=== PATIENT | male | born 1950 | race Caucasian/White ===

== ENCOUNTER → 2016-06-17 | Outpatient (REF) | payer OTHER ==
[~2016-06-17] MED LIST: /OMEP10CA; ACET-654 PO; ACET50TAOT PO; ALBU17IN INH; ALEV220T26 PO; AMLO10TA2 PO; ASPI1TAB PO; ASPI325T PO; ASPI81TA90 PO; ASPI81TAEC PO; AUGM875T27 PO; BABY81CH; BAYE325T12 PO; BUSP15TA; BUSP15TA47 PO; BYDU1INJ SC; CELE100C; COLA100C PO; DOCU100C PO; EUCECRE3 TOP; FAMO1TAB25 PO; FENO160T10 PO; FERR325T PO; FISH1000 PO; FISH100049 PO; FISHCAP; FLEXERIL; FLOM5CAP PO; FOSI20TA2 PO; FOSI40TA PO; FURO20TA2 PO; GABA300T; GLIM2TA PO; GLIM4TAB PO; GLUC4CHW PO; GLYB2.5T PO; GLYBURIDE/METFORMIN; HEPA100PFS INJ; IMOD2TAB14 PO; INSUH10VL SC; INSULANT; INSULANT SC; IRON65TA PO; ISOS30TA4 PO; LIPI20TA; LOVA40TA; LOVA40TA PO; LYRI75CA PO; MAG400TA PO; MAGN400T5 PO; METF-414 PO; METF1000 PO; METO25TA2; METO25TA2 PO; MICR10CA PO; MULTTAB4 PO; NAFC2VLAD IM; NAFC2VLAD IV; NITR4TASL SL; NORV5TAB PO; NOVOLOG100 MG/ML; OMEP20CA3 PO; OXYC1TAB23 PO; PARO20TA2 PO; PAXI20TA; PAXI20TA3 PO; PEG1POW PO; PERC5TAB6 PO; PERCOCET PO; PLAV75TA PO; POTA10CA PO; POTA20TA PO; RIFA150C PO; RIFA30CA PO; ROCE1INJ4 IV; ROSI4TA; SALI0.9I2 IV; SODI1TA PO; THERGRAN; TOPR25TA PO; TYLE325T5 PO; VITA100L PO; VITMTA PO; XARE10TA PO; [UNRECOGNIZED DRUG - CODE]; [UNRECOGNIZED DRUG - OTHER]; flomax OR; lantus insulin SC; novolog insulin SC; tylenol arthritis OR
== END ==
LOC: EEVIPCON 09:09 → M LAB REF 09:09
PROVIDERS: ATTEND Physician Assistant
DX: L03.114 Cellulitis of left upper limb (principal)

== ENCOUNTER → 2016-07-04 | Outpatient (REF) | payer OTHER ==
[~2016-07-04] MED LIST changes: -IMOD2TAB14 PO; +IMOD2TAB16 PO; -PLAV75TA PO; +PLAV75TA38 PO
[2016-07-04 19:03] LABS: PERCENT SATURATION 12.7 % (19.7-37.4)
== END ==
LOC: M LAB REF 16:50
PROVIDERS: ATTEND Internal Medicine Nephrology
DX: D50.9 Iron deficiency anemia, unspecified (principal); D63.1 Anemia in chronic kidney disease

== ENCOUNTER 2016-07-16 08:16 | Outpatient (CLI) | payer OTHER ==
[~2016-07-16] VITALS: Ht 162.6 cm; Wt 84.5 kg
[2016-07-16] MEDS ORDERED: IRON SUCROSE 25 MG in NS 50 ML IV ONE (09:00)
[2016-07-16] MEDS ORDERED: IRON SUCROSE 475 MG in NS 250 ML IV ONE (10:00)
== END 2016-07-16 13:10 | disposition home or self-care (01) ==
LOC: M INFU 08:16
PROVIDERS: ATTEND Internal Medicine Nephrology
DX: D50.9 Iron deficiency anemia, unspecified (principal); Z79.899 Other long term (current) drug therapy; Z79.4 Long term (current) use of insulin; Z79.84 Long term (current) use of oral hypoglycemic drugs; Z79.891 Long term (current) use of opiate analgesic
CPT/HCPCS: 96365; 96366; J1756

== ENCOUNTER → 2017-01-31 | Outpatient (CLI) | payer OTHER ==
[~2017-01-31] MED LIST changes: -ACET-654 PO; +ACET1TAB17 PO; +ACET50TA PO; +ASPI81TA85 PO; -AUGM875T27 PO; +AUGM875T28 PO; +CLOP75TA2 PO; -COLA100C PO; +COLA100C5 PO; +CORE3.12 PO; -DOCU100C PO; +DOCU100C16 PO; +FERR1TAB8 PO; -FERR325T PO; +LOSA25TA8 PO; -METF1000 PO; +METF10004 PO; +ONDA4VLL IV; +PAXI20TA29 PO; -PAXI20TA3 PO; +PERC5TAB12 PO; -PERC5TAB6 PO; +PLAV1TAB2 PO; -PLAV75TA38 PO; +RANI15TA PO; +ZYRT10CA PO
[2017-01-31 17:51] LABS: ANION GAP 7 MEQ/L (8-16); BLOOD UREA NITROGEN 13 MG/DL (7-18); CALCIUM LEVEL 8.9 MG/DL (8.8-10.2); CARBON DIOXIDE LEVEL 28 MEQ/L (21-32); CHLORIDE LEVEL 107 MEQ/L (98-107); CREATININE FOR GFR 0.89 MG/DL (0.70-1.30); GLOMERULAR FILTRATION RATE > 60.0 (>49); GLUCOSE, FASTING 151 MG/DL (80-110); POTASSIUM SERUM 4.7 MEQ/L (3.5-5.1); SODIUM LEVEL 142 MEQ/L (136-145)
== END ==
LOC: M WUC 16:12
PROVIDERS: ATTEND Ophthalmology
DX: H02.132 Senile ectropion of right lower eyelid (principal)

== ENCOUNTER → 2017-03-13 | Outpatient (REF) | payer OTHER ==
[2017-03-13 13:20] LABS: ANION GAP 9 MEQ/L (8-16); BLOOD UREA NITROGEN 17 MG/DL (7-18); CALCIUM LEVEL 8.5 MG/DL (8.8-10.2); CARBON DIOXIDE LEVEL 26 MEQ/L (21-32); CHLORIDE LEVEL 101 MEQ/L (98-107); CREATININE FOR GFR 0.91 MG/DL (0.70-1.30); GLOMERULAR FILTRATION RATE > 60.0 (>49); GLUCOSE, FASTING 262 MG/DL (80-110); POTASSIUM SERUM 4.3 MEQ/L (3.5-5.1); SODIUM LEVEL 136 MEQ/L (136-145)
== END ==
LOC: M LABDRAW1 11:38
PROVIDERS: ATTEND Ophthalmology
DX: H02.13 Senile ectropion of eyelid (principal)

== ENCOUNTER → 2017-03-20 | Outpatient (REF) | payer OTHER ==
[2017-03-20 16:48] LABS: FREE T4 1.11 NG/DL (0.76-1.46)
[2017-03-20 18:27] LABS: BASO # 0.1 10^3/uL (0.0-0.2); BASO % 0.7 % (0.0-1.0); EOS # 0.3 10^3/uL (0.0-0.50); IMMATURE GRANULOCYTE % 0.4 % (0-0); LYMPH # 2.1 10^3/uL (1.5-4.5); LYMPH % 25.9 % (24.0-44.0); MEAN CORPUSCULAR HEMOGLOBIN 29.5 pg (27.0-33.0); MEAN CORPUSCULAR HGB CONC 33.3 g/dl (32.0-36.5); MEAN CORPUSCULAR VOLUME 88.6 fl (80.0-96.0); MONO # 0.7 10^3/uL (0.0-0.8); PLATELET COUNT, AUTOMATED 219 10^3/uL (150-450); RED CELL DISTRIBUTION WIDTH 14.1 % (11.5-14.5); WHITE BLOOD COUNT 8.3 10^3/uL (4.0-10.0)
== END ==
LOC: M LABDRAW1 13:03
PROVIDERS: ATTEND Physician Assistant Medical
DX: R19.7 Diarrhea, unspecified (principal)

== ENCOUNTER → 2017-03-20 | Outpatient (REF) | payer OTHER | LOC: M LABDRAW1 14:29 | PROVIDERS: ATTEND Physician Assistant Medical | DX: R19.7 Diarrhea, unspecified (principal) ==

== ENCOUNTER → 2017-03-21 | Outpatient (CLI) | payer OTHER ==
[~2017-03-21] MED LIST changes: +E-Z-PAQUE 96% w/w SUSP 176GM BTL As Ordered ONE
--- NOTE | 2017-03-21 17:16 | REP ---
Small bowel follow-through The procedure was performed under the direct supervision of Dr. Chavira. The images were reviewed with Dr. Chavira. The cashier receptionist film shows no organomegaly or pathological masses. The intestinal gas pattern is nonspecific. Liquid barium was administered and the barium column was followed through the small bowel to the level of the terminal ileum. Small bowel transit time is approximately 4 hours and 25 minutes. During fluoroscopy gentle palpation shows all loops are freely movable and pliable. There are no fixed or angulated loops. The small bowel mucosal pattern is normal in course and caliber. There is no transition to suggest a partial small bowel obstruction. Spot filming of the terminal ileum shows it to be unremarkable. Impression: Small bowel follow-through examination within normal limits. 1 minute and 22 seconds of fluoro time was utilized for this procedure. Reviewed by GINI Galvez 03/21/2017 04:41 PSigned by Jd Chavira MD 03/21/2017 05:07 P
== END ==
LOC: M RAD 08:17
PROVIDERS: ATTEND Physician Assistant Medical
DX: R19.7 Diarrhea, unspecified (principal)

== ENCOUNTER → 2017-03-27 | Outpatient (REF) | payer OTHER ==
[~2017-03-27] MED LIST changes: -E-Z-PAQUE 96% w/w SUSP 176GM BTL As Ordered ONE
== END ==
LOC: M LABDRAW1 09:15
PROVIDERS: ATTEND Physician Assistant Medical
DX: E83.42 Hypomagnesemia (principal); R19.7 Diarrhea, unspecified

== ENCOUNTER 2017-03-29 09:23 | Day surgery (SDC) | payer OTHER ==
[~2017-03-29] VITALS: Ht 162.6 cm; Wt 87.0 kg
[~2017-03-29 09:23] MED LIST changes: -ACET50TA PO; -CLOP75TA2 PO; -ONDA4VLL IV
[2017-03-29] MEDS ORDERED: NS 1,000 ML IV SCH (10:00)
[2017-03-29] MEDS ORDERED: PROPOFOL 200 MG/20 ML VIAL As Ordered ONE (10:43)
[2017-03-29] MEDS ORDERED: LIDOCAINE 2% INJ 100 MG/5 ML SDV (FOR ANES.) As Ordered ONE (10:43)
--- NOTE | 2017-03-29 10:51 | ROOR ---
Patient Name: Aneesh Wiggins Procedure Date: 03/29/2017 10:36 AM Date of : 1950 Age: 66 Room: [facility] Gender: Male Note Status: Finalized Procedure: Upper GI endoscopy Indications: Heartburn Providers: Stan MCARTHUR MD Referring MD: MARLENE WILCOX MD Requesting Provider: Medicines: Monitored Anesthesia Care Complications: No immediate complications. Procedure: Pre-Anesthesia Assessment: - The heart rate, respiratory rate, oxygen saturations, blood pressure, adequacy of pulmonary ventilation, and response to care were monitored throughout the procedure. The Endoscope was introduced through the mouth, and advanced to the second part of duodenum. The upper GI endoscopy was accomplished without difficulty. The patient tolerated the procedure well. Findings: Very small (insignificant) Hiatal Hernia. The esophagus was normal. The stomach was normal. The examined duodenum was normal. Impression: - Normal esophagus. - Normal stomach. Very small (insignificant) Hiatal Hernia. - Normal examined duodenum. - No specimens collected. Recommendation: - Follow an antireflux regimen indefinitely. Stan Mcarthur MD Stan MCARTHUR MD 03/29/2017 10:51:09 AM This report has been signed electronically. Number of Addenda: 0 Note Initiated On: 03/29/2017 10:36 AM Estimated Blood Loss: Estimated blood loss: none.
--- NOTE | 2017-03-29 11:11 | ROOR ---
Patient Name: Aneesh Wiggins Procedure Date: 03/29/2017 10:36 AM Date of : 1950 Age: 66 Room: [facility] Gender: Male Note Status: Finalized Procedure: Colonoscopy Indications: Chronic diarrhea Providers: Stan MCARTHUR MD Referring MD: MARLENE WILCOX MD Requesting Provider: Medicines: Monitored Anesthesia Care Complications: No immediate complications. Procedure: Pre-Anesthesia Assessment: - The heart rate, respiratory rate, oxygen saturations, blood pressure, adequacy of pulmonary ventilation, and response to care were monitored throughout the procedure. The Colonoscope was introduced through the anus and advanced to 10 cm into the ileum. The colonoscopy was performed without difficulty. The patient tolerated the procedure well. The quality of the bowel preparation was good. Findings: The perianal and digital rectal examinations were normal. Two sessile polyps were found in the cecum and ileocecal valve. The polyps were 3 to 5 mm in size. These polyps were removed with a cold snare. Resection and retrieval were complete. The exam was otherwise normal throughout the examined colon. Biopsies for histology were taken with a cold forceps from the entire colon for evaluation of microscopic colitis. Internal hemorrhoids were found during retroflexion. The hemorrhoids were medium-sized. Anal papilla(e) were hypertrophied. The terminal ileum appeared normal. Impression: - Two 3 to 5 mm polyps in the cecum and at the ileocecal valve, removed with a cold snare. Resected and retrieved. - Internal hemorrhoids. Anal papilla(e) were hypertrophied. - The colon is otherwise normal. -The examined portion of the ileum was normal. - Biopsies were taken with a cold forceps from the entire colon for evaluation of microscopic colitis. Recommendation: - Telephone endoscopist for pathology results in 2 weeks. - If the pathology report reveals adenomatous tissue, then repeat the colonoscopy for surveillance in 3 years. Stan Mcarthur MD Stan MCARTHUR MD 03/29/2017 11:10:31 AM This report has been signed electronically. Number of Addenda: 0 Note Initiated On: 03/29/2017 10:36 AM Estimated Blood Loss: Estimated blood loss: none.
[2017-03-29 11:30] VITALS: BP 156/80
== END 2017-03-29 11:39 ==
LOC: M OPP 09:23
PROVIDERS: ATTEND Internal Medicine Gastroenterology
DX: D12.0 Benign neoplasm of cecum (principal); K64.8 Other hemorrhoids; K62.89 Other specified diseases of anus and rectum; R12 Heartburn; K44.9 Diaphragmatic hernia without obstruction or gangrene; I12.9 Hypertensive chronic kidney disease with stage 1 through stage 4 chronic kidney disease, or unspecified chronic kidney disease; J44.9 Chronic obstructive pulmonary disease, unspecified; E10.9 Type 1 diabetes mellitus without complications; N18.2 Chronic kidney disease, stage 2 (mild); G47.30 Sleep apnea, unspecified; E78.00 Pure hypercholesterolemia, unspecified; M19.90 Unspecified osteoarthritis, unspecified site; N40.0 Benign prostatic hyperplasia without lower urinary tract symptoms; F41.9 Anxiety disorder, unspecified; Z79.4 Long term (current) use of insulin; Z79.82 Long term (current) use of aspirin; Z79.899 Other long term (current) drug therapy; Z79.84 Long term (current) use of oral hypoglycemic drugs; Z95.5 Presence of coronary angioplasty implant and graft

== ENCOUNTER 2017-04-03 13:18 | Observation (INO) | payer OTHER ==
[~2017-04-03] VITALS: Ht 162.6 cm; Wt 89.4 kg
--- NOTE | 2017-04-03 14:31 | REP ---
CT of the brain without IV contrast: There is no hemorrhage. There is no edema, mass effect or midline shift. The cortical stripe is unremarkable. The ventricles and sulci are mildly dilated, unchanged, compatible with diffuse volume loss. Impression: There is no hemorrhage, acute infarct or mass. There is diffuse volume loss, unchanged. Signed by Mukesh Crabtree MD 04/03/2017 02:23 P
[2017-04-03 14:32] LABS: ANION GAP 6 MEQ/L (8-16); BLOOD UREA NITROGEN 15 MG/DL (7-18); CALCIUM LEVEL 9.1 MG/DL (8.8-10.2); CARBON DIOXIDE LEVEL 26 MEQ/L (21-32); CHLORIDE LEVEL 105 MEQ/L (98-107); CREATININE FOR GFR 0.96 MG/DL (0.70-1.30); GLOMERULAR FILTRATION RATE > 60.0 (>49); GLUCOSE, FASTING 171 MG/DL (80-110); POTASSIUM SERUM 4.6 MEQ/L (3.5-5.1); SODIUM LEVEL 137 MEQ/L (136-145)
--- NOTE | 2017-04-03 14:34 | REP ---
Portable chest, 02:04 p.m., comparison is 10/10/2015. The lung glass are clear. The cardiac size is normal. The erik, mediastinum, and bony thorax are unremarkable. Impression: Negative portable chest. Signed by Mukesh Crabtree MD 04/03/2017 02:26 P
[2017-04-03 14:52] LABS: INR 0.99
[2017-04-03 15:15] LABS: BASO # 0.1 10^3/uL (0.0-0.2); BASO % 0.5 % (0.0-1.0); EOS # 0.2 10^3/uL (0.0-0.50); EOS % 2.1 % (0.0-3.0); IMMATURE GRANULOCYTE % 0.4 % (0-0); LYMPH # 2.5 10^3/uL (1.5-4.5); LYMPH % 24.9 % (24.0-44.0); MEAN CORPUSCULAR HEMOGLOBIN 29.2 pg (27.0-33.0); MEAN CORPUSCULAR HGB CONC 33.5 g/dl (32.0-36.5); MEAN CORPUSCULAR VOLUME 87.1 fl (80.0-96.0); MONO % 10.5 % (0.0-5.0); NEUTROPHILS # 6.1 10^3/uL (1.8-7.7); NEUTROPHILS % 61.6 % (36.0-66.0); PLATELET COUNT, AUTOMATED 297 10^3/uL (150-450); RED CELL DISTRIBUTION WIDTH 13.3 % (11.5-14.5); WHITE BLOOD COUNT 9.9 10^3/uL (4.0-10.0)
[2017-04-03 15:44] LABS: ALBUMIN 3.2 GM/DL (3.2-5.2); ALBUMIN/GLOBULIN RATIO 1.07 (1.00-1.93); ALKALINE PHOSPHATASE 52 U/L (45-117); ALT/SGPT 24 U/L (12-78); AST/SGOT 16 U/L (15-37); BILIRUBIN,DIRECT < 0.1 MG/DL (0.0-0.2); BILIRUBIN,TOTAL 0.3 MG/DL (0.2-1.0); TOTAL PROTEIN 6.2 GM/DL (6.4-8.2)
[2017-04-03] MEDS ORDERED: GLUCOSE 4 GM CHEW TABLET PO PRN (16:00)
[2017-04-03] MEDS: MAGNESIUM OXIDE 400 MG TAB (MAG-OX) PO SCH (16:00)
[2017-04-03] MEDS ORDERED: DEXTROSE 50% 50 ML SYRINGE IV PRN (16:00)
[2017-04-03] MEDS ORDERED: GLUCAGON FOR INJ 1 MG VIAL (J1610) SC PRN (16:00)
--- NOTE | 2017-04-03 16:02 | HPEPDOC ---
[facility] Medical History & Physical Date of Admission Apr 03, 2017 History and Physical ATTENDING: Dr. Lau PCP: Dr Vu CC: garbled speech and B/L UE weakness/paresthesia HPI: 66yoM who states he was eating at a restaurant in [place] with his . According to the patient and his when the food came he was having difficulty grasping silverware and noticed bilateral hand weakness. He also notes mild upper extremity numbness and tingling. Apparently symptoms began at approximately 12:40 AM. The cigarette making machine hopper feeder offered to summon EMS however patient and his declined and the began to drive him to the ED. At that time she also noted slurred speech. The patient was somewhat unsteady on his feet and generally reported not feeling well. He denies any headaches, blurred vision, diplopia, vertigo, or dysphagia. Symptoms lasted approximately 1 hour and then resolved. Patient feels as though he is back to his baseline. He denies any weakness, numbness, or tingling in lower extremities. He denies neck pain. He does not complain of low back pain. Denies any fevers, chills, weakness, fatigue, BORJA, CP, SOB, cough, palpitations, abdominal pain, N/V/D or changes in bowel or bladder habits. Upon presentation to the hospital the patient was found to have upper extremity weakness and paresthesia, thus the hospitalist team was consulted. PMHx: CAD/cardiac stent 4 Dr Escobedo. IDDM Hypertension Dyslipidemia COPD CONNOR/CPAP Chronic kidney disease stage III. Dr Pa. Anxiety Depression Allergic rhinitis BPH GERD Hypomagnesemia PSHX: Hernia repair Right total knee replacement and revision Right eyelid surgery 02/05/17, right eyelid biopsy/tear duct biopsy 03/26/17 EGD/Taylor 03/29/17 Reindl. SOCHX: Resides in: [facility] Marital Status: Kids: 3, 2 . Employment: Retired Tobacco use: Quit 30 years ago ETOH: Denies Illicit Drugs: Denies Recent travel: Denies Advanced directives: None FAMHX: Mother: , unknown Father: , unknown Siblings: 2 brothers, one sister Alive, diabetes, hypertension Children: One Alive, well. One son homicide, one daughter pancreatitis/ ROS: As noted in HPI, otherwise 11pt ROS of systems reviewed and remarkable only for urinary hesitancy, h/o BPH. PE: GEN: 66yoM, appears stated age. Well-nourished, well developed. No acute distress. Alert and oriented x 3. Pleasant, interactive. HEENT: Normocephalic, atraumatic. Pupils are equal, round, and reactive to light. Extraocular movements are intact. No nystagmus appreciated. Mild erythema is noted of the right eyelid, healing surgical scar is noted. Sclera are nonicteric. Conjunctiva without injection. Nose midline. Nasal turbinates without bogginess. EACs both patent BL. No facial asymmetry. Moist mucous membranes. Dentition fair. Pharynx pink and moist, no cobblestoning. Neck supple , trachea midline. No lymphadenopathy or thyromegaly appreciated. CHEST: Regular rate and rhythm, +S1, +S2 LUNGS: Clear to auscultation bilaterally. No wheezes, rales, or rhonchi. Breathing appears symmetric and easy. Patient is speaking in full sentences. No accessory muscle use. ABD: Round, soft, non-tender, non-distended. +Bowel sounds throughout. No rebound or guarding. No costovertebral angle tenderness. EXT: Pulses 2+ bilaterally dorsalis pedis and radial. No lower extremity edema appreciated. SKIN: [place], dry, warm. Capillary refill <2sec. No rashes. Healed surgical scar right knee. NEURO: Alert and oriented x 3. Cranial nerves III-XII are intact. No focal deficits appreciated. PCXR: Negative portable chest CT: Head There is no hemorrhage, acute infarct or mass. There is diffuse volume loss, unchanged. EKG: Sinus rhythm, possible lateral NC, IWMI, probable old, 65 bpm BLOOD CULTURES: pending UDS pending. Paxil level pending. CBC/CMP pending. A&P: 66yoM who states he was eating at a restaurant in [place] with his . According to the patient and his when the food came he was having difficulty grasping silverware and noticed bilateral hand weakness. He also notes mild upper extremity numbness and tingling. Apparently symptoms began at approximately 12:40 AM. The cigarette making machine hopper feeder offered to [facility] EMS however patient and his declined and the began to drive him to the ED. At that time she also noted slurred speech. The patient was somewhat unsteady on his feet and generally reported not feeling well. He denies any headaches, blurred vision, diplopia, vertigo, or dysphagia. Symptoms lasted approximately 1 hour and then resolved. Patient feels as though he is back to his baseline. 1. The patient will be admitted to PCU for at least [address] Lau's service. Pt is discussed with Dr Cope. 2. Generalized weakness/bilateral upper extremity paresthesia. MRI/MRA brain pending. MRI C spine. Carotid ultrasound pending. Request copy of TTE from cardiology. Request opinion from neurology, Dr Hawkins aware. . Blood cultures pending. 3. CAD/cardiac stent 4. Request serial CIP/troponin. 4. History of urinary hesitancy/BPH. Request UA/urine culture. 5. IDDM. CC diet, SSI, Lantus. Hold metformin. 6. Hypertension. BP 175-190 in ED. Med Rec pending at this time. 7. Dyslipidemia. Cont statin. 8. GERD. Cont H2 russ. 9. CONNOR. Continue CPAP. 10. Anxiety/depression. Paxil level pending. 11. BPH. Flomax. Bladder scans. UA/UC pending. DVT prophylaxis. MED REC PENDING AT THIS TIME The patient is a full code. Vital Signs Vital Signs Date Time Temp Pulse Resp B/P (MAP) Pulse Ox O2 Delivery O2 Flow Rate FiO2 04/03/17 14:37 04/03/17 13:19 98.7 70 16 97 Room Air Laboratory Data Labs 24H Laboratory Tests 2 04/03/17 13:46: Bedside Glucose (Misc Panel) 143H 04/03/17 13:48: Prothrombin Time 13.2, Prothromb Time International Ratio 0.99, Activated Partial Thromboplast Time 25.1L, Anion Gap 6L, Glomerular Filtration Rate > 60.0 , Blood Urea Nitrogen 15, Creatinine 0.96, Sodium Level 137, Potassium Level 4.6 , Chloride Level 105, Carbon Dioxide Level 26, Calcium Level 9.1, Total Creatine Kinase 86, Creatine Kinase MB 2.9, Creatine Kinase MB Relative Index 3.37, Troponin I 0.03 04/03/17 15:02: Immature Granulocyte % (Auto) 0.4H, White Blood Count 9.9, Red Blood Count 4.59 , Hemoglobin 13.4L, Hematocrit 40.0L, Mean Corpuscular Volume 87.1, Mean Corpuscular Hemoglobin 29.2, Mean Corpuscular Hemoglobin Concent 33.5, Red Cell Distribution Width 13.3, Platelet Count 297, Neutrophils (%) (Auto) 61.6, Lymphocytes (%) (Auto) 24.9, Monocytes (%) (Auto) 10.5H, Eosinophils (%) (Auto) 2.1, Basophils (%) (Auto) 0.5, Neutrophils # (Auto) 6.1, Lymphocytes # (Auto) 2.5, Monocytes # (Auto) 1.0H, Eosinophils # (Auto) 0.2, Basophils # (Auto) 0.1, Immature Granulocyte # (Auto) 0.0, Nucleated Red Blood Cells % (auto) 0.0 CBC/BMP Laboratory Tests 04/03/17 13:48 Calcium Level 9.1, Total Creatine Kinase 86 04/03/17 15:02 Red Blood Count 4.59, Mean Corpuscular Volume 87.1, Mean Corpuscular Hemoglobin 29.2, Mean Corpuscular Hemoglobin Concent 33.5, Red Cell Distribution Width 13.3 , Neutrophils (%) (Auto) 61.6, Lymphocytes (%) (Auto) 24.9, Monocytes (%) (Auto ) 10.5 H, Eosinophils (%) (Auto) 2.1, Basophils (%) (Auto) 0.5, Neutrophils # ( Auto) 6.1, Lymphocytes # (Auto) 2.5, Monocytes # (Auto) 1.0 H, Eosinophils # ( Auto) 0.2, Basophils # (Auto) 0.1 Home Medications Scheduled Aspirin (Aspir-81) 81 Mg Tab, 81 MG PO DAILY Carvedilol (Coreg) 3.125 Mg Tab, 3.125 MG PO DAILY Cetirizine HCl (Zyrtec Allergy) 10 Mg Cap, 10 MG PO DAILY Clopidogrel Bisulfate (Clopidogrel) 75 Mg Tab, 75 MG PO DAILY Exenatide (Bydureon) 2 Mg Inj, 2 MG SC 1XWK SATURDAY EVENINGS Ferrous Sulfate (Ferrous Sulfate) 325 Mg Tab, 325 MG PO BID Fish Oil (Fish Oil 1000 mg) 1 Cap Cap, 2 CAP PO DAILY Insulin Aspart (Novolog) 100 U/Ml Inj, 1 DOSE SC ACHS PER SLIDING SCALE Insulin Glargine (Lantus) 1 Units/0.01 Ml Susp, 40 UNITS SC BID Isosorbide Mononitrate (Isosorbide Mononitrate ER) 30 Mg Tab, 30 MG PO DAILY Losartan Potassium (Losartan Potassium) 25 Mg Tab, 25 MG PO DAILY Lovastatin (Lovastatin) 40 Mg Tab, 40 MG PO DAILY Magnesium Oxide (Magnesium Oxide 400) 400 Mg Tab, 1,200 MG PO TID Paroxetine Hydrochloride (Paxil) 20 Mg Tab, 20 MG PO DAILY Ranitidine Hcl (Zantac) 150 Mg Tab, 1 TAB PO BID Tamsulosin Hydrochloride (Flomax) 0.4 Mg Cap, 0.4 MG PO QHS Scheduled PRN Acetaminophen (Mapap) 500 Mg Tab, 1,000 MG PO Q6HP PRN for PAIN / FEVER Albuterol Sulfate (Ventolin Hfa) 200 Puff/8 Gm Aers, 2 PUFF INH QID PRN for SOB/ WHEEZING Ondansetron (Ondansetron HCl) 4 Mg/2 Ml Inj, 4 MG IV Q6HP PRN for NAUSEA OR VOMITING Allergies Coded Allergies: No Known Drug Allergy (Verified Allergy, Unknown, 03/27/17) Unclassified Drugs (Verified Adverse Reaction, Unknown, PPIs cause hypomagnesemia, 04/04/17) GME ATTESTATION My faculty preceptor for this patient encounter was physically present during the encounter and was fully available. All aspects of the patient interview, examination, medical decision making process, and medical care plan development were reviewed and approved by the faculty preceptor. The faculty preceptor is aware and concurs with the plan as stated in the body of this note and will attest to such by his/her cosignature. Allison Arreola Apr 03, 2017 16:02 PAT COPE DO Apr 23, 2017 18:45
[2017-04-03] MEDS ORDERED: ALBUTEROL 90 MCG/ACT 8GM HFA INHALER INH PRN (17:00)
[2017-04-03] MEDS: HumaLOG INSULIN (NovoLOG) PER UNIT SC SCH (17:30)
--- NOTE | 2017-04-03 17:41 | REP ---
MR angiography the brain without contrast: History: TIA evaluation. Bilateral weakness, confusion, bilateral upper extremity numbness. Technique: 3-D [id number] MR angiography of the brain is acquired in the usual fashion and maximal intensity projection images were generated in rotational format about the vertical and horizontal axes. In addition, source axial T1-weighted images are viewed in cine mode. MR angiographic findings: There is absence of flow in the right distal vertebral artery. The left distal vertebral artery appears patent. Basilar artery is unremarkable. The posterior cerebral and superior cerebellar vessels are normal and symmetric. The distal internal carotid arteries are unremarkable. Anterior and middle cerebral arteries appear intact. There is no visible daily aneurysm or arteriovenous malformation. Impression: Absence of flow signal in the distal vertebral artery on the right. Otherwise negative MR angiography of the brain. Signed by Jd Chavira MD 04/04/2017 01:16 P
--- NOTE | 2017-04-03 18:01 | REP ---
MRI BRAIN WITHOUT CONTRAST: TECHNIQUE: Sagittal and axial sequences were obtained. There is moderate atrophy with no midline shift. There are chronic periventricular small vessel ischemic changes of a mild degree. There is no evidence of acute infarct on diffusion weighted images. Brain stem and cerebellum are essentially unremarkable with old small vessel ischemic changes on the left. Brainstem is unremarkable. VII and VIII cranial nerve complexes are unremarkable. No abnormal signal is seen in the paranasal sinuses. IMPRESSION: Chronic atrophy and periventricular small vessel ischemic changes. No evidence of acute infarct. Signed by Mukesh Chao MD 04/03/2017 07:51 P
[2017-04-03] MEDS ORDERED: ASPIRIN 325 MG TAB As Ordered ONE (18:22)
[2017-04-03] MEDS ORDERED: ASPIRIN 325 MG TAB PO ONE (18:30)
--- NOTE | 2017-04-03 18:55 | REP ---
CAROTID ULTRASOUND: Real-time ultrasound evaluation and duplex Doppler interrogation of the extracranial carotid vasculature is performed. There is mild to moderate plaquing and narrowing in both carotid bulbs extending into the internal and external carotid arteries. Luminal narrowing is less than 50%. There is no evidence of hemodynamically significant stenosis of either internal carotid artery. Normal flow velocities are seen. The left vertebral artery demonstrates normal direction of flow. The right vertebral artery is not visualized. RIGHT LEFT Peak systolic velocity ICA 38.8 cm/s 88.4 cm/s End diastolic velocity ICA 9.1 cm/s 12.7 cm/s Peak systolic velocity CCA 76.9 cm/s 69.6 cm/s Peak systolic velocity ECA 215.8 cm/s 127.4 cm/s ICA/CCA ratio 0.68 1.22 IMPRESSION: Bilateral luminal narrowing of the internal carotid arteries less than 50%. No evidence of hemodynamically significant stenosis. Signed by Mukesh Chao MD 04/03/2017 06:46 P
--- NOTE | 2017-04-03 19:08 | REP ---
MRI CERVICAL SPINE: TECHNIQUE: Multiple sequences obtained in the axial and sagittal planes. Correlation made with prior plane films 10/03/2002. There is no compression fracture. There is mild retrolisthesis of C5 on C6 similar to the prior plane films. There is no bone marrow edema. There is diffuse loss of water signal and disc degeneration with mild disc space narrowing at C3-4, C4-5 and moderate narrowing at C5-6. The study is limited due to patient motion. No definite abnormal cord signal is seen. At C2-3, I do not see significant disc bulging or herniation. There is no spinal stenosis or neural foraminal narrowing. At the C3-4, there is severe right paracentral diffuse disc bulging and uncovertebral spurring. This severely encroaches upon the spinal canal and compresses the cord predominantly on the right side with severe spinal stenosis. There is also severe right-sided foraminal narrowing. Similarly at C4-5, there is severe right-sided diffuse disc bulging and uncovertebral spurring which severely compresses the right side of the cord and causes severe spinal stenosis predominantly on the right side. There is also severe right-sided foraminal narrowing. At C5-6, there is moderate diffuse disc bulging with a central disc protrusion. There is also uncovertebral spurring. There is moderate spinal stenosis and anterior cord compression. There is moderate bilateral foraminal narrowing. At C6-7, there is relatively mild diffuse disc bulging and uncovertebral spurring. There is no significant spinal stenosis. There is no significant foraminal narrowing. IMPRESSION: At C3-4 and C4-5, there is severe right paracentral disc bulging and uncovertebral spurring causing severe spinal stenosis and compression of the cord on the right, displacing the cord to the left. There is also severe right sided foraminal narrowing at these levels. At C5-6, there is moderate diffuse disc bulging and uncovertebral spurring with superimposed central disc protrusion. There is moderate spinal stenosis and anterior cord compression. There is moderate bilateral foraminal narrowing as well. Signed by Mukesh Chao MD 04/03/2017 07:52 P
[2017-04-03] MEDS ORDERED: HumaLOG INSULIN (NovoLOG) PER UNIT SC SCH (21:00)
[2017-04-03] MEDS ORDERED: TAMSULOSIN 0.4 MG CAP PO SCH (21:00)
[2017-04-03 22:50] VITALS: BP 193/89
[2017-04-04] MEDS ORDERED: SLF 3 ML SYR IV PRN (00:30)
[2017-04-04] MEDS: MAGNESIUM OXIDE 400 MG TAB (MAG-OX) PO SCH ×4 (00:41→16:32)
[2017-04-04] MEDS: PANTOPRAZOLE 40MG TAB (PROTONIX) PO SCH ×2 (00:41→08:49)
[2017-04-04] MEDS: FERROUS SULFATE 325MG TAB PO SCH ×2 (00:41→08:50)
[2017-04-04] MEDS: LEVEMIR (INSULIN DETEMIR) 1 UNITS/0.01ML SC SCH ×2 (00:42→08:49)
[2017-04-04 04:00] VITALS: BP 135/62
[2017-04-04] MEDS: SLF 3 ML SYR IV SCH ×2 (05:06→12:29)
[2017-04-04 05:31] LABS: BASO % 0.5 % (0.0-1.0); EOS # 0.2 10^3/uL (0.0-0.50); EOS % 2.6 % (0.0-3.0); IMMATURE GRANULOCYTE % 0.1 % (0-0); LYMPH # 2.3 10^3/uL (1.5-4.5); LYMPH % 29.8 % (24.0-44.0); MEAN CORPUSCULAR HEMOGLOBIN 29.4 pg (27.0-33.0); MEAN CORPUSCULAR HGB CONC 33.2 g/dl (32.0-36.5); MEAN CORPUSCULAR VOLUME 88.7 fl (80.0-96.0); MONO # 0.8 10^3/uL (0.0-0.8); MONO % 10.8 % (0.0-5.0); NEUTROPHILS # 4.4 10^3/uL (1.8-7.7); NEUTROPHILS % 56.2 % (36.0-66.0); PLATELET COUNT, AUTOMATED 274 10^3/uL (150-450); RED CELL DISTRIBUTION WIDTH 13.2 % (11.5-14.5); WHITE BLOOD COUNT 7.8 10^3/uL (4.0-10.0)
[2017-04-04 05:50] LABS: ALBUMIN/GLOBULIN RATIO 0.91 (1.00-1.93); ALKALINE PHOSPHATASE 47 U/L (45-117); ALT/SGPT 22 U/L (12-78); ANION GAP 7 MEQ/L (8-16); AST/SGOT 10 U/L (15-37); BILIRUBIN,TOTAL 0.3 MG/DL (0.2-1.0); BLOOD UREA NITROGEN 17 MG/DL (7-18); CALCIUM LEVEL 9.1 MG/DL (8.8-10.2); CARBON DIOXIDE LEVEL 29 MEQ/L (21-32); CHLORIDE LEVEL 104 MEQ/L (98-107); CHOLESTEROL LEVEL 156 MG/DL (<200); CREATININE FOR GFR 0.91 MG/DL (0.70-1.30); GLOMERULAR FILTRATION RATE > 60.0 (>49); GLUCOSE, FASTING 285 MG/DL (80-110); POTASSIUM SERUM 4.2 MEQ/L (3.5-5.1); SODIUM LEVEL 140 MEQ/L (136-145); TOTAL PROTEIN 6.3 GM/DL (6.4-8.2); TRIGLYCERIDES LEVEL 340 MG/DL (<150)
[2017-04-04 08:00] VITALS: BP 160/80
[2017-04-04] MEDS: HumaLOG INSULIN (NovoLOG) PER UNIT SC SCH ×3 (08:49→16:33)
[2017-04-04] MEDS ORDERED: LOSARTAN 25 MG TAB PO SCH (09:00)
[2017-04-04] MEDS ORDERED: ISOSORBIDE MON. (IMDUR) 30 MG XR TAB PO SCH (09:00)
[2017-04-04] MEDS ORDERED: SIMVASTATIN 40 MG TAB PO SCH (09:00)
[2017-04-04] MEDS ORDERED: CARVedilol 3.125 MG TAB PO SCH (09:00)
[2017-04-04] MEDS ORDERED: ASPIRIN 81 MG ENTERIC TAB PO SCH (09:00)
[2017-04-04] MEDS ORDERED: raNITIdine SYRUP 150 MG/10 ML UDC PO SCH (09:00)
[2017-04-04] MEDS ORDERED: CETIRIZINE (ZyrTEC) 10 MG TAB PO SCH (09:00)
[2017-04-04] MEDS ORDERED: PARoxetine 20 MG TAB PO SCH (09:00)
--- NOTE | 2017-04-04 09:05 | CR ---
DATE OF CONSULTATION: 04/04/2017 REASON FOR CONSULTATION: Suspected transient ischemic attack (TIA). The patient is a 66-year-old right-handed male with a past medical history significant for coronary artery disease status post four cardiac stents, insulin-dependent diabetes, hypertension, dyslipidemia, chronic obstructive pulmonary disease (COPD), obstructive sleep apnea, chronic kidney disease, currently on 81 mg aspirin therapy, presented to [facility] with sudden onset of right hand clumsiness, numbness and weakness. The patient states this occurred in the early afternoon. When the patient arrived to the [facility] emergency department he was experiencing significant Broca's aphasia. This aphasia then lead into a receptive aphasia. The patient became acutely confused, could not follow commands. He went for a head CT, which was ruled out negative for any intracranial bleed. The patient then returned back with resolution of symptoms. He states that at baseline he has left-sided numbness of his hand. He does have baseline weakness in his legs as well. He was noted to have significant difficulty ambulating, requiring two people to assist. Based on the above findings, the patient was recommended to have an MRI of the brain, MR angiogram of the head. MR angiogram of the brain revealed right vertebral artery occlusion without any acute finding of stroke. MRI of the cervical spine was recommended. It was found that the patient had significant spinal stenosis with cord compression at multiple sites without cord signal changes. It was recommended that Dr. Miguel Soto be involved from orthopedics. The patient was given an elevated dose of aspirin 325 mg every day starting in the emergency department. PAST MEDICAL HISTORY 1. Coronary artery disease status post four stents. 2. Insulin-dependent diabetes mellitus. 3. Hypertension. 4. Dyslipidemia. 5. COPD. 6. Obstructive sleep apnea (CONNOR), CPAP. 7. Chronic kidney disease stage III. 8. Anxiety, depression. 9. Allergic rhinitis. 10. Benign prostatic hypertrophy (BPH). 11. Gastroesophageal reflux disease (GERD). 12. Hypomagnesemia. PAST SURGICAL HISTORY: 1. Hernia repair. 2. Right total knee replacement and revision. 3. Right eyelid surgery 02/05/2017. 4. Right eyelid biopsy 03/26/2017. SOCIAL HISTORY: The patient quit tobacco 30 years ago. Denies use of any alcohol or illicit drugs. FAMILY HISTORY: Noncontributory. REVIEW OF SYSTEMS: 14-point review of systems negative except as per history of present illness. PHYSICAL EXAMINATION Blood pressure is 168/82, pulse rate 70, respiratory rate is 16, oxygenation 97% on room air. The patient is awake, alert, oriented to person, place and time. Speech, language, comprehension are intact. The patient does not demonstrate any signs of the aphasia or dysarthria at the present moment. Sensation V1, V2-V3 of the face is intact to light touch. No facial asymmetry to activation. Palate elevates symmetrically. Tongue is midline. No weakness of sternocleidomastoids bilaterally. There is presence of pronator drift of the right upper extremity with cold shoulder injury and discomfort when holding his arm up. NIH stroke scale is 0 presently. Coordination: Normal [id number] without any signs of ataxia. Normal [id number] without any signs of ataxia. Sensory is intact to light touch and temperature. Strength is 5/5 in bilateral upper and lower extremities with the patient having pain when testing the right deltoid. Romberg testing deferred. Gait deferred. ASSESSMENT: Suspect transient ischemic attack (TIA) in the right MCA territory with right upper extremity weakness, numbness, along with aphasia with episode of confusion, possibly worsening aphasia versus complex partial seizure. PLAN: Recommend stroke workup including MRI brain, MR angiogram head, MR angiogram carotids, echocardiogram, MRI cervical spine without contrast. Rule out cervical myelopathy. Continuation of elevated dose of aspirin 325 mg by mouth daily, statin by mouth daily. Check TSH, hemoglobin A1c, fasting lipid panel. Due to MRI findings of cervical cord compression, recommend involving Dr. Miguel Soto from orthopedic spine surgery for evaluation and management. Followup CT. Physical therapy (PT) and occupational therapy (OT). History obtained from the patient and the patient's .
--- NOTE | 2017-04-04 10:29 | ECGEPIP ---
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
[2017-04-04 12:00] VITALS: BP 194/86
[2017-04-04] MEDS ORDERED: ONDANSETRON 4MG/2ML VIAL (J2405) IV PRN (12:30)
[2017-04-04] MEDS ORDERED: ACETAMINOPHEN 500 MG TAB PO PRN (12:45)
[2017-04-04] MEDS ORDERED: CLOPIDOGREL 75 MG TAB PO ONE (13:00)
[2017-04-04] MEDS ORDERED: KETOROLAC 30 MG/ML VIAL (J1885) IV ONE (15:00)
[2017-04-04] MEDS ORDERED: METOCLOPRAMIDE INJ 10MG/2ML VIAL (J2765) IV ONE (15:00)
[2017-04-04 16:00] VITALS: BP 188/90
[2017-04-04] MEDS ORDERED: ACET50TA PO (16:50)
[2017-04-04] MEDS ORDERED: CLOP75TA2 PO (16:50)
[2017-04-04] MEDS ORDERED: ONDA4VLL IV (16:50)
[2017-04-04] MEDS ORDERED: cloNIDine 0.1 MG TAB PO ONE (17:00)
[2017-04-04 17:40] VITALS: BP 188/90
--- NOTE | 2017-04-04 18:06 | DSES ---
DATE OF ADMISSION: 04/03/2017 DATE OF DISCHARGE: 04/04/2017 DISCHARGE DIAGNOSES: 1. Severe cervical canal stenosis with cervical cord compression at the level of C2-C3, C3-C4 and C4-C5 levels. 2. Intermittent slurring of speech, questionable transient ischemic attack (TIA) , being worked up. Patient had a brain MRI and an MRA, which are negative. 3. 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 Needs to be further investigated. 4. Diabetes. 5. Hypertension. 6. Coronary artery disease with history of stents in the past. 7. Hyperlipidemia. 8. Chronic obstructive pulmonary disease (COPD), not on any oxygen. 9. Obstructive sleep apnea (CONNOR), used continuous positive airway pressure (CPAP). 10. Anxiety and depression. 11. BPH. 12. Gastroesophageal reflux disease (GERD). 13. Hypomagnesemia. Thought to be related to proton pump inhibitor (PPI). Patient should not be on any PPIs. 14. Allergic rhinitis. 15. History of infection of right total knee arthroplasty with methicillin-sensitive Staphylococcus aureus (MSSA) bacteremia. 16. History of Methicillin-resistant Staphylococcus aureus (MRSA) infection of the hand in June 2016. DISCHARGE MEDICATIONS: - Tylenol 1000 mg by mouth every 6 hours as needed for pain or fever - albuterol two puff inhalation four times a day as needed for shortness of breath - aspirin 81 mg daily - Plavix 75 mg daily - Coreg 3.125 mg daily - cetirizine 10 mg daily - ferrous sulfate 325 mg twice a day - insulin Levemir 40 units twice a day - Lispro insulin as per sliding scale - isosorbide mononitrate 30 mg by mouth daily - Losartan 25 mg by mouth daily - magnesium oxide 1200 mg by mouth three times a day - Zofran 4 mg IV every 6 hours as needed for nausea - ranitidine 150 mg by mouth twice a day - paroxetine 20 mg by mouth daily - simvastatin 40 mg by mouth daily - Flomax 0.4 mg by mouth at bedtime HISTORY OF THE PRESENT ILLNESS: This is a 66-year-old male with multiple medical comorbidities who presented yesterday to our emergency room with acute onset weakness and numbness of both the upper extremities, as well as weakness of both the lower extremities. 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 When he stood up to walk out of the restaurant, he felt his legs were very weak, and he was wobbling all over the place, so he was brought to the emergency room by his . His , at that episode, also noticed some slurring of speech and possible confusion. He was initially being worked up as a TIA. His symptoms lasted about an hour and after that resolved. The patient had a brain MRI and an MRA done. MRI did not show any acute stroke. MRA did not show any vascular abnormalities in the brain except it did show absence of flow signal in the distal part of the right vertebral artery. The patient also had a cervical spine MRI done, which showed severe spinal canal stenosis of the C3-C4 level with cervical spinal cord compression from the right displacing the cord to the left. There was also severe right-sided foraminal narrowing. There was also severe cervical canal stenosis and cervical spinal cord compression at C4-C5 level. There was moderate disc bulging, uncovertebral spurring with superimposed central disc protrusion and moderate spinal stenosis, and anterior cord compression at C5-C6 level. There was also moderate bilateral foraminal narrowing. The patient also had another episode of slurring of speech and confusion this morning, which also lasted about 45 minutes to 1 hour. Unfortunately, the patient's orthopedic spine surgeon is not going to be available for the next few days, so the patient was placed for transfer to a higher level of care. The patient was accepted by [facility] and is going to be transferred there for management of advanced cervical spinal stenosis as well as cervical spinal cord compression. PHYSICAL EXAMINATION: VITAL SIGNS: Temperature 97.8, pulse 65, respiratory rate 20, blood pressure 146/56, pulse oximetry 92% in room air. GENERAL: Patient is awake, alert, oriented times three, lying down in bed in no acute distress. HEENT: Normocephalic, atraumatic. Moist mucous membranes. Anicteric eyes. CHEST: Clear to auscultation. CARDIOVASCULAR: S1, S2, regular. No rub, murmur or gallop. ABDOMEN: Obese, soft, nontender. Bowel sounds present. EXTREMITIES: No edema. LABORATORY DATA: WBC 7.8, hemoglobin 13.3, platelets 274. Sodium 137, potassium 4.6, chloride 105, bicarbonate 26, BUN 15, creatinine 0.9, A1c 8.5, calcium 9.1. Liver function tests are normal. Coagulation studies are normal. Hepatitis B, C, and IgM A are negative. Past investigations showed that the patient had a transesophageal echocardiogram (JOHN) done in 2014 for MSSA bacteremia, which showed no vegetations on the cardiac valves. There was mitral valve prolapse with a loose chordae but no flail segments. Moderate mitral regurgitation. No broken chordae. Mild aortic valve sclerosis with mild aortic valve regurgitation. Normal tricuspid leaflets. Moderate tricuspid regurgitation. Normal left ventricular and right ventricular systolic function. Ejection fraction was 65%. DISPOSITION: Patient is transferred to [facility] for further investigation and management. [facility]
--- NOTE | 2017-04-04 18:11 | EEG ---
DATE OF PROCEDURE: 04/04/2017 REFERRING PHYSICIAN: Dr. Cyndy Lau DIAGNOSIS: Confusion. EEG NUMBER: [id number] HISTORY: Patient is a 66-year-old man who was admitted at due to episode of bilateral weakness and numbness of upper extremities with slurred speech. He also had unsteady gait. This EEG was done to rule out epileptic potential. He is currently taking aspirin, carvedilol, cetirizine, ferrous sulfate, losartan, Paxil, Protonix, simvastatin, Flomax, etc. TECHNICAL DESCRIPTION: This digital EEG was recorded by 21 scalp, ear and two EKG electrodes and was reviewed in bipolar and referential montages following reformatting in 10-20 international electrode placement system. INTERPRETATION: The patient was noted to be in awake and drowsy states during this EEG. Resting awake background rhythm consisted of well-formed posterior dominant rhythm with anterior/posterior gradient comprising of 10 Hz alpha activity measuring 15-40 microvolts in amplitude, which was symmetric and reactive to eye opening. Attenuation of posterior dominant rhythm was seen during transition into drowsiness. Stage I and II sleep were reviewed and were symmetric bilaterally. Hyperventilation and photic stimulation remained unremarkable. EKG revealed normal sinus rhythm. No focal, lateralizing or epileptiform abnormalities were seen. No clinical or electrographic seizures were recorded. CONCLUSION: This EEG in awake, drowsy states, stage I and II sleep is within normal limits.
[2017-04-05] MEDS ORDERED: INFLUENZA QUADRIVALENT PF VACCINE 0.5ML SYRINGE (90686) IM ONE (09:00)
[2017-04-05] MEDS ORDERED: CLOPIDOGREL 75 MG TAB PO SCH (09:00)
== END 2017-04-04 17:50 | disposition short-term general hospital (02) ==
LOC: M ED 13:18 → M ED INP 15:56 → M PCU 22:45
PROVIDERS: ADMIT Internal Medicine; ATTEND Internal Medicine Nephrology
DX: M48.02 Spinal stenosis, cervical region (principal); R47.81 Slurred speech; I25.10 Atherosclerotic heart disease of native coronary artery without angina pectoris; E11.22 Type 2 diabetes mellitus with diabetic chronic kidney disease; I12.9 Hypertensive chronic kidney disease with stage 1 through stage 4 chronic kidney disease, or unspecified chronic kidney disease; E78.5 Hyperlipidemia, unspecified; J44.9 Chronic obstructive pulmonary disease, unspecified; G47.33 Obstructive sleep apnea (adult) (pediatric); N18.3 Chronic kidney disease, stage 3 (moderate); K21.9 Gastro-esophageal reflux disease without esophagitis; N40.0 Benign prostatic hyperplasia without lower urinary tract symptoms; E83.42 Hypomagnesemia; F41.9 Anxiety disorder, unspecified; F32.9 Major depressive disorder, single episode, unspecified; Z87.891 Personal history of nicotine dependence; Z98.61 Coronary angioplasty status; Z79.82 Long term (current) use of aspirin; Z79.4 Long term (current) use of insulin; Z79.899 Other long term (current) drug therapy; Z86.14 Personal history of Methicillin resistant Staphylococcus aureus infection
CPT/HCPCS: 36415; 70450; 70544; 70551; 71010; 72141; 80048; 80053; 80061; 80076; 82550; 82553; 83036; 83735; 85025; 85610; 85730; 87040; 87081; 93005; 93041; 93880; 94760; 96374; 96375; 99285; G0480; J1885; J2405; J2765

== ENCOUNTER → 2017-10-28 | Outpatient (REF) | payer OTHER ==
[2017-10-28 19:14] LABS: MAGNESIUM URINE RANDOM 14.9 MG/DL
== END ==
LOC: M LAB REF 17:07
DX: E83.42 Hypomagnesemia (principal)

== ENCOUNTER 2018-02-04 17:52 | Emergency (ER) | payer MEDICARE, OTHER ==
[2018-02-04] MEDS: NS 500 ML IV ×2 (19:00→19:57)
[2018-02-04] MEDS: ONDANSETRON 4MG/2ML VIAL (J2405) IV (19:26)
[2018-02-04] MEDS: MORPHINE 4 MG/ML 1ML VIAL/SYRINGE (J2270) IV (19:27)
[2018-02-04 19:32] LABS: BASO % 0.2 % (0.0-1.0); HEMATOCRIT 36.3 % (42.0-52.0); HEMOGLOBIN 12.8 g/dl (13.5-17.5); IMMATURE GRANULOCYTE % 0.6 % (0-3.0); LYMPH % 1.9 % (24.0-44.0); MEAN CORPUSCULAR HGB CONC 35.3 g/dl (32.0-36.5); MEAN CORPUSCULAR VOLUME 85.2 fl (80.0-96.0); MONO # 1.2 10^3/uL (0.0-0.8); MONO % 10.5 % (0.0-5.0); NEUTROPHILS # 9.9 10^3/uL (1.8-7.7); NEUTROPHILS % 86.8 % (36.0-66.0); PLATELET COUNT, AUTOMATED 183 10^3/uL (150-450); RED BLOOD COUNT 4.26 10^6/uL (4.30-6.10); RED CELL DISTRIBUTION WIDTH 12.3 % (11.5-14.5); WHITE BLOOD COUNT 11.4 10^3/uL (4.0-10.0)
[2018-02-04 19:51] LABS: ALBUMIN/GLOBULIN RATIO 0.79 (1.00-1.93); ALKALINE PHOSPHATASE 262 U/L (45-117); ALT/SGPT 205 U/L (12-78); AMYLASE 46 U/L (25-115); ANION GAP 13 MEQ/L (8-16); AST/SGOT 242 U/L (7-37); BILIRUBIN,DIRECT 3.8 MG/DL (0.0-0.2); BILIRUBIN,TOTAL 4.4 MG/DL (0.2-1.0); BLOOD UREA NITROGEN 59 MG/DL (7-18); CALCIUM LEVEL 8.8 MG/DL (8.8-10.2); CARBON DIOXIDE LEVEL 25 MEQ/L (21-32); CHLORIDE LEVEL 84 MEQ/L (98-107); CREATININE FOR GFR 1.86 MG/DL (0.70-1.30); LIPASE 395 U/L (73-393); POTASSIUM SERUM 4.8 MEQ/L (3.5-5.1); SODIUM LEVEL 122 MEQ/L (136-145); TOTAL PROTEIN 6.8 GM/DL (6.4-8.2)
[2018-02-04 19:52] LABS: LACTIC ACID SEPSIS PROTOCOL 1.4 MMOL/L (0.4-2.0)
[2018-02-04 19:54] LABS: GLUCOSE, FASTING 599 MG/DL (70-100)
[2018-02-04 20:07] LABS: KETONE, URINE AUTO RFX TRACE mg/dL (NEGATIVE); NITRITE, URINE AUTO RFX NEGATIVE (NEGATIVE); RBC, URINE AUTO RFX 3 /HPF (0-3); SPECIFIC GRAVITY UR AUTO RFX 1.017 (1.002-1.035); SQUAM EPITHELIAL CELL UR AURFX 0 /HPF (0-6); YEAST LIKE CELL URINE AUTO RFX MODERATE
[2018-02-04 20:08] LABS: LEUKOCYTE ESTERASE UR AUTO RFX TRACE (NEGATIVE); WBC, URINE AUTO RFX 14 /HPF (0-3)
[2018-02-04 20:31] LABS: LYMPH # 0.2 10^3/uL (1.5-4.5); POSITIVE DIFF POS FLAG
[2018-02-04 20:36] LABS: OSMOLALITY SERUM 303 MOSM/KG (280-301)
[2018-02-04] MEDS: HumuLIN R (REGULAR) INSULIN (NovoLIN R) **100U/ML** PER UNIT IV (20:40)
[2018-02-04] MEDS: NS 1,000 ML IV ×2 (21:18→22:36)
[2018-02-04 21:46] LABS: BEDSIDE GLUCOSE 544 MG/DL (80-115)
[2018-02-04 21:58] LABS: ABG BASE EXCESS -0.3 (-2.0-2.0); ABG HCO3 24.2 MEQ/L (22.0-26.0); ABG O2 SATURATION 93.9 % (95.0-99.0); ABG PARTIAL PRESSURE CO2 39.3 mmHg (35.0-45.0); ABG PARTIAL PRESSURE O2 70.4 mmHg (75.0-100.0); ABG STANDARD HCO3 24.2 MEQ/L (22.0-26.0); ABG TOTAL CO2 25.4 MEQ/L (23.0-31.0); ABG pH (ARTERIAL) 7.408 UNITS (7.350-7.450)
[2018-02-08 11:39] LABS: BEDSIDE GLUCOSE > 600 MG/DL (80-115)
== END 2018-02-05 01:02 | disposition short-term general hospital (02) ==
LOC: M ED 02-05 01:02
DX: K80.70 Calculus of gallbladder and bile duct without cholecystitis without obstruction (principal); E87.1 Hypo-osmolality and hyponatremia; E11.65 Type 2 diabetes mellitus with hyperglycemia; J96.00 Acute respiratory failure, unspecified whether with hypoxia or hypercapnia; E86.0 Dehydration; I12.9 Hypertensive chronic kidney disease with stage 1 through stage 4 chronic kidney disease, or unspecified chronic kidney disease; J44.9 Chronic obstructive pulmonary disease, unspecified; N18.3 Chronic kidney disease, stage 3 (moderate); E78.5 Hyperlipidemia, unspecified; M54.5 Low back pain; Z95.5 Presence of coronary angioplasty implant and graft; Z79.899 Other long term (current) drug therapy; Z79.82 Long term (current) use of aspirin; Z79.4 Long term (current) use of insulin; Z87.891 Personal history of nicotine dependence
CPT/HCPCS: J2270

== ENCOUNTER → 2018-04-24 | Outpatient (CLI) | payer MEDICARE, OTHER ==
[2018-04-24 16:41] LABS: HEMATOCRIT 40.5 % (42.0-52.0); HEMOGLOBIN 13.8 g/dl (13.5-17.5); MEAN CORPUSCULAR HEMOGLOBIN 30.3 pg (27.0-33.0); MEAN CORPUSCULAR HGB CONC 34.1 g/dl (32.0-36.5); MEAN CORPUSCULAR VOLUME 88.8 fl (80.0-96.0); PLATELET COUNT, AUTOMATED 242 10^3/uL (150-450); RED BLOOD COUNT 4.56 10^6/uL (4.30-6.10); RED CELL DISTRIBUTION WIDTH 13.1 % (11.5-14.5); WHITE BLOOD COUNT 7.9 10^3/uL (4.0-10.0)
[2018-04-24 16:59] LABS: INR 1.02; PROTHROMBIN TIME 13.5 SECONDS (12.1-14.4)
[2018-04-24 17:00] LABS: PARTIAL THROMBOPLASTIN TIME 28.2 SECONDS (25.4-37.6)
[2018-04-24 17:09] LABS: APPEARANCE, URINE CLEAR (CLEAR); BACTERIA, URINE AUTO NEGATIVE (NEGATIVE); BILIRUBIN, URINE AUTO NEGATIVE (NEGATIVE); BLOOD, URINE BLOOD NEGATIVE (NEGATIVE); COLOR, URINE YELLOW (YELLOW); GLUCOSE, URINE (UA) AUTO NEGATIVE (NEGATIVE); KETONE, URINE AUTO NEGATIVE (NEGATIVE); LEUKOCYTE ESTERASE, URINE AUTO TRACE (NEGATIVE); NITRITE, URINE AUTO NEGATIVE (NEGATIVE); PROTEIN, URINE AUTO 2+ mg/dL (NEGATIVE); RBC, URINE AUTO 3 /HPF (0-3); SQUAMOUS EPITHELIAL CELL UR AU 0 /HPF (0-6); UROBILINOGEN, URINE AUTO 0.2 mg/dL (0.0-2.0); WBC, URINE AUTO 5 /HPF (0-3)
[2018-04-24 17:12] LABS: ALBUMIN 3.3 GM/DL (3.2-5.2); ALBUMIN/GLOBULIN RATIO 1.03 (1.00-1.93); ALKALINE PHOSPHATASE 81 U/L (45-117); ALT/SGPT 100 U/L (12-78); ANION GAP 7 MEQ/L (8-16); AST/SGOT 144 U/L (7-37); BILIRUBIN,TOTAL 0.4 MG/DL (0.2-1.0); BLOOD UREA NITROGEN 27 MG/DL (7-18); C REACTIVE PROTEIN QUANTITATIV < 0.30 MG/DL (0.00-0.30); CARBON DIOXIDE LEVEL 26 MEQ/L (21-32); CHLORIDE LEVEL 104 MEQ/L (98-107); CREATININE FOR GFR 1.12 MG/DL (0.70-1.30); GLOMERULAR FILTRATION RATE > 60.0 (>49); GLUCOSE, FASTING 226 MG/DL (70-100); SODIUM LEVEL 137 MEQ/L (136-145); TOTAL PROTEIN 6.5 GM/DL (6.4-8.2)
[2018-04-24 17:20] LABS: TOTAL 25(OH) VITAMIN D 28.2 NG/ML (30.0-100.0)
[2018-04-24 17:42] LABS: ERYTHROCYTE SEDIMENTATION RATE 22 mm/hr (0-20)
[2018-04-24 18:43] LABS: ESTIMATED AVERAGE GLUCOSE 177 MG/DL (60-110); HEMOGLOBIN A1c 7.8 %
== END ==
LOC: M LAB 15:59
DX: Z01.818 Encounter for other preprocedural examination (principal); M25.50 Pain in unspecified joint; R91.8 Other nonspecific abnormal finding of lung field; R94.31 Abnormal electrocardiogram [ECG] [EKG]; R79.82 Elevated C-reactive protein (CRP); M02.39 Reiter's disease, multiple sites; R73.09 Other abnormal glucose; E55.9 Vitamin D deficiency, unspecified; Z79.899 Other long term (current) drug therapy; Z79.01 Long term (current) use of anticoagulants
CPT/HCPCS: 71046

== ENCOUNTER → 2018-07-03 | Outpatient (CLI) | payer MEDICARE, OTHER ==
[~2018-07-03] MED LIST changes: -ACET1TAB17 PO; +ACET1TAB55 PO; +ACET500T15 PO; -ACET50TAOT PO; -AMLO10TA2 PO; +AMLO10TA5 PO; +CLOP75TA2 PO; +FLOM0.4C39 PO; -FLOM5CAP PO; -FOSI40TA PO; +FOSI40TA2 PO; -GLUC4CHW PO; +GLUC4CHW19 PO; +KLOR10TA76 PO; +KLOR20TA42 PO; +LOSA25TA14 PO; -LOSA25TA8 PO; +MAPA500T2 PO; +METF500T4 PO; +ONDA4VLL IV; -POTA10CA PO; -POTA20TA PO; -ROCE1INJ4 IV; +ROCE1INJ6 IV; -TOPR25TA PO; +TOPR25TA13 PO
[2018-07-03 15:04] LABS: BLOOD UREA NITROGEN 14 MG/DL (7-18); CALCIUM LEVEL 8.6 MG/DL (8.8-10.2); CARBON DIOXIDE LEVEL 22 MEQ/L (21-32); CHLORIDE LEVEL 103 MEQ/L (98-107); CREATININE FOR GFR 0.91 MG/DL (0.70-1.30); GLOMERULAR FILTRATION RATE > 60.0 (>49); GLUCOSE, FASTING 224 MG/DL (70-100); POTASSIUM SERUM 4.6 MEQ/L (3.5-5.1); SODIUM LEVEL 136 MEQ/L (136-145)
== END ==
LOC: M LAB 13:17
PROVIDERS: ATTEND Ophthalmology
DX: H02.132 Senile ectropion of right lower eyelid (principal)

== ENCOUNTER → 2018-10-10 | Outpatient (REF) | payer MEDICARE, OTHER ==
[~2018-10-10] MED LIST changes: +ASPI-1 PO; -ASPI1TAB PO; -ASPI325T PO; +ASPI81TA26 PO; -FOSI40TA2 PO; +FOSI40TA3 PO; -GLIM2TA PO; +GLIM2TAB29 PO; -SODI1TA PO; +SODI1TAB12 PO; +TOPR25TA PO; -TOPR25TA13 PO
[2018-10-10 18:36] LABS: APPEARANCE, URINE CLOUDY (CLEAR); BACTERIA, URINE AUTO NEGATIVE (NEGATIVE); BILIRUBIN, URINE AUTO NEGATIVE (NEGATIVE); BLOOD, URINE BLOOD 1+ (NEGATIVE); COLOR, URINE YELLOW (YELLOW); GLUCOSE, URINE (UA) AUTO NEGATIVE (NEGATIVE); KETONE, URINE AUTO NEGATIVE (NEGATIVE); LEUKOCYTE ESTERASE, URINE AUTO 3+ (NEGATIVE); MUCUS, URINE SMALL (NEGATIVE); NITRITE, URINE AUTO NEGATIVE (NEGATIVE); PROTEIN, URINE AUTO 2+ mg/dL (NEGATIVE); RBC, URINE AUTO 10 /HPF (0-3); SPECIFIC GRAVITY URINE AUTO 1.011 (1.002-1.035); SQUAMOUS EPITHELIAL CELL UR AU 0 /HPF (0-6); TRANSITIONAL EPITHELIAL AUTO 1 /HPF; UROBILINOGEN, URINE AUTO 0.2 mg/dL (0.0-2.0); WBC, URINE AUTO TNTC /HPF (0-3)
== END ==
LOC: M SMT 16:53
PROVIDERS: ATTEND Nurse Practitioner Women's Health
DX: R35.0 Frequency of micturition (principal)

== ENCOUNTER → 2018-11-12 | Outpatient (REF) | payer MEDICARE, OTHER ==
[2018-11-12 14:03] LABS: APPEARANCE, URINE CLEAR (CLEAR); BACTERIA, URINE AUTO NEGATIVE (NEGATIVE); BILIRUBIN, URINE AUTO NEGATIVE (NEGATIVE); BLOOD, URINE BLOOD 1+ (NEGATIVE); COLOR, URINE YELLOW (YELLOW); GLUCOSE, URINE (UA) AUTO NEGATIVE (NEGATIVE); KETONE, URINE AUTO NEGATIVE (NEGATIVE); LEUKOCYTE ESTERASE, URINE AUTO 1+ (NEGATIVE); NITRITE, URINE AUTO NEGATIVE (NEGATIVE); PROTEIN, URINE AUTO 3+ mg/dL (NEGATIVE); RBC, URINE AUTO 3 /HPF (0-3); SPECIFIC GRAVITY URINE AUTO 1.012 (1.002-1.035); SQUAMOUS EPITHELIAL CELL UR AU 0 /HPF (0-6); UROBILINOGEN, URINE AUTO 0.2 mg/dL (0.0-2.0); WBC, URINE AUTO 45 /HPF (0-3)
== END ==
LOC: M SMT 13:12
PROVIDERS: ATTEND Nurse Practitioner Women's Health
DX: R39.15 Urgency of urination (principal)
CPT/HCPCS: 81001; 87086; 88108; G0463

== ENCOUNTER → 2018-11-20 | Outpatient (CLI) | payer MEDICARE, OTHER | LOC: M SMT 13:47 | PROVIDERS: ATTEND Urology | DX: R39.9 Unspecified symptoms and signs involving the genitourinary system (principal) | CPT/HCPCS: 36415; G0103 ==

== ENCOUNTER → 2019-03-05 | Outpatient (REF) | payer MEDICARE, OTHER ==
[~2019-03-05] MED LIST changes: +METF-791 PO; -METF500T4 PO; +OMEP20CA4 PO
[2019-03-06 11:07] LABS: APPEARANCE, URINE HAZY (CLEAR); BACTERIA, URINE AUTO NEGATIVE (NEGATIVE); BILIRUBIN, URINE AUTO NEGATIVE (NEGATIVE); BLOOD, URINE BLOOD NEGATIVE (NEGATIVE); COLOR, URINE YELLOW (YELLOW); GLUCOSE, URINE (UA) AUTO NEGATIVE (NEGATIVE); KETONE, URINE AUTO NEGATIVE (NEGATIVE); LEUKOCYTE ESTERASE, URINE AUTO 2+ (NEGATIVE); NITRITE, URINE AUTO NEGATIVE (NEGATIVE); PROTEIN, URINE AUTO 3+ mg/dL (NEGATIVE); RBC, URINE AUTO 6 /HPF (0-3); SPECIFIC GRAVITY URINE AUTO 1.028 (1.002-1.035); SQUAMOUS EPITHELIAL CELL UR AU 0 /HPF (0-6); TRANSITIONAL EPITHELIAL AUTO 1 /HPF; UROBILINOGEN, URINE AUTO 0.2 mg/dL (0.0-2.0); WBC, URINE AUTO 157 /HPF (0-3)
== END ==
LOC: M SMT 10:04
PROVIDERS: ATTEND Nurse Practitioner Women's Health
DX: R35.0 Frequency of micturition (principal)

== ENCOUNTER → 2019-03-18 | Outpatient (CLI) | payer MEDICARE, OTHER ==
[~2019-03-18] MED LIST changes: -GLIM4TAB PO; +GLIM4TAB3 PO
--- NOTE | 2019-03-18 10:25 | REP ---
MRI PELVIS WITHOUT CONTRAST: Multiple sequences obtained in the axial, coronal, and sagittal planes. Metallic fixation is seen in the lower lumbar spine. Osseous structures of the pelvis demonstrate normal marrow signal. There is no bone marrow edema or occult fracture. There is no evidence of avascular necrosis. There are moderate degenerative changes at the hip joints with chondromalacia, spurring, and small joint effusions. No adenopathy is seen in the pelvis. There are diverticula of the sigmoid colon. There is a small right inguinal hernia containing fat. IMPRESSION: No pelvic fracture is seen. Moderate arthritic changes are seen at the hip joints bilaterally. Small right inguinal hernia. Sigmoid diverticulosis. Electronically Signed by Mukesh Chao MD 03/18/2019 06:21 P
--- NOTE | 2019-03-18 10:59 | REP ---
MRI LUMBAR SPINE WITHOUT CONTRAST: HISTORY: Pain after fall. Status post lumbar fusion. Recurrent radiating leg pain. Difficulty walking. Spinal stenosis in the lumbar region with neurogenic claudication. Comparison is made with prior MRI study March 24, 2015. TECHNIQUE: Sagittal and axial T1- and T2-weighted scans are acquired in the usual fashion with and without fat saturation. Sequences include spin echo, turbo spin-echo, and STIR imaging sequences. FINDINGS: In the interval since the 2014 study, the patient has undergone transpedicle screw and interconnecting yasir fixation procedure with laminectomy across the L4-5 disc level. Magnetic field susceptibility artifact is seen associated with the metallic hardware. Axial and sagittal images at the L5-S1 demonstrate a grade 1 mild degenerative spondylolisthesis which measures 5 mm. There is diffuse disc bulging. Metallic artifact partially obscures the neural foramina bilaterally at L5-S1. At L4-5, there is evidence of diffuse disc bulging. At the level of the disc, the previously noted central canal stenosis is improved post laminectomy. Just above this, at the level of the L4 lamina, there is central canal stenosis which appears moderate. The mid line AP dimension of the thecal sac at this level is 7 mm. This is somewhat more pronounced. There is evidence of a 3-4 mm L4-5 spondylolisthesis. Neural foramina are obscured by metallic artifact. At L3-4, there is mild facet hypertrophy bilaterally. Minimal diffuse disc bulging is seen. No foraminal narrowing or significant central canal stenosis is seen. The L2-3 and L1-2 disc levels are unremarkable. There is discogenic spurring anteriorly at T12-L1. IMPRESSION: Status post L5 laminectomy and L4-5 posterior element fusion. There are grade 1 spondylolisthesis at both L4-5 and L5-S1. There is central canal stenosis moderate in degree at L4. Electronically Signed by Jd Chavira MD 03/18/2019 12:58 P
== END ==
LOC: M RAD 07:54
DX: M48.062 Spinal stenosis, lumbar region with neurogenic claudication (principal)

== ENCOUNTER → 2019-04-06 | Outpatient (CLI) | payer MEDICARE, OTHER ==
[2019-04-06 11:28] LABS: APPEARANCE, URINE HAZY (CLEAR); BACTERIA, URINE AUTO 1+ (NEGATIVE); BILIRUBIN, URINE AUTO NEGATIVE (NEGATIVE); BLOOD, URINE BLOOD NEGATIVE (NEGATIVE); COLOR, URINE YELLOW (YELLOW); GLUCOSE, URINE (UA) AUTO NEGATIVE (NEGATIVE); KETONE, URINE AUTO NEGATIVE (NEGATIVE); LEUKOCYTE ESTERASE, URINE AUTO 2+ (NEGATIVE); NITRITE, URINE AUTO NEGATIVE (NEGATIVE); PROTEIN, URINE AUTO 3+ mg/dL (NEGATIVE); RBC, URINE AUTO 11 /HPF (0-3); SPECIFIC GRAVITY URINE AUTO 1.015 (1.002-1.035); SQUAMOUS EPITHELIAL CELL UR AU 0 /HPF (0-6); UROBILINOGEN, URINE AUTO 0.2 mg/dL (0.0-2.0); WBC, URINE AUTO 63 /HPF (0-3)
[2019-04-06 11:31] LABS: HEMATOCRIT 36.1 % (42.0-52.0); HEMOGLOBIN 12.3 g/dl (13.5-17.5); MEAN CORPUSCULAR HEMOGLOBIN 30.4 pg (27.0-33.0); MEAN CORPUSCULAR HGB CONC 34.1 g/dl (32.0-36.5); MEAN CORPUSCULAR VOLUME 89.1 fl (80.0-96.0); PLATELET COUNT, AUTOMATED 245 10^3/uL (150-450); RED BLOOD COUNT 4.05 10^6/uL (4.30-6.10); WHITE BLOOD COUNT 8.5 10^3/uL (4.0-10.0)
[2019-04-06 11:43] LABS: INR 1.04; PROTHROMBIN TIME 13.3 SECONDS (11.8-14.0)
[2019-04-06 11:44] LABS: PARTIAL THROMBOPLASTIN TIME 28.8 SECONDS (25.0-38.4)
[2019-04-06 11:54] LABS: BLOOD UREA NITROGEN 18 MG/DL (7-18); CREATININE FOR GFR 0.98 MG/DL (0.70-1.30); GLOMERULAR FILTRATION RATE > 60.0 (>49)
--- NOTE | 2019-04-06 12:02 | REP ---
clinical: Preoperative assessment . Comparison: 04/24/2018 . Technique: PA and lateral. Findings: The mediastinum and cardiac silhouette are normal. The lung glass demonstrate chronic changes at the right base without acute consolidation, effusion, or pneumothorax. The skeletal structures demonstrate degenerative changes to the thoracic spine including bridging osteophytes. Impression: 1. No acute cardiopulmonary process. Electronically Signed by Junior Bailon MD 04/06/2019 11:53 A
--- NOTE | 2019-04-06 15:03 | ECGEPIP ---
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 No significant change compared with 04/24/2018. Electronically Signed on 04-06-2019 15:03:14 EDT by Stan Gotti
== END ==
LOC: M LAB 10:23
PROVIDERS: ATTEND Orthopaedic Surgery Orthopaedic Surgery of the Spine
DX: Z01.818 Encounter for other preprocedural examination (principal); M25.50 Pain in unspecified joint; R94.31 Abnormal electrocardiogram [ECG] [EKG]; Z79.899 Other long term (current) drug therapy

== ENCOUNTER → 2019-08-04 | Outpatient (REF) | payer MEDICARE, OTHER ==
[~2019-08-04] MED LIST changes: -GLIM4TAB3 PO; +GLIM4TAB5 PO; +OMEP1CAP73 PO; -OMEP20CA4 PO
== END ==
LOC: M LAB REF 11:23
PROVIDERS: ATTEND Nurse Practitioner Family
DX: E11.21 Type 2 diabetes mellitus with diabetic nephropathy (principal)

== ENCOUNTER 2019-10-24 10:42 | Emergency (ER) | payer MEDICARE, OTHER ==
[~2019-10-24] VITALS: Ht 162.6 cm; Wt 92.5 kg
[~2019-10-24 10:42] MED LIST changes: -METF-791 PO; +METF-838 PO
[2019-10-24 10:43] VITALS: BP 149/99
[2019-10-24] MEDS ORDERED: DERMABOND TOPICAL SKIN ADHESIVE TOP ONE (11:30)
[2019-10-24] MEDS ORDERED: BOOSTRIX/ADACEL VACCINE (DIPHTH/PERTUSS/ACELL/TETANUS) 0.5ML SYR IM ONE (11:45)
--- NOTE | 2019-10-26 03:06 | REP ---
MEDICASE Clinical: Trauma. Technique: AP, lateral, bilateral oblique views left hand . Findings: Age related osteopenia and generalized degenerative changes are appreciated throughout the wrist and hand. Injury involving the the terminal tuft of the first digit cannot be excluded and should be correlated with mechanism of injury and point of tenderness. No other acute fracture or dislocation identified. No subcutaneous emphysema or radiodense foreign body. Impression: Possible acute injury involving the distal phalanx first digit requires correlation. Age-related osteopenia and generalized degenerative changes. Electronically Signed by Junior Bailon MD 10/26/2019 02:58 A
== END 2019-10-24 11:52 | disposition home or self-care (01) ==
LOC: M ED 10:42
DX: S61.412A Laceration without foreign body of left hand, initial encounter (principal); W22.8XXA Striking against or struck by other objects, initial encounter; Y92.410 Unspecified street and highway as the place of occurrence of the external cause; I10 Essential (primary) hypertension; N18.3 Chronic kidney disease, stage 3 (moderate); J45.909 Unspecified asthma, uncomplicated; E11.9 Type 2 diabetes mellitus without complications; E78.5 Hyperlipidemia, unspecified; G62.9 Polyneuropathy, unspecified; K21.9 Gastro-esophageal reflux disease without esophagitis; G47.33 Obstructive sleep apnea (adult) (pediatric); F33.9 Major depressive disorder, recurrent, unspecified; F41.9 Anxiety disorder, unspecified; Z79.899 Other long term (current) drug therapy; Z79.82 Long term (current) use of aspirin; Z79.4 Long term (current) use of insulin; Z87.891 Personal history of nicotine dependence

== ENCOUNTER → 2019-12-15 | Outpatient (CLI) | payer MEDICARE, OTHER ==
[~2019-12-15] MED LIST changes: -AMLO10TA5 PO; +AMLO1TAB25 PO; -ASPI81TA85 PO; +ASPI81TA86 PO
== END ==
LOC: M LAB 12:15
PROVIDERS: ATTEND Nurse Practitioner Women's Health
DX: Z12.5 Encounter for screening for malignant neoplasm of prostate (principal)
CPT/HCPCS: 36415; G0103; G0463

== ENCOUNTER → 2020-01-18 | Outpatient (REF) | payer MEDICARE, OTHER ==
[2020-03-02 14:59] LABS: PERCENT SATURATION 25.2 % (19.7-50.0)
== END ==
LOC: M LAB REF 10:54
PROVIDERS: ATTEND Nurse Practitioner Family
DX: D50.9 Iron deficiency anemia, unspecified (principal)

== ENCOUNTER → 2020-06-30 | Outpatient (CLI) | payer MEDICARE, OTHER ==
[~2020-06-30] MED LIST changes: +ALLE10TA62 PO; +ECOT81TA5 PO; +ISOS1TAB35 PO; -ISOS30TA4 PO; -MAG400TA PO; +MAGN400C PO; +MAGN400T35 PO; +PANT40TA29 PO; +TRAM50TA2 PO
== END ==
LOC: M LABSMTC 10:23
PROVIDERS: ATTEND Anesthesiology
DX: Z01.812 Encounter for preprocedural laboratory examination (principal); Z20.822 Contact with and (suspected) exposure to COVID-19

== ENCOUNTER 2020-07-05 06:51 | Day surgery (SDC) | payer MEDICARE, OTHER ==
[~2020-07-05] VITALS: Ht 162.6 cm; Wt 84.4 kg
[~2020-07-05 06:51] MED LIST changes: -ISOS1TAB35 PO; +ISOS30TA4 PO; +MAG400TA PO; -MAGN400T35 PO
[2020-07-05] MEDS ORDERED: NS 1,000 ML IV ONE (07:00)
[2020-07-05] MEDS ORDERED: propofoL 200 MG/20 ML VIAL As Ordered ONE (07:02)
[2020-07-05] MEDS ORDERED: LIDOCAINE 2% 100MG/5ML SDV (FOR ANES.) As Ordered ONE (07:02)
--- NOTE | 2020-07-05 07:56 | ROOR ---
Patient Name: Aneesh Wiggins Procedure Date: 07/05/2020 7:30 AM Date of : 1950 Age: 70 Room: [facility] Gender: Male Note Status: Finalized Procedure: Colonoscopy Indications: High risk colon cancer surveillance: Personal history of colonic polyps, Last colonoscopy: March 2017 Providers: Stan MCARTHUR MD Referring MD: MARLENE WILCOX MD Requesting Provider: Medicines: Monitored Anesthesia Care Complications: No immediate complications. Procedure: Pre-Anesthesia Assessment: - The heart rate, respiratory rate, oxygen saturations, blood pressure, adequacy of pulmonary ventilation, and response to care were monitored throughout the procedure. The Colonoscope was introduced through the anus and advanced to the terminal ileum, with identification of the appendiceal orifice and IC valve. The colonoscopy was performed without difficulty. The patient tolerated the procedure well. The quality of the bowel preparation was good. Findings: The perianal and digital rectal examinations were normal. Five sessile polyps were found in the splenic flexure, ascending colon and appendiceal orifice. The polyps were 4 to 6 mm in size. These polyps were removed with a cold snare. Resection and retrieval were complete. Multiple small-mouthed diverticula were found in the sigmoid colon. Internal hemorrhoids were found during retroflexion. The hemorrhoids were medium-sized. Retroflexion in the right colon was performed. The exam was otherwise without abnormality on direct and retroflexion views. Impression: - Five 4 to 6 mm polyps at the splenic flexure, in the ascending colon and at the appendiceal orifice, removed with a cold snare. Resected and retrieved. - Diverticulosis in the sigmoid colon. - Internal hemorrhoids. - The examination was otherwise normal on direct and retroflexion views. Recommendation: - Repeat colonoscopy in 3 years for surveillance. Procedure Code(s): --- Professional --- 86691, Colonoscopy, flexible; with removal of tumor(s), polyp(s), or other lesion(s) by snare technique Diagnosis Code(s): --- Professional --- Z86.010, Personal history of colonic polyps K63.5, Polyp of colon K64.8, Other hemorrhoids K57.30, Diverticulosis of large intestine without perforation or abscess without bleeding CPT copyright 2019 [employer]. All rights reserved. The codes documented in this report are preliminary and upon incubator machine operator review may be revised to meet current compliance requirements. Stan Mcarthur MD Stan MCARTHUR MD 07/05/2020 7:55:59 AM Electronically signed by Stan MCARTHUR MD Number of Addenda: 0 Note Initiated On: 07/05/2020 7:30 AM Estimated Blood Loss: Estimated blood loss: none.
[2020-07-05 08:15] VITALS: BP 114/62
== END 2020-07-05 08:26 | disposition home or self-care (01) ==
LOC: M OPP 06:51
PROVIDERS: ATTEND Internal Medicine Gastroenterology
DX: Z12.11 Encounter for screening for malignant neoplasm of colon (principal); Z86.010 Personal history of colon polyps; D12.0 Benign neoplasm of cecum; D12.2 Benign neoplasm of ascending colon; D12.3 Benign neoplasm of transverse colon; K57.30 Diverticulosis of large intestine without perforation or abscess without bleeding; K64.8 Other hemorrhoids; I25.10 Atherosclerotic heart disease of native coronary artery without angina pectoris; I10 Essential (primary) hypertension; E78.5 Hyperlipidemia, unspecified; E11.9 Type 2 diabetes mellitus without complications; R12 Heartburn; D50.9 Iron deficiency anemia, unspecified; M19.90 Unspecified osteoarthritis, unspecified site; F41.9 Anxiety disorder, unspecified; F32.9 Major depressive disorder, single episode, unspecified; J44.9 Chronic obstructive pulmonary disease, unspecified; G47.30 Sleep apnea, unspecified; Z95.5 Presence of coronary angioplasty implant and graft; Z87.891 Personal history of nicotine dependence; Z79.4 Long term (current) use of insulin; Z79.82 Long term (current) use of aspirin; Z79.899 Other long term (current) drug therapy; Z83.3 Family history of diabetes mellitus; Z82.49 Family history of ischemic heart disease and other diseases of the circulatory system

== ENCOUNTER → 2020-12-20 | Outpatient (CLI) | payer MEDICARE, OTHER ==
[~2020-12-20] MED LIST changes: +ASPI-551 PO; +ASPI-569 PO; -ASPI81TAEC PO; +ATOR80TA59 PO; +BYDU2INJ7 SC; +D-50CAP PO; +ERYT5OIN25 OD; +FAMO10TA50 PO; -FAMO1TAB25 PO; +FLUTISP; -FOSI40TA3 PO; +FOSI40TA59 PO; -GLUC4CHW19 PO; +ISOS1TAB35 PO; -ISOS30TA4 PO; -KLOR10TA76 PO; -KLOR20TA42 PO; +LANTINJ4 SC; +LOSA25TA13 PO; -LOSA25TA14 PO; -MAG400TA PO; +MAGN400T35 PO; +MELA10TA2 PO; -PEG1POW PO; +POLY17PO18 PO; +POTA-136 PO; +POTA-141 PO; +SFHGLU4TA PO; +VENTAER INH; +med rec comment
== END ==
LOC: M LAB 14:19
PROVIDERS: ATTEND Nurse Practitioner Women's Health
DX: Z12.5 Encounter for screening for malignant neoplasm of prostate (principal)
CPT/HCPCS: 36415; G0103

== ENCOUNTER 2021-01-07 17:07 | Inpatient (IN) | payer MEDICARE, OTHER ==
[~2021-01-07] VITALS: Ht 165.1 cm; Wt 85.2 kg
[~2021-01-07 17:07] MED LIST changes: -ASPI-551 PO; -ATOR80TA59 PO; -BYDU2INJ7 SC; -D-50CAP PO; -ERYT5OIN25 OD; -FLUTISP; -LANTINJ4 SC; -MELA10TA2 PO; -VENTAER INH; -med rec comment
[2021-01-07 17:39] LABS: BASO % 0.4 % (0.0-1.0); EOS # 0.4 10^3/uL (0.0-0.5); EOS % 4.2 % (0.0-3.0); HEMATOCRIT 39.8 % (42.0-52.0); HEMOGLOBIN 13.5 g/dl (13.5-17.5); LYMPH % 23.6 % (24.0-44.0); MEAN CORPUSCULAR HEMOGLOBIN 29.9 pg (27.0-33.0); MEAN CORPUSCULAR HGB CONC 33.9 g/dl (32.0-36.5); MEAN CORPUSCULAR VOLUME 88.2 fl (80.0-96.0); MONO % 11.4 % (2.0-8.0); NEUTROPHILS % 59.9 % (36.0-66.0); PLATELET COUNT, AUTOMATED 232 10^3/uL (150-450); RED BLOOD COUNT 4.51 10^6/uL (4.30-6.10); WHITE BLOOD COUNT 8.3 10^3/uL (4.0-10.0)
[2021-01-07 18:10] LABS: ALBUMIN 2.9 GM/DL (3.2-5.2); BILIRUBIN,DIRECT 0.1 MG/DL (0.0-0.2); BILIRUBIN,TOTAL 0.4 MG/DL (0.2-1.0); CK-MB VALUE MASS 4.2 NG/ML (<3.6); MB/CK RELATIVE INDEX 4.52 (< OR =4); TOTAL PROTEIN 6.2 GM/DL (6.4-8.2); TROPONIN I 0.07 NG/ML (< 0.10)
[2021-01-07 18:24] LABS: INR 0.93; PROTHROMBIN TIME 12.9 SECONDS (12.7-14.5)
[2021-01-07 18:25] LABS: PARTIAL THROMBOPLASTIN TIME 28.5 SECONDS (25.9-37.0)
[2021-01-07] MEDS ORDERED: ASPIRIN 81 MG CHEW TABLET PO ONE ×2 (18:25)
[2021-01-07] MEDS ORDERED: VENTAER INH (18:59)
[2021-01-07] MEDS ORDERED: BYDU2INJ7 SC (18:59)
[2021-01-07] MEDS ORDERED: HOME MED LIST COMPLETE! XX SCH (19:00)
[2021-01-07 19:22] LABS: RSV AMPLIFICATION NEGATIVE (NEGATIVE)
[2021-01-07] MEDS ORDERED: CARVedilol 3.125 MG TAB PO SCH (21:00)
[2021-01-07] MEDS ORDERED: ALBUTEROL 90 MCG/ACT 8GM HFA INHALER INH PRN (21:15)
[2021-01-07] MEDS ORDERED: DEXTROSE 50% 50 ML SYRINGE IV PRN (21:15)
[2021-01-07] MEDS ORDERED: GLUCAGON INJ 1MG VIAL SC PRN (21:15)
[2021-01-07] MEDS ORDERED: MOM 30ML SUSPENSION UDC PO PRN (21:15)
[2021-01-07] MEDS ORDERED: ACETAMINOPHEN TAB 650MG DOSE (2X325MG) PO PRN (21:15)
[2021-01-07] MEDS ORDERED: GLUCOSE 4GM CHEW TABLET PO PRN (21:15)
[2021-01-07 22:32] LABS: CHOLESTEROL RISK RATIO 4.145 (<5)
[2021-01-07] MEDS: HumaLOG INSULIN (NovoLOG) PER UNIT SC SCH (23:01)
[2021-01-07] MEDS: DOCUSATE SODIUM 100MG CAPSULE PO SCH (23:01)
[2021-01-07] MEDS: LEVEMIR (INSULIN DETEMIR) 1 UNITS/0.01ML SC SCH (23:13)
[2021-01-07] MEDS: MAGNESIUM OXIDE 400MG TAB (MAG-OX) PO SCH (23:13)
[2021-01-08 00:40] VITALS: BP 127/57
[2021-01-08 04:00] VITALS: BP 146/65
[2021-01-08 05:38] LABS: HEMATOCRIT 36.6 % (42.0-52.0); HEMOGLOBIN 12.5 g/dl (13.5-17.5); MEAN CORPUSCULAR HEMOGLOBIN 29.9 pg (27.0-33.0); MEAN CORPUSCULAR HGB CONC 34.2 g/dl (32.0-36.5); MEAN CORPUSCULAR VOLUME 87.6 fl (80.0-96.0); PLATELET COUNT, AUTOMATED 209 10^3/uL (150-450); RED BLOOD COUNT 4.18 10^6/uL (4.30-6.10); WHITE BLOOD COUNT 9.4 10^3/uL (4.0-10.0)
[2021-01-08 05:48] LABS: INR 0.98; PROTHROMBIN TIME 13.4 SECONDS (12.7-14.5)
[2021-01-08 05:49] LABS: PARTIAL THROMBOPLASTIN TIME 28.7 SECONDS (25.9-37.0)
[2021-01-08 05:58] LABS: ALBUMIN 2.6 GM/DL (3.2-5.2); BILIRUBIN,TOTAL 0.3 MG/DL (0.2-1.0); CREATININE FOR GFR 1.57 MG/DL (0.70-1.30); MAGNESIUM LEVEL 1.9 MG/DL (1.8-2.4); POTASSIUM SERUM 3.8 MEQ/L (3.5-5.1); TOTAL PROTEIN 6.1 GM/DL (6.4-8.2)
[2021-01-08 08:00] VITALS: BP 125/59
[2021-01-08] MEDS: HumaLOG INSULIN (NovoLOG) PER UNIT SC SCH ×4 (08:03→20:51)
[2021-01-08] MEDS: PANTOPRAZOLE 40MG TAB (PROTONIX) PO SCH (08:42)
[2021-01-08] MEDS: FERROUS SULFATE 325MG TAB PO SCH (08:42)
[2021-01-08] MEDS: PARoxetine 20MG TABLET PO SCH (08:42)
[2021-01-08] MEDS: SIMVASTATIN 40 MG TAB PO SCH (08:43)
[2021-01-08] MEDS: DOCUSATE SODIUM 100MG CAPSULE PO SCH ×2 (08:43→20:52)
[2021-01-08] MEDS: MAGNESIUM OXIDE 400MG TAB (MAG-OX) PO SCH ×3 (08:43→20:52)
[2021-01-08] MEDS: TAMSULOSIN 0.4 MG CAP PO SCH (08:43)
[2021-01-08] MEDS: LEVEMIR (INSULIN DETEMIR) 1 UNITS/0.01ML SC SCH ×2 (08:44→20:50)
[2021-01-08] MEDS ORDERED: ASPIRIN 81MG ENTERIC TABLET PO SCH (09:00)
[2021-01-08] MEDS ORDERED: LOSARTAN 25 MG TAB PO SCH (09:00)
[2021-01-08] MEDS ORDERED: HEPARIN SOD (PORCINE) 5000UNITS/ML 1ML VIAL/SYRINGE SC SCH (09:00)
[2021-01-08] MEDS ORDERED: PREVNAR 13 VACCINE SYRINGE IM ONE (09:00)
[2021-01-08] MEDS: ASPIRIN 325 MG TAB PO SCH (09:08)
[2021-01-08] MEDS: NS 1,000 ML IV SCH ×2 (09:08→20:53)
[2021-01-08 12:00] VITALS: BP 154/94
[2021-01-08 14:50] LABS: HEMOGLOBIN A1c 7.7 %
[2021-01-08 16:00] VITALS: BP 104/64
[2021-01-08 20:00] VITALS: BP 123/69
[2021-01-09] VITALS: BP 205/97
[2021-01-09 00:49] VITALS: BP 192/88
[2021-01-09 03:51] VITALS: BP 199/91
[2021-01-09 07:33] VITALS: BP 132/79
[2021-01-09] MEDS ORDERED: SLF 3 ML SYR IV PRN (08:05)
[2021-01-09] MEDS: PANTOPRAZOLE 40MG TAB (PROTONIX) PO SCH (08:31)
[2021-01-09] MEDS: ASPIRIN 325 MG TAB PO SCH (08:31)
[2021-01-09] MEDS: HumaLOG INSULIN (NovoLOG) PER UNIT SC SCH ×2 (08:31→12:00)
[2021-01-09] MEDS: LEVEMIR (INSULIN DETEMIR) 1 UNITS/0.01ML SC SCH (08:31)
[2021-01-09 08:32] VITALS: BP 132/79
[2021-01-09] MEDS: MAGNESIUM OXIDE 400MG TAB (MAG-OX) PO SCH (08:32)
[2021-01-09] MEDS: FERROUS SULFATE 325MG TAB PO SCH (08:32)
[2021-01-09] MEDS: TAMSULOSIN 0.4 MG CAP PO SCH (08:32)
[2021-01-09] MEDS: PARoxetine 20MG TABLET PO SCH (08:32)
[2021-01-09] MEDS: SIMVASTATIN 40 MG TAB PO SCH (08:32)
[2021-01-09] MEDS: DOCUSATE SODIUM 100MG CAPSULE PO SCH (08:33)
[2021-01-09] MEDS ORDERED: LOSARTAN 25 MG TAB PO SCH (09:00)
[2021-01-09 09:22] LABS: BLOOD UREA NITROGEN 25 MG/DL (7-18); CALCIUM LEVEL 9.2 MG/DL (8.8-10.2); CARBON DIOXIDE LEVEL 31 MEQ/L (21-32); CHLORIDE LEVEL 108 MEQ/L (98-107); CREATININE FOR GFR 1.25 MG/DL (0.70-1.30); GLOMERULAR FILTRATION RATE > 60.0 (>49); GLUCOSE, FASTING 55 MG/DL (70-100); POTASSIUM SERUM 4.6 MEQ/L (3.5-5.1); SODIUM LEVEL 143 MEQ/L (136-145)
[2021-01-09 11:31] VITALS: BP 126/64
[2021-01-09] MEDS ORDERED: ASPI-1 PO (12:43)
[2021-01-09] MEDS ORDERED: SLF 3 ML SYR IV SCH (14:00)
== END 2021-01-09 16:00 | disposition home or self-care (01) | DRG 66 ==
LOC: EDBD 17:07 → M ED 17:07 → M ED INP 17:08 → ENRESERV 23:27 → M PCU 01-08 00:34
PROVIDERS: ADMIT Family Medicine; ATTEND Family Medicine
DX: I63.59 Cerebral infarction due to unspecified occlusion or stenosis of other cerebral artery (principal); I12.9 Hypertensive chronic kidney disease with stage 1 through stage 4 chronic kidney disease, or unspecified chronic kidney disease; E78.5 Hyperlipidemia, unspecified; N18.9 Chronic kidney disease, unspecified; E11.65 Type 2 diabetes mellitus with hyperglycemia; F41.9 Anxiety disorder, unspecified; F32.9 Major depressive disorder, single episode, unspecified; I25.10 Atherosclerotic heart disease of native coronary artery without angina pectoris; Z96.653 Presence of artificial knee joint, bilateral; Z87.891 Personal history of nicotine dependence; N40.0 Benign prostatic hyperplasia without lower urinary tract symptoms; Z20.822 Contact with and (suspected) exposure to COVID-19; Z79.82 Long term (current) use of aspirin; Z79.899 Other long term (current) drug therapy; Z79.4 Long term (current) use of insulin; I63.81 Other cerebral infarction due to occlusion or stenosis of small artery

== ENCOUNTER 2021-02-01 12:04 | Outpatient (RCR) | payer MEDICARE, OTHER ==
[~2021-02-01 12:04] MED LIST changes: +BYDU2INJ7 SC; +FOSI40TA3 PO; -FOSI40TA59 PO; +KLOR10TA76 PO; +KLOR20TA42 PO; -LOSA25TA13 PO; +LOSA25TA14 PO; -POTA-136 PO; -POTA-141 PO; +VENTAER INH
== END 2021-02-07 ==
LOC: M OT 12:04
PROVIDERS: ATTEND Internal Medicine
DX: I69.331 Monoplegia of upper limb following cerebral infarction affecting right dominant side (principal)

== ENCOUNTER 2021-04-10 18:48 | Emergency (ER) | payer MEDICARE, OTHER ==
[~2021-04-10] VITALS: Ht 162.6 cm; Wt 84.2 kg
[~2021-04-10 18:48] MED LIST changes: -KLOR10TA76 PO; -KLOR20TA42 PO; +POTA-136 PO; +POTA-141 PO
--- OUTSIDE RECORDS SUMMARY | 2021-04-10 18:58 | CCD | Continuity of Care Document ---
Author Author Rosaura/Aneesh ARAUJO Organization Unknown Address [address] [place] [address] Phone [phone] Care Team Providers Care Presser First Name Role Phone Jayson Vu M.D. AUTM [phone] Problems Active Problems Provider Date Ischemic stroke Mel Chacon M.D. Onset: 01/30/2021 Social History Type Date Description Comments Sex Unknown Tobacco Use Start: Unknown End: Unknown Patient is a former smoker Allergies and adverse reactions Description No Known Drug Allergies Medications Active Medications SIG Qnty Indications Ordering Provide r Date Jared Advanced Aspirin Regular Strength 325mg Tablets take one a day Unknown Immunizations Description No Information Available Vital Signs Date Vital Result Comment 01/30/2021 1:27pm Respiratory Rate 12 /min Height 64 inches 5'4" Weight 196.00 lb BMI (Body Mass Index) 33.6 kg/m2 [place] Body Weight 130 lb Results Description No Information Available Procedures Date Code Description Status 03/17/2021 48544 Sympathetic Skin Responses Compl eted 03/17/2021 03802 Test Autonomic Nervous System, C ardiovagal Innervation Completed 03/17/2021 35356 Artery Study Extremity Mult Leve ls Bilateral Completed 01/30/2021 09308 Office/Outpatient Established Mo d MDM 30-39 Min Completed 01/08/2021 95855 Hospital Initial Care Level 3 Co mpleted Medical Devices Description No Information Available Encounters Type Date Location Provider Dx Diagnosis Office Visit 01/30/2021 1:00p Main office - [place] Mel gregg M.D. I63.59 Cereb infrc due to unsp occls or stenosi s of cerebral artery Assessments Date Code Description Provider 03/17/2021 E11.40 Type 2 diabetes drea itus with diabetic neuropathy, unspecified Mel Chacon M.D. 03/17/2021 E11.40 Type 2 diabetes drea itus with diabetic neuropathy, unspecified Ans/VS 03/17/2021 E11.59 Type 2 diabetes mellitus with ot her circulatory complications Ans/VS 03/17/2021 G45.8 Other transient cere bral ischemic attacks and related syndromes Ans/VS 01/30/2021 I63.59 Cerebral infarction due to unspecified occlusion or stenosis of other cerebral artery Mel Chacon M.D. 01/08/2021 I63.59 Cerebral infarction due to unspecified occlusion or stenosis of other cerebral artery Mel Chacon M.D. Plan of Treatment Future Appointment(s):* 05/15/2021 1:00 pm - Mel Chacon M.D. at Main office - [place] Functional Status Description No Information Available Mental Status Description No Information Available Referrals Description No Information Available
--- OUTSIDE RECORDS SUMMARY | 2021-04-10 18:58 | CCD | Continuity of Care Document ---
Author Author Rosaura/Aneesh ARAUJO Organization Unknown Address [address] [place] [address] Phone [phone] Care Team Providers Care Correctional Cook Name Role Phone Jayson Vu M.D. AUTM [phone] Problems Active Problems Provider Date Ischemic stroke [...] lb BMI (Body Mass Index) 33.6 kg/m2 [place] Body Weight 130 lb Results Description No Information Available Procedures Date Code Description Status 01/30/2021 53782 Office/Outpatient Established Mo d MDM 30-39 Min Completed 01/08/2021 86475 Hospital Initial Care Level 3 Co mpleted Medical Devices Description No Information Available Encounters Type Date Location Provider Dx Diagnosis Office Visit 01/30/2021 1:00p Main office - [place] Mel gregg M.D. I63.59 Cereb infrc due to unsp occls or stenosi s of cerebral artery Assessments Date Code Description Provider 01/30/2021 I63.59 Cerebral infarction due to unspecified occlusion or stenosis of other cerebral artery Mel Chacon M.D. 01/08/2021 I63.59 Cerebral infarction due to unspecified occlusion or stenosis of other cerebral artery Mel Chacon M.D. Plan of Treatment Future Appointment(s):* 05/15/2021 1:00 pm - Mel Chacon M.D. at Main office - [place] Functional Status Description No Information Available Mental Status Description No Information Available Referrals Description No Information Available
--- OUTSIDE RECORDS SUMMARY | 2021-04-10 18:58 | CCD | Continuity of Care Document ---
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 Name Role Phone Sonia Campuzano AUTM [phone] Jayson Vu MD AUTM [phone] Charisse Albarran AUTM [phone] Problems Active Problems Provider Date Electrocardiogram abnormal Stan Gotti MD Onset: 03/29 Coronary arteriosclerosis after percutaneous coronary angioplasty Stan Gotti MD Onset: 03/29/2021 Essential hypertension Stan Gotti MD Onset: 1 Patient post percutaneous transluminal coronary angiop lasty Stan Gotti MD Onset: 03/29/2021 Sinus node dysfunction Stan Gotti MD Onset: 1 Social History Type Date Description Comments Sex Unknown ETOH Use Rarely consumes alcohol Tobacco Use Start: Unknown End: Unknown Patient is a former smoker Patient smoked up to 2 ppd for 17 years, quit in 1984 Smoking Status Reviewed: 03/29/21 Patient is a former smoker Nelson curran smoked up to 2 ppd for 17 years, quit in 1984 Exercise Type/Frequency Does not exercise curren tly Exercise Limitations Back Pain Exercise Limitations Imbalance Allergies and adverse reactions Description No Known Drug Allergies Medications Active Medications SIG Qnty Indications Ordering Provide r Date Amlodipine Besylate 2.5mg Tablets 1 by mouth every day 90tabs I10 Stan Gotti MD 03/29/2021 Atorvastatin Calcium 80mg Tablets 1 by mouth every night at bedtime Unknown Vitamin D (Cholecalciferol) 25mcg (1000 Ut) Tablets 1 by mouth every day Unknown 10/19/2 021 Tylenol Extra Strength 500mg Table ts 2 by mouth twice daily as needed Unknown 03/10 Melatonin 10mg Capsules 2 by mouth once daily at bedtime Unknown 03/28/2021 Magnesium Oxide -MG Supplement 400mg Capsules 1 by mouth tid Unknown 03/28/2021 Ferrous Sulfate 325mg Tablets 1 by mouth every day Unknown 03/28/2021 Calcium 600 600mg Tablets 1 by mouth daily Unknown 03/28/[address] 1 by mouth every day Unknown 03/28/2021 Moxifloxacin HCL 0.5% Solution as directed Unknown 03/28/2021 Neomycin/Polymyxin/Hydrocortisone (Otic) 3.5-16545-6 Solution as directed Unknown 1 Ventolin HFA 108(90Base) mcg/Act A erosol 2 puffs as needed Unknown 03/28/2021 Pantoprazole Sodium 40mg Tablets D R 1 by mouth every day Unknown 03/28/2021 Novolog 100Unit/ML Solution as directed per ss Unknown 03/28/2021 Metformin HCL 500mg Tablets 1 by mouth twice a day Unknown 03/28/2021 Losartan Potassium 25mg Tablets 1 by mouth every day Unknown 03/28/2021 Lantus 100Unit/ML Solution as directed Unknown 03/28/2021 Flomax 0.4mg Capsules 1 by mouth every day Unknown 03/28/2021 Bydureon 2mg Pen 2 mg subcutaneous once a week Unknown 03/28/2021 History Medications Paroxetine HCL 20mg Tablets 1 by mouth every day I49.5 Unknown 03/28/2021 - Immunizations Description No Information Available Vital Signs Date Vital Result Comment 03/29/2021 10:10am Weight 191.00 lb Height 64 inches 5'4" BMI (Body Mass Index) 32.8 kg/m2 Heart Rate 69 /min BP Systolic Sitting 191 mmHg CBP, adult cuff/Ra BP Diastolic Sitting 88 mmHg CBP, adult cuff/Ra Results Description No Information Available Procedures Date Code Description Status 03/29/2021 37578 Office/Outpatient New Moderate M DM 45-59 Minutes Completed 03/29/2021 30032 Arterial Pressure Wa veform Analysis For Assessment Of Central Art Completed 03/29/2021 92947 ECG 12-Lead Completed Medical Devices Description No Information Available Encounters Type Date Location Provider Dx Diagnosis Office Visit 03/29/2021 10:00a Main Office Stan Gotti MD I49.5 Sick sinus syndrome I25.10 Athscl heart disease of [place] coronary artery w/o ang pctrs Z95.5 Presence of coronary angiopl asty implant and graft I10 Essential (primary) hyperten rené R94.31 Abnormal electrocardiogram [ ECG] [EKG] Assessments Date Code Description Provider 03/29/2021 I49.5 Sick sinus syndrome Stan aviles MD 03/29/2021 I25.10 Atherosclerotic hear t disease of [place] coronary artery without angina pectoris Stan Gotti MD 03/29/2021 Z95.5 Presence of coronary angioplasty implant and graft Stan Gotti MD 03/29/2021 I10 Essential (primary) hypertension Stan Gotti MD 03/29/2021 R94.31 Abnormal electrocardiogram [ECG] [EKG] Stan Gotti MD Plan of Treatment Future Appointment(s):* 07/03/2021 1:30 pm - Stan Gotti MD at Main Office 03/29/2021 - Stan Gotti MD* I49.5 Sick sinus syndrome * I25.10 Atherosclerotic heart disease of [place] coronary artery without angina pectoris * Z95.5 Presence of coronary angioplasty implant and graft * I10 Essential (primary) hypertension* New Medication:* Amlodipine Besylate 2.5 mg - 1 by mouth every day * R94.31 Abnormal electrocardiogram [ECG] [EKG] * All * Follow up:* Clinic visit in [address] Gotti. Functional Status Functional Condition Comment Date Status Independent with all ADL's Activ e Mental Status Description No Information Available Referrals Description No Information Available
--- OUTSIDE RECORDS SUMMARY | 2021-04-10 18:58 | CCD | Continuity of Care Document ---
Author Author Aneesh GOTTI MD Organization Unknown Address [address] [place] [address], [place] [address] Phone [phone] Care Team Providers Care Backend Developer Name Role Phone Sonia Campuzano AUTM [phone] Jayson Vu MD AUTM [phone] Charisse Albarran AUTM [phone] Problems Active Problems Provider Date Electrocardiogram abnormal [...] Tablets 1 by mouth every day Unknown 021 Tylenol Extra Strength 500mg Table ts [...] Solution as directed Unknown 03/28/2021 Neomycin/Polymyxin/Hydrocortisone (Otic) 3.5-27494-2 Solution as directed Unknown 1 Ventolin HFA [...] Available Procedures Date Code Description Status 03/29/2021 58731 Office/Outpatient New Moderate M DM 45-59 Minutes Completed 03/29/2021 48782 Arterial Pressure Wa veform Analysis For Assessment Of Central Art Completed 03/29/2021 14014 ECG 12-Lead Completed Medical Devices Description No [...] 03/29/2021 I25.10 Atherosclerotic hear t disease of [place] coronary artery without angina pectoris Stan Gotti MD 03/29/2021 Z95.5 Presence of coronary angioplasty implant and graft Stan Gotti MD 03/29/2021 I10 Essential (primary) hypertension Stan Gotti MD 03/29/2021 R94.31 Abnormal electrocardiogram [ECG] [EKG] Stan Gotti MD Plan of Treatment Future Appointment(s):* 07/03/2021 1:30 pm - Stan Gotti MD at Main Office 03/29/2021 - Stan Gotti MD* I49.5 Sick sinus syndrome* Recommendations:* Asymptomatic nocturnal sinus pauses/arrest as a consequence of untreated obstructive sleep apnea is generally not considered an indication for a permanent pacemaker. If however, the episodes of sinus arrest are long enough in duration (no fixed agreed-upon number of seconds) that the physician feels there is significant risk for sudden cardiac , then a pacemaker could be considered (off label use). I generally choose episodes of sinus arrest >10 seconds. Patient has already been referred back to [facility] to reestablish use of CPAP. My plan is to see the patient back in 3 months at which time I will order a 5 day patch monitor. Carvedilol has already been discontinued. Paroxetine was discontinued as it may play a role in sinus node dysfunction. * I25.10 Atherosclerotic heart disease of [place] coronary artery without angina pectoris* Recommendations:* Amlodipine 2.5 mg daily was added for improvement of blood pressure control. No changes were made to aspirin, atorvastatin 80 mg at bedtime, losartan. * Z95.5 Presence of coronary angioplasty implant and graft * I10 Essential (primary) hypertension* New Medication:* Amlodipine Besylate 2.5 mg - 1 by mouth every day * Recommendations:* Amlodipine 2.5 mg daily was added. Continue losartan 25 mg/d. Low-fat, whole-food, plant-based, low sodium nutrition with avoidance of added oils and fats and avoidance of refined carbohydrates was encouraged. Walking or equivalent aerobic activity for 40-60 minutes every day. * R94.31 Abnormal electrocardiogram [ECG] [EKG] * All * Follow up:* Clinic visit in [address] Gotti. Functional Status Functional Condition Comment Date Status Independent with all ADL's Activ e Mental Status Description No Information Available Referrals Description No Information Available
--- OUTSIDE RECORDS SUMMARY | 2021-04-10 18:58 | CCD | Continuity of Care Document ---
Author Author Aneesh LÓPEZ-Joaquin Organization Unknown Address [address], [address] [place] [address] Phone [phone] Care Team Providers Care Respiratory Therapist Assistant Name Role Phone Jayson Vu MD [facility] [phone] Problems Description No Information Available Social History Type Date Description Comments Sex Unknown ETOH Use Never used alcohol Tobacco Use Start: Unknown End: Unknown Patient is a former smoker Sun Exposure moderate amount of sun exposure Sun Exposure Has never used tanning bed Sun Exposure Has never experienced blistering from sunburns Sun Exposure Uses > 30 SPF Allergies and adverse reactions Description No Known Drug Allergies Medications Active Medications SIG Qnty Indications Ordering Provide r Date Ketoconazole 2% Shampoo shampoo daily until scalp is clear, then 2-3 times per week for maintenance. 360ml L21.8 KEERTHI Rogel 03/28/2021 Bydureon Unknown Coreg Unknown Flomax Unknown Lantus Unknown Losartan Potassium Unknown Lovastatin Unknown Metformin HCL Unknown Protonix Unknown Iron (Ferrous Sulfate) Unknown Fish Oil Odor-Less Unknown Magnesium Oxide 400 Unknown Tramadol HCL Unknown Immunizations Description No Information Available Vital Signs Date Vital Result Comment 03/28/2021 9:59am BP Systolic 170 mmHg BP Diastolic 78 mmHg Heart Rate 77 /min Weight 192.00 lb 03/28/2020 9:47am BP Systolic 124 mmHg BP Diastolic 62 mmHg Body Temperature 98.8 F Results Test Acquired Date Facility Test Result H/L Range Note L Axilla (1 Of 2) 03/28/2021 [facility] LC Icd9 Code ICD9 Code: D23.5 1, 2 PDFReport SEE IMAGE 1 A. No further treatment B. No further treatment 2 ICD9 Code: D23.5 Protocol: biopsy Clinical Text: SKIN TAGS Final Diagnosis: FIBROEPITHELIAL POLYP, INFLAMED. Gross Text: The specimen grossly consisted of small fragments. In aggregate these measured about 4 mm. in total. Microscopic Description: Fibrovascular tissue is surrounded by benign epithelium, and the cutis is inflamed. CPT: 89189*2 Procedures Description No Information Available Medical Devices Description No Information Available Encounters Description No Information Available Assessments Date Code Description Provider 03/28/2021 L82.1 Other seborrheic keratosis KEERTHI Sorto 03/28/2021 L81.4 Other melanin hyperpigmentation KEERTHI Rogel 03/28/2021 L85.9 Epidermal thickening, unspecifie d KEERTHI Rogel 03/28/2021 L21.8 Other seborrheic dermatitis KEERTHI Acosta 03/28/2021 Z12.83 Encounter for screening for adrien gnant neoplasm of skin KEERTHI Rogel Plan of Treatment Future Appointment(s):* 03/28/2022 10:15 am - KEERTHI Rogel at Main Office 03/28/2021 - KEERTHI Rogel* L82.1 Other seborrheic keratosis* Comments:* Reassurance. Seborrheic keratoses are benign warty growths, patients will get more of them as they age. * L81.4 Other melanin hyperpigmentation* Comments:* Sunscreen use and sun protection discussed. * L85.9 Epidermal thickening, unspecified* Comments:* Removed 39 skin tags on bilateral axilla today due to irritation. Wound care instructions provided. * L21.8 Other seborrheic dermatitis* New Medication:* Ketoconazole 2 % - shampoo daily until scalp is clear, then 2-3 times per week for maintenance. * Comments:* Discussed diagnosis and treatment options. Start Ketoconazole 2% shampoo daily until clear then decrease to TIW for maintenance. Discussed to apply to scalp and leave on scalp for 5-10 min's.Call with problems * Z12.83 Encounter for screening for malignant neoplasm of skin* Comments:* See above. * Follow up:* Yearly/PRN - [facility] Functional Status Description No Information Available Mental Status Description No Information Available Referrals Description No Information Available
--- OUTSIDE RECORDS SUMMARY | 2021-04-10 18:58 | CCD | Continuity of Care Document ---
Author Author Aneesh VU M.D. Organization Unknown Address [address] [address] Phone [phone] Care Team Providers Care Bottle Caser Name Role Phone [facility] Cardiology - Cardiovascular Disease AUTM [phone] Nery Mistry MD AUTM [phone] Miguel Soto M.D. AUTM [phone] Mary Ellen Barajas M.D. AUTM [phone] Problems Active Problems Provider Date Osteoarthritis Onset: 02/05/2001 Type 2 diabetes mellitus Onset: 02/06/20 Hyperlipidemia Dominick Barajas D.O., FAAFP Onset: 04/11 Essential hypertension Onset: 02/05/2001 Depressive disorder Dominick Barajas D.O., HIGINIOFP Onset: 04/11 Coronary arteriosclerosis Dominick Barajas D.O., FAAFP Onset : 05/07/2005 Proteinuria Dominick Barajas D.O., FAAFP Onset: 07/11 Obesity Dominick Barajas D.O., FAAFP Onset: 06/11 Obstructive sleep apnea of adult Dominick Barajas D.O., FAAF P Onset: 11/25/2014 Note: cpap Other specified diabetes mellitus without complication s Dominick Barajas D.O., FAAFP Onset: 03/10/2015 Social History Type Date Description Comments Sex Unknown Tobacco Use Start: Unknown Former cigarette smoker quit 26 yrs ago. ETOH Use Current alcohol use: Rarely. Tobacco Use Start: Unknown End: Unknown Patient is a former smoker Allergies and adverse reactions Description No Known Drug Allergies Medications Active Medications SIG Qnty Indications Ordering Provide r Date Tramadol HCL 50mg Tablets 1 tab by mouth three times a day as needed pain. [id number] 90tavanessa M48.02 Jayson Vu M.D. 03/23/2020 Shingrix 50mcg/0.5ML Suspension Re c as directed 1units Jayson Vu M.D. 01/20/20 19 Ventolin HFA 108(90Base) mcg/Act A erosol 2 puffs every 4-6 hours as needed sob or wheezing 24gm Dominick Barajas D.O., FAAFP 10/14/2014 Paxil 20mg Tablets 1 b y mouth every day 90taJayson Barker M.D. 06/13/2007 Vitamin D3 125mcg (5000 Ut) Capsul es 1 by mouth every day OTC Unknown Melatonin 10mg Capsules 2 by mouth every day at bedtime OTC Unknown Calcium 600 600mg Tablets 1 p .o. qd OTC Unknown Aspirin 325mg Tablets 1 by mouth every day OTC Unknown Atorvastatin Calcium 80mg Tablets take 1 tablet every day Unknown Tylenol Extra Strength 500mg Table ts take 2 by mouth bid And as needed OTC Unknown Pantoprazole Sodium 40mg Tablets D R 1 by mouth every day 90taJayson Barker M.D. Losartan Potassium 25mg Tablets 1 by mouth every day 90taJayson Barker M.D. Coreg 3.125mg Tablets (Hold) take one tablet by mouth twice daily Unknown Magnesium Oxide 400mg Capsules 1 po bid Unknown Ferrous Sulfate 325(65Fe) mg Table ts DR 1 by mouth qd 180tabs Jayson Vu M.D. Bydureon 2mg Pen 2mg sc weekl y Unknown Nitrostat 0.4mg Tablets Sub 1 sl every 5 min for chest pain. may take up to 3 doses at which point also seek medical attention. 25taJayson Barker M.D. Flomax 0.4mg Capsules 1 by mouth every night at bedtime Unknown Metformin HCL 500mg Tablets 1 by mouth twice a day Unknown BD Pen [place] Short/Ultrafine/31G X 5/1 6" 31G X 8 mm Misc use as directed tid 300units E13.9 Reyna Gerard, FAA Accu-Chek Multiclix Lancets Misc use tid as directed to test blood sugars 300units Dominick Barajas D.O., FAAFP Accu-Chek Elizabeth Strips use as directed test blood sugar 5x daily code:250.00 100units Unknown Lantus 100Unit/ML Solution 70 units b.i.d. (80 Units per 03/09/21) Kostas Barajas M.D. Novolog 100Unit/ML Solution tid sliding scale per endocrine Unknown Medications Administered in Office Medication SIG Qnty Indications Ordering Provider Date Injection (SC)/(Im) Injection Dominick Barajas D.O., [facility] 03/10/2015 Immunizations CPT Code Status Date Vaccine Reaction Lot # 52928 Given 03/07/2021 Influenza Virus Vaccine, Quadrivalent, Slit Virus, Im Use 3Y & Up [id number] 95382 Given 03/23/2020 Influenza Virus Vaccine, Quadrivalent, Slit Virus, Im Use 3Y & Up [id number] 24918 Given 05/12/2019 Influenza Virus Vaccine, Quadrivalent, Slit Virus, Im Use 3Y & Up [id number] 14982 Given 04/02/2018 Influenza Virus Vaccine, Quadrivalent, Slit Virus, Im Use 3Y & Up [id number] 57888 Given 04/24/2017 Influenza Virus Vaccine, Quadrivalent, Slit Virus, Im Use 3Y & Up [id number] 75503 Given 03/28/2016 Influenza Virus Vaccine, Quadrivalent, Slit Virus, Im Use 3Y & Up [id number] 89864 Given 03/10/2015 Influenza Virus Vac. Split Virus Individuals 3 Years And Above [id number] 63157 Given 04/14/2012 Influenza Virus Vac[place] 3 [place] [address] Given 04/01/2012 Influenza Virus Vac. Split Virus Individuals 3 Years And Above 41811 Given 03/29/2011 Influenza Virus Vac. Split Virus Individuals 3 Years And Above [id number] 84519 Given 03/24/2010 Influenza Virus Vac. Split Virus Individuals 3 Years And Above [id number] 82976 Given 04/11/2009 Influenza Virus Vac. Split Virus Individuals 3 Years And Above [id number] 26019 Given 04/13/2004 Influenza Virus Vac. Split Virus Individuals 3 Years And Above Vital Signs Date Vital Result Comment 03/07/2021 9:41am BP Systolic 108 mmHg BP Diastolic 64 mmHg Body Temperature 98.7 F Heart Rate 64 /min Respiratory Rate 14 /min Height 62 inches 5'2" Weight 190.00 lb [place] Body Weight 118 lb BMI (Body Mass Index) 34.7 kg/m2 O2 % BldC Oximetry 93 % 09/28/2020 8:46am BP Systolic 136 mmHg BP Diastolic 80 mmHg Body Temperature 98.3 F Heart Rate 66 /min Respiratory Rate 14 /min Height 62 inches 5'2" Weight 199.00 lb [place] Body Weight 118 lb BMI (Body Mass Index) 36.4 kg/m2 O2 % BldC Oximetry 96 % Results Test Acquired Date Facility Test Result H/L Range Note CMP 03/07/2021 [facility] Glu 332 mg/dL High 70 - 110 1 BUN 19 mg/dL 8 - 23 Creat 1.2 mg/dL 0.7 - 1.2 BUN/Creatinine Ratio 15.7 CALC Na 136 mmol/L 136 - 145 K 4.4 mmol/L 3.5 - 5.1 CL 101.5 mmol/L 98.0 - 107.0 Co2 20.2 mmol/L Low 22.0 - 29.0 CA 9.1 mg/dL 8.6 - 10.2 TP 5.9 g/dL Low 6.6 - 8.7 Alb 3.7 g/dL 3.5 - 5.2 A/G Ratio 1.7 CALC Globulin 2.1 CALC Alp 90.4 U/L 40 - 129 Alt (SGPT) 22 U/L 0 - 41 Ast (Sgot) 19 U/L 0 - 40 Tbili 0.40 mg/dL 0.0 - 1.2 Osmolality-Calculated 287.1 CALC Anion Gap 19 mmol/L eGFR 71 # Calc 2 eGFR Non-Afr. Rwandan 61 # Calc 3 Lipid Panel 03/07/2021 [facility] Chol 142 mg/dL 0 - 200 Trig 199 mg/dL 35 - 200 HDL 58 mg/dL High 35 - 55 LDL_C 44 Calc Low 75 - 129 Cho/HDL Ratio 2.4 Calc CBC 03/07/2021 [facility] WBC 8.8 10E3/uL 4.1 - 10.9 RBC 4.24 10E6/uL 4.20 - 6.30 HGB 13.0 g/dL 12.0 - 18.0 HCT 37.8 % 37.0 - 51.0 MCV 89.2 fL 80.0 - 97.0 MCH 30.7 pg 26.0 - 32.0 MCHC 34.4 g/dL 31.0 - 36.0 PLT 249 10E3/uL 140 - 440 RDW-CV 12.7 % 11.5 - 14.5 Lym% 18.8 % 10.0 - 58.5 Neut% 70.4 % 37.0 - 92.0 MXD% 10.8 % 0.1 - 24.0 Lym# 1.7 10E3/uL 0.6 - 4.1 Neut# 6.1 % 2.0 - 7.8 MXD# 1.0 10E3/uL 0.0 - 1.8 MPV 10.5 fL 9.0 - 13.0 Laboratory test finding 03/07/2021 [facility] Hemoglobin A1c 8.0 % High 4.50-6.20 Influenxa A/B RSV Covid Amp 01/07/[facility] (Interface) [phone] Influenza A Amplification NEGATIVE Normal Negati ve 4 Influenza B Amplification NEGATIVE Normal Negative 5 RSV Amplification NEGATIVE Normal Negative 6 Sars Covid-19 Amplification NEGATIVE Normal Negative 7 Istat Chem8+ Panel 01/07/2021 [facility] (I nterface) [phone] iSTAT HCT 37.0 % Low 38.0-51.0 iSTAT Glucose 212 mg/dL High 70-105 iSTAT Sodium 135 mEq/L Low 136-145 iSTAT Potassium 4.2 mEq/L Normal 3.5-5.1 iSTAT CA++ 5.0 mg/dL Normal 4.5-5.3 iSTAT Chloride 98 mEq/L Normal 98-109 iSTAT Co2 24.0 MM/L Normal 23.0-27.0 iSTAT BUN 32 mg/dL High 8-26 iSTAT Creatinine 1.8 mg/dL High 0.6-1.3 Prothrombin Time/Inr 01/07/2021 [facility] ( Interface) [phone] Prothrombin Time 12.9 seconds Normal 12.7-14.5 Inr 0.93 Normal 8 Laboratory test finding 01/07/2021 [facility] (Interface) [phone] Partial Thromboplastin Time 28.5 seconds Normal 25 .9-37.0 Type & Screen -Incl Blood Type,[facility],AB SC 01/07/2021 [facility] (Interface) [phone] Blood Type B POSITIVE Normal AB Screen (Indirect Srikanth)Vis NEGATIVE Normal Istat Chem8+ Panel 01/07/2021 [facility] (I nterface) [phone] iSTAT HCT 38.0 % Normal 38.0-51.0 iSTAT Glucose 221 mg/dL High 70-105 iSTAT Sodium 135 mEq/L Low 136-145 iSTAT Potassium 4.3 mEq/L Normal 3.5-5.1 iSTAT CA++ 4.8 mg/dL Normal 4.5-5.3 iSTAT Chloride 99 mEq/L Normal 98-109 iSTAT Co2 25.0 MM/L Normal 23.0-27.0 iSTAT BUN 32 mg/dL High 8-26 iSTAT Creatinine 2.0 mg/dL High 0.6-1.3 Laboratory test finding 12/20/2020 [facility] (Interface) [phone] PSA Screening 1.63 NG/ML Normal < 4.00 9 CMP 09/28/2020 [facility] Glu 165 mg/dL High 70 - 110 BUN 14 mg/dL 8 - 23 Creat 1.0 mg/dL 0.7 - 1.2 BUN/Creatinine Ratio 14.1 Calc Na 137 mmol/L 136 - 145 K 4.1 mmol/L 3.5 - 5.1 CL 103.7 mmol/L 98.0 - 107.0 Co2 24.0 mmol/L 22.0 - 29.0 CA 8.7 mg/dL 8.6 - 10.2 TP 5.5 g/dL Low 6.6 - 8.7 Alb 3.6 g/dL 3.5 - 5.2 A/G Ratio 1.8 Calc Globulin 2.0 Calc Alp 78.2 U/L 40 - 129 Alt (SGPT) 20 U/L 0 - 41 Ast (Sgot) 15 U/L 0 - 40 Tbili 0.16 mg/dL 0.0 - 1.2 Osmolality-Calculated 278.8 Calc Anion Gap 14 mmol/L eGFR 89 # Calc 10 eGFR Non-Afr. Rwandan 76 # Calc 11 Lipid Panel 09/28/2020 [facility] Chol 136 mg/dL 0 - 200 Trig 89 mg/dL 35 - 200 HDL 56 mg/dL High 35 - 55 LDL_C 63 Calc Low 75 - 129 Cho/HDL Ratio 2.4 Calc CBC 09/28/2020 [facility] WBC 8.2 10E3/uL 4.1 - 10.9 RBC 4.07 10E6/uL Low 4.20 - 6.30 HGB 12.5 g/dL 12.0 - 18.0 HCT 36.0 % Low 37.0 - 51.0 MCV 88.5 fL 80.0 - 97.0 MCH 30.7 pg 26.0 - 32.0 MCHC 34.7 g/dL 31.0 - 36.0 PLT 275 10E3/uL 140 - 440 RDW-CV 13.5 % 11.5 - 14.5 Lym% 21.7 % 10.0 - 58.5 Neut% 67.0 % 37.0 - 92.0 MXD% 11.3 % 0.1 - 24.0 Lym# 1.8 10E3/uL 0.6 - 4.1 Neut# 5.5 % 2.0 - 7.8 MXD# 0.9 10E3/uL 0.0 - 1.8 MPV 9.0 fL 9.0 - 13.0 Laboratory test finding 09/28/2020 [facility] Hemoglobin A1c 8.1 % High 4.50-6.20 1 NORMAL RANGES Age WBC RBC HGB HCT MCV PLT Adult M 4.1-10.9 4.20-6.30 12.0-18.0 37.0-51.0 80-97 140-440 Adult F 4.1-10.9 4.04-5.48 12.0-18.0 37.0-51.0 80-97 140-440 0 -1 Yr 5.0-20.0 3.9-5.9 15-18 MV: 44 MV: 91 MV: 277 2-9 Yr. 6.0-17.0 3.8-5.4 11-13 MV: 37 MV: 78 MV: 300 10 Yrs. 5.0-13.0 3.8-5.4 12-15 MV: 39 MV: 80 MV: 250 NOTE: * FOR ADULT BLACK MALES AND FEMALES, NORMAL WBC IS 2.9-7.7 K/ML * FOR ADULT BLACK MALES AND FEMALES, NORMAL RBC,HGB, AND HCT IS 5% LESS SOURCE FOR DATA: [employer] 1800 OPERATION MANUAL( AUTOMATED BLOOD COUNTS AND DIFF.) APPENDIX B-3 CHRONIC KIDNEY DISEASE STAGING PER NKF: MALE GFR INTERPRETATION: 20-49 YRS: >60 mL/min Normal 50-59 YRS: >56 mL/min Normal 60-69 YRS: >49 mL/min Normal 70-79 YRS: >42 mL/min Normal 80 and above >35 mL/min Normal FEMALE GRF INTERPRETATION: 20-39 YRS: >60 mL/min Normal 40-49 YRS: >58 mL/min Normal 50-59 YRS: >51 mL/min Normal 60-69 YRS: >45 mL/min Normal 70-79 YRS: >39 mL/min Normal 80 and above >32 mL/min NormalCLASSIFICATION CHOLESTEROL FOR ADULTS CHILDREN/ADOLESCENTS* DESIRABLE: <200 MG/DL <170 MG/DL BORDER-LINE HIGH RISK: 200-239 MG/DL 170-199 MG/DL HIGH RISK: >240 MG/DL >200 MG/DL CLASS. FOR PRIMARY LDL CHOL PREVENTION: LDL CHOL-CHILD/ADOLESCENTS* DESIRABLE: <130 MG/DL <110 MG/DL BORDERLINE-HIGH RISK: 130-159 MG/DL 110-129 MG/DL HIGH RISK: >160 MG/DL >130 MG/DL *CHILDREN AND ADOLESCENTS REPRESENTS INDIVIDUALA AGED 2-19 YEARS EXCLUSIVE. 2 CKD-EPI 3 CKD-EPI 4 Negative results do not prec lude influenza or RSV virus infection and should not be used as the sole basis for treatment or other patient management decisions. 5 Negative results do not prec lude influenza or RSV virus infection and should not be used as the sole basis for treatment or other patient management decisions. 6 Negative results do not prec lude influenza or RSV virus infection and should not be used as the sole basis for treatment or other patient management decisions. 7 A false negative result may occur if a specimen is improperly collected, transported or handled. False negative results may also occur if inadequate numbers of organisms are present in the specimen. As with any molecular test, mutations within the target regions of [employer] SARS-CoV-2 could affect primer and/or probe binding resulting in failure to detect the presence of virus. This test cannot rule out diseases caused by other bacterial or viral pathogens. DISCLAIMER: Testing was performed using the [employer] SARS-CoV-2 test. This test was developed and its performance characteristics determined by [employer] This test has not been FDA cleared or approved. This test has been authorized by FDA under an Emergency Use Authorization (EUA). This test is only authorized for the duration of time the declaration that circumstances exist justifying the authorization of the emergency use of in vitro diagnostic tests for detection of SARS-CoV-2 virus and/or diagnosis of COVID-19 infection under section 564(b)(1) of the Act, 21 U.S.C. 360bbb-3(b)(1), unless the authorization is terminated or revoked sooner. 8 THERAPUTIC HUMAN INR VALUES INDICATIONS NORMAL RANGES PROPHYLAXIS/TREATMENT OF: VENOUS THROMBOSIS 2.0-3.0 PULMONARY EMBOLISM 2.0-3.0 PREVENTION OF SYSTEMIC EMBOLISM FROM: TISSUE HEART VALVES 2.0-3.0 ACUTE MYOCARDIAL INFARCTION 2.0-3.0 VALVULAR HEART DISEASE 2.0-3.0 ATRIAL FIBRILLATION 2.0-3.0 MECHANICAL VALVES(HIGH RISK) 2.5-3.5 RECURRENT MYOCARDIAL INFARCTION 2.5-3.5 9 The PSA assay is performed o n the [employer] analyzer by [employer] sandwich chemiluminescent immunoassay and should not be compared interchangeably with other methods. It should not be used alone as a screening test or diagnosis for the presence or absence of malignant disease. Predictions of disease recurrence should not be based solely on values obtained from serial patient serum values. 10 CKD-EPI 11 CKD-EPI Procedures Date Code Description Status 03/07/2021 65549 Office/Outpatient Established Mo d MDM 30-39 Min Completed 09/28/2020 91315 Office/Outpatient Established Mo d MDM 30-39 Min Completed Medical Devices Description No Information Available Encounters Type Date Location Provider Dx Diagnosis Office Visit 03/07/2021 9:30a [facility] Jayson Vu M. D. E11.9 Type 2 diabetes mellitus without complications E78.5 Hyperlipidemia, unspecified I25.10 Athscl heart disease of [place] ve coronary artery w/o ang pctrs I10 Essential (primary) hyperten rené I67.9 Cerebrovascular disease, uns pecified Z23 Encounter for immunization Office Visit 09/28/2020 9:15a [facility] Jayson Vu M. D. 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 03/07/2021 E78.5 Hyperlipidemia, unspecified [facility] Jayson branch M.D. 03/07/2021 I25.10 Atherosclerotic heart disease of [place] coronary artery with Jayson Vu M.D. 03/07/2021 I10 Essential (primary) hypertension Jayson Vu M.D. 03/07/2021 I67.9 Cerebrovascular disease, unspeci fied Jayson Vu M.D. 03/07/2021 Z23 Encounter for immunization Sean Jayson coronado M.D. 09/28/2020 E11.9 Type 2 diabetes mellitus without complications Jayson Vu M.D. 09/28/2020 E78.5 Hyperlipidemia, unspecified [facility] Jayson branch M.D. 09/28/2020 I25.10 Atherosclerotic heart disease of [place] coronary artery with Jayson Vu M.D. 09/28/2020 I10 Essential (primary) hypertension Jayson Vu M.D. Plan of Treatment Future Appointment(s):* 06/12/2021 8:45 am - Jayson Vu M.D. at [facility] Functional Status Description No Information Available Mental Status Description No Information Available Referrals Description No Information Available
--- OUTSIDE RECORDS SUMMARY | 2021-04-10 18:59 | CCD | Continuity of Care Document ---
Author Author Aneesh CHATMAN M.D. Organization Unknown Address [address] [place] [address] Phone [phone] Care Team Providers Care Tractor Trailer Operator Name Role Phone Jayson Vu M.D. AUTM [phone] Mukesh De Anda M.D AUTM [phone] Problems Active Problems Provider Date Ischemic stroke Mel Chatman M.D. Onset: 01/30/2021 Social History Type Date Description Comments Sex Unknown Tobacco Use Start: Unknown End: Unknown Patient is a former smoker Allergies, Adverse Reactions, Alerts Description No Known Drug Allergies Medications Active Medications SIG Qnty Indications Ordering Provide r Date Jared Advanced Aspirin Regular Strength 325mg Tablets take one a day Unknown Immunizations Description No Information Available Vital Signs Date Vital Result Comment 01/30/2021 1:27pm Respiratory Rate 12 /min Height 64 inches 5'4" Weight 196.00 lb BMI (Body Mass Index) 33.6 kg/m2 [place] Body Weight 130 lb Results Description No Information Available Procedures Date Code Description Status 01/08/2021 90369 Hospital Initial Care Level 3 Co mpleted Medical Devices Description No Information Available Encounters Description No Information Available Assessments Date Code Description Provider 01/30/2021 I63.59 Cerebral infarction due to unspecified occlusion or stenosis of other cerebral artery Mel Chatman M.D. 01/08/2021 I63.59 Cerebral infarction due to unspecified occlusion or stenosis of other cerebral artery Mel Chatman M.D. Plan of Treatment No Information Available Functional Status Description No Information Available Mental Status Description No Information Available Referrals Description No Information Available
--- OUTSIDE RECORDS SUMMARY | 2021-04-10 18:59 | CCD | Continuity of Care Document ---
Author Author Aneesh RODARTE LAND COMMISSIONER Organization Unknown Address [address] [place] [id number] Phone [phone] Care Team Providers Care Ultrasound Tester Name Role Phone Jayson Vu MD AUTM [phone] Problems Active Problems Provider Date Type II diabetes mellitus uncontrolled Mary Ellen Barajas MD O nset: 08/16/2011 Essential hypertension Mary Ellen Barajas MD Onset: 08/16/2011 Pure hypercholesterolemia Mary Ellen Barajas MD Onset: 012 Obesity Mary Ellen Barajas MD Onset: 08/16/2011 Insulin Mary Ellen Barajas MD Onset: 08/16/2011 Type 2 diabetes mellitus Tonja High PA-C Onset: 0 01/04/2014 Examination Other Specified Tonja High PA-C Onset : 01/04/2014 Chronic kidney disease stage 3 Tonja High PA-C On set: 06/22/2016 Chronic kidney disease stage 2 Tonja High PA-C On set: 03/22/2016 Long-term current use of insulin Tonja High PA-C Onset: 03/22/2016 Mixed hyperlipidemia Tonja Hihg PA-C Onset: 03/22 Type 2 diabetes mellitus Tonja High PA-C Onset: 0 07/09/2014 Needs influenza immunization Tonja High PA-C Onse t: 04/06/2014 Social History Type Date Description Comments Sex Unknown Tobacco Use Start: Unknown End: Unknown Patient is a former smoker Smoking Status Reviewed: 02/09/21 Patient is a former smoker Allergies, Adverse Reactions, Alerts Description No Known Drug Allergies Medications Active Medications SIG Qnty Indications Ordering Provide r Date Bydureon Bcise 2mg/0.85ML Auij inject under the skin once weekly 10.2ml E11.65 Naz Rodarte, N P 01/06/2019 Accu-Chek Smartview Strips use as directed 3 times a day 300units E11.21 Naz Rodarte, LEX BD Pen Needle/Short/Ultrafine/31G X 5/16 " 31G X 8 mm Misc use as directed 5 x daily with insulin pens e11.21 400units E11.65 Naz Rodarte, LEX 03/22/2016 Humalog Kwikpen 100U nit/ML Solution Pen-Inject use as directed per scale mdd 72 units. 5boxes E11.21 Naz Rodarte NP 01/25/2014 Accu-Chek Shania Smartview w/Device Kit uad 1units Mary Ellen Barajas MD 10/07/2013 Metformin HCL ER 500mg Tablets ER 24HR 1 tab by mouth twice a day 180tabs E11.65 Naz Rodarte, LEX 10/02/2012 Accu-Chek Multiclix Lancets Misc use 5x daily as directed 250.02 600units Mary Ellen Barajas MD Lantus Solostar 100U nit/ML Solution Pen-Inject use as directed 60 units twice a day, disp 6 box 90ml E11.21 Naz Rodarte, LEX 02/13/2011 Alcohol Preps Pads us e as directed qid 400units Marine Heredia, SEWAGE DISPOSAL ENGINEER 11/15/2009 Vitamin D-3 125mcg (5000 Ut) Table ts take one tablet by mouth every day with dinner Unknow n Calcium + D3 600-200 Tablets 1 by mouth daily Unknown Moxifloxacin HCL (2X Day) 0.5% Solution Unknown Neomycin-Bacitracin ZN-Polymyx [phone] Ointment Unknown Atorvastatin Calcium 80mg Tablets 1 tab by mouth daily Unknown Protonix 40mg Tablets DR 1 ta b po qd Unknown Losartan Potassium 25mg Tablets 1 by mouth every day Unknown Aspirin 325mg Tablets 1 p.o. qd Unknown Ferrous Sulfate 325(65Fe) mg Table ts 1 tab po qd Unknown Ventolin HFA 108(90Base) mcg/Act A erosol 2 puffs as needed Unknown Magnesium 400mg Capsules 2 po bid Unknown Flomax 0.4mg Capsules 1 by mouth every day Unknown Tylenol Arthritis Pain 650mg Table ts ER 2 tabs qd Unknown Lovastatin 40mg Tablets 1 po qd 90tabs Unknown Paroxetine HCL 20mg Tablets 1 po qd 30tabs Unknown Immunizations Description No Information Available Vital Signs Date Vital Result Comment 02/09/2021 11:14am BP Systolic 140 mmHg BP Diastolic 72 mmHg Heart Rate 73 /min Height 63 inches 5'3" Weight 191.00 lb BMI (Body Mass Index) 33.8 kg/m2 O2 % BldC Oximetry 94 % 11/10/2020 10:48am BP Systolic 142 mmHg BP Diastolic 80 mmHg Heart Rate 73 /min Height 63 inches 5'3" Weight 195.50 lb BMI (Body Mass Index) 34.6 kg/m2 O2 % BldC Oximetry 98 % Results Description No Information Available Procedures Date Code Description Status 02/09/2021 50517 Office/Outpatient Established Hi gh MDM 40-54 Min Completed 11/29/2020 611363810 Diabetic Foot Exam Completed 11/10/2020 59078 Office/Outpatient Established Mo d MDM 30-39 Min Completed Medical Devices Description No Information Available Encounters Type Date Location Provider Dx Diagnosis Office Visit 02/09/2021 11:45a DR. Mary Ellen Rodarte, N P E11.21 Type 2 diabetes mellitus with diabetic nephropathy N18.2 Chronic kidney disease, stag e 2 (mild) Z79.4 watermelon inspector (current) use of i nsulin I10 Essential (primary) hyperten rené E78.2 Mixed hyperlipidemia I63.9 Cerebral infarction, unspeci fied Office Visit 11/10/2020 10:45a DR. Mary Ellen Rodarte, N P E11.21 Type 2 diabetes mellitus with diabetic nephropathy N18.30 Chronic kidney disease, stag e 3 unspecified Z79.4 watermelon inspector (current) use of i nsulin I10 Essential (primary) hyperten rené E78.2 Mixed hyperlipidemia Assessments Date Code Description Provider 02/09/2021 E11.21 Type 2 diabetes mellitus with di abetic nephropathy Naz Rodarte, LEX 02/09/2021 N18.2 Chronic kidney disease, stage 2 (mild) Naz Rodarte, LAND COMMISSIONER 02/09/2021 Z79.4 assisted (current) use of insul in Naz Rodarte, LEX 02/09/2021 I10 Essential (primary) hypertension Naz Rodarte, LEX 02/09/2021 E78.2 Mixed hyperlipidemia Naz allen, LEX 02/09/2021 I63.9 Cerebral infarction, unspecified Naz Rodarte, LEX 11/10/2020 E11.21 Type 2 diabetes mellitus with di abetic nephropathy Naz Rodarte, LEX 11/10/2020 N18.30 Chronic kidney disease, stage 3 unspecified Naz Rodarte, LAND COMMISSIONER 11/10/2020 Z79.4 watermelon inspector (current) use of insul in Naz Rodarte NP 11/10/2020 I10 Essential (primary) hypertension Naz Rodarte, LAND COMMISSIONER 11/10/2020 E78.2 Mixed hyperlipidemia Naz allen NP Plan of Treatment Future Appointment(s):* 05/11/2021 2:45 pm - Naz Rodarte NP at DR. Mary Ellen Barajas 02/09/2021 - Naz Rodarte NP* E11.21 Type 2 diabetes mellitus with diabetic nephropathy* Comments:* 01/08/21- out of office A1c = 7.7 % (8.1 %, 7.8%, 8.3%, 8.4%, 8%, 7.6%, 7.5%, 9.5%, 8%, 10.6%,10.5%, 8.0%, 8.8%.) Manual Meter download- fasting- 129-240, lunch- 80-231, bedtime- 127-214 Current oral medications: Bydureon 2 mg once weekly, Metformin ER 500mg 1 tabs po BIDCurrent insulin doses: Humalog TID based on ss- (still missing mealtime coverage) and Lantus 75 u BID Difficult to manage due to persistent noncompliance with medication and dietPt states he has been better with taking Humalog before meals. to call with any lo/hi trends. RTO 3 months * Follow up:* 3 months JL/CBF * N18.2 Chronic kidney disease, stage 2 (mild)* Comments:* Reviewed nephrology note from 01/24/2021abs done 01/24/2021- scr= 1.2, GFR= 60, microcreat ratio= 101.0 ( improved 346.5)HH= 36.5/11.7 * Z79.4 watermelon inspector (current) use of insulin* Comments:* No dose adjustments today * I10 Essential (primary) hypertension* Comments:* On ARB. Losartan 25mg po qd.. BP 140/72 * E78.2 Mixed hyperlipidemia* Comments:* LDL goal < 100. Per his PCP. Remains on statin therapy. On Lovastatin 40mg po qd. Labs done 08/31/2019- chol= 171, Trig= 204, HDL= not results, LDL= 78 * I63.9 Cerebral infarction, unspecified* Comments:* New problem: obtained records from [facility] websitePt was admitted to [facility] 01/07/21-01/09/21 due to 3 acute strokes. Pt developed right upper extremity weakness. MRI revealed 3 acute strokes. Has followup with neurology Currently wearing heart monitor to r/o atrial fib as cause of strokes. Functional Status Description No Information Available Mental Status Description No Information Available Referrals Description No Information Available
--- OUTSIDE RECORDS SUMMARY | 2021-04-10 18:59 | CCD | Continuity of Care Document ---
Author Author Aneesh VU M.D. Organization Unknown Address [address] [address] Phone [phone] Care Team Providers Care Patient Safety Tech Name Role Phone [facility] Cardiology - Cardiovascular Disease AUTM [phone] Nery Mistry MD AUTM [phone] Miguel Soto M.D. AUTM [phone] Mary Ellen Barajas M.D. AUTM [phone] Problems Active Problems Provider Date Osteoarthritis Onset: [...] three times a day as needed pain. [id number] 90tavanessa M48.02 Jayson Vu M.D. 03/23/2020 Shingrix [...] 25mg Tablets 1 by mouth every day 90tabs Jayson Vu M.D. 00 Coreg 3.125mg Tablets (Hold) take one tablet [...] mouth twice a day Unknown BD Pen [place] Short/Ultrafine/31G X 5/1 6" 31G X 8 mm Misc use as directed tid 300units E13.9 Reyna Gerard, FAAFP Accu-Chek Multiclix Lancets Misc use tid as directed to test blood sugars 300units Dominick Barajas D.O., FAAFP Accu-Chek Elizabeth Strips use as directed test blood sugar 5x daily code:250.00 100units Unknown Lantus 100Unit/ML Solution 70 units bid Mary Ellen Barajas M.D. Novolog 100Unit/ML Solution tid sliding scale per endocrine Unknown Medications Administered in Office Medication SIG Qnty Indications Ordering Provider Date Injection (SC)/(Im) Injection Dominick Barajas D.O., [facility] 03/10/2015 Immunizations CPT Code Status Date Vaccine Reaction Lot # [id number] Given 03/07/2021 Influenza Virus Vaccine, Quadrivalent, Slit Virus, Im Use 3Y & Up [id number] 68814 Given 03/23/2020 Influenza Virus Vaccine, Quadrivalent, Slit Virus, Im Use 3Y & Up [id number] 43296 Given 05/12/2019 Influenza Virus Vaccine, Quadrivalent, Slit Virus, Im Use 3Y & Up [id number] 88085 Given 04/02/2018 Influenza Virus Vaccine, Quadrivalent, Slit Virus, Im Use 3Y & Up [id number] 98855 Given 04/24/2017 Influenza Virus Vaccine, Quadrivalent, Slit Virus, Im Use 3Y & Up [id number] 34361 Given 03/28/2016 Influenza Virus Vaccine, Quadrivalent, Slit Virus, Im Use 3Y & Up [id number] 37931 Given 03/10/2015 Influenza Virus Vac. Split Virus Individuals 3 Years And Above [id number] 74380 Given 04/14/2012 Influenza Virus Vac[place] 3 [place] [address] Given 04/01/2012 Influenza Virus Vac. Split Virus Individuals 3 Years And Above 11692 Given 03/29/2011 Influenza Virus Vac. Split Virus Individuals 3 Years And Above [id number] 11447 Given 03/24/2010 Influenza Virus Vac. Split Virus Individuals 3 Years And Above [id number] 92024 Given 04/11/2009 Influenza Virus Vac. Split Virus Individuals 3 Years And Above [id number] 31639 Given 04/13/2004 Influenza Virus Vac. Split Virus Individuals 3 Years And Above Vital Signs Date Vital Result Comment 03/07/2021 9:41am BP Systolic 108 mmHg BP Diastolic 64 mmHg Body Temperature 98.7 F Heart Rate 64 /min Respiratory Rate 14 /min Height 62 inches 5'2" Weight 190.00 lb Dawson Body Weight 118 lb BMI (Body Mass Index) 34.7 kg/m2 O2 % BldC Oximetry 93 % 09/28/2020 8:46am BP Systolic 136 mmHg BP Diastolic 80 mmHg Body Temperature 98.3 F Heart Rate 66 /min Respiratory Rate 14 /min Height 62 inches 5'2" Weight 199.00 lb Dawson Body Weight 118 lb BMI (Body Mass [...] eGFR 71 # Calc 2 eGFR Non-Afr. Guinean 61 # Calc 3 Lipid Panel 03/07/2021 [...] 4.50-6.20 Influenxa A/B RSV Covid Amp 01/07/2021 [facility] (Interface) [phone] Influenza A Amplification NEGATIVE Normal Negati ve 4 Influenza B Amplification NEGATIVE Normal Negative 5 RSV Amplification NEGATIVE Normal Negative 6 Sars Covid-19 Amplification NEGATIVE Normal Negative 7 Istat Chem8+ Panel 01/07/2021 [facility] (I nterface) [phone] iSTAT HCT 37.0 % Low 38.0-51.0 iSTAT Glucose 212 mg/dL High 70-105 iSTAT Sodium 135 mEq/L Low 136-145 iSTAT Potassium 4.2 mEq/L Normal 3.5-5.1 iSTAT CA++ 5.0 mg/dL Normal 4.5-5.3 iSTAT Chloride 98 mEq/L Normal 98-109 iSTAT Co2 24.0 MM/L Normal 23.0-27.0 iSTAT BUN 32 mg/dL High 8-26 iSTAT Creatinine 1.8 mg/dL High 0.6-1.3 Prothrombin Time/Inr 01/07/2021 [facility] ( Interface) [phone] Prothrombin Time 12.9 seconds Normal 12.7-14.5 Inr 0.93 Normal 8 Laboratory test finding 01/07/2021 [facility] (Interface) [phone] Partial Thromboplastin Time 28.5 seconds Normal 25 .9-37.0 Type & Screen -Incl Blood Type,[facility],AB SC 01/07/2021 [facility] (Interface) [phone] Blood Type B POSITIVE Normal AB Screen (Indirect Srikanth)Vis NEGATIVE Normal Istat Chem8+ Panel 01/07/2021 [facility] (I nterface) [phone] iSTAT HCT 38.0 % Normal 38.0-51.0 iSTAT Glucose 221 mg/dL High 70-105 iSTAT Sodium 135 mEq/L Low 136-145 iSTAT Potassium 4.3 mEq/L Normal 3.5-5.1 iSTAT CA++ 4.8 mg/dL Normal 4.5-5.3 iSTAT Chloride 99 mEq/L Normal 98-109 iSTAT Co2 25.0 MM/L Normal 23.0-27.0 iSTAT BUN 32 mg/dL High 8-26 iSTAT Creatinine 2.0 mg/dL High 0.6-1.3 Laboratory test finding 12/20/2020 [facility] (Interface) [phone] PSA Screening 1.63 NG/ML Normal < 4.00 [...] eGFR 89 # Calc 10 eGFR Non-Afr. Guinean 76 # Calc 11 Lipid Panel 09/28/2020 [...] HCT IS 5% LESS SOURCE FOR DATA: [employer] 1800 OPERATION MANUAL( AUTOMATED BLOOD COUNTS AND [...] pathogens. DISCLAIMER: Testing was performed using the [employer] SARS-CoV-2 test. This test was developed and its performance characteristics determined by [employer]. This test has not been FDA cleared [...] PSA assay is performed o n the Siemens [place] analyzer by [employer] sandwich chemiluminescent immunoassay and should not be compared interchangeably with other methods. It should not be used alone as a screening test or diagnosis for the presence or absence of malignant disease. Predictions of disease recurrence should not be based solely on values obtained from serial patient serum values. 10 CKD-EPI 11 CKD-EPI Procedures Date Code Description Status 03/07/2021 27854 Office/Outpatient Established Mo d MDM 30-39 Min Completed 09/28/2020 27510 Office/Outpatient Established Mo d MDM 30-39 Min Completed Medical Devices Description No Information Available Encounters Type Date Location Provider Dx Diagnosis Office Visit 03/07/2021 9:30a [place] [facility] Jayson Vu M. D. 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 D. 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 03/07/2021 E78.5 Hyperlipidemia, unspecified [facility] Jayson branch M.D. 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 03/07/2021 I10 Essential (primary) hypertension Jayson Vu M.D. 03/07/2021 I67.9 Cerebrovascular disease, unspeci fied Jayson Vu M.D. 09/28/2020 E11.9 Type 2 diabetes mellitus without complications Jayson Vu M.D. 09/28/2020 E78.5 Hyperlipidemia, unspecified [facility] Jayson branch M.D. 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 09/28/2020 I10 Essential (primary) hypertension Jayson Vu M.D. Plan of Treatment Future Appointment(s):* 06/12/2021 8:45 am - Jayson Vu M.D. at [facility] Functional Status Description No Information Available Mental Status Description No Information Available Referrals Description No Information Available
--- OUTSIDE RECORDS SUMMARY | 2021-04-10 18:59 | CCD | Continuity of Care Document ---
Author Author Aneesh VU M.D. Organization Unknown Address [address] [address] Phone [phone] Care Team Providers Care Concrete Pipe Maker Name Role Phone [facility] Cardiology - Cardiovascular Disease AUTM [phone] Nery Mistry MD AUTM [phone] Miguel Soto M.D. AUTM [phone] Mary Ellen Barajas M.D. AUTM [phone] Problems Active Problems Provider Date Osteoarthritis Onset: [...] three times a day as needed pain. [id number] 90tavanessa M48.02 Jayson Vu M.D. 03/23/2020 Shingrix 50mcg/0.5ML Suspension Re c as directed 1units Jayson uV M.D. 01/20/20 19 Ventolin HFA 108(90Base) mcg/Act A erosol 2 puffs every 4-6 hours as needed sob or wheezing 24gm Dominick Barajas D.O., FAAFP 10/14/2014 Paxil 20mg Tablets 1 b y mouth every day 90taJayson Barker M.D. 06/13/2007 Lovastatin 40mg Tablets take 1 tablet every day 90taJayson Barker M.D. 06/13/19 08 Tylenol Extra Strength 500mg Table ts take 2 by mouth bid And as needed OTC Unknown Pantoprazole Sodium 40mg Tablets D R 1 by mouth every day 90taJayson Barker M.D. Losartan Potassium 25mg Tablets 1 by mouth every day 90tabs Jayson Vu M.D. 00 Coreg 3.125mg Tablets take one tablet by mouth twice daily Unknown Magnesium Oxide 400mg Capsules 1 po bid Unknown Aspirin 81mg Tablets 1 by mouth every day Unknown Ferrous Sulfate 325(65Fe) mg Table ts [...] mouth twice a day Unknown BD Pen [place] Short/Ultrafine/31G X 5/1 6" 31G X 8 mm Misc use as directed tid 300units E13.9 Reyna Gerard, FAAFP Accu-Chek Multiclix Lancets Misc use tid as directed to test blood sugars 300units [facility] Accu-Chek [place] Strips use as directed test blood sugar 5x daily code:250.00 100units Unknown Lantus 100Unit/ML Solution 70 units bid Mary Ellen Barajas M.D. Novolog 100Unit/ML Solution e ndocrine Unknown Medications Administered in Office Medication SIG Qnty Indications Ordering Provider Date Injection (SC)/(Im) Injection Dominick Barajas D.O., [facility] 03/10/2015 Immunizations CPT Code Status Date Vaccine Reaction Lot # 38428 Given 03/23/2020 Influenza Virus Vaccine, Quadrivalent, Slit Virus, Im Use 3Y & Up [id number] 76227 Given 05/12/2019 Influenza Virus Vaccine, Quadrivalent, Slit Virus, Im Use 3Y & Up [id number] 83988 Given 04/02/2018 Influenza Virus Vaccine, Quadrivalent, Slit Virus, Im Use 3Y & Up [id number] 23661 Given 04/24/2017 Influenza Virus Vaccine, Quadrivalent, Slit Virus, Im Use 3Y & Up [id number] 07824 Given 03/28/2016 Influenza Virus Vaccine, Quadrivalent, Slit Virus, Im Use 3Y & Up [id number] 47713 Given 03/10/2015 Influenza Virus Vac. Split Virus Individuals 3 Years And Above [id number] 53526 Given 04/14/2012 Influenza Virus Vac. [place] 3 [place] [address] Given 04/01/2012 Influenza Virus Vac. Split Virus Individuals 3 Years And Above 94573 Given 03/29/2011 Influenza Virus Vac. Split Virus Individuals 3 Years And Above [id number] 00574 Given 03/24/2010 Influenza Virus Vac. Split Virus Individuals 3 Years And Above [id number] 58057 Given 04/11/2009 Influenza Virus Vac. Split Virus Individuals 3 Years And Above [id number] 39931 Given 04/13/2004 Influenza Virus Vac. Split Virus Individuals 3 Years And Above Vital Signs Date Vital Result Comment 09/28/2020 8:46am BP Systolic 136 mmHg BP Diastolic 80 mmHg Body Temperature 98.3 F Heart Rate 66 /min Respiratory Rate 14 /min Height 62 inches 5'2" Weight 199.00 lb [place] Body Weight 118 lb BMI (Body Mass Index) 36.4 kg/m2 O2 % BldC Oximetry 96 % 06/24/2020 10:00am BP Systolic 138 mmHg BP Diastolic 84 mmHg Body Temperature 99.0 F Heart Rate 78 /min Respiratory Rate 14 /min Height 62 inches 5'2" Weight 195.00 lb [place] Body Weight 118 lb BMI (Body Mass Index) 35.7 kg/m2 O2 % BldC Oximetry 95 % Results Test Acquired Date Facility Test Result H/L Range Note Influenxa A/B RSV Covid Amp 01/07/2021 [facility] (Interface) [phone] Influenza A Amplification NEGATIVE Normal Negati ve 1 Influenza B Amplification NEGATIVE Normal Negative 2 RSV Amplification NEGATIVE Normal Negative 3 Sars Covid-19 Amplification NEGATIVE Normal Negative 4 Istat Chem8+ Panel 01/07/2021 [facility] (I nterface) [phone] iSTAT HCT 37.0 % Low 38.0-51.0 iSTAT Glucose 212 mg/dL High 70-105 iSTAT Sodium 135 mEq/L Low 136-145 iSTAT Potassium 4.2 mEq/L Normal 3.5-5.1 iSTAT CA++ 5.0 mg/dL Normal 4.5-5.3 iSTAT Chloride 98 mEq/L Normal 98-109 iSTAT Co2 24.0 MM/L Normal 23.0-27.0 iSTAT BUN 32 mg/dL High 8-26 iSTAT Creatinine 1.8 mg/dL High 0.6-1.3 Prothrombin Time/Inr 01/07/2021 [facility] ( Interface) [phone] Prothrombin Time 12.9 seconds Normal 12.7-14.5 Inr 0.93 Normal 5 Laboratory test finding 01/07/2021 [facility] (Interface) [phone] Partial Thromboplastin Time 28.5 seconds Normal 25 .9-37.0 Type & Screen -Incl Blood Type,[facility],AB SC 01/07/2021 [facility] (Interface) [phone] Blood Type B POSITIVE Normal AB Screen (Indirect Srikanth)Vis NEGATIVE Normal Istat Chem8+ Panel 01/07/2021 [facility] (I nterce) [phone] iSTAT HCT 38.0 % Normal 38.0-51.0 iSTAT Glucose 221 mg/dL High 70-105 iSTAT Sodium 135 mEq/L Low 136-145 iSTAT Potassium 4.3 mEq/L Normal 3.5-5.1 iSTAT CA++ 4.8 mg/dL Normal 4.5-5.3 iSTAT Chloride 99 mEq/L Normal 98-109 iSTAT Co2 25.0 MM/L Normal 23.0-27.0 iSTAT BUN 32 mg/dL High 8-26 iSTAT Creatinine 2.0 mg/dL High 0.6-1.3 Laboratory test finding 12/20/2020 [facility] (Interface) [phone] PSA Screening 1.63 NG/ML Normal < 4.00 6 CMP 09/28/2020 [facility] Glu 165 mg/dL High 70 - 110 7 BUN 14 mg/dL 8 - 23 Creat [...] Gap 14 mmol/L eGFR 89 # Calc 8 eGFR Non-Afr. [place] 76 # Calc 9 Lipid Panel 09/28/2020 [facility] Chol 136 mg/dL [...] 9.0 - 13.0 Laboratory test finding 09/28/2020 [facility] Hemoglobin A1c 8.1 % High 4.50-6.20 1 Negative results do not prec lude influenza or RSV virus infection and should not be used as the sole basis for treatment or other patient management decisions. 2 Negative results do not prec lude influenza or RSV virus infection and should not be used as the sole basis for treatment or other patient management decisions. 3 Negative results do not prec lude influenza or RSV virus infection and should not be used as the sole basis for treatment or other patient management decisions. 4 A false negative result may occur if [...] pathogens. DISCLAIMER: Testing was performed using the [employer] SARS-CoV-2 test. This test was developed and its performance characteristics determined by [employer]. This test has not been FDA cleared [...] the authorization is terminated or revoked sooner. 5 THERAPUTIC HUMAN INR VALUES INDICATIONS NORMAL RANGES PROPHYLAXIS/TREATMENT OF: VENOUS THROMBOSIS 2.0-3.0 PULMONARY EMBOLISM 2.0-3.0 PREVENTION OF SYSTEMIC EMBOLISM FROM: TISSUE HEART VALVES 2.0-3.0 ACUTE MYOCARDIAL INFARCTION 2.0-3.0 VALVULAR HEART DISEASE 2.0-3.0 ATRIAL FIBRILLATION 2.0-3.0 MECHANICAL VALVES(HIGH RISK) 2.5-3.5 RECURRENT MYOCARDIAL INFARCTION 2.5-3.5 6 The PSA assay is performed o n the Siemens [place] analyzer by [employer] sandwich chemiluminescent immunoassay and should not be compared interchangeably with other methods. It should not be used alone as a screening test or diagnosis for the presence or absence of malignant disease. Predictions of disease recurrence should not be based solely on values obtained from serial patient serum values. 7 NORMAL RANGES Age WBC RBC HGB HCT [...] HCT IS 5% LESS SOURCE FOR DATA: [employer] 1800 OPERATION MANUAL( AUTOMATED BLOOD COUNTS AND [...] ADOLESCENTS REPRESENTS INDIVIDUALA AGED 2-19 YEARS EXCLUSIVE. 8 CKD-EPI 9 CKD-EPI Procedures Date Code Description Status 09/28/2020 71185 Office/Outpatient Established Mo d MDM 30-39 Min Completed Medical Devices Description No Information Available Encounters Type Date Location Provider Dx Diagnosis Office Visit 09/28/2020 9:15a [facility] Jayson Vu M. D. 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 09/28/2020 E78.5 [facility], [facility] 09/28/2020 I25.10 Atherosclerotic heart disease of [place] coronary artery with Jayson Vu M.D. 09/28/2020 I10 Essential (primary) hypertension Jayson Vu M.D. Plan of Treatment Future Appointment(s):* 01/17/2021 3:00 pm - Jayson Vu M.D. at [facility] Functional Status Description No Information Available Mental Status Description No Information Available Referrals Description No Information Available
--- OUTSIDE RECORDS SUMMARY | 2021-04-10 18:59 | CCD | Continuity of Care Document ---
Author Author Aneesh VU M.D. Organization Unknown Address [address] [address] Phone [phone] Care Team Providers Care Sales And Distribution Clerk Name Role Phone [facility] Cardiology - Cardiovascular Disease AUTM [phone] Nery Mistry MD AUTM [phone] Miguel Soto M.D. AUTM [phone] Mary Ellen Barajas M.D. AUTM [phone] Problems Active Problems Provider Date Osteoarthritis Onset: [...] three times a day as needed pain. [id number] 90tavanessa M48.02 Jayson uV M.D. 03/23/2020 Shingrix 50mcg/0.5ML Suspension Re c [...] mouth twice a day Unknown BD Pen [place] Short/Ultrafine/31G X 5/1 6" 31G X 8 mm Misc use as directed tid 300units E13.9 Reyna Gerard, FAAFP Accu-Chek Multiclix Lancets Misc use tid as directed to test blood sugars 300units Dominick Barajas D.O., [facility] Accu-Chek Elizabeth Strips use as directed test blood sugar 5x daily code:250.00 100units Unknown Lantus 100Unit/ML Solution 70 units bid Mary Ellen Barajas M.D. Novolog 100Unit/ML Solution e ndocrine Unknown Medications Administered in Office Medication SIG Qnty Indications Ordering Provider Date Injection (SC)/(Im) Injection Dominick Barajas D.O., [facility] 03/10/2015 Immunizations CPT Code Status Date Vaccine Reaction Lot # [id number] Given 03/23/2020 Influenza Virus Vaccine, Quadrivalent, Slit Virus, Im Use 3Y & Up [id number] 89295 Given 05/12/2019 Influenza Virus Vaccine, Quadrivalent, Slit Virus, Im Use 3Y & Up [id number] 07934 Given 04/02/2018 Influenza Virus Vaccine, Quadrivalent, Slit Virus, Im Use 3Y & Up [id number] 97352 Given 04/24/2017 Influenza Virus Vaccine, Quadrivalent, Slit Virus, Im Use 3Y & Up [id number] 70246 Given 03/28/2016 Influenza Virus Vaccine, Quadrivalent, Slit Virus, Im Use 3Y & Up [id number] 98181 Given 03/10/2015 Influenza Virus Vac. Split Virus Individuals 3 Years And Above [id number] 85301 Given 04/14/2012 Influenza Virus Vac. [place] 3 [place] [address] Given 04/01/2012 Influenza Virus Vac. Split Virus Individuals 3 Years And Above 10168 Given 03/29/2011 Influenza Virus Vac. Split Virus Individuals 3 Years And Above [id number] 30533 Given 03/24/2010 Influenza Virus Vac. Split Virus Individuals 3 Years And Above [id number] 15851 Given 04/11/2009 Influenza Virus Vac. Split Virus Individuals 3 Years And Above [id number] 02170 Given 04/13/2004 Influenza Virus Vac. Split Virus Individuals 3 Years And Above Vital Signs Date Vital Result Comment 09/28/2020 8:46am BP Systolic 136 mmHg BP Diastolic 80 mmHg Body Temperature 98.3 F Heart Rate 66 /min Respiratory Rate 14 /min Height 62 inches 5'2" Weight 199.00 lb [place] Body Weight 118 lb BMI (Body Mass Index) 36.4 kg/m2 O2 % BldC Oximetry 96 % 06/24/2020 10:00am BP Systolic 138 mmHg BP Diastolic 84 mmHg Body Temperature 99.0 F Heart Rate 78 /min Respiratory Rate 14 /min Height 62 inches 5'2" Weight 195.00 lb [place] Body Weight 118 lb BMI (Body Mass Index) 35.7 kg/m2 O2 % BldC Oximetry 95 % Results Test Acquired Date Facility Test Result H/L Range Note Influenxa A/B RSV Covid Amp 01/07/2021 [facility] (Interface) [phone] Influenza A Amplification NEGATIVE Normal Negati ve 1 Influenza B Amplification NEGATIVE Normal Negative 2 RSV Amplification NEGATIVE Normal Negative 3 Sars Covid-19 Amplification NEGATIVE Normal Negative 4 Istat Chem8+ Panel 01/07/2021 [facility] (I nterface) [phone] iSTAT HCT 37.0 % Low 38.0-51.0 iSTAT Glucose 212 mg/dL High 70-105 iSTAT Sodium 135 mEq/L Low 136-145 iSTAT Potassium 4.2 mEq/L Normal 3.5-5.1 iSTAT CA++ 5.0 mg/dL Normal 4.5-5.3 iSTAT Chloride 98 mEq/L Normal 98-109 iSTAT Co2 24.0 MM/L Normal 23.0-27.0 iSTAT BUN 32 mg/dL High 8-26 iSTAT Creatinine 1.8 mg/dL High 0.6-1.3 Prothrombin Time/Inr 01/07/2021 [facility] ( Interface) [phone] Prothrombin Time 12.9 seconds Normal 12.7-14.5 Inr 0.93 Normal 5 Laboratory test finding 01/07/2021 [facility] (Interface) [phone] Partial Thromboplastin Time 28.5 seconds Normal 25 .9-37.0 Type & Screen -Incl Blood Type,[facility],AB SC 01/07/2021 [facility] (Interface) [phone] Blood Type B POSITIVE Normal AB Screen (Indirect Srikanth)Vis NEGATIVE Normal Istat Chem8+ Panel 01/07/2021 [facility] (I nterce) [phone] iSTAT HCT 38.0 % Normal 38.0-51.0 iSTAT Glucose 221 mg/dL High 70-105 iSTAT Sodium 135 mEq/L Low 136-145 iSTAT Potassium 4.3 mEq/L Normal 3.5-5.1 iSTAT CA++ 4.8 mg/dL Normal 4.5-5.3 iSTAT Chloride 99 mEq/L Normal 98-109 iSTAT Co2 25.0 MM/L Normal 23.0-27.0 iSTAT BUN 32 mg/dL High 8-26 iSTAT Creatinine 2.0 mg/dL High 0.6-1.3 Laboratory test finding 12/20/2020 [facility] (Interface) [phone] PSA Screening 1.63 NG/ML Normal < 4.00 [...] eGFR 89 # Calc 8 eGFR Non-Afr. Angolan 76 # Calc 9 Lipid Panel 09/28/2020 [...] 9.0 - 13.0 Laboratory test finding 09/28/2020 [facility] Hemoglobin A1c 8.1 % High 4.50-6.20 1 [...] pathogens. DISCLAIMER: Testing was performed using the [employer] SARS-CoV-2 test. This test was developed and its performance characteristics determined by [employer]. This test has not been FDA cleared [...] assay is performed o n the Siemens [place] analyzer by [employer] sandwich chemiluminescent immunoassay and [...] HCT IS 5% LESS SOURCE FOR DATA: [employer] 1800 OPERATION MANUAL( AUTOMATED BLOOD COUNTS AND [...] CKD-EPI Procedures Date Code Description Status 09/28/2020 44347 Office/Outpatient Established Mo d MDM 30-39 Min Completed Medical Devices Description No Information Available Encounters Type Date Location Provider Dx Diagnosis Office Visit 09/28/2020 9:15a [facility] Jayson Vu M. D. 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 09/28/2020 E78.5 [facility], [facility] 09/28/2020 I25.10 Atherosclerotic heart disease of [place] coronary artery with Jayson Vu M.D. 09/28/2020 I10 Essential (primary) hypertension Jayson Vu M.D. Plan of Treatment Future Appointment(s):* 01/17/2021 3:00 pm - Jayson Vu M.D. at [facility] Functional Status Description No Information Available Mental Status Description No Information Available Referrals Description No Information Available
--- OUTSIDE RECORDS SUMMARY | 2021-04-10 18:59 | CCD ---
Continuity of Care Document (CCD) Created on: 03/08/2021 Aneesh Wiggins JR External Reference #: [id number] : [id number] Sex: Male Author Author Aneesh VU M.D. Organization Unknown Address [address] [address] Phone [phone] Care Team Providers Care Director Of Financial Reporting Name Role Phone [facility] Cardiology - Cardiovascular Disease AUTM [phone] Nery Mistry MD AUTM [phone] Miguel Soto M.D. AUTM [phone] Mary Ellen Barajas M.D. AUTM [phone] Problems Active Problems Provider Date Osteoarthritis Onset: [...] three times a day as needed pain. [id number] 90tavanessa M48.02 Jayson Vu M.D. 03/23/2020 Shingrix [...] mouth twice a day Unknown BD Pen [place] Short/Ultrafine/31G X 5/1 6" 31G X 8 [...] Date Injection (SC)/(Im) Injection Dominick Barajas D.O., [facility] 03/10/2015 Immunizations CPT Code Status Date Vaccine Reaction Lot # [id number] Given 03/07/2021 Influenza Virus Vaccine, Quadrivalent, Slit Virus, Im Use 3Y & Up [id number] 55426 Given 03/23/2020 Influenza Virus Vaccine, Quadrivalent, Slit Virus, Im Use 3Y & Up [id number] 89647 Given 05/12/2019 Influenza Virus Vaccine, Quadrivalent, Slit Virus, Im Use 3Y & Up [id number] 94506 Given 04/02/2018 Influenza Virus Vaccine, Quadrivalent, Slit Virus, Im Use 3Y & Up [id number] 83626 Given 04/24/2017 Influenza Virus Vaccine, Quadrivalent, Slit Virus, Im Use 3Y & Up [id number] 65390 Given 03/28/2016 Influenza Virus Vaccine, Quadrivalent, Slit Virus, Im Use 3Y & Up [id number] 85933 Given 03/10/2015 Influenza Virus Vac. Split Virus Individuals 3 Years And Above [id number] 69352 Given 04/14/2012 Influenza Virus Vac. Split [place] 3 [place] [address] Given 04/01/2012 Influenza Virus Vac. Split Virus Individuals 3 Years And Above 50763 Given 03/29/2011 Influenza Virus Vac. Split Virus Individuals 3 Years And Above [id number] 59200 Given 03/24/2010 Influenza Virus Vac. Split Virus Individuals 3 Years And Above [id number] 40256 Given 04/11/2009 Influenza Virus Vac. Split Virus Individuals 3 Years And Above [id number] 28914 Given 04/13/2004 Influenza Virus Vac. Split Virus Individuals 3 Years And Above Vital Signs Date Vital Result Comment 03/07/2021 9:41am BP Systolic 108 mmHg BP Diastolic 64 mmHg Body Temperature 98.7 F Heart Rate 64 /min Respiratory Rate 14 /min Height 62 inches 5'2" Weight 190.00 lb [place] Body Weight 118 lb BMI (Body Mass Index) 34.7 kg/m2 O2 % BldC Oximetry 93 % 09/28/2020 8:46am BP Systolic 136 mmHg BP Diastolic 80 mmHg Body Temperature 98.3 F Heart Rate 66 /min Respiratory Rate 14 /min Height 62 inches 5'2" Weight 199.00 lb [place] Body Weight 118 lb BMI (Body Mass [...] eGFR 71 # Calc 2 eGFR Non-Afr. Cook Islander 61 # Calc 3 Lipid Panel 03/07/2021 [...] 4.50-6.20 Influenxa A/B RSV Covid Amp 01/07/2021 [facility]ical (Interface) [phone] Influenza A Amplification NEGATIVE Normal Negati ve 4 Influenza B Amplification NEGATIVE Normal Negative 5 RSV Amplification NEGATIVE Normal Negative 6 Sars Covid-19 Amplification NEGATIVE Normal Negative 7 Istat Chem8+ Panel 01/07/2021 [facility] (I nterface) [phone] iSTAT HCT 37.0 % Low 38.0-51.0 iSTAT Glucose 212 mg/dL High 70-105 iSTAT Sodium 135 mEq/L Low 136-145 iSTAT Potassium 4.2 mEq/L Normal 3.5-5.1 iSTAT CA++ 5.0 mg/dL Normal 4.5-5.3 iSTAT Chloride 98 mEq/L Normal 98-109 iSTAT Co2 24.0 MM/L Normal 23.0-27.0 iSTAT BUN 32 mg/dL High 8-26 iSTAT Creatinine 1.8 mg/dL High 0.6-1.3 Prothrombin Time/Inr 01/07/2021 [facility] ( Interface) [phone] Prothrombin Time 12.9 seconds Normal 12.7-14.5 Inr 0.93 Normal 8 Laboratory test finding 01/07/2021 [facility] (Interface) [phone] Partial Thromboplastin Time 28.5 seconds Normal 25 .9-37.0 Type & Screen -Incl Blood Type,[facility] SC 01/07/2021 [facility] (Interface) [phone] Blood Type B POSITIVE Normal AB Screen (Indirect Srikanth)Vis NEGATIVE Normal Istat Chem8+ Panel 01/07/2021 [facility] (I nterface) [phone] iSTAT HCT 38.0 % Normal 38.0-51.0 iSTAT Glucose 221 mg/dL High 70-105 iSTAT Sodium 135 mEq/L Low 136-145 iSTAT Potassium 4.3 mEq/L Normal 3.5-5.1 iSTAT CA++ 4.8 mg/dL Normal 4.5-5.3 iSTAT Chloride 99 mEq/L Normal 98-109 iSTAT Co2 25.0 MM/L Normal 23.0-27.0 iSTAT BUN 32 mg/dL High 8-26 iSTAT Creatinine 2.0 mg/dL High 0.6-1.3 Laboratory test finding 12/20/2020 [facility] (Interface) [phone] PSA Screening 1.63 NG/ML Normal < 4.00 [...] eGFR 89 # Calc 10 eGFR Non-Afr. [place] Islander 76 # Calc 11 Lipid Panel 09/28/2020 [...] HCT IS 5% LESS SOURCE FOR DATA: [employer] 1800 OPERATION MANUAL( AUTOMATED BLOOD COUNTS AND [...] pathogens. DISCLAIMER: Testing was performed using the [employer] SARS-CoV-2 test. This test was developed and its performance characteristics determined by [employer]. This test has not been FDA cleared [...] assay is performed o n the Siemens [place] analyzer by [employer] sandwich chemiluminescent immunoassay and should not be compared interchangeably with other methods. It should not be used alone as a screening test or diagnosis for the presence or absence of malignant disease. Predictions of disease recurrence should not be based solely on values obtained from serial patient serum values. 10 CKD-EPI 11 CKD-EPI Procedures Date Code Description Status 03/07/2021 84637 Office/Outpatient Established Mo d MDM 30-39 Min Completed 09/28/2020 63764 Office/Outpatient Established Mo d MDM 30-39 Min Completed Medical Devices Description No Information Available Encounters Type Date Location Provider Dx Diagnosis Office Visit 03/07/2021 9:30a [facility] Jayson Vu M. D. E11.9 Type 2 diabetes mellitus without complications E78.5 Hyperlipidemia, unspecified I25.10 Athscl heart disease of leon[place] ve coronary artery w/o ang pctrs I10 Essential (primary) hyperten rené I67.9 Cerebrovascular disease, uns pecified Office Visit 09/28/2020 9:15a [facility] Jayson Vu M. D. 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 03/07/2021 E78.5 Hyperlipidemia, unspecified [facility] Jayson branch M.D. 03/07/2021 I25.10 Atherosclerotic heart disease of [place] coronary artery with Jayson Vu M.D. 03/07/2021 I10 Essential (primary) hypertension Jayson Vu M.D. 03/07/2021 I67.9 Cerebrovascular disease, unspeci fied Jayson Vu M.D. 09/28/2020 E11.9 Type 2 diabetes mellitus without complications Jayson Vu M.D. 09/28/2020 E78.5 Hyperlipidemia, unspecified [facility] Jayson branch M.D. 09/28/2020 I25.10 Atherosclerotic heart disease of [place] coronary artery with Jayson Vu M.D. 09/28/2020 I10 Essential (primary) hypertension Jayson Vu M.D. Plan of Treatment Future Appointment(s):* 06/12/2021 8:45 am - Jayson Vu M.D. at [facility] Functional Status Description No Information Available Mental Status Description No Information Available Referrals Description No Information Available
--- OUTSIDE RECORDS SUMMARY | 2021-04-10 18:59 | CCD | Continuity of Care Document ---
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 Vitamin D-3 125mcg (5000 Ut) Table ts take one tablet by mouth every day with dinner Unknow n Calcium + D3 600-200 Tablets 1 by mouth daily Unknown Moxifloxacin HCL (2X Day) 0.5% Solution Unknown Neomycin-Bacitracin ZN-Polymyx [phone] Ointment Unknown Atorvastatin Calcium 80mg Tablets 1 [...] Available Procedures Date Code Description Status 02/09/2021 37665 Office/Outpatient Established Hi gh MDM 40-54 Min Completed 11/29/2020 [id number] Diabetic Foot Exam Completed 11/10/2020 83434 Office/Outpatient Established Mo d MDM 30-39 Min Completed Medical Devices Description No Information Available Encounters Type Date Location Provider Dx Diagnosis Office Visit 02/09/2021 11:45a DR. Mary Ellen Rodarte, N P E11.21 Type 2 diabetes mellitus with diabetic nephropathy N18.2 Chronic kidney disease, stag e 2 (mild) Z79.4 terminal clerk (current) use of i nsulin I10 Essential (primary) hyperten rené E78.2 Mixed hyperlipidemia I63.9 Cerebral infarction, unspeci fied Office Visit 11/10/2020 10:45a DR. Mary Ellen Rodarte, N P E11.21 Type 2 diabetes mellitus with diabetic nephropathy N18.30 Chronic kidney disease, stag e 3 unspecified Z79.4 terminal clerk (current) use of i nsulin I10 Essential (primary) hyperten rené E78.2 Mixed hyperlipidemia Assessments Date Code Description Provider 02/09/2021 E11.21 Type 2 diabetes mellitus with di abetic nephropathy Naz Rodarte, LEX 02/09/2021 N18.2 Chronic kidney disease, stage 2 (mild) Naz Rodarte, PAPER MACHINE BACK TENDER 02/09/2021 Z79.4 USP (current) use of insul in Naz Rodarte, LEX 02/09/2021 I10 Essential (primary) hypertension Naz Rodarte, LEX 02/09/2021 E78.2 Mixed hyperlipidemia Naz allen, LEX 02/09/2021 I63.9 Cerebral infarction, unspecified Naz oRdarte, LEX 11/10/2020 E11.21 Type 2 diabetes mellitus with di abetic nephropathy Naz Rodarte, LEX 11/10/2020 N18.30 Chronic kidney disease, stage 3 unspecified Naz Rodarte, PAPER MACHINE BACK TENDER 11/10/2020 Z79.4 terminal clerk (current) use of insul in Naz Rodarte NP 11/10/2020 I10 Essential (primary) hypertension Naz Rodarte, PAPER MACHINE BACK TENDER 11/10/2020 E78.2 Mixed hyperlipidemia Naz allen NP Plan of Treatment Future Appointment(s):* 05/11/2021 2:45 pm - Naz Rodarte NP at DR. Mary Eleln Barajas 02/09/2021 - Naz Rodarte NP* E11.21 [...] 101.0 ( improved 346.5)HH= 36.5/11.7 * Z79.4 terminal clerk (current) use of insulin* Comments:* No dose [...] unspecified* Comments:* New problem: obtained records from [facility] websitePt was admitted to [facility] 01/07/21-01/09/21 due to 3 acute strokes. Pt developed right upper extremity weakness. MRI revealed 3 acute strokes. Has followup with neurology Currently wearing heart monitor to r/o atrial fib as cause of strokes. Functional Status Description No Information Available Mental Status Description No Information Available Referrals Description No Information Available
--- OUTSIDE RECORDS SUMMARY | 2021-04-10 18:59 | CCD | Continuity of Care Document ---
Author Author Aneesh VU M.D. Organization Unknown Address [address] [address] Phone [phone] Care Team Providers Care Medical Esthetician Name Role Phone [facility] Cardiology - Cardiovascular Disease AUTM [phone] Nery Mistry MD AUTM [phone] Miguel Soto M.D. AUTM [phone] Mary Ellen Barajas M.D. AUTM [phone] Problems Active Problems Provider Date Osteoarthritis Onset: [...] three times a day as needed pain. [id number] 90tavanessa M48.02 Jayson Vu M.D. 03/23/2020 Shingrix [...] mouth twice a day Unknown BD Pen [place] Short/Ultrafine/31G X 5/1 6" 31G X 8 mm Misc use as directed tid 300units E13.9 Reyna Gerard, FAAFP Accu-Chek Multiclix Lancets Misc use tid as directed to test blood sugars 300units [facility].O., [facility] Accu-Chek [place] Strips use as directed test blood sugar 5x daily code:250.00 100units Unknown Lantus 100Unit/ML Solution 70 units bid Mary Ellen Barajas M.D. Novolog 100Unit/ML Solution e ndocrine Unknown Medications Administered in Office Medication SIG Qnty Indications Ordering Provider Date Injection (SC)/(Im) Injection Dominick Barajas D.O., [facility] 03/10/2015 Immunizations CPT Code Status Date Vaccine Reaction Lot # 32777 Given 03/23/2020 Influenza Virus Vaccine, Quadrivalent, Slit Virus, Im Use 3Y & Up [id number] 07807 Given 05/12/2019 Influenza Virus Vaccine, Quadrivalent, Slit Virus, Im Use 3Y & Up [id number] 69930 Given 04/02/2018 Influenza Virus Vaccine, Quadrivalent, Slit Virus, Im Use 3Y & Up [id number] 29988 Given 04/24/2017 Influenza Virus Vaccine, Quadrivalent, Slit Virus, Im Use 3Y & Up [id number] 65181 Given 03/28/2016 Influenza Virus Vaccine, Quadrivalent, Slit Virus, Im Use 3Y & Up [id number] 11415 Given 03/10/2015 Influenza Virus Vac. Split Virus Individuals 3 Years And Above [id number] 74605 Given 04/14/2012 Influenza Virus Vac[place] 3 [place] [address] Given 04/01/2012 Influenza Virus Vac. Split Virus Individuals 3 Years And Above 72284 Given 03/29/2011 Influenza Virus Vac. Split Virus Individuals 3 Years And Above [id number] 00353 Given 03/24/2010 Influenza Virus Vac. Split Virus Individuals 3 Years And Above [id number] 01763 Given 04/11/2009 Influenza Virus Vac. Split Virus Individuals 3 Years And Above [id number] 45217 Given 04/13/2004 Influenza Virus Vac. Split Virus Individuals 3 Years And Above Vital Signs Date Vital Result Comment 09/28/2020 8:46am BP Systolic 136 mmHg BP Diastolic 80 mmHg Body Temperature 98.3 F Heart Rate 66 /min Respiratory Rate 14 /min Height 62 inches 5'2" Weight 199.00 lb [place] Body Weight 118 lb BMI (Body Mass Index) 36.4 kg/m2 O2 % BldC Oximetry 96 % 06/24/2020 10:00am BP Systolic 138 mmHg BP Diastolic 84 mmHg Body Temperature 99.0 F Heart Rate 78 /min Respiratory Rate 14 /min Height 62 inches 5'2" Weight 195.00 lb [place] Body Weight 118 lb BMI (Body Mass Index) 35.7 kg/m2 O2 % BldC Oximetry 95 % Results Test Acquired Date Facility Test Result H/L Range Note Influenxa A/B RSV Covid Amp 01/07/2021 [facility] (Interface) [phone] Influenza A Amplification NEGATIVE Normal Negati ve 1 Influenza B Amplification NEGATIVE Normal Negative 2 RSV Amplification NEGATIVE Normal Negative 3 Sars Covid-19 Amplification NEGATIVE Normal Negative 4 Istat Chem8+ Panel 01/07/2021 [facility] (I nterface) [phone] iSTAT HCT 37.0 % Low 38.0-51.0 iSTAT Glucose 212 mg/dL High 70-105 iSTAT Sodium 135 mEq/L Low 136-145 iSTAT Potassium 4.2 mEq/L Normal 3.5-5.1 iSTAT CA++ 5.0 mg/dL Normal 4.5-5.3 iSTAT Chloride 98 mEq/L Normal 98-109 iSTAT Co2 24.0 MM/L Normal 23.0-27.0 iSTAT BUN 32 mg/dL High 8-26 iSTAT Creatinine 1.8 mg/dL High 0.6-1.3 Prothrombin Time/Inr 01/07/2021 [facility] ( Interface) [phone] Prothrombin Time 12.9 seconds Normal 12.7-14.5 Inr 0.93 Normal 5 Laboratory test finding 01/07/2021 [facility] (Interface) [phone] Partial Thromboplastin Time 28.5 seconds Normal 25 .9-37.0 Type & Screen -Incl Blood Type,[facility],AB SC 01/07/2021 [facility] (Interface) [phone] Blood Type B POSITIVE Normal AB Screen (Indirect Srikanth)Vis NEGATIVE Normal Istat Chem8+ Panel 01/07/2021 [facility] (I nterce) [phone] iSTAT HCT 38.0 % Normal 38.0-51.0 iSTAT Glucose 221 mg/dL High 70-105 iSTAT Sodium 135 mEq/L Low 136-145 iSTAT Potassium 4.3 mEq/L Normal 3.5-5.1 iSTAT CA++ 4.8 mg/dL Normal 4.5-5.3 iSTAT Chloride 99 mEq/L Normal 98-109 iSTAT Co2 25.0 MM/L Normal 23.0-27.0 iSTAT BUN 32 mg/dL High 8-26 iSTAT Creatinine 2.0 mg/dL High 0.6-1.3 Laboratory test finding 12/20/2020 [facility] (Interface) [phone] PSA Screening 1.63 NG/ML Normal < 4.00 [...] eGFR 89 # Calc 8 eGFR Non-Afr. Mexican 76 # Calc 9 Lipid Panel 09/28/2020 [...] 9.0 - 13.0 Laboratory test finding 09/28/2020 [facility] Hemoglobin A1c 8.1 % High 4.50-6.20 1 [...] pathogens. DISCLAIMER: Testing was performed using the [employer] SARS-CoV-2 test. This test was developed and its performance characteristics determined by [employer]. This test has not been FDA cleared [...] assay is performed o n the Siemens [place] analyzer by [employer] sandwich chemiluminescent immunoassay and [...] HCT IS 5% LESS SOURCE FOR DATA: [employer] 1800 OPERATION MANUAL( AUTOMATED BLOOD COUNTS AND [...] CKD-EPI Procedures Date Code Description Status 09/28/2020 06087 Office/Outpatient Established Mo d MDM 30-39 Min Completed Medical Devices Description No Information Available Encounters Type Date Location Provider Dx Diagnosis Office Visit 09/28/2020 9:15a [facility] Jayson Vu M. D. 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 09/28/2020 E78.5 [facility], [facility] 09/28/2020 I25.10 Atherosclerotic heart disease of [place] coronary artery with Jayson Vu M.D. 09/28/2020 I10 Essential (primary) hypertension Jayson Vu M.D. Plan of Treatment Future Appointment(s):* 01/17/2021 3:00 pm - Jayson Vu M.D. at [facility] Functional Status Description No Information Available Mental Status Description No Information Available Referrals Description No Information Available
--- OUTSIDE RECORDS SUMMARY | 2021-04-10 18:59 | CCD ---
Continuity of Care Document (CCD) Created on: 03/07/2021 Aneesh Wiggins JR External Reference #: [id number] : [id number] Sex: Male Author Author Aneesh VU M.D. Organization Unknown Address [address] [address] Phone [phone] Care Team Providers Care Rehabilitation [facility] Manager Name Role Phone [facility] Cardiology - Cardiovascular Disease AUTM [phone] Nery Mistry MD AUTM [phone] Miguel Soto M.D. AUTM [phone] Mary Ellen Barajas M.D. AUTM [phone] Problems Active Problems Provider Date Osteoarthritis Onset: [...] three times a day as needed pain. [id number] 90tabs M48.02 Jayson Vu M.D. 03/23/2020 Shingrix 50mcg/0.5ML Suspension Re c as directed 1units Jayson Vu M.D. 01/20/20 19 Ventolin HFA 108(90Base) mcg/Act A erosol 2 puffs every 4-6 hours as needed sob or wheezing 24gm Dominick Barajas D.O., FAAFP 10/14/2014 Paxil 20mg Tablets 1 b y mouth every day 90taJayson Barker M.D. 06/13/2007 Atorvastatin Calcium 80mg Tablets take 1 tablet every day Unknown Tylenol Extra Strength 500mg Table ts take 2 by mouth bid And as needed OTC Unknown Pantoprazole Sodium 40mg Tablets D R 1 by mouth every day 90taJayson Barker M.D. Losartan Potassium 25mg Tablets 1 by mouth every day 90tabs Jayson Vu M.D. Coreg 3.125mg Tablets (Hold) take one [...] at which point also seek medical attention. 25tabs Jayson Vu M.D. Flomax 0.4mg Capsules 1 by mouth every night at bedtime Unknown Metformin HCL 500mg Tablets 1 by mouth twice a day Unknown BD Pen [place] Short/Ultrafine/31G X 5/1 6" 31G X 8 mm Misc use as directed tid 300units E13.9 Reyna Gerard, [facility] Accu-Chek Multiclix Lancets Misc use tid as directed to test blood sugars 300units Dominick Barajas D.O., [facility] Accu-Chek [place] Strips use as directed test blood sugar 5x daily code:250.00 100units Unknown Lantus 100Unit/ML Solution 70 units bid Mary Ellen Barajas M.D. Novolog 100Unit/ML Solution e ndocrine Unknown Medications Administered in Office Medication SIG Qnty Indications Ordering Provider Date Injection (SC)/(Im) Injection Dominick Barajas D.O., [facility] 03/10/2015 Immunizations CPT Code Status Date Vaccine Reaction Lot # [id number] Given 03/07/2021 Influenza Virus Vaccine, Quadrivalent, Slit Virus, Im Use 3Y & Up [id number] Given 03/23/2020 Influenza Virus Vaccine, Quadrivalent, Slit Virus, Im Use 3Y & Up [id number] 23871 Given 05/12/2019 Influenza Virus Vaccine, Quadrivalent, Slit Virus, Im Use 3Y & Up [id number] 38574 Given 04/02/2018 Influenza Virus Vaccine, Quadrivalent, Slit Virus, Im Use 3Y & Up [id number] 67826 Given 04/24/2017 Influenza Virus Vaccine, Quadrivalent, Slit Virus, Im Use 3Y & Up [id number] 73210 Given 03/28/2016 Influenza Virus Vaccine, Quadrivalent, Slit Virus, Im Use 3Y & Up [id number] 50867 Given 03/10/2015 Influenza Virus Vac. Split Virus Individuals 3 Years And Above [id number] 97105 Given 04/14/2012 Influenza Virus Vac. [place] 3 [place] [address] Given 04/01/2012 Influenza Virus Vac. Split Virus Individuals 3 Years And Above 07127 Given 03/29/2011 Influenza Virus Vac. Split Virus Individuals 3 Years And Above [id number] 68458 Given 03/24/2010 Influenza Virus Vac. Split Virus Individuals 3 Years And Above [id number] 11438 Given 04/11/2009 Influenza Virus Vac. Split Virus Individuals 3 Years And Above [id number] 49666 Given 04/13/2004 Influenza Virus Vac. Split Virus Individuals 3 Years And Above Vital Signs Date Vital Result Comment 03/07/2021 9:41am BP Systolic 108 mmHg BP Diastolic 64 mmHg Body Temperature 98.7 F Heart Rate 64 /min Respiratory Rate 14 /min Height 62 inches 5'2" Weight 190.00 lb [place] Body Weight 118 lb BMI (Body Mass Index) 34.7 kg/m2 O2 % BldC Oximetry 93 % 09/28/2020 8:46am BP Systolic 136 mmHg BP Diastolic 80 mmHg Body Temperature 98.3 F Heart Rate 66 /min Respiratory Rate 14 /min Height 62 inches 5'2" Weight 199.00 lb [place] Body Weight 118 lb BMI (Body Mass Index) 36.4 kg/m2 O2 % BldC Oximetry 96 % Results Test Acquired Date Facility Test Result H/L Range Note Influenxa A/B RSV Covid Amp 01/07/2021 [facility] (Interface) [phone] Influenza A Amplification NEGATIVE Normal Negati ve 1 Influenza B Amplification NEGATIVE Normal Negative 2 RSV Amplification NEGATIVE Normal Negative 3 Sars Covid-19 Amplification NEGATIVE Normal Negative 4 Istat Chem8+ Panel 01/07/2021 [facility] (I nterface) [phone] iSTAT HCT 37.0 % Low 38.0-51.0 iSTAT Glucose 212 mg/dL High 70-105 iSTAT Sodium 135 mEq/L Low 136-145 iSTAT Potassium 4.2 mEq/L Normal 3.5-5.1 iSTAT CA++ 5.0 mg/dL Normal 4.5-5.3 iSTAT Chloride 98 mEq/L Normal 98-109 iSTAT Co2 24.0 MM/L Normal 23.0-27.0 iSTAT BUN 32 mg/dL High 8-26 iSTAT Creatinine 1.8 mg/dL High 0.6-1.3 Prothrombin Time/Inr 01/07/2021 [facility] ( Interface) [phone] Prothrombin Time 12.9 seconds Normal 12.7-14.5 Inr 0.93 Normal 5 Laboratory test finding 01/07/2021 [facility] (Interface) [phone] Partial Thromboplastin Time 28.5 seconds Normal 25 .9-37.0 Type & Screen -Incl Blood Type,[facility],AB SC 01/07/2021 [facility] (Interface) [phone] Blood Type B POSITIVE Normal AB Screen (Indirect Srikanth)Vis NEGATIVE Normal Istat Chem8+ Panel 01/07/2021 [facility] (I nterface) [phone] iSTAT HCT 38.0 % Normal 38.0-51.0 iSTAT Glucose 221 mg/dL High 70-105 iSTAT Sodium 135 mEq/L Low 136-145 iSTAT Potassium 4.3 mEq/L Normal 3.5-5.1 iSTAT CA++ 4.8 mg/dL Normal 4.5-5.3 iSTAT Chloride 99 mEq/L Normal 98-109 iSTAT Co2 25.0 MM/L Normal 23.0-27.0 iSTAT BUN 32 mg/dL High 8-26 iSTAT Creatinine 2.0 mg/dL High 0.6-1.3 Laboratory test finding 12/20/2020 [facility] (Interface) [phone] PSA Screening 1.63 NG/ML Normal < 4.00 [...] eGFR 89 # Calc 8 eGFR Non-Afr. [place] 76 # Calc 9 Lipid Panel 09/28/2020 [...] 9.0 - 13.0 Laboratory test finding 09/28/2020 [facility] Hemoglobin A1c 8.1 % High 4.50-6.20 1 [...] pathogens. DISCLAIMER: Testing was performed using the [employer] SARS-CoV-2 test. This test was developed and its performance characteristics determined by [employer]. This test has not been FDA cleared [...] assay is performed o n the Siemens [place] analyzer by [employer] sandwich chemiluminescent immunoassay and [...] HCT IS 5% LESS SOURCE FOR DATA: [employer] 1800 OPERATION MANUAL( AUTOMATED BLOOD COUNTS AND [...] 9 CKD-EPI Procedures Date Code Description Status 03/07/2021 64463 Office/Outpatient Established Mo d MDM 30-39 Min Completed 09/28/2020 90896 Office/Outpatient Established Mo d MDM 30-39 Min Completed Medical Devices Description No Information Available Encounters Type Date Location Provider Dx Diagnosis Office Visit 03/07/2021 9:30a [facility] Jayson Vu M. D. E11.9 Type 2 diabetes mellitus without complications E78.5 Hyperlipidemia, unspecified I25.10 Athscl heart disease of [place] coronary artery w/o ang pctrs I10 Essential (primary) hyperten rené I67.9 Cerebrovascular disease, uns pecified Office Visit 09/28/2020 9:15a [facility] Jayson Vu M. D. 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 03/07/2021 E78.5 Hyperlipidemia, unspecified [facility] Jayson branch M.D. 03/07/2021 I25.10 Atherosclerotic heart disease of [place] coronary artery with Jayson Vu M.D. 03/07/2021 I10 Essential (primary) hypertension Jayson Vu M.D. 03/07/2021 I67.9 Cerebrovascular disease, unspeci fied Jayson Vu M.D. 09/28/2020 E11.9 Type 2 diabetes mellitus without complications Jayson Vu M.D. 09/28/2020 E78.5 Hyperlipidemia, unspecified [facility] Jayson branch M.D. 09/28/2020 I25.10 Atherosclerotic heart disease of [place] coronary artery with Jayson Vu M.D. 09/28/2020 I10 Essential (primary) hypertension Jayson Vu M.D. Plan of Treatment No Information Available Functional Status Description No Information Available Mental Status Description No Information Available Referrals Description No Information Available
--- OUTSIDE RECORDS SUMMARY | 2021-04-10 18:59 | CCD | Continuity of Care Document ---
Author Author Aneesh VU M.D. Organization Unknown Address [address] [address] Phone [phone] Care Team Providers Care Polygraph Technician Name Role Phone [facility] Cardiology - Cardiovascular Disease AUTM [phone] Nery Mistry MD AUTM [phone] Miguel Soto M.D. AUTM [phone] Mary Ellen Barajas M.D. AUTM [phone] Problems Active Problems Provider Date Osteoarthritis Onset: [...] three times a day as needed pain. [id number] 90tavanessa M48.02 Jayson Vu M.D. 03/23/2020 Shingrix [...] mouth twice a day Unknown BD Pen [place] Short/Ultrafine/31G X 5/1 6" 31G X 8 mm Misc use as directed tid 300units E13.9 Reyna Gerard, FAAFP Accu-Chek Multiclix Lancets Misc use tid as directed to test blood sugars 300units [facility]., [facility] Accu-Chek [place] Strips use as directed test blood sugar 5x daily code:250.00 100units Unknown Lantus 100Unit/ML Solution 70 units bid Mary Ellen Barajas M.D. Novolog 100Unit/ML Solution e ndocrine Unknown Medications Administered in Office Medication SIG Qnty Indications Ordering Provider Date Injection (SC)/(Im) Injection Dominick Barajas D.O., [facility] 03/10/2015 Immunizations CPT Code Status Date Vaccine Reaction Lot # 31189 Given 03/23/2020 Influenza Virus Vaccine, Quadrivalent, Slit Virus, Im Use 3Y & Up [id number] 52506 Given 05/12/2019 Influenza Virus Vaccine, Quadrivalent, Slit Virus, Im Use 3Y & Up [id number] 18371 Given 04/02/2018 Influenza Virus Vaccine, Quadrivalent, Slit Virus, Im Use 3Y & Up [id number] 62403 Given 04/24/2017 Influenza Virus Vaccine, Quadrivalent, Slit Virus, Im Use 3Y & Up [id number] 03447 Given 03/28/2016 Influenza Virus Vaccine, Quadrivalent, Slit Virus, Im Use 3Y & Up [id number] 76267 Given 03/10/2015 Influenza Virus Vac. Split Virus Individuals 3 Years And Above [id number] 63537 Given 04/14/2012 Influenza Virus Vac[place] 3 [id number] [address] Given 04/01/2012 Influenza Virus Vac. Split Virus Individuals 3 Years And Above 06375 Given 03/29/2011 Influenza Virus Vac. Split Virus Individuals 3 Years And Above [id number] 19520 Given 03/24/2010 Influenza Virus Vac. Split Virus Individuals 3 Years And Above [id number] 76664 Given 04/11/2009 Influenza Virus Vac. Split Virus Individuals 3 Years And Above [id number] 71160 Given 04/13/2004 Influenza Virus Vac. Split Virus Individuals 3 Years And Above Vital Signs Date Vital Result Comment 09/28/2020 8:46am BP Systolic 136 mmHg BP Diastolic 80 mmHg Body Temperature 98.3 F Heart Rate 66 /min Respiratory Rate 14 /min Height 62 inches 5'2" Weight 199.00 lb [place] Body Weight 118 lb BMI (Body Mass Index) 36.4 kg/m2 O2 % BldC Oximetry 96 % 06/24/2020 10:00am BP Systolic 138 mmHg BP Diastolic 84 mmHg Body Temperature 99.0 F Heart Rate 78 /min Respiratory Rate 14 /min Height 62 inches 5'2" Weight 195.00 lb [place] Body Weight 118 lb BMI (Body Mass Index) 35.7 kg/m2 O2 % BldC Oximetry 95 % Results Test Acquired Date Facility Test Result H/L Range Note Influenxa A/B RSV Covid Amp 01/07/2021 [facility] (Interface) [phone] Influenza A Amplification NEGATIVE Normal Negati ve 1 Influenza B Amplification NEGATIVE Normal Negative 2 RSV Amplification NEGATIVE Normal Negative 3 Sars Covid-19 Amplification NEGATIVE Normal Negative 4 Istat Chem8+ Panel 01/07/2021 [facility] (I nterface) [phone] iSTAT HCT 37.0 % Low 38.0-51.0 iSTAT Glucose 212 mg/dL High 70-105 iSTAT Sodium 135 mEq/L Low 136-145 iSTAT Potassium 4.2 mEq/L Normal 3.5-5.1 iSTAT CA++ 5.0 mg/dL Normal 4.5-5.3 iSTAT Chloride 98 mEq/L Normal 98-109 iSTAT Co2 24.0 MM/L Normal 23.0-27.0 iSTAT BUN 32 mg/dL High 8-26 iSTAT Creatinine 1.8 mg/dL High 0.6-1.3 Prothrombin Time/Inr 01/07/2021 [facility] ( Interface) [phone] Prothrombin Time 12.9 seconds Normal 12.7-14.5 Inr 0.93 Normal 5 Laboratory test finding 01/07/2021 [facility] (Interface) [phone] Partial Thromboplastin Time 28.5 seconds Normal 25 .9-37.0 Type & Screen -Incl Blood Type,[facility],AB SC 01/07/2021 [facility] (Interface) [phone] Blood Type B POSITIVE Normal AB Screen (Indirect Srikanth)Vis NEGATIVE Normal Istat Chem8+ Panel 01/07/2021 [facility] (I nterce) [phone] iSTAT HCT 38.0 % Normal 38.0-51.0 iSTAT Glucose 221 mg/dL High 70-105 iSTAT Sodium 135 mEq/L Low 136-145 iSTAT Potassium 4.3 mEq/L Normal 3.5-5.1 iSTAT CA++ 4.8 mg/dL Normal 4.5-5.3 iSTAT Chloride 99 mEq/L Normal 98-109 iSTAT Co2 25.0 MM/L Normal 23.0-27.0 iSTAT BUN 32 mg/dL High 8-26 iSTAT Creatinine 2.0 mg/dL High 0.6-1.3 Laboratory test finding 12/20/2020 [facility] (Interface) [phone] PSA Screening 1.63 NG/ML Normal < 4.00 [...] eGFR 89 # Calc 8 eGFR Non-Afr. Serbian 76 # Calc 9 Lipid Panel 09/28/2020 [...] 9.0 - 13.0 Laboratory test finding 09/28/2020 [facility] [place] Hemoglobin A1c 8.1 % High 4.50-6.20 1 [...] pathogens. DISCLAIMER: Testing was performed using the [employer] SARS-CoV-2 test. This test was developed and its performance characteristics determined by [employer]. This test has not been FDA cleared [...] assay is performed o n the Siemens [place] analyzer by [employer] sandwich chemiluminescent immunoassay and [...] HCT IS 5% LESS SOURCE FOR DATA: [employer] 1800 OPERATION MANUAL( AUTOMATED BLOOD COUNTS AND [...] CKD-EPI Procedures Date Code Description Status 09/28/2020 19885 Office/Outpatient Established Mo d MDM 30-39 Min Completed Medical Devices Description No Information Available Encounters Type Date Location Provider Dx Diagnosis Office Visit 09/28/2020 9:15a [facility] Jayson Vu M. D. 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 09/28/2020 E78.5 [facility], [facility] 09/28/2020 I25.10 Atherosclerotic heart disease of [place] coronary artery with Jayson Vu M.D. 09/28/2020 I10 Essential (primary) hypertension Jayson Vu M.D. Plan of Treatment Future Appointment(s):* 01/17/2021 3:00 pm - Jayson Vu M.D. at [facility] Functional Status Description No Information Available Mental Status Description No Information Available Referrals Description No Information Available
--- OUTSIDE RECORDS SUMMARY | 2021-04-10 18:59 | CCD | Continuity of Care Document ---
Author Author Aneesh VU M.D. Organization Unknown Address [address] [address] Phone [phone] Care Team Providers Care Fruit Press Operator Name Role Phone [facility] Cardiology - Cardiovascular Disease AUTM [phone] Nery Mistry MD AUTM [phone] Miguel Soto M.D. AUTM [phone] Mary Ellen Barajas M.D. AUTM [phone] Problems Active Problems Provider Date Osteoarthritis Onset: [...] three times a day as needed pain. [id number] 90tavanessa M48.02 Jayson Vu M.D. 03/23/2020 Shingrix [...] mouth twice a day Unknown BD Pen [place] Short/Ultrafine/31G X 5/1 6" 31G X 8 mm Misc use as directed tid 300units E13.9 Reyna Gerard, FAAFP Accu-Chek Multiclix Lancets Misc use tid as directed to test blood sugars 300units [facility].O., [facility] Accu-Chek Elizabeth Strips use as directed test blood sugar 5x daily code:250.00 100units Unknown Lantus 100Unit/ML Solution 70 units bid Mary Ellen Barajas M.D. Novolog 100Unit/ML Solution e ndocrine Unknown Medications Administered in Office Medication SIG Qnty Indications Ordering Provider Date Injection (SC)/(Im) Injection Dominick Barajas D.O., [facility] 03/10/2015 Immunizations CPT Code Status Date Vaccine Reaction Lot # 50167 Given 03/23/2020 Influenza Virus Vaccine, Quadrivalent, Slit Virus, Im Use 3Y & Up [id number] 83114 Given 05/12/2019 Influenza Virus Vaccine, Quadrivalent, Slit Virus, Im Use 3Y & Up [id number] 49108 Given 04/02/2018 Influenza Virus Vaccine, Quadrivalent, Slit Virus, Im Use 3Y & Up [id number] 69947 Given 04/24/2017 Influenza Virus Vaccine, Quadrivalent, Slit Virus, Im Use 3Y & Up [id number] 84376 Given 03/28/2016 Influenza Virus Vaccine, Quadrivalent, Slit Virus, Im Use 3Y & Up [id number] 20115 Given 03/10/2015 Influenza Virus Vac. Split Virus Individuals 3 Years And Above [id number] 38174 Given 04/14/2012 Influenza Virus Vac. [place] 3 [id number] [address] Given 04/01/2012 Influenza Virus Vac. Split Virus Individuals 3 Years And Above 39766 Given 03/29/2011 Influenza Virus Vac. Split Virus Individuals 3 Years And Above [id number] 36557 Given 03/24/2010 Influenza Virus Vac. Split Virus Individuals 3 Years And Above [id number] 08938 Given 04/11/2009 Influenza Virus Vac. Split Virus Individuals 3 Years And Above [id number] 55130 Given 04/13/2004 Influenza Virus Vac. Split Virus Individuals 3 Years And Above Vital Signs Date Vital Result Comment 09/28/2020 8:46am BP Systolic 136 mmHg BP Diastolic 80 mmHg Body Temperature 98.3 F Heart Rate 66 /min Respiratory Rate 14 /min Height 62 inches 5'2" Weight 199.00 lb [place] Body Weight 118 lb BMI (Body Mass Index) 36.4 kg/m2 O2 % BldC Oximetry 96 % 06/24/2020 10:00am BP Systolic 138 mmHg BP Diastolic 84 mmHg Body Temperature 99.0 F Heart Rate 78 /min Respiratory Rate 14 /min Height 62 inches 5'2" Weight 195.00 lb [place] Body Weight 118 lb BMI (Body Mass Index) 35.7 kg/m2 O2 % BldC Oximetry 95 % Results Test Acquired Date Facility Test Result H/L Range Note Influenxa A/B RSV Covid Amp 01/07/2021 [facility] (Interface) [phone] Influenza A Amplification NEGATIVE Normal Negati ve 1 Influenza B Amplification NEGATIVE Normal Negative 2 RSV Amplification NEGATIVE Normal Negative 3 Sars Covid-19 Amplification NEGATIVE Normal Negative 4 Istat Chem8+ Panel 01/07/2021 [facility] (I nterface) [phone] iSTAT HCT 37.0 % Low 38.0-51.0 iSTAT Glucose 212 mg/dL High 70-105 iSTAT Sodium 135 mEq/L Low 136-145 iSTAT Potassium 4.2 mEq/L Normal 3.5-5.1 iSTAT CA++ 5.0 mg/dL Normal 4.5-5.3 iSTAT Chloride 98 mEq/L Normal 98-109 iSTAT Co2 24.0 MM/L Normal 23.0-27.0 iSTAT BUN 32 mg/dL High 8-26 iSTAT Creatinine 1.8 mg/dL High 0.6-1.3 Prothrombin Time/Inr 01/07/2021 [facility] ( Interface) [phone] Prothrombin Time 12.9 seconds Normal 12.7-14.5 Inr 0.93 Normal 5 Laboratory test finding 01/07/2021 [facility] (Interface) [phone] Partial Thromboplastin Time 28.5 seconds Normal 25 .9-37.0 Type & Screen -Incl Blood Type,[facility],AB SC 01/07/2021 [facility] (Interface) [phone] Blood Type B POSITIVE Normal AB Screen (Indirect Srikanth)Vis NEGATIVE Normal Istat Chem8+ Panel 01/07/2021 [facility] (I nterce) [phone] iSTAT HCT 38.0 % Normal 38.0-51.0 iSTAT Glucose 221 mg/dL High 70-105 iSTAT Sodium 135 mEq/L Low 136-145 iSTAT Potassium 4.3 mEq/L Normal 3.5-5.1 iSTAT CA++ 4.8 mg/dL Normal 4.5-5.3 iSTAT Chloride 99 mEq/L Normal 98-109 iSTAT Co2 25.0 MM/L Normal 23.0-27.0 iSTAT BUN 32 mg/dL High 8-26 iSTAT Creatinine 2.0 mg/dL High 0.6-1.3 Laboratory test finding 12/20/2020 [facility] (Interface) [phone] PSA Screening 1.63 NG/ML Normal < 4.00 [...] eGFR 89 # Calc 8 eGFR Non-Afr. [place] 76 # Calc 9 Lipid Panel 09/28/2020 [...] 9.0 - 13.0 Laboratory test finding 09/28/2020 [facility] [place] A1c 8.1 % High 4.50-6.20 1 [...] pathogens. DISCLAIMER: Testing was performed using the [employer] SARS-CoV-2 test. This test was developed and its performance characteristics determined by [employer]. This test has not been FDA cleared [...] assay is performed o n the Siemens [place] analyzer by [employer] sandwich chemiluminescent immunoassay and [...] HCT IS 5% LESS SOURCE FOR DATA: [employer] 1800 OPERATION MANUAL( AUTOMATED BLOOD COUNTS AND [...] CKD-EPI Procedures Date Code Description Status 09/28/2020 83637 Office/Outpatient Established Mo d MDM 30-39 Min Completed Medical Devices Description No Information Available Encounters Type Date Location Provider Dx Diagnosis Office Visit 09/28/2020 9:15a [facility] Jayson Vu M. D. 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 09/28/2020 E78.5 [facility], [facility]28[facility]2020 I25.10 Atherosclerotic heart disease of [place] coronary artery with Jayson Vu M.D. 09/28/2020 I10 Essential (primary) hypertension Jayson Vu M.D. Plan of Treatment Future Appointment(s):* 01/17/2021 3:00 pm - Jayson Vu M.D. at [facility] Functional Status Description No Information Available Mental Status Description No Information Available Referrals Description No Information Available
--- OUTSIDE RECORDS SUMMARY | 2021-04-10 19:00 | CCD ---
Author Author [facility] Organization [facility] Address Unknown Phone Unavailable Care Team Providers Care Draftsperson Name Role Phone Yuriy WILCOX MD Unavailable Unavailable Yuriy WILCOX MD Unavailable Unavailable Yuriy WILCOX MD Unavailable Unavailable Yuriy WILCOX MD Unavailable Unavailable uYriy WILCOX MD Unavailable Unavailable Yuriy WILCOX MD Unavailable Unavailable Yuriy WILCOX MD Unavailable Unavailable Yuriy WILCOX MD Unavailable Unavailable Yuriy WILCOX MD Unavailable Unavailable Yuriy WILCOX MD Unavailable Unavailable Yuriy WILCOX MD Unavailable Unavailable Yuriy WILCOX MD Unavailable Unavailable uYriy WILCOX MD Unavailable Unavailable Yuriy WILCOX MD Unavailable Unavailable Yuriy WILCOX MD Unavailable Unavailable Yuriy WILCOX MD Unavailable Unavailable Yuriy WILCOX MD Unavailable Unavailable Yuriy WILCOX MD Unavailable Unavailable Yuriy WILCOX MD Unavailable Unavailable Yuriy WILCOX MD Unavailable Unavailable Yuriy WILCOX MD Unavailable Unavailable Yuriy WILCOX MD Unavailable Unavailable Yuriy WILCOX MD Unavailable Unavailable Yuriy WILCOX MD Unavailable Unavailable Yuriy WILCOX MD Unavailable Unavailable Yuriy WILCOX MD Unavailable Unavailable Yuriy WILCOX MD Unavailable Unavailable Yuriy WILCOX MD Unavailable Unavailable Yuriy WILCOX MD Unavailable Unavailable Yuriy WILCOX MD Unavailable Unavailable Yuriy WILCOX MD Unavailable Unavailable Yuriy WILCOX MD Unavailable Unavailable Yuriy WILCOX MD Unavailable Unavailable Yuriy WILCOX MD Unavailable Unavailable Yuriy WILCOX MD Unavailable Unavailable Yuriy WILCOX MD Unavailable Unavailable Yuriy WILCOX MD Unavailable Unavailable Yuriy WILCOX MD Unavailable Unavailable Yuriy WILCOX MD Unavailable Unavailable BRENDEN, Yuriy ROSARIO MD Unavailable Unavailable BRENDEN, Yuriy ROSARIO MD Unavailable Unavailable BRENDEN, Yuriy ROSARIO MD Unavailable Unavailable BRENDEN, Yuriy ROSARIO MD Unavailable Unavailable BRENDEN, Yuriy ROSARIO MD Unavailable Unavailable Yuriy WILCOX MD Unavailable Unavailable Yuriy WILCOX MD Unavailable Unavailable BRENDEN, Yuriy ROSARIO MD Unavailable Unavailable BRENDEN, Yuriy ROSARIO MD Unavailable Unavailable BRENDEN, Yuriy ROSARIO MD Unavailable Unavailable BRENDEN, Yuriy ROSARIO MD Unavailable Unavailable BRENDEN, Yuriy ROSARIO MD Unavailable Unavailable BRENDEN, Yuriy ROSARIO MD Unavailable Unavailable BRENDEN, Yuriy ROSARIO MD Unavailable Unavailable BRENDENYuriy MD Unavailable Unavailable Yuriy WILCOX MD Unavailable Unavailable BRENDEN, H MARLENE GALARZA Unavailable Unavailable BRENDEN, Yuriy ROSARIO MD Unavailable Unavailable BRENDEN, Yuriy ROSARIO MD Unavailable Unavailable BRENDEN, Yuriy ROSARIO MD Unavailable Unavailable BRENDEN, Yuriy ROSARIO MD Unavailable Unavailable BRENDEN, Yuriy ROSARIO MD Unavailable Unavailable BRENDEN, Yuriy ROSARIO MD Unavailable Unavailable Yuriy WILCOX MD Unavailable Unavailable Yuriy WILCOX MD Unavailable Unavailable Yuriy WILCOX MD Unavailable Unavailable Yuriy WILCOX MD Unavailable Unavailable BRENDEN, Yuriy ROSARIO MD Unavailable Unavailable Yuriy WILCOX MD Unavailable Unavailable Yuriy WILCOX MD Unavailable Unavailable BRENDEN, Yuriy ROSARIO MD Unavailable Unavailable Yuriy WILCOX MD Unavailable Unavailable Yuriy WILCOX MD Unavailable Unavailable Yuriy WILCOX MD Unavailable Unavailable Yuriy WILCOX MD Unavailable Unavailable Yuriy WILCOX MD Unavailable Unavailable Yuriy WILCOX MD Unavailable Unavailable CAYDEN, B KEVIN RETORT FIREMAN Unavailable Unavailable CAYDEN, B KEVIN RETORT FIREMAN Unavailable Unavailable CAYDEN, B KEVIN RETORT FIREMAN Unavailable Unavailable CAYDEN, B KEVIN RETORT FIREMAN Unavailable Unavailable CAYDEN, B KEVIN RETORT FIREMAN Unavailable Unavailable CAYDEN, B KEVIN RETORT FIREMAN Unavailable Unavailable CAYDEN, B KEVIN RETORT FIREMAN Unavailable Unavailable CAYDEN, B KEVIN RETORT FIREMAN Unavailable Unavailable CAYDEN, B KEVIN RETORT FIREMAN Unavailable Unavailable CAYDEN, B KEVIN RETORT FIREMAN Unavailable Unavailable CAYDEN, B KEVIN RETORT FIREMAN Unavailable Unavailable CAYDEN, B KEVIN RETORT FIREMAN Unavailable Unavailable CAYDEN, B KEVIN RETORT FIREMAN Unavailable Unavailable CAYDEN, B KEVIN RETORT FIREMAN Unavailable Unavailable CAYDEN, B KEVIN RETORT FIREMAN Unavailable Unavailable CAYDEN, B KEVIN RETORT FIREMAN Unavailable Unavailable CAYDEN, B KEVIN RETORT FIREMAN Unavailable Unavailable CAYDEN, B KEVIN RETORT FIREMAN Unavailable Unavailable CAYDEN, B KEVIN RETORT FIREMAN Unavailable Unavailable CAYDEN, B KEVIN RETORT FIREMAN Unavailable Unavailable CAYDEN, B KEVIN RETORT FIREMAN Unavailable Unavailable CAYDEN, B KEVIN RETORT FIREMAN Unavailable Unavailable CAYDEN, B KEVIN RETORT FIREMAN Unavailable Unavailable CADYEN, B KEVIN RETORT FIREMAN Unavailable Unavailable CAYDEN, B KEVIN RETORT FIREMAN Unavailable Unavailable CAYDEN, B KEVIN RETORT FIREMAN Unavailable Unavailable CADYEN, B KEVIN RETORT FIREMAN Unavailable Unavailable CAYDEN, B KEVIN RETORT FIREMAN Unavailable Unavailable CAYDEN, B KEVIN RETORT FIREMAN Unavailable Unavailable CAYDEN, B KEVIN RETORT FIREMAN Unavailable Unavailable CAYDEN, B KEVIN RETORT FIREMAN Unavailable Unavailable CAYDEN, B KEVIN RETORT FIREMAN Unavailable Unavailable CAYDEN, B KEVIN RETORT FIREMAN Unavailable Unavailable CAYDEN, B KEVIN RETORT FIREMAN Unavailable Unavailable CAYDEN, B KEVIN RETORT FIREMAN Unavailable Unavailable CAYDEN, B KEVIN RETORT FIREMAN Unavailable Unavailable CAYDEN, B KEVIN RETORT FIREMAN Unavailable Unavailable CAYDEN, B KEVIN RETORT FIREMAN Unavailable Unavailable CAYDEN, B KEVIN RETORT FIREMAN Unavailable Unavailable CAYDEN, B KEVIN RETORT FIREMAN Unavailable Unavailable CAYDEN, B KEVIN RETORT FIREMAN Unavailable Unavailable CAYDEN, B KEVIN RETORT FIREMAN Unavailable Unavailable CAYDEN, B KEVIN RETORT FIREMAN Unavailable Unavailable CAYDEN, B KEVIN RETORT FIREMAN Unavailable Unavailable CAYDEN, B KEVIN RETORT FIREMAN Unavailable Unavailable CAYDEN, B KEVIN RETORT FIREMAN Unavailable Unavailable CAYDEN, B KEVIN RETORT FIREMAN Unavailable Unavailable CAYDEN, B KEVIN RETORT FIREMAN Unavailable Unavailable CAYDEN, B KEVIN RETORT FIREMAN Unavailable Unavailable CAYDEN, B KEVIN RETORT FIREMAN Unavailable Unavailable CAYDEN, B KEVIN RETORT FIREMAN Unavailable Unavailable CAYDEN, B KEVIN RETORT FIREMAN Unavailable Unavailable CAYDEN, B KEVIN RETORT FIREMAN Unavailable Unavailable CAYDEN, B KEVIN RETORT FIREMAN Unavailable Unavailable CAYDEN, B KEVIN RETORT FIREMAN Unavailable Unavailable CAYDEN, B KEVIN RETORT FIREMAN Unavailable Unavailable CAYDEN, B KEVIN RETORT FIREMAN Unavailable Unavailable CAYDEN, B KEVIN RETORT FIREMAN Unavailable Unavailable CAYDEN, B KEVIN RETORT FIREMAN Unavailable Unavailable CAYDEN, B KEVIN RETORT FIREMAN Unavailable Unavailable CAYDEN, B KEVIN RETORT FIREMAN Unavailable Unavailable CAYDEN, B KEVIN RETORT FIREMAN Unavailable Unavailable ANTECOL, Yuriy HUSSEIN MD Unavailable Unavailable ANTECOL, Yuriy HUSSEIN MD Unavailable Unavailable ANTECOL, Yuriy HUSSEIN MD Unavailable Unavailable ANTECOL, Yuriy HUSSEIN MD Unavailable Unavailable ANTECOL, Yuriy HUSSEIN MD Unavailable Unavailable ANTECOL, Yuriy HUSSEIN MD Unavailable Unavailable ANTECOL, Yuriy HUSSEIN MD Unavailable Unavailable ANTECOL, Yuriy HUSSEIN MD Unavailable Unavailable ANTECOL, Yuriy HUSSEIN MD Unavailable Unavailable ANTECOL, Yuriy HUSSEIN MD Unavailable Unavailable ANTECOL, Yuriy HUSSEIN MD Unavailable Unavailable ANTECOL, uYriy HUSSEIN MD Unavailable Unavailable ANTECOL, Yuriy HUSSEIN MD Unavailable Unavailable ANTECOL, Yuriy HUSSEIN MD Unavailable Unavailable ANTECOL, Yuriy HUSSEIN MD Unavailable Unavailable ANTECOL, Yuriy HUSSEIN MD Unavailable Unavailable ANTECOL, Yuriy HUSSEIN MD Unavailable Unavailable ANTECOL, Yuriy HUSSEIN MD Unavailable Unavailable ANTECOL, Yuriy HUSSEIN MD Unavailable Unavailable ANTECOL, Yuriy HUSSEIN MD Unavailable Unavailable ANTECOL, Yuriy HUSSEIN MD Unavailable Unavailable ANTECOL, Yuriy HUSSEIN MD Unavailable Unavailable ANTECOL, Yuriy HUSSEIN MD Unavailable Unavailable ANTECOL, Yuriy HUSSEIN MD Unavailable Unavailable ANTECOL, Yuriy HUSSEIN MD Unavailable Unavailable ANTECOL, Yuriy HUSSEIN MD Unavailable Unavailable ANTECOL, Yuriy HUSSEIN MD Unavailable Unavailable ANTECOL, Yuriy HUSSEIN MD Unavailable Unavailable ANTECOL, Yuriy HUSSEIN MD Unavailable Unavailable ANTECOL, Yuriy HUSSEIN MD Unavailable Unavailable ANTECOL, Yuriy HUSSEIN MD Unavailable Unavailable ANTECOL, Yuriy HUSSEIN MD Unavailable Unavailable ANTECOL, Yuriy HUSSEIN MD Unavailable Unavailable ANTECOL, Yuriy HUSSEIN MD Unavailable Unavailable ANTECOL, Yuriy HUSSEIN MD Unavailable Unavailable ANTECOL, Yuriy HUSSENI MD Unavailable Unavailable ANTECOL, Yuriy HUSSEIN MD Unavailable Unavailable ANTECOL, Yuriy HUSSEIN MD Unavailable Unavailable ANTECOL, Yuriy HUSSEIN MD Unavailable Unavailable ANTECOL, Yuriy HUSSEIN MD Unavailable Unavailable ANTECOL, Yuriy HUSSEIN MD Unavailable Unavailable ANTECOL, Yuriy HUSSEIN MD Unavailable Unavailable ANTECOL, Yuriy HUSSEIN MD Unavailable Unavailable ANTECOL, Yuriy HUSSEIN MD Unavailable Unavailable ANTECOL, Yuriy HUSSEIN MD Unavailable Unavailable ANTECOL, Yuriy HUSSEIN MD Unavailable Unavailable ANTECOL, Yuriy HUSSEIN MD Unavailable Unavailable ANTECOL, Yuriy HUSSEIN MD Unavailable Unavailable ANTECOL, Yuriy HUSSEIN MD Unavailable Unavailable ANTECOL, Yuriy HUSSEIN MD Unavailable Unavailable ANTECOL, Yuriy HUSSEIN MD Unavailable Unavailable ANTECOL, Yuriy HUSSEIN MD Unavailable Unavailable ANTECOL, Yuriy HUSSEIN MD Unavailable Unavailable ANTECOL, Yuriy HUSSEIN MD Unavailable Unavailable Campuzano, L Sonia PA Unavailable Unavailable Campuzano, L Sonia PA Unavailable Unavailable Campuzano, L Sonia PA Unavailable Unavailable Campuzano, L Sonia PA Unavailable Unavailable Campuzano, L Sonia PA Unavailable Unavailable Campuzano, L Soina PA Unavailable Unavailable Campuzano, L Sonia PA Unavailable Unavailable Campuzano, L Sonia PA Unavailable Unavailable Campuzano, L Sonia PA Unavailable Unavailable Campuzano, L Sonia PA Unavailable Unavailable Campuzano, L Sonia PA Unavailable Unavailable Campuzano, L Sonia PA Unavailable Unavailable Campuzano, L Sonia PA Unavailable Unavailable Campuzano, L Sonia PA Unavailable Unavailable Campuzano, L Sonia PA Unavailable Unavailable Campuzano, L Sonia PA Unavailable Unavailable Campuzano, L Sonia PA Unavailable Unavailable Campuzano, L Sonia PA Unavailable Unavailable Campuzano, L Sonia PA Unavailable Unavailable Campuzano, L Sonia PA Unavailable Unavailable Campuzano, L Sonia PA Unavailable Unavailable Campuzano, L Sonia PA Unavailable Unavailable Campuzano, L Sonia PA Unavailable Unavailable Campuzano, L Sonia PA Unavailable Unavailable Campuzano, L Sonia PA Unavailable Unavailable Campuzano, L Sonia PA Unavailable Unavailable Campuzano, L Sonia PA Unavailable Unavailable Campuzano, L Sonia PA Unavailable Unavailable Campuzano, L Sonia PA Unavailable Unavailable Campuzano, L Sonia PA Unavailable Unavailable Campuzano, L Sonia PA Unavailable Unavailable Campuzano, L Sonia PA Unavailable Unavailable Campuzano, L Sonia PA Unavailable Unavailable Campuzano, L Sonia PA Unavailable Unavailable Campuzano, L Sonia PA Unavailable Unavailable Campuzano, L Sonia PA Unavailable Unavailable Campuzano, L Sonia PA Unavailable Unavailable Campuzano, L Sonia PA Unavailable Unavailable Campuzano, L Sonia PA Unavailable Unavailable Aliyah Chacon MD Unavailable Unavailable Aliyah Chacon MD Unavailable Unavailable Aliyah Chacon MD Unavailable Unavailable Aliyah Chacon MD Unavailable Unavailable Aliyah Chacon MD Unavailable Unavailable Aliyah Chacon MD Unavailable Unavailable Aliyah Chacon MD Unavailable Unavailable Aliyah Chacon MD Unavailable Unavailable Aliyah Chacon MD Unavailable Unavailable Aliyah Chacon MD Unavailable Unavailable Aliyah Chacon MD Unavailable Unavailable Aliyah Chacon MD Unavailable Unavailable Aliyah Chacon MD Unavailable Unavailable Aliyah Chacon MD Unavailable Unavailable Aliyah Chacon MD Unavailable Unavailable Aliyah Chacon MD Unavailable Unavailable Aliyah Chacon MD Unavailable Unavailable Aliyah Chacon MD Unavailable Unavailable Aliyah Chacon MD Unavailable Unavailable Aliyah Chacon MD Unavailable Unavailable Aliyah Chacon MD Unavailable Unavailable Aliyah Chacon MD Unavailable Unavailable Aliyah Chacon MD Unavailable Unavailable Aliyah Chacon MD Unavailable Unavailable Aliyah Chacon MD Unavailable Unavailable Aliyah Chacon MD Unavailable Unavailable Aliyah Chacon MD Unavailable Unavailable Aliyah Chacon MD Unavailable Unavailable Aliyah Chacon MD Unavailable Unavailable Aliyah Chacon MD Unavailable Unavailable Aliyah Chacon MD Unavailable Unavailable Aliyah Chacon MD Unavailable Unavailable Aliyah Chacon MD Unavailable Unavailable Aliyah Chacon MD Unavailable Unavailable Aliyah Chacon MD Unavailable Unavailable Aliyah Chacon MD Unavailable Unavailable Aliyah Chacon MD Unavailable Unavailable Aliyah Chacon MD Unavailable Unavailable Aliyah Chacon MD Unavailable Unavailable Aliyah Chacon MD Unavailable Unavailable Aliyah Chacon MD Unavailable Unavailable Aliyah Chacon MD Unavailable Unavailable Aliyah Chacon MD Unavailable Unavailable Aliyah Chacon MD Unavailable Unavailable Aliyah Chacon MD Unavailable Unavailable Aliyah Chacon MD Unavailable Unavailable Aliyah Chacon MD Unavailable Unavailable Aliyah Chacon MD Unavailable Unavailable Aliyah Chacon MD Unavailable Unavailable Aliyah Chacon MD Unavailable Unavailable Aliyah Chacon MD Unavailable Unavailable Aliyah Chacon MD Unavailable Unavailable Aliyah Chacon MD Unavailable Unavailable Aliyah Chacon MD Unavailable Unavailable Aliyah Chacon MD Unavailable Unavailable Aliyah Chacon MD Unavailable Unavailable Aliyah Chacon MD Unavailable Unavailable Aliyah Chacon MD Unavailable Unavailable Aliyah Chacon MD Unavailable Unavailable Aliyah Chacon MD Unavailable Unavailable Aliyah Chacon MD Unavailable Unavailable Aliyah Chacon MD Unavailable Unavailable Aliyah Chacon MD Unavailable Unavailable Aliyah Chacon MD Unavailable Unavailable Aliyah Chacon MD Unavailable Unavailable Aliyah Chacon MD Unavailable Unavailable Aliyah Chacon MD Unavailable Unavailable Aliyah Chacon MD Unavailable Unavailable Aliyah Chacon MD Unavailable Unavailable Aliyah Chacon MD Unavailable Unavailable Aliyah Chacon MD Unavailable Unavailable Aliyah Chacon MD Unavailable Unavailable Aliyah Chacon MD Unavailable Unavailable Aliyah Chacon MD Unavailable Unavailable Aliyah Chacon MD Unavailable Unavailable Aliyah Chacon MD Unavailable Unavailable Aliyah Chacon MD Unavailable Unavailable Aliyah Chacon MD Unavailable Unavailable Aliyah Chacon MD Unavailable Unavailable Krystina Escobedo MD Unavailable Unavailable Krystina Escobedo MD Unavailable Unavailable Krystina Escobedo MD Unavailable Unavailable Krystina Escobedo MD Unavailable Unavailable Krystina Escobedo MD Unavailable Unavailable Krystina Escobedo MD Unavailable Unavailable Krystian Escobedo MD Unavailable Unavailable Krystina Escobedo MD Unavailable Unavailable Krystina Escobedo MD Unavailable Unavailable Krystina Escobedo MD Unavailable Unavailable Krystina Escobedo MD Unavailable Unavailable Krystina Escobedo MD Unavailable Unavailable Krystina Escobedo MD Unavailable Unavailable Krystina Escobedo MD Unavailable Unavailable Krystina Escobedo MD Unavailable Unavailable Krystina Escobedo MD Unavailable Unavailable Krystina Escobedo MD Unavailable Unavailable Krystina Escobedo MD Unavailable Unavailable Krystina Escobedo MD Unavailable Unavailable Krystina Escobedo MD Unavailable Unavailable Krystina Escobedo MD Unavailable Unavailable Krystina Escobedo MD Unavailable Unavailable Krystina Escobedo MD Unavailable Unavailable Krystina Escobedo MD Unavailable Unavailable Krystina Escobedo MD Unavailable Unavailable Krystina Escobedo MD Unavailable Unavailable Krystina Escobedo MD Unavailable Unavailable Krystina Escobedo MD Unavailable Unavailable Krystina Escobedo MD Unavailable Unavailable Krystina Escobedo MD Unavailable Unavailable Krystina Escobedo MD Unavailable Unavailable Krystina Escobedo MD Unavailable Unavailable Krystina Escobedo MD Unavailable Unavailable Krystina Escobedo MD Unavailable Unavailable Krystina Escobedo MD Unavailable Unavailable Krystina Escobedo MD Unavailable Unavailable Krystina Escobedo MD Unavailable Unavailable Krystina Escobedo MD Unavailable Unavailable Krystina Escobedo MD Unavailable Unavailable Krystina Escobedo MD Unavailable Unavailable Krystina Escobedo MD Unavailable Unavailable Krystina Escobedo MD Unavailable Unavailable Krystina Escobedo MD Unavailable Unavailable Slezka, Vojtech MD Unavailable Unavailable Slezka, Vojtech MD Unavailable Unavailable Slezka, Vojtech MD Unavailable Unavailable Slezka, Vojtech MD Unavailable Unavailable Slezka, Vojtech MD Unavailable Unavailable Slezka, Vojtech MD Unavailable Unavailable Slezka, Vojtech MD Unavailable Unavailable Slezka, Vojtech MD Unavailable Unavailable Slezka, Vojtech MD Unavailable Unavailable Slezka, Vojtech MD Unavailable Unavailable Slezka, Vojtech MD Unavailable Unavailable Slezka, Vojtech MD Unavailable Unavailable Slezka, Vojtech MD Unavailable Unavailable Slezka, Vojtech MD Unavailable Unavailable Slezka, Vojtech MD Unavailable Unavailable Re-disclosure Warning The records that you are about to access may contain information from federally-assisted alcohol or drug abuse programs. If such information is present, then the following federally mandated warning applies: This information has been disclosed to you from records protected by federal confidentiality rules (42 CFR part 2). The federal rules prohibit you from making any further disclosure of this information unless further disclosure is expressly permitted by the written consent of the person to whom it pertains or as otherwise permitted by 42 CFR part 2. A general authorization for the release of medical or other information is NOT sufficient for this purpose. The Federal rules restrict any use of the information to criminally investigate or prosecute any alcohol or drug abuse patient.The records that you are about to access may contain highly sensitive health information, the redisclosure of which is protected by Article 27-F of the [facility] Public Health law. If you continue you may have access to information: Regarding HIV / AIDS; Provided by facilities licensed or operated by the [facility] Office of Mental Health; or Provided by the [facility] Office for People With Developmental Disabilities. If such information is present, then the following [facility] mandated warning applies: This information has been disclosed to you from confidential records which are protected by state law. State law prohibits you from making any further disclosure of this information without the specific written consent of the person to whom it pertains, or as otherwise permitted by law. Any unauthorized further disclosure in violation of state law may result in a fine or long term sentence or both. A general authorization for the release of medical or other information is NOT sufficient authorization for further disc losure. Family History Family Member Name Family Member Gender Family Member Status Date o f Status Description Data Source(s) Unknown Unknown Problem [facility] ([facility]) Unknown Unknown Problem [facility] ([facility] sister/brother Unknown Female Problem [facility] ([facility]) Unknown Female Problem [facility] ([facility]) Unknown Female Problem [facility] ([facility]) Unknown Female Problem [facility] ([facility]) Encounters Encounter Providers Location Date Indications Data Source(s ) Outpatient Attender: KEENAN LAY MD Main Office 03/29/2021 10:00:00 AM EDT [facility] ([facility]) Outpatient Attender: MARLENE WILCOX MD [facility] 09:30:00 AM EDT [facility] ([facility] Outpatient Attender: Sonia CARUSO-SJVida.MARVA 12:00:00 AM EDT - 03/03/2021 03:46:19 PM EDT [facility] Outpatient Attender: Krystina Escobedo MDReferrer: Krystina MENEZESCT-SJP 02/20/2021 03:46:22 PM EDT [facility] Outpatient Attender: KEVIN RODARTE NP Physical Therapy 11:45:00 AM EDT [facility] ([facility]) Outpatient SJJanelleMARVA-SJP.MARVA 02/03/2021 12:00:00 AM EDT [facility] Outpatient Attender: Krystina MENEZESMARVA-SJP.MARVA 01/09 11:08:30 AM EDT - 02/02/2021 12:07:08 PM EDT [facility] Outpatient Attender: Mel Chacon MD Main office - [facility] 01/30/2021 01:00:00 PM EDT [facility] ([facility]) Unknown [address] [facility] [address] 12/20/2020 12:00:00 AM EDT eCW1 ([facility]) Outpatient [address] [facility] [address] 12/15/2020 12:00:00 AM EDT eCW1 ([facility]) Outpatient Attender: KEVIN RODARTE NP Physical Therapy 10:45:00 AM EDT [facility] ([facility]) Outpatient Referrer: Sonia MENEZESMARVA-SJP.MARVA 01:27:04 PM EDT [facility] Outpatient Attender: MARLENE WILCOX MD [place] [facility] 09:15:00 AM EDT [facility] ([facility] Outpatient Attender: Sonia CARUSO-SJP.MARVA 10:19:37 AM EDT - 09/02/2020 11:43:09 AM EDT [facility] Outpatient Attender: MARLENE WILCOX MD [place] [facility] 09:00:00 AM EST [facility] ([facility] Outpatient Attender: MARLENE WILCOX MD [place] [facility] 09:15:00 AM EDT [facility] ([facility] Immunizations Vaccine Date Status Description Data Source(s) COVID-19 VACCINE Pfizer 03/23/2021 12:00:00 AM EDT completed [facility] Vaccine Series Complete: YESThis Data wa s Submitted to [facility] Via [employer]. New in 2012. IIV4 03/07/2021 09:41:00 AM EDT completed [facility] ([facility] COVID-19 VACCINE Pfizer 07/30/2020 12:00:00 AM EST completed [facility] Vaccine Series Complete: YESThis Data wa s Submitted to [facility] [employer]. COVID-19 VACCINE Pfizer 07/09/2020 12:00:00 AM EST completed [facility] Vaccine Series Complete: NOThis Data was Submitted to [facility] [employer]. New in 2012. IIV4 03/23/2020 09:17:00 AM EDT completed [facility] ([facility] Medications Medication Brand Name Start Date Product Form Dose Route Admi nistrative Instructions Pharmacy Instructions Status Indications Reaction Description Data Source(s) Amlodipine 2.5 MG Oral Tablet Amlodipine Besylate 03/29/2021 12:00: 00 AM EDT ORAL active [facility] ([facility]) Insulin, Aspart, Human 100 UNT/ML Injectable Solution [NovoL og] Novolog 03/28/2021 12:00:00 AM EDT active [facility] ([facility]) Paroxetine HCL Paroxetine HCL 03/28/2021 12:00:00 AM EDT OR AL completed [facility] ([facility] Losartan Potassium 25 MG Oral Tablet Losartan Potassium 12:00:00 AM EDT ORAL active [facility] ([facility] Metformin hydrochloride 500 MG Oral Tablet Metformin HCL 03/28/2021 12:00:00 AM EDT ORAL active [facility] ([facility] Insulin Glargine 100 UNT/ML Injectable Solution [Lantus] Jayce tus 03/28/2021 12:00:00 AM EDT active M EDENT ([facility]) Tamsulosin hydrochloride 0.4 MG Oral Capsule [Flomax] Flomax 03/28/2021 12:00:00 AM EDT ORAL active [facility] ([facility] 0.65 ML exenatide 3.08 MG/ML Pen Injector [Bydureon] Bydureo n 03/28/2021 12:00:00 AM EDT SUBCUTANEOUS active MEDENT ([facility]) Hydrocortisone 10 MG/ML / Neomycin 3.5 M G/ML / Polymyxin B 17544 UNT/ML Otic Solution Neomycin/Polymyxin/Hydrocortisone (Otic) 03/28/2021 12:00:00 AM EDT active [facility] ([facility]) moxifloxacin 5 MG/ML Ophthalmic Solution Moxifloxacin HCL 03/28/2021 12:00:00 AM EDT active [facility] ([facility] pantoprazole 40 MG Delayed Release Oral Tablet Pantoprazole Sodium 03/28/2021 12:00:00 AM EDT ORAL active M EDENT ([facility]) atorvastatin 80 MG Oral Tablet Atorvastatin Calcium 03/28/2021 1 2:00:00 AM EDT ORAL active MEDENT ( [facility]) 200 ACTUAT Albuterol 0.09 MG/ACTUAT Metered Dose Inhal er [Ventolin] Ventolin HFA 03/28/2021 12:00:00 AM EDT RESPIRATORY active MED[facility] ([facility]) Acetaminophen 500 MG Oral Tablet [Tylenol] Tylenol Extra Str ength 03/28/2021 12:00:00 AM EDT ORAL active M EDENT ([facility]) Cholecalciferol 1000 UNT Oral Tablet Vitamin D (Cholecalcife rol) 03/28/2021 12:00:00 AM EDT ORAL active M EDENT ([facility]) Magnesium Oxide 400 MG Oral Capsule Magnesium Oxide -MG Supp lement 03/28/2021 12:00:00 AM EDT ORAL active M EDENT ([facility]) Melatonin 10 MG Oral Tablet Melatonin 03/28/2021 12:00:00 AM EDT ORAL active [facility] ([facility]) Calcium Carbonate 1500 MG Oral Tablet Calcium 600 03/28/2021 12:00 :00 AM EDT ORAL active [facility] ([facility]) ferrous sulfate 325 MG Oral Tablet Ferrous Sulfate 03/28/2021 12:00 :00 AM EDT ORAL active MED[facility] ([facility]) Aspirin 325 MG Delayed Release Oral Tablet Aspirin 03/28/2021 12:00:00 AM EDT ORAL active MED[facility] ([facility]) Ketoconazole 20 MG/ML Medicated Shampoo KETOCONAZOLE 03/28/20 12:00:00 AM EDT shampoo 120 SHAMPOO DAILY UNTIL SCALP IS CLEAR THEN SHAMPOO 2-3 TIMES WEEKLY FOR MAINTENANCE SHAMPOO DAILY UNTIL SCALP IS CLEAR THEN SHAMPOO 2-3 TIMES WEEKLY FOR MAINTENANCE SOLD: 03/30/2021 [facility] Ketoconazole 20 MG/ML Medicated Shampoo Ketoconazole 03/28/20 12:00:00 AM EDT active MEDENT ( [facility]) 1 % 03/08/2021 12:00:00 AM EDT drops,suspension 5 INSTILL 1 DROP IN THE RIGHT EYE TWO TIMES A DAY FOR 2 WEEKS INSTILL 1 DROP IN THE RIGHT EYE TWO TIME S A DAY FOR 2 WEEKS SOLD: 03/10/2021 [facility] Bygriceldaresherry BCise 2 MG/0.85ML AUIJ [id number] 02/14/2021 12:00:00 AM EDT active INJECT THE CONTENTS OF ONE P EN UNDER THE SKIN ONCE WEEKLY [facility] atorvastatin 80 MG Oral Tablet atorvastatin (LIPITOR) 80 MG tablet atorvastatin (LIPITOR) 80 MG tablet 02/02/2021 12:00:00 AM EDT 80 mg Oral active Take 1 tablet (80 mg total) by mouth daily Replacing lovastatin [facility] Dexamethasone 0.001 MG/MG / Neomycin 0.0 035 MG/MG / Polymyxin B 10 UNT/MG Ophthalmic Ointment 3.5 mg/g-10,000 unit/g-0.1 % NEOMYCIN/POLYMYXIN B/DEXAMETHA 01/31/2021 12:00:00 AM EDT ointment 3 APPLY A THIN RIBBON IN THE RIGHT EYE TWO TIMES A DAY APPLY A THIN RIBBON IN THE RIGHT EYE TWO TIMES A DAY S OLD: 01/31/2021 [facility] Dexamethasone 0.001 MG/MG / Neomycin 0.0 035 MG/MG / Polymyxin B 10 UNT/MG Ophthalmic Ointment 3.5 mg/g-10,000 unit/g-0.1 % NEOMYCIN/POLYMYXIN B/DEXAMETHA 01/31/2021 12:00:00 AM EDT ointment 3 APPLY A THIN RIBBON IN THE RIGHT EYE TWO TIMES A DAY APPLY A THIN RIBBON IN THE RIGHT EYE TWO TIMES A DAY S OLD: 02/18/2021 [facility] moxifloxacin 5 MG/ML Ophthalmic Solution moxifloxacin (VIGAMOX) 0.5 % ophthalmic solution moxifloxacin (VIGAMOX) 0.5 % ophthalmic solution 01/24 12:00:00 AM EDT active INSTILL 1 DROP IN THE RIGHT EYE 6 TIMES DAILY [facility] moxifloxacin 5 MG/ML Ophthalmic Solution 0.5 % MOXIFLOXACIN HCL 01/04/2021 12:00:00 AM EDT drops 3 INSTILL 1 DROP IN THE RIG HT EYE 6 TIMES DAILY INSTILL 1 DROP IN THE RIGHT EYE 6 TIMES DAILY SOLD: 01/24/2021 [facility] 5 mg/gram (0.5 %) 01/04/2021 12:00:00 AM EDT ointment 3 APPLY A THIN RIBBON TO THE RIGHT EYE ONCE DAILY AT NIGHT APPLY A THIN RIBBON TO THE RIGHT EYE ONC E DAILY AT NIGHT SOLD: 01/04/2021 [facility] moxifloxacin 5 MG/ML Ophthalmic Solution 0.5 % MOXIFLOXACIN HCL 01/04/2021 12:00:00 AM EDT drops 3 INSTILL 1 DROP IN THE RIG HT EYE 6 TIMES DAILY INSTILL 1 DROP IN THE RIGHT EYE 6 TIMES DAILY SOLD: 01/04/2021 [facility] Erythromycin 0.005 MG/MG Ophthalmic Oint ment erythromycin (ROMYCIN) ophthalmic ointment erythromycin (ROMYCIN) ophthalmic ointment 01/04/2021 12:00: 00 AM EDT aborted APPLY A THIN RIB BON TO THE RIGHT EYE ONCE DAILY AT NIGHT [facility] carvedilol 3.125 MG Oral Tablet carvedilol (COREG) 3.1 25 MG tablet carvedilol (COREG) 3.125 MG tablet 09/02/2020 12:00:00 AM EDT 3.125 mg Oral active Coronary angioplasty status Take 1 tablet (3.125 mg to jason) by mouth 2 (two) times a day with meals [facility] Coronary angioplasty status Losartan Potassium 25 MG Oral Tablet losartan (COZAAR) 25 MG tablet losartan (COZAAR) 25 MG tablet 08/05/2020 12:00:00 AM EST 25 mg Oral active Take 25 mg by mouth daily [facility] pantoprazole 40 MG Delayed Release Oral Tablet pantoprazole (PROTONIX) 40 MG tablet pantoprazole (PROTONIX) 40 MG tablet 08/05/2020 12:00:00 AM EST active TAKE ONE TABLET BY MOUTH NEVILLE DAY MAXIMUM DAILY DOSE 1 TABLET [facility] POLYETHYLENE GLYCOL 3350 142 MG/ML Oral Solution [Miralax] M iralax 04/22/2020 12:00:00 AM EST active [place] [facility] ([facility]) Bisacodyl 5 MG Delayed Release Oral Tablet [Dulcolax] Dulcol ax 04/22/2020 12:00:00 AM EST ORAL active M EDSTEVEN ([facility] ) 17 gram/dose 04/22/2020 12:00:00 AM EST powder 510 USE INSTRUCTED BY DOCTOR FOR BOWEL PREP USE INSTRUCTED BY DOCTOR FOR BOWEL PREP SOLD: 04/25/2020 [facility] 50 mg 03/23/2020 12:00:00 AM EDT tablet 21 TAKE ONE TABLET BY MOUTH THREE TIMES A DAY NEEDED FOR PAIN MAXIMUM DAILY DOSE = 3 TAKE ONE TABLET BY MOUTH THREE TIMES A DAY NEEDED FOR PAIN MAXIMUM DAILY DOSE = 3 SOLD: 03/23/2020 [facility] 50 mg 03/23/2020 12:00:00 AM EDT tablet 90 TAKE ONE TABLET BY MOUTH THREE TIMES A DAY NEEDED FOR PAIN MAXIMUM DAILY DOSE = 3 TAKE ONE TABLET BY MOUTH THREE TIMES A DAY NEEDED FOR PAIN MAXIMUM DAILY DOSE = 3 SOLD: 05/06/2020 [facility] 50 mg 03/23/2020 12:00:00 AM EDT tablet 90 TAKE ONE TABLET BY MOUTH THREE TIMES A DAY NEEDED FOR PAIN MAXIMUM DAILY DOSE = 3 TAKE ONE TABLET BY MOUTH THREE TIMES A DAY NEEDED FOR PAIN MAXIMUM DAILY DOSE = 3 SOLD: 06/07/2020 [facility] 50 mg 03/23/2020 12:00:00 AM EDT tablet 21 TAKE ONE TABLET BY MOUTH THREE TIMES A DAY NEEDED FOR PAIN MAXIMUM DAILY DOSE = 3 TAKE ONE TABLET BY MOUTH THREE TIMES A DAY NEEDED FOR PAIN MAXIMUM DAILY DOSE = 3 SOLD: 04/15/2020 [facility] tramadol hydrochloride 50 MG Oral Tablet Tramadol HCL 03/23/2020 12:00:00 AM EDT ORAL active MEDENT ([facility] doxycycline hyclate 100 MG Oral Tablet DOXYCYCLINE HYCLATE 0 01/25/2020 12:00:00 AM EDT tablet 30 TAKE ONE TABLET BY MOUTH NEVILLE DIRECTED TAKE ONE TABLET BY MOUTH EVERY DAY DIRECTED SOLD: 02/24/2020 [facility] carvedilol 3.125 MG Oral Tablet carvedilol (COREG) 3.1 25 MG tablet carvedilol (COREG) 3.125 MG tablet 11/30/2019 12:00:00 AM EDT 3.125 mg Oral aborted Take 1 tablet (3.125 mg total) by mouth 2 (two) times a day with meals [facility] 0.65 ML exenatide 3.08 MG/ML Pen Injector Exenatide ER (BYDUREON) 2 MG PEN Exenatide ER (BYDUREON) 2 MG PEN 07/12/2014 12:00:00 AM EST aborted INJECT CONTENTS OF ONE PEN UNDER THE SKIN ONCE A WEEK [facility] Metformin hydrochloride 500 MG Oral Tablet metFORMIN ( GLUCOPHAGE) 500 MG tablet metFORMIN (GLUCOPHAGE) 500 MG tablet 07/02/2014 12:00:00 AM EST 100 0 mg Oral aborted Take 2 tablets (1,000 mg total) by mouth 2 (two) times a day with meals [facility] Ergocalciferol 93731 UNT Oral Capsule vi tamin D, Ergocalciferol, 1.25 MG (04397 UT) CAPS vitamin D, Ergocalciferol, 1.25 MG (29617 UT) CAPS 1 {capsule} Oral aborted Take 1 capsule by mo uth every 30 (thirty) days [facility] Insulin, Aspart, Human 100 UNT/ML Inject able Solution insulin aspart (NOVOLOG) 100 UNIT/ML injection insulin aspart (NOVOLOG) 100 UNIT/ML injection 74 U Subcutaneous aborted Inject 74 Units u nder the skin every evening [facility] Fosinopril Sodium 40 MG Oral Tablet fosinopril (MONOPR IL) 40 MG tablet fosinopril (MONOPRIL) 40 MG tablet 40 mg Oral abo rted Take 40 mg by mouth daily [facility] Lovastatin 40 MG Oral Tablet lovastatin (MEVACOR) 40 M G tablet lovastatin (MEVACOR) 40 MG tablet 40 mg Oral aborted T cookie 40 mg by mouth daily [facility] Omeprazole 20 MG Delayed Release Oral Ca psule omeprazole (PRILOSEC) 20 MG capsule omeprazole (PRILOSEC) 20 MG capsule 20 mg Oral aborted Take 20 mg by mouth daily [facility] glimepiride 4 MG Oral Tablet glimepiride (AMARYL) 4 MG tablet glimepiride (AMARYL) 4 MG tablet 4 mg Oral aborted Monty e 4 mg by mouth daily [facility] Fenofibrate 160 MG Oral Tablet fenofibrate (TRIGLIDE) 160 MG tablet fenofibrate (TRIGLIDE) 160 MG tablet 160 mg Oral aborted Take 160 mg by mouth daily [facility] Insulin, Aspart, Human 100 UNT/ML Inject able Solution insulin aspart (NOVOLOG) 100 UNIT/ML injection insulin aspart (NOVOLOG) 100 UNIT/ML injection 83 U Subcutaneous aborted Inject 83 Units u nder the skin daily with lunch [facility] Furosemide 20 MG Oral Tablet furosemide (LASIX) 20 MG tablet furosemide (LASIX) 20 MG tablet 20 mg Oral aborted Take 20 mg by mouth daily [facility] Insulin Glargine 100 UNT/ML Injectable S olution insulin glargine (INSULIN GLARGINE) 100 UNIT/ML injection insulin glargine (INSULIN GLARGINE) 100 UNIT/ML injection 82 U Subcutaneous aborted Inject 82 Units under the skin nightly [facility] Multiple Vitamins-Minerals (DAILY MULTIVITAMIN PO) 1 {tbl} Oral aborted Take 1 tablet by mouth daily [facility] Auxier-3 Fatty Acids (FISH OIL PO) drug or medication Ora l aborted Take by mouth [facility] Insurance Providers Payer name Policy type / Coverage type Policy ID Covered constitution party ID Covered constitution party's relationship to alonzo Policy Alonzo Plan Information MEDICARE [id number] Desiree [id number] T83 MEDICARE A [id number] Self [id number] T83 MEDICARE [id number] POMCO [id number] WI2 [id number] POMCO [id number] SP [id number] [employer] [id number] SP [id number] Ghi/Emblem [id number] Self Ghi/Emblem HLTH (pr) Medigap Part B [id number] Family Dependent [id number] POMCO U [id number] Spouse [id number] Pom[employer] (pr) Medigap Part B [id number] POMCO U [id number] Spouse [id number] [employer] (pr) Commercial [id number] Family Dependent [id number] [employer] (pr) Commercial [id number] POMCO [id number] Spo [id number] [employer] (pr) Commercial [id number] Family Dependent [id number] [employer] (pr) Commercial [id number] Family Dependent [id number] [employer] (pr) Commercial [id number] Family Dependent 3 35 POMCO [id number] WI2 [id number] POMCO U [id number] Spouse [id number] UMR U [id number] Spouse [id number] Umr (pr) Medigap Part B [id number] Family Dependent [id number] MEDICARE [id number] Desiree [id number] T83 Ghi/Emblem HLTH (pr) Medigap Part B [id number] Self [id number] Medicare [place] Primary [id number] Self 1 [id number] Medicare [place] Medicare Primary [id number] Self 1 [id number] Medicare [place] Medicare Primary [id number] Self 1 [id number] NORIDIAN PART B C [id number] O [id number] MEDICARE [id number] SP [id number] A MEDICARE [id number] SP [id number] A R [facility] [id number] WI2 [id number] Medicare [place] Medicare Primary [id number] Self [id number] MEDICARE C [id number] S [id number] A [employer]OM[employer] PPO O [id number] S [id number] [employer] Maintenance Organization (HMO) [id number] Family Dependent [id number] [employer] Maintenance Organization (HMO) [id number] Family Dependent [id number] [employer] Commercial [id number] Family Dependent [id number] [employer] Commercial [id number] Family Dependent [id number] [employer] Commercial [id number] Family Dependent POMCO [id number] WI2 [id number] [employer] (pr) Commercial [id number] Self POMCO -O/P [id number] 18 [id number] r (pr) Medigap Part B [id number] Family Dependent [id number] MEDICARE [id number] SP [id number] T83 [facility] [id number] WI2 [id number] [facility] [id number] WI2 [id number] [facility] FAULT [id number] SP [id number] MEDICARE C [id number] S [id number] [id number] UMR O [id number] S [id number] ANSI-Medicare Part B [id number] ANSI-Commercial [id number] ANSI-Commercial [id number] ANSI-Commercial [id number] ANSI-Medicare Part B [id number] ANSI-Commercial [id number] ANSI-Medicare Part B [id number] ANSI-Commercial [id number] ANSI-Commercial [id number] ANSI-Medicare Part B [id number] ANSI-Commercial [id number] ANSI-Commercial [id number] ANSI-Commercial [id number] ANSI-Commercial [id number] ANS-Medicare Part B [id number] Medicare [place] Medicare Primary [id number] Self 1 [id number] Problems, Conditions, and Diagnoses Code Display Name Description Problem Type Effective Dates Data Source(s) 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 Occlusion and stenosis of bilateral phelps Diagnosis 03/03/2021 02:51:27 PM EDT [facility] 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 Cerebral infarction due to embolism of b Diagnosis 03/03/2021 02:51:27 PM EDT [facility] Z98.61 Coronary angioplasty status Coronary angioplasty statu s Diagnosis 03/03/2021 02:51:27 PM EDT [facility] Z79.4 intermediate (current) use of insulin intermediate (cu rrent) use of insulin Diagnosis 03/03/2021 02:51:27 PM EDT [facility] E11.59 Type 2 diabetes mellitus with other circ ulatory complications Type 2 diabetes mellitus with other circ Diagnosis 03/03/2021 02:51:27 PM EDT [facility] I10 Essential (primary) hypertension Essential (primary) h ypertension Diagnosis 03/03/2021 02:51:27 PM EDT [facility] G47.33 Obstructive sleep apnea (adult) (pediatr ic) Obstructive sleep apnea (adult) (pediatr Diagnosis 03/03/2021 02:51:27 PM EDT [facility] 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 Diagnosis 03/03/2021 02:51:27 PM EDT [facility] E78.00 Pure hypercholesterolemia, unspecified P ure hypercholesterolemia, unspecified Diagnosis 03/03/2021 02:51:27 PM EDT [facility] I49.5 Sick sinus syndrome Sick sinus syndrome Diagnosis 0 03/03/2021 02:51:27 PM EDT [facility] R42 Dizziness and giddiness Dizziness and giddiness Diagno sis 02/20/2021 03:46:22 PM EDT [facility] E78.2 Mixed hyperlipidemia Mixed hyperlipidemia Diagnosis 09/02/2020 10:19:37 AM EDT [facility] E11.65 Type 2 diabetes mellitus with hyperglyce jerad Type 2 diabetes mellitus with hyperglyce Diagnosis 09/02/2020 10:19:37 AM EDT [facility] I49.5 Sinus node dysfunction Sinus node dysfunction Problem 03/29/2021 12:00:00 AM EDT MEDENT ([facility]) Z95.5 Patient post percutaneous transluminal c oronary angioplasty Patient post percutaneous transluminal coronary angioplasty Problem 021 12:00:00 AM EDT MEDENT ([facility]) I10 Essential hypertension Essential hypertension Problem 03/29/2021 12:00:00 AM EDT MEDENT ([facility]) I25.10 Coronary arteriosclerosis after percutan eous coronary angioplasty Coronary arteriosclerosis after percutaneous coronary angioplasty Problem 03/29/2021 12:00:00 AM EDT EMMANUELLE ([facility]) R94.31 Electrocardiogram abnormal Electrocardiogram abnormal Problem 03/29/2021 12:00:00 AM EDT EMMANUELLE ([facility]) I65.23 Bilateral carotid artery stenosis Bilateral phelps tid artery stenosis [id number] 03/03/2021 12:00:00 AM EDT [facility] I63.423 Cerebrovascular accident (CV A) due to bilateral embolism of anterior cerebral arteries Cerebrovascular accident (CVA) due to bi lateral embolism of anterior cerebral arteries [id number] 02/02/2021 12:00:00 AM EDT [facility] K21.9 GERD (gastroesophageal reflux disease) G ERD (gastroesophageal reflux disease) [id number] 02/02/2021 12:00:00 AM EDT [facility] I25.10 Coronary artery disease invo lving chilkat coronary artery of chilkat heart without angina pectoris Coronary artery disease involving chilkat coronary artery of chilkat heart without angina pectoris [id number] 02/02/2021 12:00:00 AM EDT [facility] N18.9 Chronic kidney disease Chronic kidney disease [id number] 02/02/2021 12:00:00 AM EDT [facility] [id number] Ischemic stroke Ischemic stroke Problem 01/30/2021 12:0 0:00 AM EDT EMMANUELLE ([facility] ) E11.9 Diabetes mellitus Diabetes mellitus [id number] 09/02/2020 12:00:00 AM EDT [facility] Surgeries/Procedures Procedure Description Date Indications Data Source(s) ECG ROUTINE ECG W/LEAST 12 LDS W/I&R 03/29/2021 12:00: 00 AM EDT EMMANUELLE ([facility]) Arterial Pressure Waveform Analysis For Assessment Of Centra l Art 03/29/2021 12:00:00 AM EDT EMMANUELLE ([facility]) OFFICE OUTPATIENT NEW 45 MINUTES 03/29/2021 12:00:00 A M EDT EMMANUELLE ([facility]) NON-INVASIVE PHYSIOLOGIC STUDY EXTREMITY 3 LEVLS 03/17 12:00:00 AM EDT MEDENT ([facility] ) TSTG ANS FUNCJ CARDIOVAGAL INNERVAJ PARASYMP 12:00:00 AM EDT [facility] TESTING AUTONOMIC NERVOUS SYSTEM FUNCTION 03/17/2021 1 2:00:00 AM EDT [facility] OFFICE OUTPATIENT VISIT 25 MINUTES 03/07/2021 12:00:00 AM EDT MEDENT ([facility] OFFICE OUTPATIENT VISIT 40 MINUTES 02/09/2021 12:00:00 AM EDT MEDENT ([facility]) ECG ROUTINE ECG W/LEAST 12 LDS W/I&R <td>POCT AMB EKG</td><td>Routine</td><td>02/02/2021 11:44 AM EDT</td><td> Coronary artery disease involving chilkat coronary artery of chilkat heart without angina pectoris</td><td> </td> 02/02/2021 11:44:00 AM EDT Coronary artery disease involving chilkat coronary artery of chilkat heart without angina pectoris [facility] Coronary artery disease involving chilkat coronary artery of chilkat heart without angina pectoris OFFICE OUTPATIENT VISIT 25 MINUTES 01/30/2021 12:00:00 AM EDT [facility] BASIC METABOLIC PANEL CALCIUM TOTAL <td>BASIC METABOLI C PANEL</td><td>Routine</td><td>01/09/2021</td><td></td><td> </td> 01/09/2021 12:00:00 AM EDT [facility] INITIAL HOSPITAL CARE/DAY 70 MINUTES 01/08/2021 12:00: 00 AM EDT [facility] BLOOD COUNT COMPLETE AUTO&AUTO DIFRNTL WBC COUNT <td>C BC AND DIFFERENTIAL</td><td>Routine</td><td>01/08/2021</td><td></td><td> </td> 01/08/2021 12:00:00 AM EDT [facility] HEMOGLOBIN GLYCOSYLATED A1C <td>HEMOGLOBIN A1C</td><td>Routine</td><td>01/08/2021</td><td></td><td> </td> 01/08/2021 12:00:00 AM EDT [facility] HEPATIC FUNCTION PANEL <td>HEPATIC FUNCTION PANEL</td><td>Routine</td><td>01/08/2021</td><td></td><td> </td> 01/08/2021 12:00:00 AM EDT [facility] BASIC METABOLIC PANEL CALCIUM TOTAL <td>BASIC METABOLI C PANEL</td><td>Routine</td><td>01/08/2021</td><td></td><td> </td> 01/08/2021 12:00:00 AM EDT [facility] TROPONIN QUANTITATIVE <td>TROPONIN I</td><td>Routine</td><td>01/07/2021</td><td></td><td> </td> 01/07/2021 12:00:00 AM EDT [facility] PROTHROMBIN TIME <td>PROTIME- INR</td><td>Routine</td><td>01/07/2021</td><td></td><td> </td> 01/07/2021 12:00:00 AM EDT [facility] PROTHROMBIN TIME <td>POCT INR</td><td>Routine</td><td>01/07/2021</td><td></td><td> </td> 01/07/2021 12:00:00 AM EDT [facility] HEPATIC FUNCTION PANEL <td>HEPATIC FUNCTION PANEL</td><td>Routine</td><td>01/07/2021</td><td></td><td> </td> 01/07/2021 12:00:00 AM EDT [facility] LIPID PANEL <td>LIPID PANEL</td><td>Rout ine</td><td>01/07/2021</td><td></td><td> </td> 01/07/2021 12:00:00 AM EDT [facility] Diabetic Foot Exam 11/29/2020 12:00:00 AM EDT [facility] ([facility]) OFFICE OUTPATIENT VISIT 25 MINUTES 11/10/2020 12:00:00 AM EDT [facility] ([facility]) OFFICE OUTPATIENT VISIT 25 MINUTES 09/28/2020 12:00:00 AM EDT [facility] ([facility] ECG ROUTINE ECG W/LEAST 12 LDS W/I&R <td>POCT AMB EKG</td><td>Routine</td><td>09/02/2020 11:30 AM EDT</td><td> Coronary angioplasty status</td><td> </td> 09/02/2020 03:30:00 PM EDT Coronary angioplasty status [facility] Coronary angioplasty status OFFICE OUTPATIENT VISIT 25 MINUTES 06/24/2020 12:00:00 AM EST [facility] ([facility] LIPID PANEL <td>LIPID PANEL</td><td>Rout ine</td><td>06/24/2020</td><td></td><td> </td> 06/24/2020 12:00:00 AM EST [facility] LIPID PANEL <td>LIPID PANEL</td><td>Rout ine</td><td>06/24/2020</td><td></td><td> </td> 06/24/2020 12:00:00 AM EST [facility] Results ID Date Data Source [id number] 03/28/2021 10:42:00 AM EDT [facility] ([facility]) Name Value Range Interpretation Code Description Data Karol rce(s) Supporting Document(s) Laboratory test finding (navigational concept) Laboratory test result [facility] ([facility]) A. No further treatment B. No further treatment Laboratory test finding (navigational concept) Laboratory test result [facility] ([facility]) A. No further treatment B. No further treatment ID Date Data Source [id number] 03/07/2021 10:01:00 AM EDT [facility] ([facility] Name Value Range Interpretation Code Description Data Karol rce(s) Supporting Document(s) Hemoglobin A1c/Hemoglobin.total in Blood 8.0 % 4.50-6.20 Above high normal [facility] ([facility] ID Date Data Source [id number] 03/07/2021 10:01:00 AM EDT [facility] ([facility] Name Value Range Interpretation Code Description Data Karol rce(s) Supporting Document(s) WBC 8.8 10E3/uL 4.1-10.9 [facility] ([facility] NORMAL RANGES Age WBC RBC HGB HCT [...] HCT IS 5% LESS SOURCE FOR DATA: Dashwire 1800 OPERATION MANUAL( AUTOMATED BLOOD COUNTS AND [...] DESIRABLE: <130 MG/DL <110 MG/DL BORDERLINE-HIGH RISK: 130- 159 MG/DL 110-129 MG/DL HIGH RISK: >160 MG/DL >130 MG/DL *CHILDREN AND ADOLESCENTS REPRESENTS INDIVIDUALA AGED 2-19 YEARS EXCLUSIVE. HGB 13.0 g/dL 12.0-18.0 [facility] ([facility] NORMAL RANGES Age WBC RBC HGB HCT [...] HCT IS 5% LESS SOURCE FOR DATA: Dashwire 1800 OPERATION MANUAL( AUTOMATED BLOOD COUNTS AND [...] DESIRABLE: <130 MG/DL <110 MG/DL BORDERLINE-HIGH RISK: 130- 159 MG/DL 110-129 MG/DL HIGH RISK: >160 MG/DL >130 MG/DL *CHILDREN AND ADOLESCENTS REPRESENTS INDIVIDUALA AGED 2-19 YEARS EXCLUSIVE. RBC 4.24 10E6/uL 4.20-6.30 [employer] ([facility] NORMAL RANGES Age WBC RBC HGB HCT [...] HCT IS 5% LESS SOURCE FOR DATA: Dashwire 1800 OPERATION MANUAL( AUTOMATED BLOOD COUNTS AND [...] DESIRABLE: <130 MG/DL <110 MG/DL BORDERLINE-HIGH RISK: 130- 159 MG/DL 110-129 MG/DL HIGH RISK: >160 MG/DL >130 MG/DL *CHILDREN AND ADOLESCENTS REPRESENTS INDIVIDUALA AGED 2-19 YEARS EXCLUSIVE. HCT 37.8 % 37.0-51.0 [facility] ([facility] NORMAL RANGES Age WBC RBC HGB HCT [...] HCT IS 5% LESS SOURCE FOR DATA: Dashwire 1800 OPERATION MANUAL( AUTOMATED BLOOD COUNTS AND [...] DESIRABLE: <130 MG/DL <110 MG/DL BORDERLINE-HIGH RISK: 130- 159 MG/DL 110-129 MG/DL HIGH RISK: >160 MG/DL >130 MG/DL *CHILDREN AND ADOLESCENTS REPRESENTS INDIVIDUALA AGED 2-19 YEARS EXCLUSIVE. MCHC 34.4 g/dL 31.0-36.0 [facility] ([facility] NORMAL RANGES Age WBC RBC HGB HCT [...] HCT IS 5% LESS SOURCE FOR DATA: Dashwire 1800 OPERATION MANUAL( AUTOMATED BLOOD COUNTS AND [...] DESIRABLE: <130 MG/DL <110 MG/DL BORDERLINE-HIGH RISK: 130- 159 MG/DL 110-129 MG/DL HIGH RISK: >160 MG/DL >130 MG/DL *CHILDREN AND ADOLESCENTS REPRESENTS INDIVIDUALA AGED 2-19 YEARS EXCLUSIVE. MCH 30.7 pg 26.0-32.0 [facility] ([facility] NORMAL RANGES Age WBC RBC HGB HCT [...] HCT IS 5% LESS SOURCE FOR DATA: Dashwire 1800 OPERATION MANUAL( AUTOMATED BLOOD COUNTS AND [...] DESIRABLE: <130 MG/DL <110 MG/DL BORDERLINE-HIGH RISK: 130- 159 MG/DL 110-129 MG/DL HIGH RISK: >160 MG/DL >130 MG/DL *CHILDREN AND ADOLESCENTS REPRESENTS INDIVIDUALA AGED 2-19 YEARS EXCLUSIVE. MCV 89.2 fL 80.0-97.0 [facility] ([facility] NORMAL RANGES Age WBC RBC HGB HCT [...] HCT IS 5% LESS SOURCE FOR DATA: Dashwire 1800 OPERATION MANUAL( AUTOMATED BLOOD COUNTS AND [...] DESIRABLE: <130 MG/DL <110 MG/DL BORDERLINE-HIGH RISK: 130- 159 MG/DL 110-129 MG/DL HIGH RISK: >160 MG/DL >130 MG/DL *CHILDREN AND ADOLESCENTS REPRESENTS INDIVIDUALA AGED 2-19 YEARS EXCLUSIVE. PLT 249 10E3/uL 140-440 [facility] ([facility] NORMAL RANGES Age WBC RBC HGB HCT [...] HCT IS 5% LESS SOURCE FOR DATA: Dashwire 1800 OPERATION MANUAL( AUTOMATED BLOOD COUNTS AND [...] DESIRABLE: <130 MG/DL <110 MG/DL BORDERLINE-HIGH RISK: 130- 159 MG/DL 110-129 MG/DL HIGH RISK: >160 MG/DL >130 MG/DL *CHILDREN AND ADOLESCENTS REPRESENTS INDIVIDUALA AGED 2-19 YEARS EXCLUSIVE. RDW-CV 12.7 % 11.5-14.5 [facility] ([facility] NORMAL RANGES Age WBC RBC HGB HCT [...] HCT IS 5% LESS SOURCE FOR DATA: Dashwire 1800 OPERATION MANUAL( AUTOMATED BLOOD COUNTS AND [...] DESIRABLE: <130 MG/DL <110 MG/DL BORDERLINE-HIGH RISK: 130- 159 MG/DL 110-129 MG/DL HIGH RISK: >160 MG/DL >130 MG/DL *CHILDREN AND ADOLESCENTS REPRESENTS INDIVIDUALA AGED 2-19 YEARS EXCLUSIVE. MXD% 10.8 % 0.1-24.0 [facility] ([facility] NORMAL RANGES Age WBC RBC HGB HCT [...] HCT IS 5% LESS SOURCE FOR DATA: Dashwire 1800 OPERATION MANUAL( AUTOMATED BLOOD COUNTS AND [...] DESIRABLE: <130 MG/DL <110 MG/DL BORDERLINE-HIGH RISK: 130- 159 MG/DL 110-129 MG/DL HIGH RISK: >160 MG/DL >130 MG/DL *CHILDREN AND ADOLESCENTS REPRESENTS INDIVIDUALA AGED 2-19 YEARS EXCLUSIVE. Neut% 70.4 % 37.0-92.0 [facility] ([facility] NORMAL RANGES Age WBC RBC HGB HCT [...] HCT IS 5% LESS SOURCE FOR DATA: Dashwire 1800 OPERATION MANUAL( AUTOMATED BLOOD COUNTS AND [...] DESIRABLE: <130 MG/DL <110 MG/DL BORDERLINE-HIGH RISK: 130- 159 MG/DL 110-129 MG/DL HIGH RISK: >160 MG/DL >130 MG/DL *CHILDREN AND ADOLESCENTS REPRESENTS INDIVIDUALA AGED 2-19 YEARS EXCLUSIVE. Lym% 18.8 % 10.0-58.5 [facility] ([facility] NORMAL RANGES Age WBC RBC HGB HCT [...] HCT IS 5% LESS SOURCE FOR DATA: Dashwire 1800 OPERATION MANUAL( AUTOMATED BLOOD COUNTS AND [...] DESIRABLE: <130 MG/DL <110 MG/DL BORDERLINE-HIGH RISK: 130- 159 MG/DL 110-129 MG/DL HIGH RISK: >160 MG/DL >130 MG/DL *CHILDREN AND ADOLESCENTS REPRESENTS INDIVIDUALA AGED 2-19 YEARS EXCLUSIVE. Lym# 1.7 10E3/uL 0.6-4.1 [facility] ([facility] NORMAL RANGES Age WBC RBC HGB HCT [...] HCT IS 5% LESS SOURCE FOR DATA: Dashwire 1800 OPERATION MANUAL( AUTOMATED BLOOD COUNTS AND [...] DESIRABLE: <130 MG/DL <110 MG/DL BORDERLINE-HIGH RISK: 130- 159 MG/DL 110-129 MG/DL HIGH RISK: >160 MG/DL >130 MG/DL *CHILDREN AND ADOLESCENTS REPRESENTS INDIVIDUALA AGED 2-19 YEARS EXCLUSIVE. MXD# 1.0 10E3/uL 0.0-1.8 [facility] ([facility] NORMAL RANGES Age WBC RBC HGB HCT [...] HCT IS 5% LESS SOURCE FOR DATA: Dashwire 1800 OPERATION MANUAL( AUTOMATED BLOOD COUNTS AND [...] DESIRABLE: <130 MG/DL <110 MG/DL BORDERLINE-HIGH RISK: 130- 159 MG/DL 110-129 MG/DL HIGH RISK: >160 MG/DL >130 MG/DL *CHILDREN AND ADOLESCENTS REPRESENTS INDIVIDUALA AGED 2-19 YEARS EXCLUSIVE. Neut# 6.1 % 2.0-7.8 [facility] ([facility] NORMAL RANGES Age WBC RBC HGB HCT [...] HCT IS 5% LESS SOURCE FOR DATA: Dashwire 1800 OPERATION MANUAL( AUTOMATED BLOOD COUNTS AND [...] DESIRABLE: <130 MG/DL <110 MG/DL BORDERLINE-HIGH RISK: 130- 159 MG/DL 110-129 MG/DL HIGH RISK: >160 MG/DL >130 MG/DL *CHILDREN AND ADOLESCENTS REPRESENTS INDIVIDUALA AGED 2-19 YEARS EXCLUSIVE. MPV 10.5 fL 9.0-13.0 [facility] ([facility] NORMAL RANGES Age WBC RBC HGB HCT [...] HCT IS 5% LESS SOURCE FOR DATA: Dashwire 1800 OPERATION MANUAL( AUTOMATED BLOOD COUNTS AND [...] DESIRABLE: <130 MG/DL <110 MG/DL BORDERLINE-HIGH RISK: 130- 159 MG/DL 110-129 MG/DL HIGH RISK: >160 MG/DL >130 MG/DL *CHILDREN AND ADOLESCENTS REPRESENTS INDIVIDUALA AGED 2-19 YEARS EXCLUSIVE. ID Date Data Source [id number] 03/07/2021 10:01:00 AM EDT [facility] ([facility] Name Value Range Interpretation Code Description Data Karol rce(s) Supporting Document(s) Trig 199 mg/dL 35-200 [facility] ([facility] NORMAL RANGES Age WBC RBC HGB HCT [...] HCT IS 5% LESS SOURCE FOR DATA: Dashwire 1800 OPERATION MANUAL( AUTOMATED BLOOD COUNTS AND [...] DESIRABLE: <130 MG/DL <110 MG/DL BORDERLINE-HIGH RISK: 130- 159 MG/DL 110-129 MG/DL HIGH RISK: >160 MG/DL >130 MG/DL *CHILDREN AND ADOLESCENTS REPRESENTS INDIVIDUALA AGED 2-19 YEARS EXCLUSIVE. Cholesterol in HDL [Mass/volume] in Serum or Plasma 58 mg/dL 35-55 Above high normal [facility] ([facility] NORMAL RANGES Age WBC RBC HGB HCT [...] HCT IS 5% LESS SOURCE FOR DATA: Dashwire 1800 OPERATION MANUAL( AUTOMATED BLOOD COUNTS AND [...] DESIRABLE: <130 MG/DL <110 MG/DL BORDERLINE-HIGH RISK: 130- 159 MG/DL 110-129 MG/DL HIGH RISK: >160 MG/DL >130 MG/DL *CHILDREN AND ADOLESCENTS REPRESENTS INDIVIDUALA AGED 2-19 YEARS EXCLUSIVE. Chol 142 mg/dL 0-200 [facility] NORMAL RANGES Age WBC RBC HGB HCT [...] HCT IS 5% LESS SOURCE FOR DATA: Dashwire 1800 OPERATION MANUAL( AUTOMATED BLOOD COUNTS AND [...] DESIRABLE: <130 MG/DL <110 MG/DL BORDERLINE-HIGH RISK: 130- 159 MG/DL 110-129 MG/DL HIGH RISK: >160 MG/DL >130 MG/DL *CHILDREN AND ADOLESCENTS REPRESENTS INDIVIDUALA AGED 2-19 YEARS EXCLUSIVE. LDL_C 44 Calc 75-129 Below low normal [facility] ( [facility] NORMAL RANGES Age WBC RBC HGB HCT [...] HCT IS 5% LESS SOURCE FOR DATA: [employer] DYN 1800 OPERATION MANUAL( AUTOMATED BLOOD COUNTS AND [...] DESIRABLE: <130 MG/DL <110 MG/DL BORDERLINE-HIGH RISK: 130- 159 MG/DL 110-129 MG/DL HIGH RISK: >160 MG/DL >130 MG/DL *CHILDREN AND ADOLESCENTS REPRESENTS INDIVIDUALA AGED 2-19 YEARS EXCLUSIVE. Cho/HDL Ratio 2.4 Calc [facility] ([facility] NORMAL RANGES Age WBC RBC HGB HCT [...] HCT IS 5% LESS SOURCE FOR DATA: Dashwire 1800 OPERATION MANUAL( AUTOMATED BLOOD COUNTS AND [...] DESIRABLE: <130 MG/DL <110 MG/DL BORDERLINE-HIGH RISK: 130- 159 MG/DL 110-129 MG/DL HIGH RISK: >160 MG/DL >130 MG/DL *CHILDREN AND ADOLESCENTS REPRESENTS INDIVIDUALA AGED 2-19 YEARS EXCLUSIVE. ID Date Data Source [id number] 03/07/2021 10:01:00 AM EDT [facility] ([facility] Name Value Range Interpretation Code Description Data Karol rce(s) Supporting Document(s) Glu 332 mg/dL 70-110 Above high normal [facility] ([facility] NORMAL RANGES Age WBC RBC HGB HCT [...] HCT IS 5% LESS SOURCE FOR DATA: Dashwire 1800 OPERATION MANUAL( AUTOMATED BLOOD COUNTS AND [...] DESIRABLE: <130 MG/DL <110 MG/DL BORDERLINE-HIGH RISK: 130- 159 MG/DL 110-129 MG/DL HIGH RISK: >160 MG/DL >130 MG/DL *CHILDREN AND ADOLESCENTS REPRESENTS INDIVIDUALA AGED 2-19 YEARS EXCLUSIVE. BUN 19 mg/dL 8-23 [facility] ([facility] NORMAL RANGES Age WBC RBC HGB HCT [...] HCT IS 5% LESS SOURCE FOR DATA: Dashwire 1800 OPERATION MANUAL( AUTOMATED BLOOD COUNTS AND [...] DESIRABLE: <130 MG/DL <110 MG/DL BORDERLINE-HIGH RISK: 130- 159 MG/DL 110-129 MG/DL HIGH RISK: >160 MG/DL >130 MG/DL *CHILDREN AND ADOLESCENTS REPRESENTS INDIVIDUALA AGED 2-19 YEARS EXCLUSIVE. BUN/Creatinine Ratio 15.7 CALC [facility] ([facility] NORMAL RANGES Age WBC RBC HGB HCT [...] HCT IS 5% LESS SOURCE FOR DATA: Dashwire 1800 OPERATION MANUAL( AUTOMATED BLOOD COUNTS AND [...] DESIRABLE: <130 MG/DL <110 MG/DL BORDERLINE-HIGH RISK: 130- 159 MG/DL 110-129 MG/DL HIGH RISK: >160 MG/DL >130 MG/DL *CHILDREN AND ADOLESCENTS REPRESENTS INDIVIDUALA AGED 2-19 YEARS EXCLUSIVE. Creat 1.2 mg/dL 0.7-1.2 [facility] ([facility] NORMAL RANGES Age WBC RBC HGB HCT [...] HCT IS 5% LESS SOURCE FOR DATA: [employer] DYN 1800 OPERATION MANUAL( AUTOMATED BLOOD COUNTS AND [...] DESIRABLE: <130 MG/DL <110 MG/DL BORDERLINE-HIGH RISK: 130- 159 MG/DL 110-129 MG/DL HIGH RISK: >160 MG/DL >130 MG/DL *CHILDREN AND ADOLESCENTS REPRESENTS INDIVIDUALA AGED 2-19 YEARS EXCLUSIVE. Na 136 mmol/L 136-145 [facility] ([facility] NORMAL RANGES Age WBC RBC HGB HCT [...] HCT IS 5% LESS SOURCE FOR DATA: Dashwire 1800 OPERATION MANUAL( AUTOMATED BLOOD COUNTS AND [...] DESIRABLE: <130 MG/DL <110 MG/DL BORDERLINE-HIGH RISK: 130- 159 MG/DL 110-129 MG/DL HIGH RISK: >160 MG/DL >130 MG/DL *CHILDREN AND ADOLESCENTS REPRESENTS INDIVIDUALA AGED 2-19 YEARS EXCLUSIVE. K 4.4 mmol/L 3.5-5.1 [facility] ([facility] NORMAL RANGES Age WBC RBC HGB HCT [...] HCT IS 5% LESS SOURCE FOR DATA: Dashwire 1800 OPERATION MANUAL( AUTOMATED BLOOD COUNTS AND [...] DESIRABLE: <130 MG/DL <110 MG/DL BORDERLINE-HIGH RISK: 130- 159 MG/DL 110-129 MG/DL HIGH RISK: >160 MG/DL >130 MG/DL *CHILDREN AND ADOLESCENTS REPRESENTS INDIVIDUALA AGED 2-19 YEARS EXCLUSIVE. Co2 20.2 mmol/L 22.0-29.0 Below low normal [facility] ([facility] NORMAL RANGES Age WBC RBC HGB HCT [...] HCT IS 5% LESS SOURCE FOR DATA: [employer] DYN 1800 OPERATION MANUAL( AUTOMATED BLOOD COUNTS AND [...] DESIRABLE: <130 MG/DL <110 MG/DL BORDERLINE-HIGH RISK: 130- 159 MG/DL 110-129 MG/DL HIGH RISK: >160 MG/DL >130 MG/DL *CHILDREN AND ADOLESCENTS REPRESENTS INDIVIDUALA AGED 2-19 YEARS EXCLUSIVE. CL 101.5 mmol/L 98.0-107.0 [facility] NORMAL RANGES Age WBC RBC HGB HCT [...] HCT IS 5% LESS SOURCE FOR DATA: Dashwire 1800 OPERATION MANUAL( AUTOMATED BLOOD COUNTS AND [...] DESIRABLE: <130 MG/DL <110 MG/DL BORDERLINE-HIGH RISK: 130- 159 MG/DL 110-129 MG/DL HIGH RISK: >160 MG/DL >130 MG/DL *CHILDREN AND ADOLESCENTS REPRESENTS INDIVIDUALA AGED 2-19 YEARS EXCLUSIVE. TP 5.9 g/dL 6.6-8.7 Below low normal [facility] ( [facility] NORMAL RANGES Age WBC RBC HGB HCT [...] HCT IS 5% LESS SOURCE FOR DATA: Dashwire 1800 OPERATION MANUAL( AUTOMATED BLOOD COUNTS AND [...] DESIRABLE: <130 MG/DL <110 MG/DL BORDERLINE-HIGH RISK: 130- 159 MG/DL 110-129 MG/DL HIGH RISK: >160 MG/DL >130 MG/DL *CHILDREN AND ADOLESCENTS REPRESENTS INDIVIDUALA AGED 2-19 YEARS EXCLUSIVE. CA 9.1 mg/dL 8.6-10.2 [facility] ([facility] NORMAL RANGES Age WBC RBC HGB HCT [...] HCT IS 5% LESS SOURCE FOR DATA: [employer] DYN 1800 OPERATION MANUAL( AUTOMATED BLOOD COUNTS AND [...] DESIRABLE: <130 MG/DL <110 MG/DL BORDERLINE-HIGH RISK: 130- 159 MG/DL 110-129 MG/DL HIGH RISK: >160 MG/DL >130 MG/DL *CHILDREN AND ADOLESCENTS REPRESENTS INDIVIDUALA AGED 2-19 YEARS EXCLUSIVE. Alb 3.7 g/dL 3.5-5.2 [facility] ([facility] NORMAL RANGES Age WBC RBC HGB HCT [...] HCT IS 5% LESS SOURCE FOR DATA: Dashwire 1800 OPERATION MANUAL( AUTOMATED BLOOD COUNTS AND [...] DESIRABLE: <130 MG/DL <110 MG/DL BORDERLINE-HIGH RISK: 130- 159 MG/DL 110-129 MG/DL HIGH RISK: >160 MG/DL >130 MG/DL *CHILDREN AND ADOLESCENTS REPRESENTS INDIVIDUALA AGED 2-19 YEARS EXCLUSIVE. Globulin 2.1 CALC [facility] NORMAL RANGES Age WBC RBC HGB HCT [...] HCT IS 5% LESS SOURCE FOR DATA: Dashwire 1800 OPERATION MANUAL( AUTOMATED BLOOD COUNTS AND [...] DESIRABLE: <130 MG/DL <110 MG/DL BORDERLINE-HIGH RISK: 130- 159 MG/DL 110-129 MG/DL HIGH RISK: >160 MG/DL >130 MG/DL *CHILDREN AND ADOLESCENTS REPRESENTS INDIVIDUALA AGED 2-19 YEARS EXCLUSIVE. Alp 90.4 U/L 40-129 [facility] ([facility] NORMAL RANGES Age WBC RBC HGB HCT [...] HCT IS 5% LESS SOURCE FOR DATA: [employer] DYN 1800 OPERATION MANUAL( AUTOMATED BLOOD COUNTS AND [...] DESIRABLE: <130 MG/DL <110 MG/DL BORDERLINE-HIGH RISK: 130- 159 MG/DL 110-129 MG/DL HIGH RISK: >160 MG/DL >130 MG/DL *CHILDREN AND ADOLESCENTS REPRESENTS INDIVIDUALA AGED 2-19 YEARS EXCLUSIVE. A/G Ratio 1.7 CALC [facility] ([facility] NORMAL RANGES Age WBC RBC HGB HCT [...] HCT IS 5% LESS SOURCE FOR DATA: Dashwire 1800 OPERATION MANUAL( AUTOMATED BLOOD COUNTS AND [...] DESIRABLE: <130 MG/DL <110 MG/DL BORDERLINE-HIGH RISK: 130- 159 MG/DL 110-129 MG/DL HIGH RISK: >160 MG/DL >130 MG/DL *CHILDREN AND ADOLESCENTS REPRESENTS INDIVIDUALA AGED 2-19 YEARS EXCLUSIVE. Ast (Sgot) 19 U/L 0-40 [facility] NORMAL RANGES Age WBC RBC HGB HCT [...] HCT IS 5% LESS SOURCE FOR DATA: Dashwire 1800 OPERATION MANUAL( AUTOMATED BLOOD COUNTS AND [...] DESIRABLE: <130 MG/DL <110 MG/DL BORDERLINE-HIGH RISK: 130- 159 MG/DL 110-129 MG/DL HIGH RISK: >160 MG/DL >130 MG/DL *CHILDREN AND ADOLESCENTS REPRESENTS INDIVIDUALA AGED 2-19 YEARS EXCLUSIVE. Tbili 0.40 mg/dL 0.0-1.2 [facility] ([facility] NORMAL RANGES Age WBC RBC HGB HCT [...] HCT IS 5% LESS SOURCE FOR DATA: Dashwire 1800 OPERATION MANUAL( AUTOMATED BLOOD COUNTS AND [...] DESIRABLE: <130 MG/DL <110 MG/DL BORDERLINE-HIGH RISK: 130- 159 MG/DL 110-129 MG/DL HIGH RISK: >160 MG/DL >130 MG/DL *CHILDREN AND ADOLESCENTS REPRESENTS INDIVIDUALA AGED 2-19 YEARS EXCLUSIVE. Alt (SGPT) 22 U/L 0-41 [facility] ([facility] NORMAL RANGES Age WBC RBC HGB HCT [...] HCT IS 5% LESS SOURCE FOR DATA: Dashwire 1800 OPERATION MANUAL( AUTOMATED BLOOD COUNTS AND [...] DESIRABLE: <130 MG/DL <110 MG/DL BORDERLINE-HIGH RISK: 130- 159 MG/DL 110-129 MG/DL HIGH RISK: >160 MG/DL >130 MG/DL *CHILDREN AND ADOLESCENTS REPRESENTS INDIVIDUALA AGED 2-19 YEARS EXCLUSIVE. eGFR 71 # [facility] ( [facility] NORMAL RANGES Age WBC RBC HGB HCT [...] HCT IS 5% LESS SOURCE FOR DATA: Dashwire 1800 OPERATION MANUAL( AUTOMATED BLOOD COUNTS AND [...] DESIRABLE: <130 MG/DL <110 MG/DL BORDERLINE-HIGH RISK: 130- 159 MG/DL 110-129 MG/DL HIGH RISK: >160 MG/DL >130 MG/DL *CHILDREN AND ADOLESCENTS REPRESENTS INDIVIDUALA AGED 2-19 YEARS EXCLUSIVE. Osmolality-Calculated 287.1 CALC [facility] ([facility] NORMAL RANGES Age WBC RBC HGB HCT [...] HCT IS 5% LESS SOURCE FOR DATA: [employer] DYN 1800 OPERATION MANUAL( AUTOMATED BLOOD COUNTS AND [...] DESIRABLE: <130 MG/DL <110 MG/DL BORDERLINE-HIGH RISK: 130- 159 MG/DL 110-129 MG/DL HIGH RISK: >160 MG/DL >130 MG/DL *CHILDREN AND ADOLESCENTS REPRESENTS INDIVIDUALA AGED 2-19 YEARS EXCLUSIVE. Anion Gap 19 mmol/L [facility] ([facility] NORMAL RANGES Age WBC RBC HGB HCT [...] HCT IS 5% LESS SOURCE FOR DATA: Dashwire 1800 OPERATION MANUAL( AUTOMATED BLOOD COUNTS AND [...] DESIRABLE: <130 MG/DL <110 MG/DL BORDERLINE-HIGH RISK: 130- 159 MG/DL 110-129 MG/DL HIGH RISK: >160 MG/DL >130 MG/DL *CHILDREN AND ADOLESCENTS REPRESENTS INDIVIDUALA AGED 2-19 YEARS EXCLUSIVE. eGFR Non-Afr. Turkish 61 # [facility] ([facility] NORMAL RANGES Age WBC RBC HGB HCT [...] HCT IS 5% LESS SOURCE FOR DATA: Dashwire 1800 OPERATION MANUAL( AUTOMATED BLOOD COUNTS AND [...] DESIRABLE: <130 MG/DL <110 MG/DL BORDERLINE-HIGH RISK: 130- 159 MG/DL 110-129 MG/DL HIGH RISK: >160 MG/DL >130 MG/DL *CHILDREN AND ADOLESCENTS REPRESENTS INDIVIDUALA AGED 2-19 YEARS EXCLUSIVE. ID Date Data Source [id number] 02/22/2021 07:54:13 PM EDT [facility] Name Value Range Interpretation Code Description Data Karol rce(s) Supporting Document(s) &PDF [facility] [id number]NHUMCsg yZW [file] ICAgICAgICAgICAgICAgICAgICAgICAgICAgICAgICAgICAgICAgICAgICAgICAgICAgICAgICAgICAg ICAgICAgICAgICAgICAgICAgICAgICANCiAgICAgICAgICAgICAgICAgICAgICAgICAgICAgICAgICAg ICAgICAgICAgICAgICAgICAgICAgICAgICAgICAgIC AgICAgICAgICAgICAgICAgICAgICAgICAgICAgICAgICANCiAgICAgICAgICAgICAgICAgICAgICAgIC AgICAgICAgICAgICAgICAgICAgICAgICAgICAgICAgICAgICAgICAgICAgICAgICAgICAgICAgICAgIC AgICAgICAgICAgICAgICANCiAgICAgICAgICAgICAg ICAgICAgICAgICAgICAgICAgICAgICAgICAgICAgICAgICAgICAgICAgICAgICAgICAgICAgICAgICAg ICAgICAgICAgICAgICAgICAgICAgICAgICANCiAgICAgICAgICAgICAgICAgICAgICAgICAgICAgICAg ICAgICAgICAgICAgICAgICAgICAgICAgICAgICAgIC AgICAgICAgICAgICAgICAgICAgICAgICAgICAgICAgICAgICANCiAgICAgICAgICAgICAgICAgICAgIC AgICAgICAgICAgICAgICAgICAgICAgICAgICAgICAgICAgICAgICAgICAgICAgICAgICAgICAgICAgIC AgICAgICAgICAgICAgICAgICANCiAgICAgICAgICAg ICAgICAgICAgICAgICAgICAgICAgICAgICAgICAgICAgICAgICAgICAgICAgICAgICAgICAgICAgICAg ICAgICAgICAgICAgICAgICAgICAgICAgICAgICANCiAgICAgICAgICAgICAgICAgICAgICAgICAgICAg ICAgICAgICAgICAgICAgICAgICAgICAgICAgICAgIC AgICAgICAgICAgICAgICAgICAgICAgICAgICAgICAgICAgICAgICANCiAgICAgICAgICAgICAgICAgIC AgICAgICAgICAgICAgICAgICAgICAgICAgICAgICAgICAgICAgICAgICAgICAgICAgICAgICAgICAgIC AgICAgICAgICAgICAgICAgICAgICANCiAgICAgICAg ICAgICAgICAgICAgICAgICAgICAgICAgICAgICAgICAgICAgICAgICAgICAgICAgICAgICAgICAgICAg ICAgICAgICAgICAgICAgICAgICAgICAgICAgICAgICANCjw/jTXcK7zpjFIpqdG4C6qnDw1ABa7FFR6q x6GcHXLfAJybwdNbDdbSFhKhNAOcCvlRRvk9GBzcYT 0WdESoK0AeC6MyLSdmUJ8XZCCfVQDacCEkTBHfCFEvHsQ5YZKaZBkfJF9WfSOnUYwvZUYeXNJhZS4SCM UrM294qaChIT9CKo5GPfRtJW1tnp9OAnPbBMFsPqmOSjo8LVneLG3FyJKzI0YciDHmp1iELzZqM4IVQL OgJCBkGf8FYQNdTyCiZRChVGdcGW4jEVEwTNHBlKre skV5KW6GXM6hnaDvYW0GGhWhYl3wOc4WZhZlS3OzD8RfMSPgCWRLXQfqSJ5AYKClQDF0YDJyXaBgJBWO WjDdR90yBV7JJ4Bib96gShA9UZKtRyOsZWtiTF12kJfztnDdwOPryYgsDP9YJc5+DQplbmRvYmoNCnhy VPDVBdHdDxFIBaVeZFOfEGQyRLOzJjU4OyNvZc2JOY JcLIMeBBZvNlIbTTCcZRPwYCvbXOZzIEE9VJZmTCKkCJJiOM2MYpRbEXIvKDV3KYGrTUSnVOCvlx6JXS CmGHQiEFB2TuZpEEZeEJMoZCvwMUAxDDHsXKZdXLLkRRTzGQ3LQcGzIEYkBIDpZiOmSTQlMYFqtr3CNY ImEBEbLCG3KCNwOSNqQTWoZVojQKNnCOF9HyxiZSKa SXRuXV6CZcUfPFYyOSP0AtTgIRGxMXViuf3ZCIMnXNTcVOJwYCTuMQCmUCVwYCmwQSVqBCC4IaOpCZXn ZHOqJL4QByVqQLMcJFI8SNziRBOfUEWixp1LEBDrXQVdUlp0WSCyMFOdGDNwAHjnDQCeFVJ6KDP3SJZx LYZoRK2YMvRhSNUuRVoxIGLjSLJzDXAwpo7MRSEpSP QiRzT9ZrZyJEMbLVLtJRoxVHKlTCA3Cbh0JXZiBNUfTS7KZkUfFDSvFVysLgJfDKVbJGIigl9XMWXpUQ OnZAP4GHNhOZLnTYKiAEdgVQJjPSQ9WId9IWQnBXWuMS0PLsAqKUOwQZh6UWbkXGErOYJsfv2FDHJaVD EoTYSkRNDgCZUsPQLeHGacBCUkWXCfNWA2MHSkFBBm YA6OCmRqOJizCDIGTkg6KUlpH1q9BRFpHE5LZ0Jll7BuFhVcLAPSTQrcAL8xbeYwMQEcUf7AC0xALzy6 ZsQeKODzXhW7UeKuIoGmXnJzOPU3PAltKOY7UHVpJo9pDIi5AVGfCZIdXKglVAObQEHcF7QaLze2KSQg Bft4XTW5FeMhSA4IJw5MVwS1AJD4dPVbLi3JOHPqDvFDNxOhTO7UDOd= ID Date Data Source [id number] 01/07/2021 06:37:00 PM EDT [facility] ([facility] Name Value Range Interpretation Code Description Data Karol rce(s) Supporting Document(s) Influenza A Amplification Laboratory test result Normal (applies to non- numeric results) [facility] ([facility] ) Negative results do not preclude influen za or RSV virus infection and should not be used as the sole basis for treatment or other patient management decisions. Laboratory test finding (navigational concept) Laboratory test r esult Normal (applies to non-numeric results) [facility] ([facility] A false negative result may occur if a s pecimen is improperly collected, transported or handled. False [...] pathogens. DISCLAIMER: Testing was performed using the [employer] SARS-CoV-2 test. This test was developed and its performance characteristics determined by [employer]. This test has not been FDA cleared [...] the authorization is terminated or revoked sooner. Influenza B Amplification Laboratory test result Normal (applies to non- numeric results) [facility] ([facility] ) Negative results do not preclude influen za or RSV virus infection and should not be used as the sole basis for treatment or other patient management decisions. RSV Amplification Laboratory test result Normal (applies to non-numeric results) [facility] ([facility] ) Negative results do not preclude influen za or RSV virus infection and should not be used as the sole basis for treatment or other patient management decisions. ID Date Data Source [id number] 01/07/2021 06:37:00 PM EDT [facility] Name Value Range Interpretation Code Description Data Karol rce(s) Supporting Document(s) SARS coronavirus 2 RNA [Presence] in Res piratory specimen by SHADI with probe detection NEGATIVE [place] This lab was ordered by [facility] a nd reported by [facility]. ID Date Data Source [id number] 01/07/2021 06:27:00 PM EDT [facility] ([facility] Name Value Range Interpretation Code Description Data Karol rce(s) Supporting Document(s) Laboratory test finding (navigational concept) 212 mg/dL 7 0-105 Above high normal [facility] ([facility] ) Laboratory test finding (navigational concept) 135 meq/L 1 36-145 Below low normal [facility] ([facility] ) Laboratory test finding (navigational concept) 37.0 % 3 8.0-51.0 Below low normal [facility] ([facility] ) Laboratory test finding (navigational concept) 5.0 mg/dL 4 .5-5.3 Normal (applies to non-numeric results) [facility] ([facility] Laboratory test finding (navigational concept) 4.2 meq/L 3 .5-5.1 Normal (applies to non-numeric results) [facility] ([facility] Laboratory test finding (navigational concept) 98 meq/L 9 8-109 Normal (applies to non-numeric results) [facility] ([facility] Laboratory test finding (navigational concept) 32 mg/dL 8-26 Above high normal [facility] ([facility] Laboratory test finding (navigational concept) 24.0 MM/L 2 3.0-27.0 Normal (applies to non-numeric results) [facility] Laboratory test finding (navigational concept) 1.8 mg/dL 0 .6-1.3 Above high normal [facility] ([facility] ) ID Date Data Source [id number] 01/07/2021 05:37:00 PM EDT [facility] ([facility] Name Value Range Interpretation Code Description Data Karol rce(s) Supporting Document(s) aPTT in Platelet poor plasma by Coagulation assay 28.5 s 25.9-37.0 Normal (applies to non-numeric results) [facility] ID Date Data Source [id number] 01/07/2021 05:37:00 PM EDT [facility] ([facility] Name Value Range Interpretation Code Description Data Karol rce(s) Supporting Document(s) Prothrombin Time 12.9 s 12.7-14.5 Normal (applies to non-numeric results) [facility] ([facility] Inr 0.93 Normal (applies to non-numeric resul ts) [facility] ([facility] THERAPUTIC HUMAN INR VALUES INDICATIONS NORMAL RANGES PROPHYLAXIS/TREATMENT OF: VENOUS THROMBOSIS 2.0-3.0 PULMONARY EMBOLISM 2.0-3.0 PREVENTION OF SYSTEMIC EMBOLISM FROM: TISSUE HEART VALVES 2.0-3.0 ACUTE MYOCARDIAL INFARCTION 2.0-3.0 VALVULAR HEART DISEASE 2.0-3.0 ATRIAL FIBRILLATION 2.0-3.0 MECHANICAL VALVES(HIGH RISK) 2.5-3.5 RECURRENT MYOCARDIAL INFARCTION 2.5-3.5 ID Date Data Source [id number] 01/07/2021 05:27:00 PM EDT [facility] ([facility] Name Value Range Interpretation Code Description Data Karol rce(s) Supporting Document(s) AB Screen (Indirect Srikanth)Vis Laboratory test result Normal (applies to non- numeric results) [facility] ([facility] ) Blood Type Laboratory test result Normal (applies to non-n umeric results) [facility] ([facility] ID Date Data Source [id number] 01/07/2021 05:19:00 PM EDT [facility] ([facility] Name Value Range Interpretation Code Description Data Karol rce(s) Supporting Document(s) Laboratory test finding (navigational concept) 38.0 % 3 8.0-51.0 Normal (applies to non-numeric results) [facility] ([facility] Laboratory test finding (navigational concept) 221 mg/dL 7 0-105 Above high normal [facility] ([facility] ) Laboratory test finding (navigational concept) 4.3 meq/L 3 .5-5.1 Normal (applies to non-numeric results) [facility] ([facility] Laboratory test finding (navigational concept) 135 meq/L 1 36-145 Below low normal [facility] ([facility] ) Laboratory test finding (navigational concept) 25.0 MM/L 2 3.0-27.0 Normal (applies to non-numeric results) [facility] Laboratory test finding (navigational concept) 99 meq/L 9 8-109 Normal (applies to non-numeric results) [facility] ([facility] Laboratory test finding (navigational concept) 4.8 mg/dL 4 .5-5.3 Normal (applies to non-numeric results) [facility] ([facility] Laboratory test finding (navigational concept) 2.0 mg/dL 0 .6-1.3 Above high normal [facility] ([facility] ) Laboratory test finding (navigational concept) 32 mg/dL 8-26 Above high normal [facility] ([facility] ID Date Data Source [id number] 12/20/2020 02:34:00 PM EDT [facility] ([facility] Name Value Range Interpretation Code Description Data Karol rce(s) Supporting Document(s) Prostate specific Ag [Mass/volume] in Serum or Plasma 1.63 ng/mL Normal (applies to non-numeric results) [facility] ([facility] The PSA assay is performed on the Moreixta analyzer by LOCI sandwich chemiluminescent immunoassay and should not be compared interchangeably with other methods. It should not be used alone as a screening test or diagnosis for the presence or absence of malignant disease. Predictions of disease recurrence should not be based solely on values obtained from serial patient serum values. ID Date Data Source [id number] 10/25/2020 03:36:43 PM EDT [facility] Name Value Range Interpretation Code Description Data Karol rce(s) Supporting Document(s) &PDF [facility] VOTLSk4oHxOAZbHi15/LFTmbHSIeu4RyBRpfXFc2SKcrVZZrZ0DhbKfzGGNUW9rJVKBfSw0DTKPGKQbe yZW [file] ZYPmdQjk6oFcsBkxEEMnq0SLE8KemHjLOfYK3oqyhFe/IRFmA118B0/Lu4xNtZ147tni2YlHzKEo/Cristian z4PPP2fT5TQ3mA/cQ02CzT3yCu0/4Ita8O3RqF9UOV7ke0YpHNYtECweybTsIbjUSoH2MBKpp6PuNXb7 KW8QPZMzOCbsSN1FX1LdPZW7E5Y3RiV3eVGlCZ6pG0 EqSdPlUF9lqEgeI2HddKVGGLXAq17cf17mnnIoJW4Le9hjaiAeZEMbZ4DqagenISxeNDrtN2gykMkeMD RuVFMhH8r9CKR2R6qqnhp2iUS3JX4KuSx2IMKqYq2ZuTV2KYMiY18fMV5SUz0+HMzmxQRqHI6ACuwIR5 AgCBoaUOiG//7g4DnZK0pJFLHtqEKOOtaF6FXb2fAc uFurC2b88E3DErGHGZIPrP7QXC6aj2QdYWLdXBpblcQiBrtZEpM3CZXhn6KmYTj7CI5IGUFzPHfqWO2F Y3ZaMWO6M4V8ArQ8lDWmQF6oT9LiQeAoJB3idCgyY5RlaZNPPKHMx62bq17sriIiNV7Uj8jzxoFsQBPp K6GxwhlqNYFQIq5FuNA9eEJgQz8WQOjxmQUgYVIwYZ RaL1JtGBDpB5UwySKsfwEbR6QtTHNcNVHjr8TxAO7ALTYjP41gw3kxPiWgERPAEQ4AOz1SRoS2qnYjpH 0KWIX7/03VYTDyJtiRZXxUTvhDEb8MagjUSsm+kkr9YWM5jKxYKF7CijDFMUeBCcBRVe9VKelpIVDGOa EEwl6CDX6fu5LyYMDgISugfjMhBcrOLsV3FYTbr8Ip LMn1BB8FVEBrUKohHP6MP2LzHKC1Q0G3TfY8oZGzFF4nW7BbVhPzXU6ivAr2W6VsaZRMVFTZd30ni01i ntUaPO8Sc3pmrdAaDXFbL5SwfeioDXngQQzyA3kyhTtdQJGvWJFsR9a8BOA4Q8mikmd7fFEuHxfgTtye dGVyIFsvRmxhdGVEZWNvZGVdDQo+Wb1So4EcNGIaCY pYhWNgYNDeGsOABPTf/5+HxBV++f//car electronics installer+594hFTAcS9Z4BBl+RlW1PtQL/yQYY6QFq+n//98sSPzJQH [file] ICAgICAgICAgICAgICAgICAgICAgICAgICAgICAgIC AgICAgICAgICAgICAgICAgICAgICAgICAgICAgICAgICAgICAgICANCiAgICAgICAgICAgICAgICAgIC AgICAgICAgICAgICAgICAgICAgICAgICAgICAgICAgICAgICAgICAgICAgICAgICAgICAgICAgICAgIC AgICAgICAgICAgICAgICAgICAgICANCiAgICAgICAg ICAgICAgICAgICAgICAgICAgICAgICAgICAgICAgICAgICAgICAgICAgICAgICAgICAgICAgICAgICAg ICAgICAgICAgICAgICAgICAgICAgICAgICAgICAgICANCiAgICAgICAgICAgICAgICAgICAgICAgICAg ICAgICAgICAgICAgICAgICAgICAgICAgICAgICAgIC AgICAgICAgICAgICAgICAgICAgICAgICAgICAgICAgICAgICAgICAgICANCiAgICAgICAgICAgICAgIC AgICAgICAgICAgICAgICAgICAgICAgICAgICAgICAgICAgICAgICAgICAgICAgICAgICAgICAgICAgIC AgICAgICAgICAgICAgICAgICAgICAgICANCiAgICAg ICAgICAgICAgICAgICAgICAgICAgICAgICAgICAgICAgICAgICAgICAgICAgICAgICAgICAgICAgICAg ICAgICAgICAgICAgICAgICAgICAgICAgICAgICAgICAgICANCiAgICAgICAgICAgICAgICAgICAgICAg ICAgICAgICAgICAgICAgICAgICAgICAgICAgICAgIC AgICAgICAgICAgICAgICAgICAgICAgICAgICAgICAgICAgICAgICAgICAgICANCiAgICAgICAgICAgIC AgICAgICAgICAgICAgICAgICAgICAgICAgICAgICAgICAgICAgICAgICAgICAgICAgICAgICAgICAgIC AgICAgICAgICAgICAgICAgICAgICAgICAgICANCiAg ICAgICAgICAgICAgICAgICAgICAgICAgICAgICAgICAgICAgICAgICAgICAgICAgICAgICAgICAgICAg ICAgICAgICAgICAgICAgICAgICAgICAgICAgICAgICAgICAgICANCiAgICAgICAgICAgICAgICAgICAg ICAgICAgICAgICAgICAgICAgICAgICAgICAgICAgIC AgICAgICAgICAgICAgICAgICAgICAgICAgICAgICAgICAgICAgICAgICAgICAgICANCjw/qBTlA5cosZ EqmqT3N3huUr6RFw0VZT7xg1OuXAPdUCgqiqTbJvdZPeQzHKLvPzrVPmu6XFttTY5OaXBxI8XeI1UvYV yrYO6EFKZqPSCvaLQzOMAwUKGdKnX6AFKuYIynMP6P iKZlXFoqRRUpUGXbKhBnAPUdSURlAOIyPS7WLUEvJ985cuZpWv0DEs7AQzYgKI1zjg1VThHlSONkOpmK Qgz7YMzlOM8NzDYfV5SsbBZmq9wJXxRiH2SPHZOrRWYcBe0LJVZiAiLbXCXhHYtqYH3zZVQyDPCFmAus cdO3NF5NID8isbJoNV6ZAeSpJk6sFc9IFdPpM6AxQ0 UpKOCkNSZPSJflAU6PQJPsXTR5LAMkSpFpLHIIMhGwT37uDY8GG2Asj56wRoN4ONTjWpRsHYexDY15eH qmvhJmrLRqrHpqTD6IUg4+XCggkqLxGfyDTzzjRMCLVaWyKlYDHjUfHOKcOKCfFHMjRuT2FwBrZo5JDM LrZEGvTLOdDlXsZWVyZNFyGTohGOLpPYP5DAA0IRQe JYBoEP4CTjGwQVUpLNw1PijlPWKvKIJnks8NIZCwGXSoVMQ4BuWyEIZcXFBhJCpvSGNeWWRiLXriXPLv VGIdYA6YObEjZMKtCLDjBCUxKAOrQUCeap9QWGBoOXJcImWwMRPbSMLrHHKiQJvfCCGsRWZ5DeAjILZt DPErUM4EGdQkBUGpNUp2KhXaTRCsZPIxkj7LCIOeWH GsQXDmGUKgULJjUXHuHYjcTRRzKKH4YMn8LTFeQSRrYO8HPbFzPJZaGJi1HJGrVGVdGRRivk2MJKRmGI MaEEg5PXYtKNKlDTYgLAshNKCwOBKvEBV9PQNaAFGcSJ8MPjAsWZMiRHFsVySzFLSqXNCaxk9RHKKtUT AxMTMxNCAwMDAwMCBuDQowMDAwMDEyMjcyIDAwMDAw GD0ATtOsRIZaVHV9IoLpYODgQLOgsc5BUSFjKHJySgU5PKKfVRQzGPLnZUqhGRUvCSOuRvH4FSJgZIVg SA9YJpVxOZUmWZZ0LSyiGJBmDFFgok8LUBOyKHMfESFzAFPaOVHfZKLrNCcwXPKyGFO4MwR3NDUdTPDg CB0NBqBzMUFpCXV4YSYzESOkYIXwuk2OGSSkXQRgTK g5LNEaQSEvEKRzYHnwTEZvYNT8UBGwMPYcBVNmAR4NSgCnFUYePOI3CWMoQYPhWEGlqx0OCIChNYJaOT p7MqZpXYQoZPQkEBwfZUZbNYX0UIzgKRCiLNMdEA4CMvPsUCGxHGObJuxhAPEiACJcxw9HUDJbXLAzRl RoANIoXLTnCNRpXTnmVPHxABD2Noy6XVQdKSBdAE9N FgZeLDZnVLxfZUadWUAuDXJkvs0JHVMoLMExTCweKyLnVCCnGRXaXUd4rpGvaYNjHZm3KB5MC1AkjsMn NrDHGu7Wy588HBC3VQTgMb9SX6wtAt4yQCLqPNXNDd8HAVe4QQNfMGk9KDsnTNOsZUVtJKLvCbdcBMno MGNjNGRkOTY+BHrnUHJ3CNS2OcX1HSRqUgK1IdKcDO V7DLRnU7S5BAK2Cf8vFMDYQp4+KWkigMHbrGtzXURTBqI7FIS9HRtvNQIBYt0G ID Date Data Source [id number] 09/28/2020 09:08:00 AM EDT [facility] ([facility] Name Value Range Interpretation Code Description Data Karol rce(s) Supporting Document(s) WBC 8.2 10E3/uL 4.1-10.9 EMMANUELLE ([facility] NORMAL RANGES Age WBC RBC HGB HCT [...] HCT IS 5% LESS SOURCE FOR DATA: Dashwire 1800 OPERATION MANUAL( AUTOMATED BLOOD COUNTS AND [...] DESIRABLE: <130 MG/DL <110 MG/DL BORDERLINE-HIGH RISK: 130- 159 MG/DL 110-129 MG/DL HIGH RISK: >160 MG/DL >130 MG/DL *CHILDREN AND ADOLESCENTS REPRESENTS INDIVIDUALA AGED 2-19 YEARS EXCLUSIVE. RBC 4.07 10E6/uL 4.20-6.30 Below low normal [facility] ([facility] NORMAL RANGES Age WBC RBC HGB HCT [...] HCT IS 5% LESS SOURCE FOR DATA: Dashwire 1800 OPERATION MANUAL( AUTOMATED BLOOD COUNTS AND [...] DESIRABLE: <130 MG/DL <110 MG/DL BORDERLINE-HIGH RISK: 130- 159 MG/DL 110-129 MG/DL HIGH RISK: >160 MG/DL >130 MG/DL *CHILDREN AND ADOLESCENTS REPRESENTS INDIVIDUALA AGED 2-19 YEARS EXCLUSIVE. HGB 12.5 g/dL 12.0-18.0 [facility] ([facility] NORMAL RANGES Age WBC RBC HGB HCT [...] HCT IS 5% LESS SOURCE FOR DATA: Dashwire 1800 OPERATION MANUAL( AUTOMATED BLOOD COUNTS AND [...] DESIRABLE: <130 MG/DL <110 MG/DL BORDERLINE-HIGH RISK: 130- 159 MG/DL 110-129 MG/DL HIGH RISK: >160 MG/DL >130 MG/DL *CHILDREN AND ADOLESCENTS REPRESENTS INDIVIDUALA AGED 2-19 YEARS EXCLUSIVE. HCT 36.0 % 37.0-51.0 Below low normal [facility] ( [facility] NORMAL RANGES Age WBC RBC HGB HCT [...] HCT IS 5% LESS SOURCE FOR DATA: Dashwire 1800 OPERATION MANUAL( AUTOMATED BLOOD COUNTS AND [...] DESIRABLE: <130 MG/DL <110 MG/DL BORDERLINE-HIGH RISK: 130- 159 MG/DL 110-129 MG/DL HIGH RISK: >160 MG/DL >130 MG/DL *CHILDREN AND ADOLESCENTS REPRESENTS INDIVIDUALA AGED 2-19 YEARS EXCLUSIVE. MCV 88.5 fL 80.0-97.0 [facility] ([facility] NORMAL RANGES Age WBC RBC HGB HCT [...] HCT IS 5% LESS SOURCE FOR DATA: Dashwire 1800 OPERATION MANUAL( AUTOMATED BLOOD COUNTS AND [...] DESIRABLE: <130 MG/DL <110 MG/DL BORDERLINE-HIGH RISK: 130- 159 MG/DL 110-129 MG/DL HIGH RISK: >160 MG/DL >130 MG/DL *CHILDREN AND ADOLESCENTS REPRESENTS INDIVIDUALA AGED 2-19 YEARS EXCLUSIVE. MCHC 34.7 g/dL 31.0-36.0 [facility] ([facility] NORMAL RANGES Age WBC RBC HGB HCT [...] HCT IS 5% LESS SOURCE FOR DATA: Dashwire 1800 OPERATION MANUAL( AUTOMATED BLOOD COUNTS AND [...] DESIRABLE: <130 MG/DL <110 MG/DL BORDERLINE-HIGH RISK: 130- 159 MG/DL 110-129 MG/DL HIGH RISK: >160 MG/DL >130 MG/DL *CHILDREN AND ADOLESCENTS REPRESENTS INDIVIDUALA AGED 2-19 YEARS EXCLUSIVE. MCH 30.7 pg 26.0-32.0 [facility] ([facility] NORMAL RANGES Age WBC RBC HGB HCT [...] HCT IS 5% LESS SOURCE FOR DATA: Dashwire 1800 OPERATION MANUAL( AUTOMATED BLOOD COUNTS AND [...] DESIRABLE: <130 MG/DL <110 MG/DL BORDERLINE-HIGH RISK: 130- 159 MG/DL 110-129 MG/DL HIGH RISK: >160 MG/DL >130 MG/DL *CHILDREN AND ADOLESCENTS REPRESENTS INDIVIDUALA AGED 2-19 YEARS EXCLUSIVE. PLT 275 10E3/uL 140-440 [facility] ([facility] NORMAL RANGES Age WBC RBC HGB HCT [...] HCT IS 5% LESS SOURCE FOR DATA: Dashwire 1800 OPERATION MANUAL( AUTOMATED BLOOD COUNTS AND [...] DESIRABLE: <130 MG/DL <110 MG/DL BORDERLINE-HIGH RISK: 130- 159 MG/DL 110-129 MG/DL HIGH RISK: >160 MG/DL >130 MG/DL *CHILDREN AND ADOLESCENTS REPRESENTS INDIVIDUALA AGED 2-19 YEARS EXCLUSIVE. RDW-CV 13.5 % 11.5-14.5 [facility] ([facility] NORMAL RANGES Age WBC RBC HGB HCT [...] HCT IS 5% LESS SOURCE FOR DATA: Dashwire 1800 OPERATION MANUAL( AUTOMATED BLOOD COUNTS AND [...] DESIRABLE: <130 MG/DL <110 MG/DL BORDERLINE-HIGH RISK: 130- 159 MG/DL 110-129 MG/DL HIGH RISK: >160 MG/DL >130 MG/DL *CHILDREN AND ADOLESCENTS REPRESENTS INDIVIDUALA AGED 2-19 YEARS EXCLUSIVE. Lym% 21.7 % 10.0-58.5 [facility] ([facility] NORMAL RANGES Age WBC RBC HGB HCT [...] HCT IS 5% LESS SOURCE FOR DATA: SAVAGE DYN 1800 OPERATION MANUAL( AUTOMATED BLOOD COUNTS AND [...] DESIRABLE: <130 MG/DL <110 MG/DL BORDERLINE-HIGH RISK: 130- 159 MG/DL 110-129 MG/DL HIGH RISK: >160 MG/DL >130 MG/DL *CHILDREN AND ADOLESCENTS REPRESENTS INDIVIDUALA AGED 2-19 YEARS EXCLUSIVE. Neut% 67.0 % 37.0-92.0 [facility] ([facility] NORMAL RANGES Age WBC RBC HGB HCT [...] HCT IS 5% LESS SOURCE FOR DATA: Dashwire 1800 OPERATION MANUAL( AUTOMATED BLOOD COUNTS AND [...] DESIRABLE: <130 MG/DL <110 MG/DL BORDERLINE-HIGH RISK: 130- 159 MG/DL 110-129 MG/DL HIGH RISK: >160 MG/DL >130 MG/DL *CHILDREN AND ADOLESCENTS REPRESENTS INDIVIDUALA AGED 2-19 YEARS EXCLUSIVE. Lym# 1.8 10E3/uL 0.6-4.1 [facility] ([facility] NORMAL RANGES Age WBC RBC HGB HCT [...] HCT IS 5% LESS SOURCE FOR DATA: Dashwire 1800 OPERATION MANUAL( AUTOMATED BLOOD COUNTS AND [...] DESIRABLE: <130 MG/DL <110 MG/DL BORDERLINE-HIGH RISK: 130- 159 MG/DL 110-129 MG/DL HIGH RISK: >160 MG/DL >130 MG/DL *CHILDREN AND ADOLESCENTS REPRESENTS INDIVIDUALA AGED 2-19 YEARS EXCLUSIVE. MXD% 11.3 % 0.1-24.0 [facility] ([facility] NORMAL RANGES Age WBC RBC HGB HCT [...] HCT IS 5% LESS SOURCE FOR DATA: [employer] DYN 1800 OPERATION MANUAL( AUTOMATED BLOOD COUNTS AND [...] DESIRABLE: <130 MG/DL <110 MG/DL BORDERLINE-HIGH RISK: 130- 159 MG/DL 110-129 MG/DL HIGH RISK: >160 MG/DL >130 MG/DL *CHILDREN AND ADOLESCENTS REPRESENTS INDIVIDUALA AGED 2-19 YEARS EXCLUSIVE. Neut# 5.5 % 2.0-7.8 [facility] ([facility] NORMAL RANGES Age WBC RBC HGB HCT [...] HCT IS 5% LESS SOURCE FOR DATA: Dashwire 1800 OPERATION MANUAL( AUTOMATED BLOOD COUNTS AND [...] DESIRABLE: <130 MG/DL <110 MG/DL BORDERLINE-HIGH RISK: 130- 159 MG/DL 110-129 MG/DL HIGH RISK: >160 MG/DL >130 MG/DL *CHILDREN AND ADOLESCENTS REPRESENTS INDIVIDUALA AGED 2-19 YEARS EXCLUSIVE. MXD# 0.9 10E3/uL 0.0-1.8 EMMANUELLE ([facility] NORMAL RANGES Age WBC RBC HGB HCT [...] HCT IS 5% LESS SOURCE FOR DATA: Dashwire 1800 OPERATION MANUAL( AUTOMATED BLOOD COUNTS AND [...] DESIRABLE: <130 MG/DL <110 MG/DL BORDERLINE-HIGH RISK: 130- 159 MG/DL 110-129 MG/DL HIGH RISK: >160 MG/DL >130 MG/DL *CHILDREN AND ADOLESCENTS REPRESENTS INDIVIDUALA AGED 2-19 YEARS EXCLUSIVE. MPV 9.0 fL 9.0-13.0 [facility] ([facility] NORMAL RANGES Age WBC RBC HGB HCT [...] HCT IS 5% LESS SOURCE FOR DATA: Dashwire 1800 OPERATION MANUAL( AUTOMATED BLOOD COUNTS AND [...] DESIRABLE: <130 MG/DL <110 MG/DL BORDERLINE-HIGH RISK: 130- 159 MG/DL 110-129 MG/DL HIGH RISK: >160 MG/DL >130 MG/DL *CHILDREN AND ADOLESCENTS REPRESENTS INDIVIDUALA AGED 2-19 YEARS EXCLUSIVE. ID Date Data Source [id number] 09/28/2020 09:08:00 AM EDT [facility] ([facility] Name Value Range Interpretation Code Description Data Karol rce(s) Supporting Document(s) Chol 136 mg/dL 0-200 [facility] ([facility] NORMAL RANGES Age WBC RBC HGB HCT [...] HCT IS 5% LESS SOURCE FOR DATA: Dashwire 1800 OPERATION MANUAL( AUTOMATED BLOOD COUNTS AND [...] DESIRABLE: <130 MG/DL <110 MG/DL BORDERLINE-HIGH RISK: 130- 159 MG/DL 110-129 MG/DL HIGH RISK: >160 MG/DL >130 MG/DL *CHILDREN AND ADOLESCENTS REPRESENTS INDIVIDUALA AGED 2-19 YEARS EXCLUSIVE. Trig 89 mg/dL 35-200 [facility] ([facility] NORMAL RANGES Age WBC RBC HGB HCT [...] HCT IS 5% LESS SOURCE FOR DATA: Dashwire 1800 OPERATION MANUAL( AUTOMATED BLOOD COUNTS AND [...] DESIRABLE: <130 MG/DL <110 MG/DL BORDERLINE-HIGH RISK: 130- 159 MG/DL 110-129 MG/DL HIGH RISK: >160 MG/DL >130 MG/DL *CHILDREN AND ADOLESCENTS REPRESENTS INDIVIDUALA AGED 2-19 YEARS EXCLUSIVE. LDL_C 63 Calc 75-129 Below low normal [facility] ( [facility] NORMAL RANGES Age WBC RBC HGB HCT [...] HCT IS 5% LESS SOURCE FOR DATA: Dashwire 1800 OPERATION MANUAL( AUTOMATED BLOOD COUNTS AND [...] DESIRABLE: <130 MG/DL <110 MG/DL BORDERLINE-HIGH RISK: 130- 159 MG/DL 110-129 MG/DL HIGH RISK: >160 MG/DL >130 MG/DL *CHILDREN AND ADOLESCENTS REPRESENTS INDIVIDUALA AGED 2-19 YEARS EXCLUSIVE. Cholesterol in HDL [Mass/volume] in Serum or Plasma 56 mg/dL 35-55 Above high normal [facility] ([facility] NORMAL RANGES Age WBC RBC HGB HCT [...] HCT IS 5% LESS SOURCE FOR DATA: Dashwire 1800 OPERATION MANUAL( AUTOMATED BLOOD COUNTS AND [...] DESIRABLE: <130 MG/DL <110 MG/DL BORDERLINE-HIGH RISK: 130- 159 MG/DL 110-129 MG/DL HIGH RISK: >160 MG/DL >130 MG/DL *CHILDREN AND ADOLESCENTS REPRESENTS INDIVIDUALA AGED 2-19 YEARS EXCLUSIVE. Cho/HDL Ratio 2.4 Calc [facility] ([facility] NORMAL RANGES Age WBC RBC HGB HCT [...] HCT IS 5% LESS SOURCE FOR DATA: SAVAGE DYN 1800 OPERATION MANUAL( AUTOMATED BLOOD COUNTS AND [...] DESIRABLE: <130 MG/DL <110 MG/DL BORDERLINE-HIGH RISK: 130- 159 MG/DL 110-129 MG/DL HIGH RISK: >160 MG/DL >130 MG/DL *CHILDREN AND ADOLESCENTS REPRESENTS INDIVIDUALA AGED 2-19 YEARS EXCLUSIVE. ID Date Data Source [id number] 09/28/2020 09:08:00 AM EDT EMM[facility] ([facility] Name Value Range Interpretation Code Description Data Karol rce(s) Supporting Document(s) Glu 165 mg/dL 70-110 Above high normal [facility] ([facility] NORMAL RANGES Age WBC RBC HGB HCT [...] HCT IS 5% LESS SOURCE FOR DATA: Dashwire 1800 OPERATION MANUAL( AUTOMATED BLOOD COUNTS AND [...] DESIRABLE: <130 MG/DL <110 MG/DL BORDERLINE-HIGH RISK: 130- 159 MG/DL 110-129 MG/DL HIGH RISK: >160 MG/DL >130 MG/DL *CHILDREN AND ADOLESCENTS REPRESENTS INDIVIDUALA AGED 2-19 YEARS EXCLUSIVE. BUN 14 mg/dL 8-23 [facility] ([facility] NORMAL RANGES Age WBC RBC HGB HCT [...] HCT IS 5% LESS SOURCE FOR DATA: Dashwire 1800 OPERATION MANUAL( AUTOMATED BLOOD COUNTS AND [...] DESIRABLE: <130 MG/DL <110 MG/DL BORDERLINE-HIGH RISK: 130- 159 MG/DL 110-129 MG/DL HIGH RISK: >160 MG/DL >130 MG/DL *CHILDREN AND ADOLESCENTS REPRESENTS INDIVIDUALA AGED 2-19 YEARS EXCLUSIVE. Creat 1.0 mg/dL 0.7-1.2 [facility] NORMAL RANGES Age WBC RBC HGB HCT [...] HCT IS 5% LESS SOURCE FOR DATA: [employer] 1800 OPERATION MANUAL( AUTOMATED BLOOD COUNTS AND [...] DESIRABLE: <130 MG/DL <110 MG/DL BORDERLINE-HIGH RISK: 130- 159 MG/DL 110-129 MG/DL HIGH RISK: >160 MG/DL >130 MG/DL *CHILDREN AND ADOLESCENTS REPRESENTS INDIVIDUALA AGED 2-19 YEARS EXCLUSIVE. BUN/Creatinine Ratio 14.1 Calc [facility] ([facility] NORMAL RANGES Age WBC RBC HGB HCT [...] HCT IS 5% LESS SOURCE FOR DATA: [employer] 1800 OPERATION MANUAL( AUTOMATED BLOOD COUNTS AND [...] DESIRABLE: <130 MG/DL <110 MG/DL BORDERLINE-HIGH RISK: 130- 159 MG/DL 110-129 MG/DL HIGH RISK: >160 MG/DL >130 MG/DL *CHILDREN AND ADOLESCENTS REPRESENTS INDIVIDUALA AGED 2-19 YEARS EXCLUSIVE. Na 137 mmol/L 136-145 [facility] ([facility] NORMAL RANGES Age WBC RBC HGB HCT [...] HCT IS 5% LESS SOURCE FOR DATA: [employer] 1800 OPERATION MANUAL( AUTOMATED BLOOD COUNTS AND [...] DESIRABLE: <130 MG/DL <110 MG/DL BORDERLINE-HIGH RISK: 130- 159 MG/DL 110-129 MG/DL HIGH RISK: >160 MG/DL >130 MG/DL *CHILDREN AND ADOLESCENTS REPRESENTS INDIVIDUALA AGED 2-19 YEARS EXCLUSIVE. K 4.1 mmol/L 3.5-5.1 [facility] ([facility] NORMAL RANGES Age WBC RBC HGB HCT [...] HCT IS 5% LESS SOURCE FOR DATA: [employer] 1800 OPERATION MANUAL( AUTOMATED BLOOD COUNTS AND [...] DESIRABLE: <130 MG/DL <110 MG/DL BORDERLINE-HIGH RISK: 130- 159 MG/DL 110-129 MG/DL HIGH RISK: >160 MG/DL >130 MG/DL *CHILDREN AND ADOLESCENTS REPRESENTS INDIVIDUALA AGED 2-19 YEARS EXCLUSIVE. CL 103.7 mmol/L 98.0-107.0 [facility] ([facility] NORMAL RANGES Age WBC RBC HGB HCT [...] HCT IS 5% LESS SOURCE FOR DATA: [employer] 1800 OPERATION MANUAL( AUTOMATED BLOOD COUNTS AND [...] DESIRABLE: <130 MG/DL <110 MG/DL BORDERLINE-HIGH RISK: 130- 159 MG/DL 110-129 MG/DL HIGH RISK: >160 MG/DL >130 MG/DL *CHILDREN AND ADOLESCENTS REPRESENTS INDIVIDUALA AGED 2-19 YEARS EXCLUSIVE. Co2 24.0 mmol/L 22.0-29.0 [facility] ([facility] NORMAL RANGES Age WBC RBC HGB HCT [...] HCT IS 5% LESS SOURCE FOR DATA: [employer] 1800 OPERATION MANUAL( AUTOMATED BLOOD COUNTS AND [...] DESIRABLE: <130 MG/DL <110 MG/DL BORDERLINE-HIGH RISK: 130- 159 MG/DL 110-129 MG/DL HIGH RISK: >160 MG/DL >130 MG/DL *CHILDREN AND ADOLESCENTS REPRESENTS INDIVIDUALA AGED 2-19 YEARS EXCLUSIVE. TP 5.5 g/dL 6.6-8.7 Below low normal [facility] ( [facility] NORMAL RANGES Age WBC RBC HGB HCT [...] HCT IS 5% LESS SOURCE FOR DATA: [employer] 1800 OPERATION MANUAL( AUTOMATED BLOOD COUNTS AND [...] DESIRABLE: <130 MG/DL <110 MG/DL BORDERLINE-HIGH RISK: 130- 159 MG/DL 110-129 MG/DL HIGH RISK: >160 MG/DL >130 MG/DL *CHILDREN AND ADOLESCENTS REPRESENTS INDIVIDUALA AGED 2-19 YEARS EXCLUSIVE. CA 8.7 mg/dL 8.6-10.2 [facility] ([facility] NORMAL RANGES Age WBC RBC HGB HCT [...] HCT IS 5% LESS SOURCE FOR DATA: Dashwire 1800 OPERATION MANUAL( AUTOMATED BLOOD COUNTS AND [...] DESIRABLE: <130 MG/DL <110 MG/DL BORDERLINE-HIGH RISK: 130- 159 MG/DL 110-129 MG/DL HIGH RISK: >160 MG/DL >130 MG/DL *CHILDREN AND ADOLESCENTS REPRESENTS INDIVIDUALA AGED 2-19 YEARS EXCLUSIVE. Alb 3.6 g/dL 3.5-5.2 [facility] ([facility] NORMAL RANGES Age WBC RBC HGB HCT [...] HCT IS 5% LESS SOURCE FOR DATA: Dashwire 1800 OPERATION MANUAL( AUTOMATED BLOOD COUNTS AND [...] DESIRABLE: <130 MG/DL <110 MG/DL BORDERLINE-HIGH RISK: 130- 159 MG/DL 110-129 MG/DL HIGH RISK: >160 MG/DL >130 MG/DL *CHILDREN AND ADOLESCENTS REPRESENTS INDIVIDUALA AGED 2-19 YEARS EXCLUSIVE. A/G Ratio 1.8 Calc [employer] ([facility] NORMAL RANGES Age WBC RBC HGB HCT [...] HCT IS 5% LESS SOURCE FOR DATA: Dashwire 1800 OPERATION MANUAL( AUTOMATED BLOOD COUNTS AND [...] DESIRABLE: <130 MG/DL <110 MG/DL BORDERLINE-HIGH RISK: 130- 159 MG/DL 110-129 MG/DL HIGH RISK: >160 MG/DL >130 MG/DL *CHILDREN AND ADOLESCENTS REPRESENTS INDIVIDUALA AGED 2-19 YEARS EXCLUSIVE. Globulin 2.0 Calc [facility] ([facility] NORMAL RANGES Age WBC RBC HGB HCT [...] HCT IS 5% LESS SOURCE FOR DATA: Dashwire 1800 OPERATION MANUAL( AUTOMATED BLOOD COUNTS AND [...] DESIRABLE: <130 MG/DL <110 MG/DL BORDERLINE-HIGH RISK: 130- 159 MG/DL 110-129 MG/DL HIGH RISK: >160 MG/DL >130 MG/DL *CHILDREN AND ADOLESCENTS REPRESENTS INDIVIDUALA AGED 2-19 YEARS EXCLUSIVE. Alp 78.2 U/L 40-129 [facility] ([facility] NORMAL RANGES Age WBC RBC HGB HCT [...] HCT IS 5% LESS SOURCE FOR DATA: Dashwire 1800 OPERATION MANUAL( AUTOMATED BLOOD COUNTS AND [...] DESIRABLE: <130 MG/DL <110 MG/DL BORDERLINE-HIGH RISK: 130- 159 MG/DL 110-129 MG/DL HIGH RISK: >160 MG/DL >130 MG/DL *CHILDREN AND ADOLESCENTS REPRESENTS INDIVIDUALA AGED 2-19 YEARS EXCLUSIVE. Alt (SGPT) 20 U/L 0-41 [facility] ([facility] NORMAL RANGES Age WBC RBC HGB HCT [...] HCT IS 5% LESS SOURCE FOR DATA: Dashwire 1800 OPERATION MANUAL( AUTOMATED BLOOD COUNTS AND [...] DESIRABLE: <130 MG/DL <110 MG/DL BORDERLINE-HIGH RISK: 130- 159 MG/DL 110-129 MG/DL HIGH RISK: >160 MG/DL >130 MG/DL *CHILDREN AND ADOLESCENTS REPRESENTS INDIVIDUALA AGED 2-19 YEARS EXCLUSIVE. Tbili 0.16 mg/dL 0.0-1.2 [facility] ([facility] NORMAL RANGES Age WBC RBC HGB HCT [...] HCT IS 5% LESS SOURCE FOR DATA: Dashwire 1800 OPERATION MANUAL( AUTOMATED BLOOD COUNTS AND [...] DESIRABLE: <130 MG/DL <110 MG/DL BORDERLINE-HIGH RISK: 130- 159 MG/DL 110-129 MG/DL HIGH RISK: >160 MG/DL >130 MG/DL *CHILDREN AND ADOLESCENTS REPRESENTS INDIVIDUALA AGED 2-19 YEARS EXCLUSIVE. Ast (Sgot) 15 U/L 0-40 [facility] ([facility] NORMAL RANGES Age WBC RBC HGB HCT [...] HCT IS 5% LESS SOURCE FOR DATA: [employer] DYN 1800 OPERATION MANUAL( AUTOMATED BLOOD COUNTS AND [...] DESIRABLE: <130 MG/DL <110 MG/DL BORDERLINE-HIGH RISK: 130- 159 MG/DL 110-129 MG/DL HIGH RISK: >160 MG/DL >130 MG/DL *CHILDREN AND ADOLESCENTS REPRESENTS INDIVIDUALA AGED 2-19 YEARS EXCLUSIVE. Osmolality-Calculated 278.8 Calc [facility] ([facility] NORMAL RANGES Age WBC RBC HGB HCT [...] HCT IS 5% LESS SOURCE FOR DATA: Dashwire 1800 OPERATION MANUAL( AUTOMATED BLOOD COUNTS AND [...] DESIRABLE: <130 MG/DL <110 MG/DL BORDERLINE-HIGH RISK: 130- 159 MG/DL 110-129 MG/DL HIGH RISK: >160 MG/DL >130 MG/DL *CHILDREN AND ADOLESCENTS REPRESENTS INDIVIDUALA AGED 2-19 YEARS EXCLUSIVE. Anion Gap 14 mmol/L [facility] ([facility] NORMAL RANGES Age WBC RBC HGB HCT [...] HCT IS 5% LESS SOURCE FOR DATA: Dashwire 1800 OPERATION MANUAL( AUTOMATED BLOOD COUNTS AND [...] DESIRABLE: <130 MG/DL <110 MG/DL BORDERLINE-HIGH RISK: 130- 159 MG/DL 110-129 MG/DL HIGH RISK: >160 MG/DL >130 MG/DL *CHILDREN AND ADOLESCENTS REPRESENTS INDIVIDUALA AGED 2-19 YEARS EXCLUSIVE. eGFR Non-Afr. Turkish 76 # [facility] ([facility] CKD-EPI eGFR 89 # [facility] ( [facility] CKD-EPI ID Date Data Source [id number] 09/28/2020 09:07:00 AM EDT [facility] ([facility] Name Value Range Interpretation Code Description Data Karol rce(s) Supporting Document(s) Hemoglobin A1c/Hemoglobin.total in Blood 8.1 % 4.50-6.20 Above high normal [facility] ([facility] ID Date Data Source [id number] 07/05/2020 07:20:00 AM EST [facility] ([facility] Name Value Range Interpretation Code Description Data Karol rce(s) Supporting Document(s) Glucose [Mass/volume] in Capillary blood by Glucometer 227 mg/dL 80-115 Above high normal [facility] ([facility] ) ID Date Data Source [id number] 06/30/2020 11:45:00 AM EST [facility] Name Value Range Interpretation Code Description Data Karol rce(s) Supporting Document(s) SARS coronavirus [address] [facility] [place] This lab was ordered by [facility] and reported by [facility]. ID Date Data Source [id number] 06/24/2020 10:22:00 AM EST [facility] ([facility] Name Value Range Interpretation Code Description Data Karol rce(s) Supporting Document(s) Chol 172 mg/dL 0-200 [facility] ([facility] CHRONIC KIDNEY DISEASE STAGING PER NKF: MALE [...] DESIRABLE: <130 MG/DL <110 MG/DL BORDERLINE-HIGH RISK: 130- 159 MG/DL 110-129 MG/DL HIGH RISK: >160 MG/DL >130 MG/DL *CHILDREN AND ADOLESCENTS REPRESENTS INDIVIDUALA AGED 2-19 YEARS EXCLUSIVE. Trig 123 mg/dL 35-200 [facility] ([facility] CHRONIC KIDNEY DISEASE STAGING PER NKF: MALE [...] DESIRABLE: <130 MG/DL <110 MG/DL BORDERLINE-HIGH RISK: 130- 159 MG/DL 110-129 MG/DL HIGH RISK: >160 MG/DL >130 MG/DL *CHILDREN AND ADOLESCENTS REPRESENTS INDIVIDUALA AGED 2-19 YEARS EXCLUSIVE. Cho/HDL Ratio 2.3 Calc [facility] ([facility] CHRONIC KIDNEY DISEASE STAGING PER NKF: MALE [...] DESIRABLE: <130 MG/DL <110 MG/DL BORDERLINE-HIGH RISK: 130- 159 MG/DL 110-129 MG/DL HIGH RISK: >160 MG/DL >130 MG/DL *CHILDREN AND ADOLESCENTS REPRESENTS INDIVIDUALA AGED 2-19 YEARS EXCLUSIVE. Cholesterol in HDL [Mass/volume] in Serum or Plasma 74 mg/dL 35-55 Above high normal [facility] ([facility] ) CHRONIC KIDNEY DISEASE STAGING PER NKF: MALE [...] DESIRABLE: <130 MG/DL <110 MG/DL BORDERLINE-HIGH RISK: 130- 159 MG/DL 110-129 MG/DL HIGH RISK: >160 MG/DL >130 MG/DL *CHILDREN AND ADOLESCENTS REPRESENTS INDIVIDUALA AGED 2-19 YEARS EXCLUSIVE. LDL_C 73 Calc 75-129 Below low normal [facility] ( [facility] CHRONIC KIDNEY DISEASE STAGING PER NKF: MALE [...] DESIRABLE: <130 MG/DL <110 MG/DL BORDERLINE-HIGH RISK: 130- 159 MG/DL 110-129 MG/DL HIGH RISK: >160 MG/DL >130 MG/DL *CHILDREN AND ADOLESCENTS REPRESENTS INDIVIDUALA AGED 2-19 YEARS EXCLUSIVE. ID Date Data Source [id number] 06/24/2020 10:22:00 AM EST [facility] ([facility] Name Value Range Interpretation Code Description Data Karol rce(s) Supporting Document(s) Glu 176 mg/dL 70-110 Above high normal [facility] ([facility] CHRONIC KIDNEY DISEASE STAGING PER NKF: MALE [...] DESIRABLE: <130 MG/DL <110 MG/DL BORDERLINE-HIGH RISK: 130- 159 MG/DL 110-129 MG/DL HIGH RISK: >160 MG/DL >130 MG/DL *CHILDREN AND ADOLESCENTS REPRESENTS INDIVIDUALA AGED 2-19 YEARS EXCLUSIVE. Creat 0.9 mg/dL 0.7-1.2 [facility] ([facility] CHRONIC KIDNEY DISEASE STAGING PER NKF: MALE [...] DESIRABLE: <130 MG/DL <110 MG/DL BORDERLINE-HIGH RISK: 130- 159 MG/DL 110-129 MG/DL HIGH RISK: >160 MG/DL >130 MG/DL *CHILDREN AND ADOLESCENTS REPRESENTS INDIVIDUALA AGED 2-19 YEARS EXCLUSIVE. BUN 8 mg/dL 8-23 [facility] ([facility] CHRONIC KIDNEY DISEASE STAGING PER NKF: MALE [...] DESIRABLE: <130 MG/DL <110 MG/DL BORDERLINE-HIGH RISK: 130- 159 MG/DL 110-129 MG/DL HIGH RISK: >160 MG/DL >130 MG/DL *CHILDREN AND ADOLESCENTS REPRESENTS INDIVIDUALA AGED 2-19 YEARS EXCLUSIVE. BUN/Creatinine Ratio 8.4 Calc [facility] ([facility] CHRONIC KIDNEY DISEASE STAGING PER NKF: MALE [...] DESIRABLE: <130 MG/DL <110 MG/DL BORDERLINE-HIGH RISK: 130- 159 MG/DL 110-129 MG/DL HIGH RISK: >160 MG/DL >130 MG/DL *CHILDREN AND ADOLESCENTS REPRESENTS INDIVIDUALA AGED 2-19 YEARS EXCLUSIVE. Na 137 mmol/L 136-145 [facility] ([facility] CHRONIC KIDNEY DISEASE STAGING PER NKF: MALE [...] DESIRABLE: <130 MG/DL <110 MG/DL BORDERLINE-HIGH RISK: 130- 159 MG/DL 110-129 MG/DL HIGH RISK: >160 MG/DL >130 MG/DL *CHILDREN AND ADOLESCENTS REPRESENTS INDIVIDUALA AGED 2-19 YEARS EXCLUSIVE. K 3.6 mmol/L 3.5-5.1 [facility] ([facility] CHRONIC KIDNEY DISEASE STAGING PER NKF: MALE [...] DESIRABLE: <130 MG/DL <110 MG/DL BORDERLINE-HIGH RISK: 130- 159 MG/DL 110-129 MG/DL HIGH RISK: >160 MG/DL >130 MG/DL *CHILDREN AND ADOLESCENTS REPRESENTS INDIVIDUALA AGED 2-19 YEARS EXCLUSIVE. CL 101.6 mmol/L 98.0-107.0 [facility] CHRONIC KIDNEY DISEASE STAGING PER NKF: MALE [...] DESIRABLE: <130 MG/DL <110 MG/DL BORDERLINE-HIGH RISK: 130- 159 MG/DL 110-129 MG/DL HIGH RISK: >160 MG/DL >130 MG/DL *CHILDREN AND ADOLESCENTS REPRESENTS INDIVIDUALA AGED 2-19 YEARS EXCLUSIVE. Co2 23.0 mmol/L 22.0-29.0 [facility] ([facility] CHRONIC KIDNEY DISEASE STAGING PER NKF: MALE [...] DESIRABLE: <130 MG/DL <110 MG/DL BORDERLINE-HIGH RISK: 130- 159 MG/DL 110-129 MG/DL HIGH RISK: >160 MG/DL >130 MG/DL *CHILDREN AND ADOLESCENTS REPRESENTS INDIVIDUALA AGED 2-19 YEARS EXCLUSIVE. CA 9.1 mg/dL 8.6-10.2 [facility] ([facility] CHRONIC KIDNEY DISEASE STAGING PER NKF: MALE [...] DESIRABLE: <130 MG/DL <110 MG/DL BORDERLINE-HIGH RISK: 130- 159 MG/DL 110-129 MG/DL HIGH RISK: >160 MG/DL >130 MG/DL *CHILDREN AND ADOLESCENTS REPRESENTS INDIVIDUALA AGED 2-19 YEARS EXCLUSIVE. TP 6.0 g/dL 6.6-8.7 Below low normal [facility] ( [facility] CHRONIC KIDNEY DISEASE STAGING PER NKF: MALE [...] DESIRABLE: <130 MG/DL <110 MG/DL BORDERLINE-HIGH RISK: 130- 159 MG/DL 110-129 MG/DL HIGH RISK: >160 MG/DL >130 MG/DL *CHILDREN AND ADOLESCENTS REPRESENTS INDIVIDUALA AGED 2-19 YEARS EXCLUSIVE. Alb 3.7 g/dL 3.5-5.2 [facility] ([facility] CHRONIC KIDNEY DISEASE STAGING PER NKF: MALE [...] DESIRABLE: <130 MG/DL <110 MG/DL BORDERLINE-HIGH RISK: 130- 159 MG/DL 110-129 MG/DL HIGH RISK: >160 MG/DL >130 MG/DL *CHILDREN AND ADOLESCENTS REPRESENTS INDIVIDUALA AGED 2-19 YEARS EXCLUSIVE. A/G Ratio 1.7 Calc [facility] ([facility] CHRONIC KIDNEY DISEASE STAGING PER NKF: MALE [...] DESIRABLE: <130 MG/DL <110 MG/DL BORDERLINE-HIGH RISK: 130- 159 MG/DL 110-129 MG/DL HIGH RISK: >160 MG/DL >130 MG/DL *CHILDREN AND ADOLESCENTS REPRESENTS INDIVIDUALA AGED 2-19 YEARS EXCLUSIVE. Alp 64.8 U/L 40-129 [facility] ([facility] CHRONIC KIDNEY DISEASE STAGING PER NKF: MALE [...] DESIRABLE: <130 MG/DL <110 MG/DL BORDERLINE-HIGH RISK: 130- 159 MG/DL 110-129 MG/DL HIGH RISK: >160 MG/DL >130 MG/DL *CHILDREN AND ADOLESCENTS REPRESENTS INDIVIDUALA AGED 2-19 YEARS EXCLUSIVE. Globulin 2.2 Calc [facility] CHRONIC KIDNEY DISEASE STAGING PER NKF: MALE [...] DESIRABLE: <130 MG/DL <110 MG/DL BORDERLINE-HIGH RISK: 130- 159 MG/DL 110-129 MG/DL HIGH RISK: >160 MG/DL >130 MG/DL *CHILDREN AND ADOLESCENTS REPRESENTS INDIVIDUALA AGED 2-19 YEARS EXCLUSIVE. Alt (SGPT) 11 U/L 0-41 [facility] ([facility] CHRONIC KIDNEY DISEASE STAGING PER NKF: MALE [...] DESIRABLE: <130 MG/DL <110 MG/DL BORDERLINE-HIGH RISK: 130- 159 MG/DL 110-129 MG/DL HIGH RISK: >160 MG/DL >130 MG/DL *CHILDREN AND ADOLESCENTS REPRESENTS INDIVIDUALA AGED 2-19 YEARS EXCLUSIVE. Ast (Sgot) 14 U/L 0-40 [facility] ([facility] CHRONIC KIDNEY DISEASE STAGING PER NKF: MALE [...] DESIRABLE: <130 MG/DL <110 MG/DL BORDERLINE-HIGH RISK: 130- 159 MG/DL 110-129 MG/DL HIGH RISK: >160 MG/DL >130 MG/DL *CHILDREN AND ADOLESCENTS REPRESENTS INDIVIDUALA AGED 2-19 YEARS EXCLUSIVE. Osmolality-Calculated 276.7 Calc [facility] ([facility] CHRONIC KIDNEY DISEASE STAGING PER NKF: MALE [...] DESIRABLE: <130 MG/DL <110 MG/DL BORDERLINE-HIGH RISK: 130- 159 MG/DL 110-129 MG/DL HIGH RISK: >160 MG/DL >130 MG/DL *CHILDREN AND ADOLESCENTS REPRESENTS INDIVIDUALA AGED 2-19 YEARS EXCLUSIVE. Anion Gap 16 mmol/L [facility] ([facility] CHRONIC KIDNEY DISEASE STAGING PER NKF: MALE [...] DESIRABLE: <130 MG/DL <110 MG/DL BORDERLINE-HIGH RISK: 130- 159 MG/DL 110-129 MG/DL HIGH RISK: >160 MG/DL >130 MG/DL *CHILDREN AND ADOLESCENTS REPRESENTS INDIVIDUALA AGED 2-19 YEARS EXCLUSIVE. Tbili 0.45 mg/dL 0.0-1.2 [facility] ([facility] CHRONIC KIDNEY DISEASE STAGING PER NKF: MALE [...] DESIRABLE: <130 MG/DL <110 MG/DL BORDERLINE-HIGH RISK: 130- 159 MG/DL 110-129 MG/DL HIGH RISK: >160 MG/DL >130 MG/DL *CHILDREN AND ADOLESCENTS REPRESENTS INDIVIDUALA AGED 2-19 YEARS EXCLUSIVE. eGFR 101 # [facility] ( [facility] CHRONIC KIDNEY DISEASE STAGING PER NKF: MALE [...] DESIRABLE: <130 MG/DL <110 MG/DL BORDERLINE-HIGH RISK: 130- 159 MG/DL 110-129 MG/DL HIGH RISK: >160 MG/DL >130 MG/DL *CHILDREN AND ADOLESCENTS REPRESENTS INDIVIDUALA AGED 2-19 YEARS EXCLUSIVE. eGFR Non-Afr. Turkish 87 # [facility] ([facility] CHRONIC KIDNEY DISEASE STAGING PER NKF: MALE [...] DESIRABLE: <130 MG/DL <110 MG/DL BORDERLINE-HIGH RISK: 130- 159 MG/DL 110-129 MG/DL HIGH RISK: >160 MG/DL >130 MG/DL *CHILDREN AND ADOLESCENTS REPRESENTS INDIVIDUALA AGED 2-19 YEARS EXCLUSIVE. ID Date Data Source [id number] 06/24/2020 10:21:00 AM EST [facility] ([facility] Name Value Range Interpretation Code Description Data Karol rce(s) Supporting Document(s) Hemoglobin A1c/Hemoglobin.total in Blood 8.8 % 4.50-6.20 Above high normal [facility] ([facility] ID Date Data Source [id number] 03/23/2020 09:38:00 AM EDT [facility] ([facility] Name Value Range Interpretation Code Description Data Karol rce(s) Supporting Document(s) WBC 8.6 10E3/uL 4.1-10.9 [facility] ([facility] NORMAL RANGES Age WBC RBC HGB HCT [...] HCT IS 5% LESS SOURCE FOR DATA: Dashwire 1800 OPERATION MANUAL( AUTOMATED BLOOD COUNTS AND [...] DESIRABLE: <130 MG/DL <110 MG/DL BORDERLINE-HIGH RISK: 130- 159 MG/DL 110-129 MG/DL HIGH RISK: >160 MG/DL >130 MG/DL *CHILDREN AND ADOLESCENTS REPRESENTS INDIVIDUALA AGED 2-19 YEARS EXCLUSIVE. HGB 12.5 g/dL 12.0-18.0 [facility] ([facility] NORMAL RANGES Age WBC RBC HGB HCT [...] HCT IS 5% LESS SOURCE FOR DATA: Dashwire 1800 OPERATION MANUAL( AUTOMATED BLOOD COUNTS AND [...] DESIRABLE: <130 MG/DL <110 MG/DL BORDERLINE-HIGH RISK: 130- 159 MG/DL 110-129 MG/DL HIGH RISK: >160 MG/DL >130 MG/DL *CHILDREN AND ADOLESCENTS REPRESENTS INDIVIDUALA AGED 2-19 YEARS EXCLUSIVE. RBC 4.08 10E6/uL 4.20-6.30 Below low normal [facility] ([facility] NORMAL RANGES Age WBC RBC HGB HCT [...] HCT IS 5% LESS SOURCE FOR DATA: Dashwire 1800 OPERATION MANUAL( AUTOMATED BLOOD COUNTS AND [...] DESIRABLE: <130 MG/DL <110 MG/DL BORDERLINE-HIGH RISK: 130- 159 MG/DL 110-129 MG/DL HIGH RISK: >160 MG/DL >130 MG/DL *CHILDREN AND ADOLESCENTS REPRESENTS INDIVIDUALA AGED 2-19 YEARS EXCLUSIVE. HCT 35.8 % 37.0-51.0 Below low normal [facility] ( [facility] NORMAL RANGES Age WBC RBC HGB HCT [...] HCT IS 5% LESS SOURCE FOR DATA: Dashwire 1800 OPERATION MANUAL( AUTOMATED BLOOD COUNTS AND [...] DESIRABLE: <130 MG/DL <110 MG/DL BORDERLINE-HIGH RISK: 130- 159 MG/DL 110-129 MG/DL HIGH RISK: >160 MG/DL >130 MG/DL *CHILDREN AND ADOLESCENTS REPRESENTS INDIVIDUALA AGED 2-19 YEARS EXCLUSIVE. MCV 87.7 fL 80.0-97.0 [facility] ([facility] NORMAL RANGES Age WBC RBC HGB HCT [...] HCT IS 5% LESS SOURCE FOR DATA: [employer] DYN 1800 OPERATION MANUAL( AUTOMATED BLOOD COUNTS AND [...] DESIRABLE: <130 MG/DL <110 MG/DL BORDERLINE-HIGH RISK: 130- 159 MG/DL 110-129 MG/DL HIGH RISK: >160 MG/DL >130 MG/DL *CHILDREN AND ADOLESCENTS REPRESENTS INDIVIDUALA AGED 2-19 YEARS EXCLUSIVE. MCH 30.6 pg 26.0-32.0 [facility] ([facility] NORMAL RANGES Age WBC RBC HGB HCT [...] HCT IS 5% LESS SOURCE FOR DATA: Dashwire 1800 OPERATION MANUAL( AUTOMATED BLOOD COUNTS AND [...] DESIRABLE: <130 MG/DL <110 MG/DL BORDERLINE-HIGH RISK: 130- 159 MG/DL 110-129 MG/DL HIGH RISK: >160 MG/DL >130 MG/DL *CHILDREN AND ADOLESCENTS REPRESENTS INDIVIDUALA AGED 2-19 YEARS EXCLUSIVE. PLT 242 10E3/uL 140-440 [facility] ([facility] NORMAL RANGES Age WBC RBC HGB HCT [...] HCT IS 5% LESS SOURCE FOR DATA: Dashwire 1800 OPERATION MANUAL( AUTOMATED BLOOD COUNTS AND [...] DESIRABLE: <130 MG/DL <110 MG/DL BORDERLINE-HIGH RISK: 130- 159 MG/DL 110-129 MG/DL HIGH RISK: >160 MG/DL >130 MG/DL *CHILDREN AND ADOLESCENTS REPRESENTS INDIVIDUALA AGED 2-19 YEARS EXCLUSIVE. MCHC 34.9 g/dL 31.0-36.0 [facility] ([facility] NORMAL RANGES Age WBC RBC HGB HCT [...] HCT IS 5% LESS SOURCE FOR DATA: Dashwire 1800 OPERATION MANUAL( AUTOMATED BLOOD COUNTS AND [...] DESIRABLE: <130 MG/DL <110 MG/DL BORDERLINE-HIGH RISK: 130- 159 MG/DL 110-129 MG/DL HIGH RISK: >160 MG/DL >130 MG/DL *CHILDREN AND ADOLESCENTS REPRESENTS INDIVIDUALA AGED 2-19 YEARS EXCLUSIVE. RDW-CV 13.6 % 11.5-14.5 [facility] ([facility] NORMAL RANGES Age WBC RBC HGB HCT [...] HCT IS 5% LESS SOURCE FOR DATA: Dashwire 1800 OPERATION MANUAL( AUTOMATED BLOOD COUNTS AND [...] DESIRABLE: <130 MG/DL <110 MG/DL BORDERLINE-HIGH RISK: 130- 159 MG/DL 110-129 MG/DL HIGH RISK: >160 MG/DL >130 MG/DL *CHILDREN AND ADOLESCENTS REPRESENTS INDIVIDUALA AGED 2-19 YEARS EXCLUSIVE. Lym% 19.4 % 10.0-58.5 [facility] ([facility] NORMAL RANGES Age WBC RBC HGB HCT [...] HCT IS 5% LESS SOURCE FOR DATA: Dashwire 1800 OPERATION MANUAL( AUTOMATED BLOOD COUNTS AND [...] DESIRABLE: <130 MG/DL <110 MG/DL BORDERLINE-HIGH RISK: 130- 159 MG/DL 110-129 MG/DL HIGH RISK: >160 MG/DL >130 MG/DL *CHILDREN AND ADOLESCENTS REPRESENTS INDIVIDUALA AGED 2-19 YEARS EXCLUSIVE. Neut% 71.8 % 37.0-92.0 [facility] ([facility] NORMAL RANGES Age WBC RBC HGB HCT [...] HCT IS 5% LESS SOURCE FOR DATA: Dashwire 1800 OPERATION MANUAL( AUTOMATED BLOOD COUNTS AND [...] DESIRABLE: <130 MG/DL <110 MG/DL BORDERLINE-HIGH RISK: 130- 159 MG/DL 110-129 MG/DL HIGH RISK: >160 MG/DL >130 MG/DL *CHILDREN AND ADOLESCENTS REPRESENTS INDIVIDUALA AGED 2-19 YEARS EXCLUSIVE. MXD% 8.8 % 0.1-24.0 [facility] ([facility] NORMAL RANGES Age WBC RBC HGB HCT [...] HCT IS 5% LESS SOURCE FOR DATA: Dashwire 1800 OPERATION MANUAL( AUTOMATED BLOOD COUNTS AND [...] DESIRABLE: <130 MG/DL <110 MG/DL BORDERLINE-HIGH RISK: 130- 159 MG/DL 110-129 MG/DL HIGH RISK: >160 MG/DL >130 MG/DL *CHILDREN AND ADOLESCENTS REPRESENTS INDIVIDUALA AGED 2-19 YEARS EXCLUSIVE. Lym# 1.7 10E3/uL 0.6-4.1 [facility] ([facility] NORMAL RANGES Age WBC RBC HGB HCT [...] HCT IS 5% LESS SOURCE FOR DATA: [employer] DYN 1800 OPERATION MANUAL( AUTOMATED BLOOD COUNTS AND [...] DESIRABLE: <130 MG/DL <110 MG/DL BORDERLINE-HIGH RISK: 130- 159 MG/DL 110-129 MG/DL HIGH RISK: >160 MG/DL >130 MG/DL *CHILDREN AND ADOLESCENTS REPRESENTS INDIVIDUALA AGED 2-19 YEARS EXCLUSIVE. Neut# 6.1 % 2.0-7.8 [facility] ([facility] NORMAL RANGES Age WBC RBC HGB HCT [...] HCT IS 5% LESS SOURCE FOR DATA: Dashwire 1800 OPERATION MANUAL( AUTOMATED BLOOD COUNTS AND [...] DESIRABLE: <130 MG/DL <110 MG/DL BORDERLINE-HIGH RISK: 130- 159 MG/DL 110-129 MG/DL HIGH RISK: >160 MG/DL >130 MG/DL *CHILDREN AND ADOLESCENTS REPRESENTS INDIVIDUALA AGED 2-19 YEARS EXCLUSIVE. MPV 9.7 fL 9.0-13.0 [facility] ([facility] NORMAL RANGES Age WBC RBC HGB HCT [...] HCT IS 5% LESS SOURCE FOR DATA: [employer]wire 1800 OPERATION MANUAL( AUTOMATED BLOOD COUNTS AND [...] DESIRABLE: <130 MG/DL <110 MG/DL BORDERLINE-HIGH RISK: 130- 159 MG/DL 110-129 MG/DL HIGH RISK: >160 MG/DL >130 MG/DL *CHILDREN AND ADOLESCENTS REPRESENTS INDIVIDUALA AGED 2-19 YEARS EXCLUSIVE. MXD# 0.8 10E3/uL 0.0-1.8 [facility] NORMAL RANGES Age WBC RBC HGB HCT [...] HCT IS 5% LESS SOURCE FOR DATA: [employer] DYN 1800 OPERATION MANUAL( AUTOMATED BLOOD COUNTS AND [...] DESIRABLE: <130 MG/DL <110 MG/DL BORDERLINE-HIGH RISK: 130- 159 MG/DL 110-129 MG/DL HIGH RISK: >160 MG/DL >130 MG/DL *CHILDREN AND ADOLESCENTS REPRESENTS INDIVIDUALA AGED 2-19 YEARS EXCLUSIVE. ID Date Data Source [id number] 03/23/2020 09:38:00 AM EDT [facility] ([facility] Name Value Range Interpretation Code Description Data Karol rce(s) Supporting Document(s) Cholesterol in HDL [Mass/volume] in Serum or Plasma 59 mg/dL 35-55 Above high normal [facility] ([facility] NORMAL RANGES Age WBC RBC HGB HCT [...] HCT IS 5% LESS SOURCE FOR DATA: [employer] 1800 OPERATION MANUAL( AUTOMATED BLOOD COUNTS AND [...] DESIRABLE: <130 MG/DL <110 MG/DL BORDERLINE-HIGH RISK: 130- 159 MG/DL 110-129 MG/DL HIGH RISK: >160 MG/DL >130 MG/DL *CHILDREN AND ADOLESCENTS REPRESENTS INDIVIDUALA AGED 2-19 YEARS EXCLUSIVE. Chol 142 mg/dL 0-200 [facility] NORMAL RANGES Age WBC RBC HGB HCT [...] HCT IS 5% LESS SOURCE FOR DATA: [employer] 1800 OPERATION MANUAL( AUTOMATED BLOOD COUNTS AND [...] DESIRABLE: <130 MG/DL <110 MG/DL BORDERLINE-HIGH RISK: 130- 159 MG/DL 110-129 MG/DL HIGH RISK: >160 MG/DL >130 MG/DL *CHILDREN AND ADOLESCENTS REPRESENTS INDIVIDUALA AGED 2-19 YEARS EXCLUSIVE. Trig 101 mg/dL 35-200 [facility] NORMAL RANGES Age WBC RBC HGB HCT [...] HCT IS 5% LESS SOURCE FOR DATA: [employer] 1800 OPERATION MANUAL( AUTOMATED BLOOD COUNTS AND [...] DESIRABLE: <130 MG/DL <110 MG/DL BORDERLINE-HIGH RISK: 130- 159 MG/DL 110-129 MG/DL HIGH RISK: >160 MG/DL >130 MG/DL *CHILDREN AND ADOLESCENTS REPRESENTS INDIVIDUALA AGED 2-19 YEARS EXCLUSIVE. LDL_C 63 Calc 75-129 Below low normal [facility] ( [facility] NORMAL RANGES Age WBC RBC HGB HCT [...] HCT IS 5% LESS SOURCE FOR DATA: [employer] 1800 OPERATION MANUAL( AUTOMATED BLOOD COUNTS AND [...] DESIRABLE: <130 MG/DL <110 MG/DL BORDERLINE-HIGH RISK: 130- 159 MG/DL 110-129 MG/DL HIGH RISK: >160 MG/DL >130 MG/DL *CHILDREN AND ADOLESCENTS REPRESENTS INDIVIDUALA AGED 2-19 YEARS EXCLUSIVE. Cho/HDL Ratio 2.4 CALC [facility] ([facility] NORMAL RANGES Age WBC RBC HGB HCT [...] HCT IS 5% LESS SOURCE FOR DATA: [employer] 1800 OPERATION MANUAL( AUTOMATED BLOOD COUNTS AND [...] DESIRABLE: <130 MG/DL <110 MG/DL BORDERLINE-HIGH RISK: 130- 159 MG/DL 110-129 MG/DL HIGH RISK: >160 MG/DL >130 MG/DL *CHILDREN AND ADOLESCENTS REPRESENTS INDIVIDUALA AGED 2-19 YEARS EXCLUSIVE. ID Date Data Source [id number] 03/23/2020 09:38:00 AM EDT MEDENT ([facility] Name Value Range Interpretation Code Description Data Karol rce(s) Supporting Document(s) Glu 85 mg/dL 70-110 [facility] ([facility] NORMAL RANGES Age WBC RBC HGB HCT [...] HCT IS 5% LESS SOURCE FOR DATA: Dashwire 1800 OPERATION MANUAL( AUTOMATED BLOOD COUNTS AND [...] DESIRABLE: <130 MG/DL <110 MG/DL BORDERLINE-HIGH RISK: 130- 159 MG/DL 110-129 MG/DL HIGH RISK: >160 MG/DL >130 MG/DL *CHILDREN AND ADOLESCENTS REPRESENTS INDIVIDUALA AGED 2-19 YEARS EXCLUSIVE. Creat 0.9 mg/dL 0.7-1.2 [facility] ([facility] NORMAL RANGES Age WBC RBC HGB HCT [...] HCT IS 5% LESS SOURCE FOR DATA: Dashwire 1800 OPERATION MANUAL( AUTOMATED BLOOD COUNTS AND [...] DESIRABLE: <130 MG/DL <110 MG/DL BORDERLINE-HIGH RISK: 130- 159 MG/DL 110-129 MG/DL HIGH RISK: >160 MG/DL >130 MG/DL *CHILDREN AND ADOLESCENTS REPRESENTS INDIVIDUALA AGED 2-19 YEARS EXCLUSIVE. BUN 10 mg/dL 8-23 [facility] ([facility] NORMAL RANGES Age WBC RBC HGB HCT [...] HCT IS 5% LESS SOURCE FOR DATA: [employer] DYN 1800 OPERATION MANUAL( AUTOMATED BLOOD COUNTS AND [...] DESIRABLE: <130 MG/DL <110 MG/DL BORDERLINE-HIGH RISK: 130- 159 MG/DL 110-129 MG/DL HIGH RISK: >160 MG/DL >130 MG/DL *CHILDREN AND ADOLESCENTS REPRESENTS INDIVIDUALA AGED 2-19 YEARS EXCLUSIVE. BUN/Creatinine Ratio 11.0 CALC MEDENT ([facility] NORMAL RANGES Age WBC RBC HGB HCT [...] HCT IS 5% LESS SOURCE FOR DATA: Dashwire 1800 OPERATION MANUAL( AUTOMATED BLOOD COUNTS AND [...] DESIRABLE: <130 MG/DL <110 MG/DL BORDERLINE-HIGH RISK: 130- 159 MG/DL 110-129 MG/DL HIGH RISK: >160 MG/DL >130 MG/DL *CHILDREN AND ADOLESCENTS REPRESENTS INDIVIDUALA AGED 2-19 YEARS EXCLUSIVE. Na 136 mmol/L 136-145 [facility] ([facility] NORMAL RANGES Age WBC RBC HGB HCT [...] HCT IS 5% LESS SOURCE FOR DATA: Dashwire 1800 OPERATION MANUAL( AUTOMATED BLOOD COUNTS AND [...] DESIRABLE: <130 MG/DL <110 MG/DL BORDERLINE-HIGH RISK: 130- 159 MG/DL 110-129 MG/DL HIGH RISK: >160 MG/DL >130 MG/DL *CHILDREN AND ADOLESCENTS REPRESENTS INDIVIDUALA AGED 2-19 YEARS EXCLUSIVE. K 4.1 mmol/L 3.5-5.1 [facility] ([facility] NORMAL RANGES Age WBC RBC HGB HCT [...] HCT IS 5% LESS SOURCE FOR DATA: [employer] DYN 1800 OPERATION MANUAL( AUTOMATED BLOOD COUNTS AND [...] DESIRABLE: <130 MG/DL <110 MG/DL BORDERLINE-HIGH RISK: 130- 159 MG/DL 110-129 MG/DL HIGH RISK: >160 MG/DL >130 MG/DL *CHILDREN AND ADOLESCENTS REPRESENTS INDIVIDUALA AGED 2-19 YEARS EXCLUSIVE. CL 102.4 mmol/L 98.0-107.0 [facility] ([facility] NORMAL RANGES Age WBC RBC HGB HCT [...] HCT IS 5% LESS SOURCE FOR DATA: Dashwire 1800 OPERATION MANUAL( AUTOMATED BLOOD COUNTS AND [...] DESIRABLE: <130 MG/DL <110 MG/DL BORDERLINE-HIGH RISK: 130- 159 MG/DL 110-129 MG/DL HIGH RISK: >160 MG/DL >130 MG/DL *CHILDREN AND ADOLESCENTS REPRESENTS INDIVIDUALA AGED 2-19 YEARS EXCLUSIVE. CA 8.4 mg/dL 8.6-10.2 Below low normal [facility] ( [facility] NORMAL RANGES Age WBC RBC HGB HCT [...] HCT IS 5% LESS SOURCE FOR DATA: Dashwire 1800 OPERATION MANUAL( AUTOMATED BLOOD COUNTS AND [...] DESIRABLE: <130 MG/DL <110 MG/DL BORDERLINE-HIGH RISK: 130- 159 MG/DL 110-129 MG/DL HIGH RISK: >160 MG/DL >130 MG/DL *CHILDREN AND ADOLESCENTS REPRESENTS INDIVIDUALA AGED 2-19 YEARS EXCLUSIVE. Co2 20.6 mmol/L 22.0-29.0 Below low normal [facility] ([facility] NORMAL RANGES Age WBC RBC HGB HCT [...] HCT IS 5% LESS SOURCE FOR DATA: Dashwire 1800 OPERATION MANUAL( AUTOMATED BLOOD COUNTS AND [...] DESIRABLE: <130 MG/DL <110 MG/DL BORDERLINE-HIGH RISK: 130- 159 MG/DL 110-129 MG/DL HIGH RISK: >160 MG/DL >130 MG/DL *CHILDREN AND ADOLESCENTS REPRESENTS INDIVIDUALA AGED 2-19 YEARS EXCLUSIVE. TP 5.7 g/dL 6.6-8.7 Below low normal [facility] ( [facility] NORMAL RANGES Age WBC RBC HGB HCT [...] HCT IS 5% LESS SOURCE FOR DATA: [employer] DYN 1800 OPERATION MANUAL( AUTOMATED BLOOD COUNTS AND [...] DESIRABLE: <130 MG/DL <110 MG/DL BORDERLINE-HIGH RISK: 130- 159 MG/DL 110-129 MG/DL HIGH RISK: >160 MG/DL >130 MG/DL *CHILDREN AND ADOLESCENTS REPRESENTS INDIVIDUALA AGED 2-19 YEARS EXCLUSIVE. Alb 3.6 g/dL 3.5-5.2 [facility] ([facility] NORMAL RANGES Age WBC RBC HGB HCT [...] HCT IS 5% LESS SOURCE FOR DATA: Dashwire 1800 OPERATION MANUAL( AUTOMATED BLOOD COUNTS AND [...] DESIRABLE: <130 MG/DL <110 MG/DL BORDERLINE-HIGH RISK: 130- 159 MG/DL 110-129 MG/DL HIGH RISK: >160 MG/DL >130 MG/DL *CHILDREN AND ADOLESCENTS REPRESENTS INDIVIDUALA AGED 2-19 YEARS EXCLUSIVE. Globulin 2.1 CALC [facility] ([facility] NORMAL RANGES Age WBC RBC HGB HCT [...] HCT IS 5% LESS SOURCE FOR DATA: Dashwire 1800 OPERATION MANUAL( AUTOMATED BLOOD COUNTS AND [...] DESIRABLE: <130 MG/DL <110 MG/DL BORDERLINE-HIGH RISK: 130- 159 MG/DL 110-129 MG/DL HIGH RISK: >160 MG/DL >130 MG/DL *CHILDREN AND ADOLESCENTS REPRESENTS INDIVIDUALA AGED 2-19 YEARS EXCLUSIVE. A/G Ratio 1.7 CALC [facility] ([facility] NORMAL RANGES Age WBC RBC HGB HCT [...] HCT IS 5% LESS SOURCE FOR DATA: Dashwire 1800 OPERATION MANUAL( AUTOMATED BLOOD COUNTS AND [...] DESIRABLE: <130 MG/DL <110 MG/DL BORDERLINE-HIGH RISK: 130- 159 MG/DL 110-129 MG/DL HIGH RISK: >160 MG/DL >130 MG/DL *CHILDREN AND ADOLESCENTS REPRESENTS INDIVIDUALA AGED 2-19 YEARS EXCLUSIVE. Alt (SGPT) 17 U/L 0-41 [facility] ([facility] NORMAL RANGES Age WBC RBC HGB HCT [...] HCT IS 5% LESS SOURCE FOR DATA: Dashwire 1800 OPERATION MANUAL( AUTOMATED BLOOD COUNTS AND [...] DESIRABLE: <130 MG/DL <110 MG/DL BORDERLINE-HIGH RISK: 130- 159 MG/DL 110-129 MG/DL HIGH RISK: >160 MG/DL >130 MG/DL *CHILDREN AND ADOLESCENTS REPRESENTS INDIVIDUALA AGED 2-19 YEARS EXCLUSIVE. Alp 80.2 U/L 40-129 [facility] ([facility] NORMAL RANGES Age WBC RBC HGB HCT [...] HCT IS 5% LESS SOURCE FOR DATA: Dashwire 1800 OPERATION MANUAL( AUTOMATED BLOOD COUNTS AND [...] DESIRABLE: <130 MG/DL <110 MG/DL BORDERLINE-HIGH RISK: 130- 159 MG/DL 110-129 MG/DL HIGH RISK: >160 MG/DL >130 MG/DL *CHILDREN AND ADOLESCENTS REPRESENTS INDIVIDUALA AGED 2-19 YEARS EXCLUSIVE. Ast (Sgot) 14 U/L 0-40 [facility] ([facility] NORMAL RANGES Age WBC RBC HGB HCT [...] HCT IS 5% LESS SOURCE FOR DATA: Dashwire 1800 OPERATION MANUAL( AUTOMATED BLOOD COUNTS AND [...] DESIRABLE: <130 MG/DL <110 MG/DL BORDERLINE-HIGH RISK: 130- 159 MG/DL 110-129 MG/DL HIGH RISK: >160 MG/DL >130 MG/DL *CHILDREN AND ADOLESCENTS REPRESENTS INDIVIDUALA AGED 2-19 YEARS EXCLUSIVE. Anion Gap 17 mmol/L [facility] ([facility] NORMAL RANGES Age WBC RBC HGB HCT [...] HCT IS 5% LESS SOURCE FOR DATA: Dashwire 1800 OPERATION MANUAL( AUTOMATED BLOOD COUNTS AND [...] DESIRABLE: <130 MG/DL <110 MG/DL BORDERLINE-HIGH RISK: 130- 159 MG/DL 110-129 MG/DL HIGH RISK: >160 MG/DL >130 MG/DL *CHILDREN AND ADOLESCENTS REPRESENTS INDIVIDUALA AGED 2-19 YEARS EXCLUSIVE. Tbili 0.32 mg/dL 0.0-1.2 [facility] ([facility] NORMAL RANGES Age WBC RBC HGB HCT [...] HCT IS 5% LESS SOURCE FOR DATA: Dashwire 1800 OPERATION MANUAL( AUTOMATED BLOOD COUNTS AND [...] DESIRABLE: <130 MG/DL <110 MG/DL BORDERLINE-HIGH RISK: 130- 159 MG/DL 110-129 MG/DL HIGH RISK: >160 MG/DL >130 MG/DL *CHILDREN AND ADOLESCENTS REPRESENTS INDIVIDUALA AGED 2-19 YEARS EXCLUSIVE. Osmolality-Calculated 269.8 [facility] ([facility] NORMAL RANGES Age WBC RBC HGB HCT [...] HCT IS 5% LESS SOURCE FOR DATA: Dashwire 1800 OPERATION MANUAL( AUTOMATED BLOOD COUNTS AND [...] DESIRABLE: <130 MG/DL <110 MG/DL BORDERLINE-HIGH RISK: 130- 159 MG/DL 110-129 MG/DL HIGH RISK: >160 MG/DL >130 MG/DL *CHILDREN AND ADOLESCENTS REPRESENTS INDIVIDUALA AGED 2-19 YEARS EXCLUSIVE. eGFR 101 # MEDENT ( [facility] NORMAL RANGES Age WBC RBC HGB HCT [...] HCT IS 5% LESS SOURCE FOR DATA: Dashwire 1800 OPERATION MANUAL( AUTOMATED BLOOD COUNTS AND [...] DESIRABLE: <130 MG/DL <110 MG/DL BORDERLINE-HIGH RISK: 130- 159 MG/DL 110-129 MG/DL HIGH RISK: >160 MG/DL >130 MG/DL *CHILDREN AND ADOLESCENTS REPRESENTS INDIVIDUALA AGED 2-19 YEARS EXCLUSIVE. eGFR Non-Afr. Turkish 87 # [facility] ([facility] NORMAL RANGES Age WBC RBC HGB HCT [...] HCT IS 5% LESS SOURCE FOR DATA: Dashwire 1800 OPERATION MANUAL( AUTOMATED BLOOD COUNTS AND [...] DESIRABLE: <130 MG/DL <110 MG/DL BORDERLINE-HIGH RISK: 130- 159 MG/DL 110-129 MG/DL HIGH RISK: >160 MG/DL >130 MG/DL *CHILDREN AND ADOLESCENTS REPRESENTS INDIVIDUALA AGED 2-19 YEARS EXCLUSIVE. ID Date Data Source [id number] 03/23/2020 09:36:00 AM EDT MEDENT ([facility] Name Value Range Interpretation Code Description Data Karol rce(s) Supporting Document(s) Hemoglobin A1c/Hemoglobin.total in Blood 7.8 % 4.50-6.20 Above high normal [facility] ([facility] Procedure Social History Code Duration Value Status Description Data Source(s ) Smoking 03/29/2021 12:00:00 AM EDT Patient is a former smoker completed Patient is a former smoker [facility] ([facility]) Alcohol intake 03/03/2021 12:00:00 AM EDT Current non-d haim of alcohol (finding) completed Current non-drinker of alcohol (finding) [facility] Smoking 02/09/2021 12:00:00 AM EDT Patient is a former smoker completed Patient is a former smoker MED[facility] ([facility]) Alcohol intake 02/02/2021 12:00:00 AM EDT Current non-d haim of alcohol (finding) completed Current non-drinker of alcohol (finding) [facility] Smoking 12/15/2020 12:00:00 AM EDT Former Smoker completed Former Smoker eCW1 ([facility]) Smoking 12/15/2020 12:00:00 AM EDT Former Smoker completed Former Smoker eCW1 ([facility]) Alcohol intake 09/02/2020 12:00:00 AM EDT No completed [facility] Smoking 09/02/2020 12:00:00 AM EDT Former smoker completed Former smoker [facility] Vital Signs ID Date Data Source UNK Name Value Range Interpretation Code Description Data Source(s) Body weight 191.00 [lb_av] 191.00 [lb_av] ASHLEY Dickerson ([facility]) Body height 64 [in_i] 64 [in_i] [facility] ([facility]) 5'4" Body mass index (BMI) [Ratio] 32.8 kg/m2 32.8 k g/m2 MEDSTEVEN ([facility]) Heart rate 69 /min 69 /min MEDSTEVEN ([facility]) Systolic blood pressure--sitting 191 mm[Hg] 191 mm[Hg] [facility] ([facility]) CBP, adult cuff/Ra Diastolic blood pressure--sitting 88 mm[Hg] 88 mm[Hg] MEDSTEVEN ([facility]) CBP, adult cuff/Ra Systolic blood pressure 170 mm[Hg] 170 mm[Hg] M EDENT ([facility]) Diastolic blood pressure 78 mm[Hg] 78 mm[Hg] MED[facility] ([facility]) Heart rate 77 /min 77 /min MED[facility] ([facility]) Body weight 192.00 [lb_av] 192.00 [lb_av] MEDEN T ([facility]) Body weight 190.00 [lb_av] 190.00 [lb_av] MEDEN T ([facility] [place] body weight 118 [lb_av] 118 [lb_av] MEDEN T ([facility] Body mass index (BMI) [Ratio] 34.7 kg/m2 34.7 k g/m2 MEDENT ([facility] Oxygen saturation in Arterial blood by Pulse oximetry 93 % 93 % EMMANUELLE ([facility] Systolic blood pressure 108 mm[Hg] 108 mm[Hg] M EDENT ([facility] Diastolic blood pressure 64 mm[Hg] 64 mm[Hg] [facility] ([facility] Body temperature 98.7 [degF] 98.7 [degF] [facility] ([facility] Heart rate 64 /min 64 /min [facility] ([facility] Respiratory rate 14 /min 14 /min [facility] ( [facility] Body height 62 [in_i] 62 [in_i] MED[facility] ([facility] 5'2" Body height 162.6 cm 162.6 cm [facility] Systolic blood pressure 110 mm[Hg] 110 mm[Hg] [facility] Diastolic blood pressure 60 mm[Hg] 60 mm[Hg] [facility] Heart rate 74 /min 74 /min [facility] Respiratory rate 20 /min 20 /min [facility] Body weight 87.544 kg 87.544 kg [facility] Body mass index (BMI) [Ratio] 33.13 kg/m2 33.13 kg/m2 [facility] Oxygen saturation in Arterial blood by Pulse oximetry 96 % 96 % [facility] Body weight 191.00 [lb_av] 191.00 [lb_av] MEDEN T ([facility] ) Systolic blood pressure 140 mm[Hg] 140 mm[Hg] M EDENT ([facility]) Diastolic blood pressure 72 mm[Hg] 72 mm[Hg] MED[facility] ([facility] ) Heart rate 73 /min 73 /min MED[facility] ([facility] ) Body height 63 [in_i] 63 [in_i] MED[facility] ([facility] ) 5'3" Body mass index (BMI) [Ratio] 33.8 kg/m2 33.8 k g/m2 [facility] ([facility] ) Oxygen saturation in Arterial blood by Pulse oximetry 94 % 94 % [facility] ([facility] ) Systolic blood pressure 122 mm[Hg] 122 mm[Hg] [facility] Diastolic blood pressure 60 mm[Hg] 60 mm[Hg] [facility] Body mass index (BMI) [Ratio] 32.99 kg/m2 32.99 kg/m2 [facility] Oxygen saturation in Arterial blood by Pulse oximetry 95 % 95 % [facility] Heart rate 66 /min 66 /min [facility] Body height 162.6 cm 162.6 cm [facility] Body weight 87.181 kg 87.181 kg [facility] Respiratory rate 12 /min 12 /min [facility] ( [facility] ) Body height 64 [in_i] 64 [in_i] [facility] ([facility] 5'4" Body weight 196.00 [lb_av] 196.00 [lb_av] MEDEN T ([facility] ) Body mass index (BMI) [Ratio] 33.6 kg/m2 33.6 k g/m2 MED[facility] ([facility] ) [place] body weight 130 [lb_av] 130 [lb_av] MEDEN T ([facility] ) Body weight 192 [lb_av] 192 [lb_av] eCW1 ([facility]) Body temperature 96.2 [degF] 96.2 [degF] eCW1 ( [facility]) Systolic blood pressure 110 mm[Hg] 110 mm[Hg] e CW1 ([facility]) Diastolic blood pressure 70 mm[Hg] 70 mm[Hg] eCW1 ([facility]) Body height 64 [in_i] 64 [in_i] eCW1 ([facility]) Body mass index (BMI) [Ratio] 32.95 kg/m2 32.95 kg/m2 eCW1 ([facility]) Heart rate 66 /min 66 /min eCW1 ([facility] Respiratory rate 18 /min 18 /min eCW1 ([facility]) Body mass index (BMI) [Ratio] 34.6 kg/m2 34.6 k g/m2 MEDENT ([facility]) Systolic blood pressure 142 mm[Hg] 142 mm[Hg] M EDENT ([facility]) Diastolic blood pressure 80 mm[Hg] 80 mm[Hg] MED[facility] ([facility]) Heart rate 73 /min 73 /min [facility] ([facility]) Body height 63 [in_i] 63 [in_i] MEDENT ([facility]) 5'3" Body weight 195.50 [lb_av] 195.50 [lb_av] MEDEN T ([facility]) Oxygen saturation in Arterial blood by Pulse oximetry 98 % 98 % MED[facility] ([facility]) Systolic blood pressure 136 mm[Hg] 136 mm[Hg] M EDENT ([facility] Diastolic blood pressure 80 mm[Hg] 80 mm[Hg] [facility] ([facility] Body temperature 98.3 [degF] 98.3 [degF] [facility] ([facility] Heart rate 66 /min 66 /min [facility] ([facility] Respiratory rate 14 /min 14 /min [facility] ( [facility] Body height 62 [in_i] 62 [in_i] MEDENT ([facility] 5'2" Body weight 199.00 [lb_av] 199.00 [lb_av] MEDEN T ([facility] [place] body weight 118 [lb_av] 118 [lb_av] MEDEN T ([facility] Body mass index (BMI) [Ratio] 36.4 kg/m2 36.4 k g/m2 MED[facility] ([facility] Oxygen saturation in Arterial blood by Pulse oximetry 96 % 96 % EMMANUELLE ([facility] Body height 162.6 cm 162.6 cm [facility] Systolic blood pressure 108 mm[Hg] 108 mm[Hg] [facility] Diastolic blood pressure 70 mm[Hg] 70 mm[Hg] [facility] Heart rate 80 /min 80 /min [facility] Body weight 90.266 kg 90.266 kg [facility] Body mass index (BMI) [Ratio] 34.16 kg/m2 34.16 kg/m2 [facility] Oxygen saturation in Arterial blood by Pulse oximetry 94 % 94 % [facility] Systolic blood pressure 138 mm[Hg] 138 mm[Hg] M EDENT ([facility] Diastolic blood pressure 84 mm[Hg] 84 mm[Hg] MEDENT ([facility] Body mass index (BMI) [Ratio] 35.7 kg/m2 35.7 k g/m2 MEDSTEVEN ([facility] Oxygen saturation in Arterial blood by Pulse oximetry 95 % 95 % EMMANUELLE ([facility] Body temperature 99.0 [degF] 99.0 [degF] [facility] ([facility] Heart rate 78 /min 78 /min MED[facility] ([facility] Respiratory rate 14 /min 14 /min [facility] ( [facility] Body height 62 [in_i] 62 [in_i] MEDENT ([facility] 5'2" Body weight 195.00 [lb_av] 195.00 [lb_av] MEDEN T ([facility] [place] body weight 118 [lb_av] 118 [lb_av] MEDEN T ([facility] Diastolic blood pressure 80 mm[Hg] 80 mm[Hg] MEDENT ([facility]) Systolic blood pressure 142 mm[Hg] 142 mm[Hg] M EDENT ([facility]) Heart rate 76 /min 76 /min MEDENT ([facility]) Body temperature 97.8 [degF] 97.8 [degF] MEDENT ([facility]) Body height 63 [in_i] 63 [in_i] MEDENT ([facility]) 5'3" Body weight 194.50 [lb_av] 194.50 [lb_av] MEDEN T ([facility]) Body mass index (BMI) [Ratio] 34.5 kg/m2 34.5 k g/m2 MEDENT ([facility]) Systolic blood pressure 132 mm[Hg] 132 mm[Hg] M EDENT ([facility]) Diastolic blood pressure 62 mm[Hg] 62 mm[Hg] MEDENT ([facility]) Body height 64 [in_i] 64 [in_i] MEDENT ([facility]) 5'4" Body weight 192.00 [lb_av] 192.00 [lb_av] MEDEN T ([facility]) Body mass index (BMI) [Ratio] 33.0 kg/m2 33.0 k g/m2 MED[facility] ([facility]) [place] body weight 130 [lb_av] 130 [lb_av] MEDEN T ([facility]) Body weight 87.091 kg 87.091 kg [facility] ([facility]) Systolic blood pressure 124 mm[Hg] 124 mm[Hg] M EDENT ([facility]) Diastolic blood pressure 62 mm[Hg] 62 mm[Hg] MEDENT ([facility]) Body temperature 98.8 [degF] 98.8 [degF] MEDENT ([facility]) [place] body weight 118 [lb_av] 118 [lb_av] MEDEN T ([facility] Heart rate 62 /min 62 /min MED[facility] ([facility] Body height 62 [in_i] 62 [in_i] MEDENT ([facility] 5'2" Body mass index (BMI) [Ratio] 35.7 kg/m2 35.7 k g/m2 EMMANUELLE ([facility] Respiratory rate 16 /min 16 /min EMMANUELLE ( [facility] Body weight 195.00 [lb_av] 195.00 [lb_av] MEDEN T ([facility] Systolic blood pressure 122 mm[Hg] 122 mm[Hg] M EDENT ([facility] Diastolic blood pressure 70 mm[Hg] 70 mm[Hg] EMMANUELLE ([facility] Body temperature 99.2 [degF] 99.2 [degF] EMMANUELLE ([facility] Oxygen saturation in Arterial blood by Pulse oximetry 96 % 96 % EMMANUELLE ([facility] Patient Treatment Plan of Care Planned Activity Planned Date Details Description Data Source (s) Bygriceldareon BCise 2 MG/0.85ML AUIJ 02/14/2021 12:00:00 AM EDT [facility] atorvastatin 80 MG Oral Tablet 02/02/2021 12:00:00 AM EDT [facility] moxifloxacin 5 MG/ML Ophthalmic Solution 01/24/2021 12:00:00 AM EDT [facility] Erythromycin 0.005 MG/MG Ophthalmic Ointment 01/04/2021 12:00:00 AM EDT [facility] carvedilol 3.125 MG Oral Tablet 09/02/2020 12:00:00 AM EDT [facility] pantoprazole 40 MG Delayed Release Oral Tablet 08/05/2020 12:00:00 AM EST [facility] Losartan Potassium 25 MG Oral Tablet 08/05/2020 12:00:00 AM EST [facility] carvedilol 3.125 MG Oral Tablet 11/30/2019 12:00:00 AM EDT [facility] 0.65 ML exenatide 3.08 MG/ML Pen Injector 07/12/2014 12:00:00 AM ES T [facility] Metformin hydrochloride 500 MG Oral Tablet 07/02/2014 12:00:00 AM E [facility] Ergocalciferol 23942 UNT Oral Capsule [facility] Auxier-3 Fatty Acids (FISH OIL PO) [facility] Lovastatin 40 MG Oral Tablet [facility] Insulin, Aspart, Human 100 UNT/ML Injectable Solution [facility] Multiple Vitamins-Minerals (DAILY MULTIVITAMIN PO) [facility] Furosemide 20 MG Oral Tablet [facility] Insulin Glargine 100 UNT/ML Injectable Solution [facility] Fenofibrate 160 MG Oral Tablet [facility] Insulin, Aspart, Human 100 UNT/ML Injectable Solution [facility] glimepiride 4 MG Oral Tablet [facility] Fosinopril Sodium 40 MG Oral Tablet [facility] Omeprazole 20 MG Delayed Release Oral Capsule [facility]
[2021-04-10 21:11] LABS: BASO # 0.1 10^3/uL (0.0-0.2); BASO % 0.7 % (0.0-1.0); EOS # 0.3 10^3/uL (0.0-0.5); EOS % 2.9 % (0.0-3.0); HEMATOCRIT 40.8 % (42.0-52.0); HEMOGLOBIN 13.7 g/dl (13.5-17.5); LYMPH # 2.5 10^3/uL (1.5-5.0); MEAN CORPUSCULAR HEMOGLOBIN 29.4 pg (27.0-33.0); MEAN CORPUSCULAR HGB CONC 33.6 g/dl (32.0-36.5); MEAN CORPUSCULAR VOLUME 87.6 fl (80.0-96.0); MONO # 0.9 10^3/uL (0.0-0.8); NEUTROPHILS # 5.4 10^3/uL (1.5-8.5); NEUTROPHILS % 59.1 % (36.0-66.0); PLATELET COUNT, AUTOMATED 256 10^3/uL (150-450); RED BLOOD COUNT 4.66 10^6/uL (4.30-6.10); WHITE BLOOD COUNT 9.2 10^3/uL (4.0-10.0)
[2021-04-10 21:21] LABS: INR 1.02; PROTHROMBIN TIME 13.8 SECONDS (12.7-14.5)
[2021-04-10 21:22] LABS: PARTIAL THROMBOPLASTIN TIME 29.1 SECONDS (25.9-37.0)
[2021-04-10 21:28] LABS: ALBUMIN 2.9 GM/DL (3.2-5.2); BILIRUBIN,TOTAL 0.7 MG/DL (0.2-1.0); CALCIUM LEVEL 9.6 MG/DL (8.8-10.2); CREATININE FOR GFR 1.43 MG/DL (0.70-1.30); GLOMERULAR FILTRATION RATE 52.4 (>49); POTASSIUM SERUM 5.4 MEQ/L (3.5-5.1); TOTAL PROTEIN 6.7 GM/DL (6.4-8.2)
--- OUTSIDE RECORDS SUMMARY | 2021-04-11 02:20 | CCD ---
Author Author [facility] Organization [facility] Address Unknown Phone Unavailable Care Team Providers Care Psychiatric Clinical Nurse Specialist Name Role Phone Yuriy WILCOX MD Unavailable [...] WILCOX MD Unavailable Unavailable CAYDEN, B KEVIN HEARING STENOGRAPHER Unavailable Unavailable CAYDEN, B KEVIN HEARING STENOGRAPHER Unavailable Unavailable CAYDEN, B KEVIN HEARING STENOGRAPHER Unavailable Unavailable CAYDEN, B KEVIN HEARING STENOGRAPHER Unavailable Unavailable CAYDEN, B KEVIN HEARING STENOGRAPHER Unavailable Unavailable CAYDEN, B KEVIN HEARING STENOGRAPHER Unavailable Unavailable CAYDEN, B KEVIN HEARING STENOGRAPHER Unavailable Unavailable CAYDEN, B KEVIN HEARING STENOGRAPHER Unavailable Unavailable CAYDEN, B KEVIN HEARING STENOGRAPHER Unavailable Unavailable CAYDEN, B KEVIN HEARING STENOGRAPHER Unavailable Unavailable CAYDEN, B KEVIN HEARING STENOGRAPHER Unavailable Unavailable CAYDEN, B KEVIN HEARING STENOGRAPHER Unavailable Unavailable CAYDEN, B KEVIN HEARING STENOGRAPHER Unavailable Unavailable CAYDEN, B KEVIN HEARING STENOGRAPHER Unavailable Unavailable CAYDEN, B KEVIN HEARING STENOGRAPHER Unavailable Unavailable CAYDEN, B KEVIN HEARING STENOGRAPHER Unavailable Unavailable CAYDEN, B KEVIN HEARING STENOGRAPHER Unavailable Unavailable CAYDEN, B KEVIN HEARING STENOGRAPHER Unavailable Unavailable CAYDEN, B KEVIN HEARING STENOGRAPHER Unavailable Unavailable CAYDEN, B KEVIN HEARING STENOGRAPHER Unavailable Unavailable CAYDEN, B KEVIN HEARING STENOGRAPHER Unavailable Unavailable CAYDEN, B KEVIN HEARING STENOGRAPHER Unavailable Unavailable CAYDEN, B KEVIN HEARING STENOGRAPHER Unavailable Unavailable CAYDEN, B KEVIN HEARING STENOGRAPHER Unavailable Unavailable CAYDEN, B KEVIN HEARING STENOGRAPHER Unavailable Unavailable CAYDEN, B KEVIN HEARING STENOGRAPHER Unavailable Unavailable CAYDEN, B KEVIN HEARING STENOGRAPHER Unavailable Unavailable CAYDEN, B KEVIN HEARING STENOGRAPHER Unavailable Unavailable CAYDEN, B KEVIN HEARING STENOGRAPHER Unavailable Unavailable CAYDEN, B KEVIN HEARING STENOGRAPHER Unavailable Unavailable CAYDEN, B KEVIN HEARING STENOGRAPHER Unavailable Unavailable CAYDEN, B KEVIN HEARING STENOGRAPHER Unavailable Unavailable CAYDEN, B KEVIN HEARING STENOGRAPHER Unavailable Unavailable CAYDEN, B KEVIN HEARING STENOGRAPHER Unavailable Unavailable CAYDEN, B KEVIN HEARING STENOGRAPHER Unavailable Unavailable CAYDEN, B KEVIN HEARING STENOGRAPHER Unavailable Unavailable CAYDEN, B KEVIN HEARING STENOGRAPHER Unavailable Unavailable CAYDEN, B KEVIN HEARING STENOGRAPHER Unavailable Unavailable CAYDEN, B KEVIN HEARING STENOGRAPHER Unavailable Unavailable CAYDEN, B KEVIN HEARING STENOGRAPHER Unavailable Unavailable CAYDEN, B KEVIN HEARING STENOGRAPHER Unavailable Unavailable CAYDEN, B KEVIN HEARING STENOGRAPHER Unavailable Unavailable CAYDEN, B KEVIN HEARING STENOGRAPHER Unavailable Unavailable CAYDEN, B KEVIN HEARING STENOGRAPHER Unavailable Unavailable CAYDEN, B KEVIN HEARING STENOGRAPHER Unavailable Unavailable CAYDEN, B KEVIN HEARING STENOGRAPHER Unavailable Unavailable CAYDEN, B KEVIN HEARING STENOGRAPHER Unavailable Unavailable CAYDEN, B KEVIN HEARING STENOGRAPHER Unavailable Unavailable CAYDEN, B KEVIN HEARING STENOGRAPHER Unavailable Unavailable CAYDEN, B KEVIN HEARING STENOGRAPHER Unavailable Unavailable CAYDEN, B KEVIN HEARING STENOGRAPHER Unavailable Unavailable CAYDEN, B KEVIN HEARING STENOGRAPHER Unavailable Unavailable CAYDEN, B KEVIN HEARING STENOGRAPHER Unavailable Unavailable CAYDEN, B KEVIN HEARING STENOGRAPHER Unavailable Unavailable CAYDEN, B KEVIN HEARING STENOGRAPHER Unavailable Unavailable CAYDEN, B KEVIN HEARING STENOGRAPHER Unavailable Unavailable CAYDEN, B KEVIN HEARING STENOGRAPHER Unavailable Unavailable CAYDEN, B KEVIN HEARING STENOGRAPHER Unavailable Unavailable CAYDEN, B KEVIN HEARING STENOGRAPHER Unavailable Unavailable CAYDEN, B KEVIN HEARING STENOGRAPHER Unavailable Unavailable CAYDEN, B KEVIN HEARING STENOGRAPHER Unavailable Unavailable CAYDEN, B KEVIN HEARING STENOGRAPHER Unavailable Unavailable ANTECOL, Yuriy HUSSEIN MD Unavailable [...] is protected by Article 27-F of the [facility] Public Health law. If you continue you may have access to information: Regarding HIV / AIDS; Provided by facilities licensed or operated by the [facility] Office of Mental Health; or Provided by the [facility] Office for People With Developmental Disabilities. If such information is present, then the following [facility] mandated warning applies: This information has [...] law may result in a fine or detention sentence or both. A general authorization for the release of medical or other information is NOT sufficient authorization for further disc losure. Family History Family Member Name Family Member Gender Family Member Status Date o f Status Description Data Source(s) Unknown Unknown Problem MEDENT ([facility]) Unknown Unknown Problem MEDENT ([facility]) sister/brother Unknown Female Problem MEDENT ([facility]) Unknown Female Problem MEDENT ([facility]) Unknown Female Problem MED[facility] ([facility]) Unknown Female Problem MEDENT ([facility]) Encounters Encounter Providers Location Date Indications Data Source(s ) Outpatient Attender: KEENAN LAY MD Main Office 03/29/2021 10:00:00 AM EDT MED[facility] ([facility]) Outpatient Attender: MARLENE WILCOX MD [facility] 09:30:00 AM EDT MEDENT ([facility] Outpatient Attender: Sonia CARUSO-SJVida.MARVA 12:00:00 AM EDT - 03/03/2021 03:46:19 PM EDT [facility] Outpatient Attender: Krystina Escobedo MDReferrer: Krystina MENEZESCT-LUCIOP 02/20/2021 03:46:22 PM EDT [facility] Outpatient Attender: KEVIN RODARTE NP Physical Therapy 11:45:00 AM EDT MEDENT ([facility]) Outpatient SJVida.MARVAKarissaSJVida.MARVA 02/03/2021 12:00:00 AM EDT [facility] Outpatient Attender: Krystina MENEZESMARVA-SJP.MARVA 01/09 11:08:30 AM EDT - 02/02/2021 12:07:08 PM EDT [facility] Outpatient Attender: Mel Chacon MD Main office - [facility] 01/30/2021 01:00:00 PM EDT MEDENT ([facility] Unknown [address] [address] 12/20/2020 12:00:00 AM EDT eCW1 ([facility]) Outpatient [address] [facility] [facility] [address] 12/15/2020 12:00:00 AM EDT eCW1 ([facility]) Outpatient Attender: KEVIN RODARTE NP Physical Therapy 10:45:00 AM EDT MEDENT ([facility]) Outpatient Referrer: Sonia MENEZESMARVA-SJP.MARVA 01:27:04 PM EDT [facility] Outpatient Attender: MARLENE WILCOX MD [place] [facility] 09:15:00 AM EDT MED[facility] ([facility] Outpatient Attender: Sonia CARUSO-SJPGrupoMARVA 10:19:37 AM EDT - 09/02/2020 11:43:09 AM EDT [facility] Outpatient Attender: MARLENE WILCOX MD [place] [facility] 09:00:00 AM EST MEDENT ([facility] Outpatient Attender: MARLENE WILCOX MD [place] [facility] 09:15:00 AM EDT MED[facility] ([facility] Immunizations Vaccine Date Status Description Data Source(s) COVID-19 VACCINE Pfizer 03/23/2021 12:00:00 AM EDT completed [facility]SIIS Vaccine Series Complete: YESThis Data wa s Submitted to [facility] Via [employer]. New in 2012. IIV4 03/07/2021 09:41:00 AM EDT completed MED[facility] ([facility] COVID-19 VACCINE Pfizer 07/30/2020 12:00:00 AM EST completed NYSIIS Vaccine Series Complete: YESThis Data wa s Submitted to [facility] Via [employer]. COVID-19 VACCINE Pfizer 07/09/2020 12:00:00 AM EST completed [facility]IS Vaccine Series Complete: NOThis Data was Submitted to [facility] Via [employer]. New in 2012. IIV4 03/23/2020 09:17:00 AM EDT completed MED[facility] ([facility] Medications Medication Brand Name Start Date Product Form Dose Route Admi nistrative Instructions Pharmacy Instructions Status Indications Reaction Description Data Source(s) Amlodipine 2.5 MG Oral Tablet Amlodipine Besylate 03/29/2021 12:00: 00 AM EDT ORAL active [facility] ([facility] Insulin, Aspart, Human 100 UNT/ML Injectable Solution [NovoL og] Novolog 03/28/2021 12:00:00 AM EDT active MED[facility] ([facility]) Paroxetine HCL Paroxetine HCL 03/28/2021 12:00:00 AM EDT OR AL completed [facility] Losartan Potassium 25 MG Oral Tablet Losartan Potassium 12:00:00 AM EDT ORAL active [facility] ([facility] Metformin hydrochloride 500 MG Oral Tablet Metformin HCL 03/28/2021 12:00:00 AM EDT ORAL active [facility] ([facility] Insulin Glargine 100 UNT/ML Injectable Solution [Lantus] Jayce tus 03/28/2021 12:00:00 AM EDT active M EDENT ([facility]) Tamsulosin hydrochloride 0.4 MG Oral Capsule [Flomax] Flomax 03/28/2021 12:00:00 AM EDT ORAL active [facility] ([facility] 0.65 ML exenatide 3.08 MG/ML Pen Injector [Bydureon] Bydureo n 03/28/2021 12:00:00 AM EDT SUBCUTANEOUS active MEDENT ([facility]) Hydrocortisone 10 MG/ML / Neomycin 3.5 M G/ML / Polymyxin B 82568 UNT/ML Otic Solution Neomycin/Polymyxin/Hydrocortisone (Otic) 03/28/2021 12:00:00 AM EDT active [facility] ([facility]) moxifloxacin 5 MG/ML Ophthalmic Solution Moxifloxacin HCL 03/28/2021 12:00:00 AM EDT active [facility] ([facility] pantoprazole 40 MG Delayed Release Oral Tablet Pantoprazole Sodium 03/28/2021 12:00:00 AM EDT ORAL active M EDENT ([facility]) atorvastatin 80 MG Oral Tablet Atorvastatin Calcium 03/28/2021 1 2:00:00 AM EDT ORAL active MEDENT ( [facility]) 200 ACTUAT Albuterol 0.09 MG/ACTUAT Metered Dose Inhal er [Ventolin] Ventolin HFA 03/28/2021 12:00:00 AM EDT RESPIRATORY active MEDENT ([facility]) Acetaminophen 500 MG Oral Tablet [Tylenol] Tylenol Extra Str ength 03/28/2021 12:00:00 AM EDT ORAL active M EDENT ([facility]) Cholecalciferol 1000 UNT Oral Tablet Vitamin D (Cholecalcife rol) 03/28/2021 12:00:00 AM EDT ORAL active M EDENT ([facility]) Magnesium Oxide 400 MG Oral Capsule Magnesium Oxide -MG Supp lement 03/28/2021 12:00:00 AM EDT ORAL active M EDENT ([facility]) Melatonin 10 MG Oral Tablet Melatonin 03/28/2021 12:00:00 AM EDT ORAL active [facility] ([facility]) Calcium Carbonate 1500 MG Oral Tablet Calcium 600 03/28/2021 12:00 :00 AM EDT ORAL active [facility] ([facility]) ferrous sulfate 325 MG Oral Tablet Ferrous Sulfate 03/28/2021 12:00 :00 AM EDT ORAL active MED[facility] ([facility]) Aspirin 325 MG Delayed Release Oral Tablet Aspirin 03/28/2021 12:00:00 AM EDT ORAL active MEDENT ([facility]) Ketoconazole 20 MG/ML Medicated Shampoo KETOCONAZOLE 03/28/20 12:00:00 AM EDT shampoo 120 SHAMPOO DAILY UNTIL SCALP IS CLEAR THEN SHAMPOO 2-3 TIMES WEEKLY FOR MAINTENANCE SHAMPOO DAILY UNTIL SCALP IS CLEAR THEN SHAMPOO 2-3 TIMES WEEKLY FOR MAINTENANCE SOLD: 03/30/2021 [facility] Ketoconazole 20 MG/ML Medicated Shampoo Ketoconazole 03/28/20 12:00:00 AM EDT active MEDENT ( [facility]) 1 % 03/08/2021 12:00:00 AM EDT drops,suspension 5 INSTILL 1 DROP IN THE RIGHT EYE TWO TIMES A DAY FOR 2 WEEKS INSTILL 1 DROP IN THE RIGHT EYE TWO TIME S A DAY FOR 2 WEEKS SOLD: 03/10/2021 [facility] Billie BCise 2 MG/0.85ML AUIJ [id number] 02/14/2021 12:00:00 AM EDT active INJECT THE CONTENTS OF ONE P EN UNDER THE SKIN ONCE WEEKLY [facility] atorvastatin 80 MG Oral Tablet atorvastatin (LIPITOR) 80 MG tablet atorvastatin (LIPITOR) 80 MG tablet 02/02/2021 12:00:00 AM EDT 80 mg Oral active Take 1 tablet (80 mg total) by mouth daily Replacing lovastatin [facility] Dexamethasone 0.001 MG/MG / Neomycin 0.0 035 [...] IN THE RIGHT EYE 6 TIMES DAILY [facility] moxifloxacin 5 MG/ML Ophthalmic Solution 0.5 % MOXIFLOXACIN HCL 01/04/2021 12:00:00 AM EDT drops 3 INSTILL 1 DROP IN THE RIG HT EYE 6 TIMES DAILY INSTILL 1 DROP IN THE RIGHT EYE 6 TIMES DAILY SOLD: 01/24/2021 [facility] 5 mg/gram (0.5 %) 01/04/2021 12:00:00 [...] EYE 6 TIMES DAILY SOLD: 01/04/2021 [facility] Erythromycin 0.005 MG/MG Ophthalmic Oint ment erythromycin (ROMYCIN) ophthalmic ointment erythromycin (ROMYCIN) ophthalmic ointment 01/04/2021 12:00: 00 AM EDT aborted APPLY A THIN RIB BON TO THE RIGHT EYE ONCE DAILY AT NIGHT [facility] carvedilol 3.125 MG Oral Tablet carvedilol (COREG) 3.1 25 MG tablet carvedilol (COREG) 3.125 MG tablet 09/02/2020 12:00:00 AM EDT 3.125 mg Oral active Coronary angioplasty status Take 1 tablet (3.125 mg to jason) by mouth 2 (two) times a day with meals [facility] Coronary angioplasty status Losartan Potassium 25 MG Oral Tablet losartan (COZAAR) 25 MG tablet losartan (COZAAR) 25 MG tablet 08/05/2020 12:00:00 AM EST 25 mg Oral active Take 25 mg by mouth daily [facility] pantoprazole 40 MG Delayed Release Oral Tablet pantoprazole (PROTONIX) 40 MG tablet pantoprazole (PROTONIX) 40 MG tablet 08/05/2020 12:00:00 AM EST active TAKE ONE TABLET BY MOUTH NEVILLE DAY MAXIMUM DAILY DOSE 1 TABLET [facility] POLYETHYLENE GLYCOL 3350 142 MG/ML Oral Solution [Miralax] M iralax 04/22/2020 12:00:00 AM EST active M EDSTEVEN ([facility], ) Bisacodyl 5 MG Delayed Release Oral Tablet [Dulcolax] Dulcol ax 04/22/2020 12:00:00 AM EST ORAL active M EDENT ([facility], ) 17 gram/dose 04/22/2020 12:00:00 AM EST [...] MAXIMUM DAILY DOSE = 3 SOLD: 04/15/2020 [facility] tramadol hydrochloride 50 MG Oral Tablet Tramadol HCL 03/23/2020 12:00:00 AM EDT ORAL active MEDENT ([facility] doxycycline hyclate 100 MG Oral Tablet DOXYCYCLINE HYCLATE 0 01/25/2020 12:00:00 AM EDT tablet 30 TAKE ONE TABLET BY MOUTH NEVILLE DIRECTED TAKE ONE TABLET BY MOUTH EVERY DAY DIRECTED SOLD: 02/24/2020 [facility] carvedilol 3.125 MG Oral Tablet carvedilol (COREG) 3.1 25 MG tablet carvedilol (COREG) 3.125 MG tablet 11/30/2019 12:00:00 AM EDT 3.125 mg Oral aborted Take 1 tablet (3.125 mg total) by mouth 2 (two) times a day with meals [facility] 0.65 ML exenatide 3.08 MG/ML Pen Injector Exenatide ER (BYDUREON) 2 MG PEN Exenatide ER (BYDUREON) 2 MG PEN 07/12/2014 12:00:00 AM EST aborted INJECT CONTENTS OF ONE PEN UNDER THE SKIN ONCE A WEEK [facility] Metformin hydrochloride 500 MG Oral Tablet metFORMIN ( GLUCOPHAGE) 500 MG tablet metFORMIN (GLUCOPHAGE) 500 MG tablet 07/02/2014 12:00:00 AM EST 100 0 mg Oral aborted Take 2 tablets (1,000 mg total) by mouth 2 (two) times a day with meals [facility] Ergocalciferol 19566 UNT Oral Capsule vi tamin D, Ergocalciferol, 1.25 MG (24045 UT) CAPS vitamin D, Ergocalciferol, 1.25 MG (52528 UT) CAPS 1 {capsule} Oral aborted Take 1 capsule by mo uth every 30 (thirty) days [facility] Insulin, Aspart, Human 100 UNT/ML Inject able Solution insulin aspart (NOVOLOG) 100 UNIT/ML injection insulin aspart (NOVOLOG) 100 UNIT/ML injection 74 U Subcutaneous aborted Inject 74 Units u nder the skin every evening [facility] Fosinopril Sodium 40 MG Oral Tablet fosinopril (MONOPR IL) 40 MG tablet fosinopril (MONOPRIL) 40 MG tablet 40 mg Oral abo rted Take 40 mg by mouth daily [facility] Lovastatin 40 MG Oral Tablet lovastatin (MEVACOR) 40 M G tablet lovastatin (MEVACOR) 40 MG tablet 40 mg Oral aborted T cookie 40 mg by mouth daily [facility] Omeprazole 20 MG Delayed Release Oral Ca psule omeprazole (PRILOSEC) 20 MG capsule omeprazole (PRILOSEC) 20 MG capsule 20 mg Oral aborted Take 20 mg by mouth daily [facility] glimepiride 4 MG Oral Tablet glimepiride (AMARYL) 4 MG tablet glimepiride (AMARYL) 4 MG tablet 4 mg Oral aborted Monty e 4 mg by mouth daily [facility] Fenofibrate 160 MG Oral Tablet fenofibrate (TRIGLIDE) 160 MG tablet fenofibrate (TRIGLIDE) 160 MG tablet 160 mg Oral aborted Take 160 mg by mouth daily [facility] Insulin, Aspart, Human 100 UNT/ML Inject able Solution insulin aspart (NOVOLOG) 100 UNIT/ML injection insulin aspart (NOVOLOG) 100 UNIT/ML injection 83 U Subcutaneous aborted Inject 83 Units u nder the skin daily with lunch [facility] Furosemide 20 MG Oral Tablet furosemide (LASIX) 20 MG tablet furosemide (LASIX) 20 MG tablet 20 mg Oral aborted Take 20 mg by mouth daily [facility] Insulin Glargine 100 UNT/ML Injectable S olution insulin glargine (INSULIN GLARGINE) 100 UNIT/ML injection insulin glargine (INSULIN GLARGINE) 100 UNIT/ML injection 82 U Subcutaneous aborted Inject 82 Units under the skin nightly [facility] Multiple Vitamins-Minerals (DAILY MULTIVITAMIN PO) 1 {tbl} Oral aborted Take 1 tablet by mouth daily [facility] Mobile-3 Fatty Acids (FISH OIL PO) drug or medication Ora l aborted Take by mouth [facility] Insurance Providers Payer name Policy type / Coverage type Policy ID Covered alliance party ID Covered alliance party's relationship to alonzo Policy Alonzo Plan Information MEDICARE [id number] Desiree [id number] T83 MEDICARE A [id number] Self [id number] T83 MEDICARE [id number] POMCO [id number] WI2 [id number] POMCO [id number] SP [id number] [employer] INSURANCE [id number] SP [id number] [facility]hi[facility]Emblem [id number] Self Ghi/Emblem HLTH (pr) Medigap Part B [id number] Family Dependent [id number] POMCO U [id number] Spouse [id number] [employer] (pr) Medigap Part B [id number] POMCO U [id number] Spouse [id number] [employer] (pr) Commercial [id number] Family Dependent [id number] [employer] (pr) Commercial [id number] POMCO [id number] Spo [id number] [employer] (pr) Commercial [id number] Family Dependent [id number] [employer] (pr) Commercial [id number] Family Dependent [id number] [employer] (pr) Commercial [id number] Family Dependent 3 35 POMCO [id number] WI2 [id number] POM[employer] U [id number] Spouse [id number] UMR U [id number] Spouse [id number] Umr (pr) Medigap Part B [id number] Family Dependent [id number] MEDICARE [id number] Desiree [id number] [id number] Ghi/Emblem HLTH (pr) Medigap Part B [id number] Self [id number] Medicare [place] Primary [id number] Self 1 [id number] Medicare [place] Medicare Primary [id number] Self 1 [id number] Medicare [place] Medicare Primary [id number] Self 1 [id number] NORIDIAN JE PART B C [id number] O [id number] MEDICARE [id number] SP [id number] A MEDICARE [id number] SP [id number] A [facility] [id number] WI2 [id number] Medicare [place] Medicare Primary [id number] Self 0 [id number] MEDICARE C [id number] S [id number] A [employer] PPO O [id number] S [id number] [employer] Maintenance Organization (HMO) [id number] Family Dependent [id number] [employer] Health Maintenance Organization (HMO) [id number] Family Dependent [id number] [employer] Commercial [id number] Family Dependent [id number] [employer] Commercial [id number] Family Dependent [id number] [employer] Commercial [id number] Family Dependent POMCO [id number] WI2 [id number] [employer] (pr) Commercial [id number] Self POMCO -O/P [id number] 18 [id number] r (pr) Medigap Part B [id number] Family Dependent [id number] MEDICARE [id number] SP [id number] T83 [facility] [id number] WI2 [id number] [facility] [id number] WI2 [id number] [facility] FAULT [id number] SP [id number] MEDICARE C [id number] S [id number] [id number] UMR O [id number] S [id number] ANSI-Medicare Part B [id number] ANSI-Commercial [id number] ANSI-Commercial [id number] ANSI-Commercial [id number] ANSI-Medicare Part B [id number] ANSI-Commercial [id number] ANSI-Medicare Part B [id number] ANSI-Commercial [id number] ANSI-Commercial [id number] ANSI-Medicare Part B [id number] ANSI-Commercial [id number] ANSI-Commercial [id number] ANSI-Commercial [id number] ANSI-Commercial [id number] ANS-Medicare Part B [id number] Medicare [place] Medicare Primary [id number] Self 1 [id number] Problems, Conditions, and Diagnoses Code Display Name Description Problem Type Effective Dates Data Source(s) 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 Occlusion and stenosis of bilateral phelps Diagnosis 03/03/2021 02:51:27 PM EDT [facility] 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 Cerebral infarction due to embolism of b Diagnosis 03/03/2021 02:51:27 PM EDT [facility] Z98.61 Coronary angioplasty status Coronary angioplasty statu s Diagnosis 03/03/2021 02:51:27 PM EDT [facility] Z79.4 FDC (current) use of insulin FDC (cu rrent) use of insulin Diagnosis 03/03/2021 02:51:27 PM EDT [facility] E11.59 Type 2 diabetes mellitus with other circ ulatory complications Type 2 diabetes mellitus with other circ Diagnosis 03/03/2021 02:51:27 PM EDT [facility] I10 Essential (primary) hypertension Essential (primary) h ypertension Diagnosis 03/03/2021 02:51:27 PM EDT [facility] G47.33 Obstructive sleep apnea (adult) (pediatr ic) Obstructive sleep apnea (adult) (pediatr Diagnosis 03/03/2021 02:51:27 PM EDT [facility] I25.10 Atherosclerotic heart diseas e of [place] coronary artery without angina pectoris Atherosclerotic heart disease of [place] Diagnosis 03/03/2021 02:51:27 PM EDT [facility] E78.00 Pure hypercholesterolemia, unspecified P ure hypercholesterolemia, unspecified Diagnosis 03/03/2021 02:51:27 PM EDT [facility] I49.5 Sick sinus syndrome Sick sinus syndrome Diagnosis 0 03/03/2021 02:51:27 PM EDT [facility] R42 Dizziness and giddiness Dizziness and giddiness Diagno sis 02/20/2021 03:46:22 PM EDT [facility] E78.2 Mixed hyperlipidemia Mixed hyperlipidemia Diagnosis 09/02/2020 10:19:37 AM EDT [facility] E11.65 Type 2 diabetes mellitus with hyperglyce jerad Type 2 diabetes mellitus with hyperglyce Diagnosis 09/02/2020 10:19:37 AM EDT [facility] I49.5 Sinus node dysfunction Sinus node dysfunction Problem 03/29/2021 12:00:00 AM EDT [facility] ([facility]) Z95.5 Patient post percutaneous transluminal c oronary angioplasty Patient post percutaneous transluminal coronary angioplasty Problem 021 12:00:00 AM EDT [facility] ([facility]) I10 Essential hypertension Essential hypertension Problem 03/29/2021 12:00:00 AM EDT [facility] ([facility]) I25.10 Coronary arteriosclerosis after percutan eous coronary angioplasty Coronary arteriosclerosis after percutaneous coronary angioplasty Problem 03/29/2021 12:00:00 AM EDT EMM[facility]LE ([facility]) R94.31 Electrocardiogram abnormal Electrocardiogram abnormal Problem 03/29/2021 12:00:00 AM EDT [facility] ([facility]) I65.23 Bilateral carotid artery stenosis Bilateral phelps tid artery stenosis [id number] 03/03/2021 12:00:00 AM EDT [facility] I63.423 Cerebrovascular accident (CV A) due to bilateral embolism of anterior cerebral arteries Cerebrovascular accident (CVA) due to bi lateral embolism of anterior cerebral arteries [id number] 02/02/2021 12:00:00 AM EDT [facility] K21.9 GERD (gastroesophageal reflux disease) G ERD (gastroesophageal reflux disease) [id number] 02/02/2021 12:00:00 AM EDT [facility] I25.10 Coronary artery disease invo lving [place] coronary artery of [place] heart without angina pectoris Coronary artery disease involving [place] coronary artery of [place] heart without angina pectoris [id number] 02/02/2021 12:00:00 AM EDT [facility] N18.9 Chronic kidney disease Chronic kidney disease [id number] 02/02/2021 12:00:00 AM EDT [facility] [id number] Ischemic stroke Ischemic stroke Problem 01/30/2021 12:0 0:00 AM EDT [facility] ([facility], ) E11.9 Diabetes mellitus Diabetes mellitus [id number] 09/02/2020 12:00:00 AM EDT [facility] Surgeries/Procedures Procedure Description Date Indications Data Source(s) ECG ROUTINE ECG W/LEAST 12 LDS W/I&R 03/29/2021 12:00: 00 AM EDT [facility] ([facility]) Arterial Pressure Waveform Analysis For Assessment Of Centra l Art 03/29/2021 12:00:00 AM EDT [facility] ([facility]) OFFICE OUTPATIENT NEW 45 MINUTES 03/29/2021 12:00:00 A M EDT [facility] ([facility]) NON-INVASIVE PHYSIOLOGIC STUDY EXTREMITY 3 LEVLS 03/17 12:00:00 AM EDT [facility] ([facility], ) TSTG ANS FUNCJ CARDIOVAGAL INNERVAJ PARASYMP 12:00:00 AM [facility] TESTING AUTONOMIC NERVOUS SYSTEM FUNCTION 03/17/2021 1 2:00:00 AM [facility], ) OFFICE OUTPATIENT VISIT 25 MINUTES 03/07/2021 12:00:00 AM EDT [facility] ([facility] OFFICE OUTPATIENT VISIT 40 MINUTES 02/09/2021 12:00:00 AM EDT [facility] ([facility]) ECG ROUTINE ECG W/LEAST 12 LDS W/I&R <td>POCT AMB EKG</td><td>Routine</td><td>02/02/2021 11:44 AM EDT</td><td> Coronary artery disease involving [place] coronary artery of [place] heart without angina pectoris</td><td> </td> 02/02/2021 11:44:00 AM EDT Coronary artery disease involving [place] coronary artery of [place] heart without angina pectoris [facility] Coronary artery disease involving [place] coronary artery of [place] heart without angina pectoris OFFICE OUTPATIENT VISIT 25 MINUTES 01/30/2021 12:00:00 AM [facility]T [facility] ) BASIC METABOLIC PANEL CALCIUM TOTAL <td>BASIC METABOLI C PANEL</td><td>Routine</td><td>01/09/2021</td><td></td><td> </td> 01/09/2021 12:00:00 AM EDT [facility] INITIAL HOSPITAL CARE/DAY 70 MINUTES 01/08/2021 12:00: 00 AM EDT [facility] ) BLOOD COUNT COMPLETE AUTO&AUTO DIFRNTL WBC COUNT <td>C BC AND DIFFERENTIAL</td><td>Routine</td><td>01/08/2021</td><td></td><td> </td> 01/08/2021 12:00:00 AM EDT [facility] HEMOGLOBIN GLYCOSYLATED A1C <td>HEMOGLOBIN A1C</td><td>Routine</td><td>01/08/2021</td><td></td><td> </td> 01/08/2021 12:00:00 AM EDT [facility] HEPATIC FUNCTION PANEL <td>HEPATIC FUNCTION PANEL</td><td>Routine</td><td>01/08/2021</td><td></td><td> </td> 01/08/2021 12:00:00 AM EDT [facility] BASIC METABOLIC PANEL CALCIUM TOTAL <td>BASIC METABOLI C PANEL</td><td>Routine</td><td>01/08/2021</td><td></td><td> </td> 01/08/2021 12:00:00 AM EDT [facility] TROPONIN QUANTITATIVE <td>TROPONIN I</td><td>Routine</td><td>01/07/2021</td><td></td><td> </td> 01/07/2021 12:00:00 AM EDT [facility] PROTHROMBIN TIME <td>PROTIME- INR</td><td>Routine</td><td>01/07/2021</td><td></td><td> </td> 01/07/2021 12:00:00 AM EDT [facility] PROTHROMBIN TIME <td>POCT INR</td><td>Routine</td><td>01/07/2021</td><td></td><td> </td> 01/07/2021 12:00:00 AM EDT [facility] HEPATIC FUNCTION PANEL <td>HEPATIC FUNCTION PANEL</td><td>Routine</td><td>01/07/2021</td><td></td><td> </td> 01/07/2021 12:00:00 AM EDT [facility] LIPID PANEL <td>LIPID PANEL</td><td>Rout ine</td><td>01/07/2021</td><td></td><td> </td> 01/07/2021 12:00:00 AM EDT [facility] Diabetic Foot Exam 11/29/2020 12:00:00 AM EDT [facility] ([facility]) OFFICE OUTPATIENT VISIT 25 MINUTES 11/10/2020 12:00:00 AM EDT [facility] ([facility]) OFFICE OUTPATIENT VISIT 25 MINUTES 09/28/2020 12:00:00 AM EDT [facility] ([facility] ECG ROUTINE ECG W/LEAST 12 LDS W/I&R <td>POCT AMB EKG</td><td>Routine</td><td>09/02/2020 11:30 AM EDT</td><td> Coronary angioplasty status</td><td> </td> 09/02/2020 03:30:00 PM EDT Coronary angioplasty status [facility] Coronary angioplasty status OFFICE OUTPATIENT VISIT 25 MINUTES 06/24/2020 12:00:00 AM EST [facility] ([facility] LIPID PANEL <td>LIPID PANEL</td><td>Rout ine</td><td>06/24/2020</td><td></td><td> </td> 06/24/2020 12:00:00 AM EST [facility] LIPID PANEL <td>LIPID PANEL</td><td>Rout ine</td><td>06/24/2020</td><td></td><td> </td> 06/24/2020 12:00:00 AM EST [facility] Results ID Date Data Source [id number] 03/28/2021 10:42:00 AM EDT [facility] ([facility]) Name Value Range Interpretation Code Description Data Karol rce(s) Supporting Document(s) Laboratory test finding (navigational concept) Laboratory test result [facility] ([facility]) A. No further treatment B. No further treatment Laboratory test finding (navigational concept) Laboratory test result [facility] ([facility]) A. No further treatment B. No further treatment ID Date Data Source [id number] 03/07/2021 10:01:00 AM EDT [facility] ([facility] Name Value Range Interpretation Code Description Data Karol rce(s) Supporting Document(s) Hemoglobin A1c/Hemoglobin.total in Blood 8.0 % 4.50-6.20 Above high normal [facility] ([facility] ID Date Data Source [id number] 03/07/2021 10:01:00 AM EDT [facility] ([facility] Name Value Range Interpretation Code Description Data Karol rce(s) Supporting Document(s) WBC 8.8 10E3/uL 4.1-10.9 [facility] ([facility] NORMAL RANGES Age WBC [...] HCT IS 5% LESS SOURCE FOR DATA: [employer] 1800 OPERATION MANUAL( AUTOMATED BLOOD COUNTS AND [...] HCT IS 5% LESS SOURCE FOR DATA: [employer] 1800 OPERATION MANUAL( AUTOMATED BLOOD COUNTS AND [...] 2-19 YEARS EXCLUSIVE. RBC 4.24 10E6/uL 4.20-6.30 [employer] [facility] NORMAL RANGES Age WBC RBC [...] HCT IS 5% LESS SOURCE FOR DATA: [employer] 1800 OPERATION MANUAL( AUTOMATED BLOOD COUNTS [...] 2-19 YEARS EXCLUSIVE. HCT 37.8 % 37.0-51.0 [facility] NORMAL [...] HCT IS 5% LESS SOURCE FOR DATA: [employer] 1800 OPERATION MANUAL( AUTOMATED BLOOD COUNTS AND [...] 2-19 YEARS EXCLUSIVE. MCHC 34.4 g/dL 31.0-36.0 [facility] NORMAL RANGES Age WBC RBC [...] HCT IS 5% LESS SOURCE FOR DATA: [employer] 1800 OPERATION MANUAL( AUTOMATED BLOOD COUNTS AND [...] HCT IS 5% LESS SOURCE FOR DATA: [employer] 1800 OPERATION MANUAL( AUTOMATED BLOOD COUNTS AND [...] HCT IS 5% LESS SOURCE FOR DATA: [employer] 1800 OPERATION MANUAL( AUTOMATED BLOOD COUNTS AND [...] 2-19 YEARS EXCLUSIVE. PLT 249 10E3/uL 140-440 [facility] ([facility] NORMAL RANGES Age WBC RBC HGB [...] HCT IS 5% LESS SOURCE FOR DATA: [employer] 1800 OPERATION MANUAL( AUTOMATED BLOOD COUNTS AND [...] 2-19 YEARS EXCLUSIVE. RDW-CV 12.7 % 11.5-14.5 [facility] NORMAL [...] HCT IS 5% LESS SOURCE FOR DATA: [employer] 1800 OPERATION MANUAL( AUTOMATED BLOOD COUNTS AND [...] HCT IS 5% LESS SOURCE FOR DATA: [employer] 1800 OPERATION MANUAL( AUTOMATED BLOOD COUNTS AND [...] 2-19 YEARS EXCLUSIVE. Neut% 70.4 % 37.0-92.0 [facility]MM[facility] ([facility] NORMAL [...] HCT IS 5% LESS SOURCE FOR DATA: [employer] 1800 OPERATION MANUAL( AUTOMATED BLOOD COUNTS AND [...] 2-19 YEARS EXCLUSIVE. Lym% 18.8 % 10.0-58.5 [facility] ([facility] NORMAL RANGES [...] HCT IS 5% LESS SOURCE FOR DATA: [employer] 1800 OPERATION MANUAL( AUTOMATED BLOOD COUNTS AND [...] YEARS EXCLUSIVE. Lym# 1.7 10E3/uL 0.6-4.1 MEDST[facility] ([facility] NORMAL RANGES Age WBC [...] HCT IS 5% LESS SOURCE FOR DATA: [employer] 1800 OPERATION MANUAL( AUTOMATED BLOOD COUNTS AND [...] 2-19 YEARS EXCLUSIVE. MXD# 1.0 10E3/uL 0.0-1.8 [facility] NORMAL RANGES Age WBC [...] IS 5% LESS SOURCE FOR DATA: [employer] 1800 OPERATION MANUAL( AUTOMATED BLOOD COUNTS AND [...] 2-19 YEARS EXCLUSIVE. Neut# 6.1 % 2.0-7.8 [facility] ([facility] NORMAL RANGES [...] HCT IS 5% LESS SOURCE FOR DATA: [employer] 1800 OPERATION MANUAL( AUTOMATED BLOOD COUNTS AND [...] HCT IS 5% LESS SOURCE FOR DATA: [employer] 1800 OPERATION MANUAL( AUTOMATED BLOOD COUNTS AND [...] 2-19 YEARS EXCLUSIVE. ID Date Data Source [id number] 03/07/2021 10:01:00 AM EDT [facility] ([facility] Name Value Range Interpretation [...] HCT IS 5% LESS SOURCE FOR DATA: [employer] 1800 OPERATION MANUAL( AUTOMATED BLOOD COUNTS [...] HCT IS 5% LESS SOURCE FOR DATA: [employer] 1800 OPERATION MANUAL( AUTOMATED BLOOD COUNTS AND [...] 2-19 YEARS EXCLUSIVE. Chol 142 mg/dL 0-200 [facility] ([facility] NORMAL RANGES Age WBC RBC [...] HCT IS 5% LESS SOURCE FOR DATA: [employer] 1800 OPERATION MANUAL( AUTOMATED BLOOD COUNTS AND [...] LDL_C 44 Calc 75-129 Below low normal [facility] ( [facility] NORMAL [...] HCT IS 5% LESS SOURCE FOR DATA: [employer] 1800 OPERATION MANUAL( AUTOMATED BLOOD COUNTS AND [...] 2-19 YEARS EXCLUSIVE. Cho/HDL Ratio 2.4 Calc [facility]STEVEN ([facility] NORMAL RANGES Age WBC RBC HGB [...] HCT IS 5% LESS SOURCE FOR DATA: [employer] 1800 OPERATION MANUAL( AUTOMATED BLOOD COUNTS AND [...] 2-19 YEARS EXCLUSIVE. ID Date Data Source [id number] 03/07/2021 10:01:00 AM EDT [facility] ([facility] Name Value Range Interpretation Code Description Data Karol rce(s) Supporting Document(s) Glu 332 mg/dL 70-110 Above high normal [facility] NORMAL RANGES Age WBC [...] 2-19 YEARS EXCLUSIVE. BUN 19 mg/dL 8-23 [facility] ([facility] NORMAL RANGES [...] HCT IS 5% LESS SOURCE FOR DATA: [employer] 1800 OPERATION MANUAL( AUTOMATED BLOOD COUNTS AND [...] 2-19 YEARS EXCLUSIVE. BUN/Creatinine Ratio 15.7 CALC [facility] ([facility] NORMAL RANGES Age WBC [...] HCT IS 5% LESS SOURCE FOR DATA: [employer] 1800 OPERATION MANUAL( AUTOMATED BLOOD COUNTS AND [...] 2-19 YEARS EXCLUSIVE. Creat 1.2 mg/dL 0.7-1.2 [facility] NORMAL [...] 2-19 YEARS EXCLUSIVE. Na 136 mmol/L 136-145 [facility] NORMAL [...] HCT IS 5% LESS SOURCE FOR DATA: [employer] 1800 OPERATION MANUAL( AUTOMATED BLOOD COUNTS AND [...] HCT IS 5% LESS SOURCE FOR DATA: [employer] 1800 OPERATION MANUAL( AUTOMATED BLOOD COUNTS AND [...] HCT IS 5% LESS SOURCE FOR DATA: [employer] 1800 OPERATION MANUAL( AUTOMATED BLOOD COUNTS [...] 2-19 YEARS EXCLUSIVE. CL 101.5 mmol/L 98.0-107.0 [facility] NORMAL RANGES Age WBC [...] HCT IS 5% LESS SOURCE FOR DATA: [employer] 1800 OPERATION MANUAL( AUTOMATED BLOOD COUNTS AND [...] HCT IS 5% LESS SOURCE FOR DATA: [employer] 1800 OPERATION MANUAL( AUTOMATED BLOOD COUNTS [...] 2-19 YEARS EXCLUSIVE. CA 9.1 mg/dL 8.6-10.2 [facility] NORMAL [...] HCT IS 5% LESS SOURCE FOR DATA: [employer] 1800 OPERATION MANUAL( AUTOMATED BLOOD COUNTS [...] HCT IS 5% LESS SOURCE FOR DATA: [employer] 1800 OPERATION MANUAL( AUTOMATED BLOOD COUNTS AND [...] AGED 2-19 YEARS EXCLUSIVE. Globulin 2.1 CALC [facility] NORMAL RANGES Age [...] HCT IS 5% LESS SOURCE FOR DATA: [employer] 1800 OPERATION MANUAL( AUTOMATED BLOOD COUNTS AND [...] 2-19 YEARS EXCLUSIVE. Alp 90.4 U/L 40-129 [facility] NORMAL [...] HCT IS 5% LESS SOURCE FOR DATA: [employer] 1800 OPERATION MANUAL( AUTOMATED BLOOD COUNTS AND [...] HCT IS 5% LESS SOURCE FOR DATA: [employer] 1800 OPERATION MANUAL( AUTOMATED BLOOD COUNTS AND [...] YEARS EXCLUSIVE. Ast (Sgot) 19 U/L 0-40 [facility] NORMAL [...] HCT IS 5% LESS SOURCE FOR DATA: [employer] 1800 OPERATION MANUAL( AUTOMATED BLOOD COUNTS AND [...] 2-19 YEARS EXCLUSIVE. Tbili 0.40 mg/dL 0.0-1.2 [facility] NORMAL RANGES Age [...] HCT IS 5% LESS SOURCE FOR DATA: [employer] 1800 OPERATION MANUAL( AUTOMATED BLOOD COUNTS AND [...] HCT IS 5% LESS SOURCE FOR DATA: [employer] 1800 OPERATION MANUAL( AUTOMATED BLOOD COUNTS AND [...] YEARS EXCLUSIVE. eGFR 71 # [facility] ( [facility] NORMAL RANGES Age [...] HCT IS 5% LESS SOURCE FOR DATA: [employer] 1800 OPERATION MANUAL( AUTOMATED BLOOD COUNTS AND [...] HCT IS 5% LESS SOURCE FOR DATA: [employer] 1800 OPERATION MANUAL( AUTOMATED BLOOD COUNTS [...] HCT IS 5% LESS SOURCE FOR DATA: [employer] 1800 OPERATION MANUAL( AUTOMATED BLOOD COUNTS AND [...] INDIVIDUALA AGED 2-19 YEARS EXCLUSIVE. eGFR Non-Afr. [place] Citizen 61 # [facility] ([facility] NORMAL RANGES Age [...] HCT IS 5% LESS SOURCE FOR DATA: [employer] 1800 OPERATION MANUAL( AUTOMATED BLOOD COUNTS AND [...] 2-19 YEARS EXCLUSIVE. ID Date Data Source [id number] 02/22/2021 07:54:13 PM EDT [facility] Name Value Range Interpretation Code Description Data Karol rce(s) Supporting Document(s) &PDF [facility] OBEFMa2aBkSHBgRx73/LLLraYOHxi6FeONzuKUy7BMhaDOYaO2IotBlsBODVU9kVWJHmAe4CYPDFHOei yZW [file] ICAgICAgICAgICAgICAgICAgICAgICAgICAgICAgICAgICAgICAgICAgICAgICAgICAgICAgICAgICAg ICAgICAgICAgICAgICAgICAgICAgICANCiAgICAgICAgICAgICAgICAgICAgICAgICAgICAgICAgICAg ICAgICAgICAgICAgICAgICAgICAgICAgICAgICAgIC AgICAgICAgICAgICAgICAgICAgICAgICAgICAgICAgICANCiAgICAgICAgICAgICAgICAgICAgICAgIC AgICAgICAgICAgICAgICAgICAgICAgICAgICAgICAgICAgICAgICAgICAgICAgICAgICAgICAgICAgIC AgICAgICAgICAgICAgICANCiAgICAgICAgICAgICAg ICAgICAgICAgICAgICAgICAgICAgICAgICAgICAgICAgICAgICAgICAgICAgICAgICAgICAgICAgICAg ICAgICAgICAgICAgICAgICAgICAgICAgICANCiAgICAgICAgICAgICAgICAgICAgICAgICAgICAgICAg ICAgICAgICAgICAgICAgICAgICAgICAgICAgICAgIC AgICAgICAgICAgICAgICAgICAgICAgICAgICAgICAgICAgICANCiAgICAgICAgICAgICAgICAgICAgIC AgICAgICAgICAgICAgICAgICAgICAgICAgICAgICAgICAgICAgICAgICAgICAgICAgICAgICAgICAgIC AgICAgICAgICAgICAgICAgICANCiAgICAgICAgICAg ICAgICAgICAgICAgICAgICAgICAgICAgICAgICAgICAgICAgICAgICAgICAgICAgICAgICAgICAgICAg ICAgICAgICAgICAgICAgICAgICAgICAgICAgICANCiAgICAgICAgICAgICAgICAgICAgICAgICAgICAg ICAgICAgICAgICAgICAgICAgICAgICAgICAgICAgIC AgICAgICAgICAgICAgICAgICAgICAgICAgICAgICAgICAgICAgICANCiAgICAgICAgICAgICAgICAgIC AgICAgICAgICAgICAgICAgICAgICAgICAgICAgICAgICAgICAgICAgICAgICAgICAgICAgICAgICAgIC AgICAgICAgICAgICAgICAgICAgICANCiAgICAgICAg ICAgICAgICAgICAgICAgICAgICAgICAgICAgICAgICAgICAgICAgICAgICAgICAgICAgICAgICAgICAg ICAgICAgICAgICAgICAgICAgICAgICAgICAgICAgICANCjw/lJEqA6gtgRTjyeK1S7zeZa2LRj0SSP7w i4FgKMQoXSrxgnTzQumBHtGiFKLgZqyWZzs3BViiQU 3GiRBhQ5NbD6QtLMqwQC6LWJTeVWJkmGOfWVWuXNGgFsQ5BVQoCMwxWL1NdCAkUQobUAFzQFCoZZ3MEJ EsB241itUjKU9IJd3HHyIePW4zms4HDdLyKELeBojJPeq6WNjaMD3CaFSdE9HmtTIcv5pBHzHeL2OORP VxSPAnGu2VJYRcXqSgNRGgFKvmDW0aCTLzVJEGmPen woE8DD2IVH9uqbHmTT7KUsFxPt3yTy2ZVyHwM4TaV9GyPXCaQTZVKRpgPC1CXVWhVIY0SYSuOdJiDOIT FiFzK18fRA1YD7Rlk94bToL4OSAqLgGcERknIL24nRdguqJizNLedDlfEW2IXh6+DQplbmRvYmoNCnhy EYSYDfBxRiAJWjOkJHPpCXMxYXWoPoO7SjYhXq5LSY AsHQVcZEYlPgBtQKReRUTbSYfwPASzFKK1NCSaYLTtQQTcMW5DDjWaRWLnTZV6UTTyUBYeIHYayg1LCU UhEFOkEHP5WgTaWBUrXKXpWIswMNRpMDMcDRWoOXWoLOGjPJ5YKoGnQMGsSFQeIaZcOSKoKHBlfz2YKG SaUYEhGHW0EVFlMOItNCTkLFblGNEhBFH1OvkxUYYb KIPyJW6UCmJgCEMlAVV5DsFhCNVzGNWbgz9IAEDgLWNwMFUfLSZgHJQtAOMnVXndNGWaHVF2UfOvXBYt EOXiPO4XNrLmFRDkPYB2QKdqRRQnYLUoxq8FILHsGTVxKng1AJCpZEVmRHViOUwiNVVsTUT6TUY0JQTa WMFlLD7LVaTbIODpYYtyOWItQQMwCGNfyw0ABOTiFH UlVwJ4MkTqISUpBMVgRAgqPKRbMSL8Gpq3CYOfEFHyGO1XJiDrLNOcZFwfUqKkDDHpJFBblc8NZSAmEW CeGEM8QUFsEXSpVJRuWFjdCUHvARS3WDi8VTEpGKFaMU0TAsFgSUNgRNf8JLmmNKXsPFJljm9TADVfWA ZbWYAaSYIlIJBsMZKwFHelQLWpCHJqOPL1GSLeOUSf EB7FPrVdKBarMEUGOal0KNfqF6f6OCEtZD2FZ1Mcb0UdBkOiLUBPNDygHN3sdfCgBJTzDh9NB3sISfi8 GaYyXDSaWdX3VpMyVwXcEkGqNYT4FZsySPO5VQFuKj6pXPl5KAFwHABtBAbbVUGqXKSrK2SjFst4XFOv Lqj1SKZ8IqJgGH0QWy1SCjQ8QUR0fYQrIq6MSSKsHsOOJqTbYY6IUZz= ID Date Data Source [id number] 01/07/2021 06:37:00 PM EDT [facility] ([facility] Name Value Range Interpretation Code Description Data Karol rce(s) Supporting Document(s) Influenza A Amplification Laboratory test result Normal (applies to non- numeric results) [facility] ([facility] ) Negative results do not preclude influen za or RSV virus infection and should not be used as the sole basis for treatment or other patient management decisions. Laboratory test finding (navigational concept) Laboratory test r esult Normal (applies to non-numeric results) [facility] ([facility] A false negative result may [...] pathogens. DISCLAIMER: Testing was performed using the [employer] SARS-CoV-2 test. This test was developed and its performance characteristics determined by [employer]. This test has not been FDA cleared [...] Normal (applies to non- numeric results) [facility] ([facility] Negative results do not preclude influen za or RSV virus infection and should not be used as the sole basis for treatment or other patient management decisions. RSV Amplification Laboratory test result Normal (applies to non-numeric results) [facility] ([facility] ) Negative results do not preclude influen za or RSV virus infection and should not be used as the sole basis for treatment or other patient management decisions. ID Date Data Source [id number] 01/07/2021 06:37:00 PM EDT [facility] Name Value Range Interpretation Code Description Data Karol rce(s) Supporting Document(s) SARS coronavirus 2 RNA [Presence] in Res piratory specimen by SHADI with probe detection NEGATIVE [facility] This lab was ordered by [facility] a nd reported by [facility]. ID Date Data Source [id number] 01/07/2021 06:27:00 PM EDT [facility] ([facility] Name Value Range Interpretation Code Description Data Karol rce(s) Supporting Document(s) Laboratory test finding (navigational concept) 212 mg/dL 7 0-105 Above high normal [facility] ([facility] ) Laboratory test finding (navigational concept) 135 meq/L 1 36-145 Below low normal [facility] ([facility] ) Laboratory test finding (navigational concept) 37.0 % 3 8.0-51.0 Below low normal [facility] ([facility] ) Laboratory test finding (navigational concept) 5.0 mg/dL 4 .5-5.3 Normal (applies to non-numeric results) [facility] ([facility] Laboratory test finding (navigational concept) 4.2 meq/L 3 .5-5.1 Normal (applies to non-numeric results) [facility] ([facility] Laboratory test finding (navigational concept) 98 meq/L 9 8-109 Normal (applies to non-numeric results) [facility] ([facility] Laboratory test finding (navigational concept) 32 mg/dL 8-26 Above high normal [facility] ([facility] Laboratory test finding (navigational concept) 24.0 MM/L 2 3.0-27.0 Normal (applies to non-numeric results) [facility] Laboratory test finding (navigational concept) 1.8 mg/dL 0 .6-1.3 Above high normal [facility] ([facility] ) ID Date Data Source [id number] 01/07/2021 05:37:00 PM EDT [facility] ([facility] P.C[facility] Name Value Range Interpretation Code Description Data Karol rce(s) Supporting Document(s) aPTT in Platelet poor plasma by Coagulation assay 28.5 s 25.9-37.0 Normal (applies to non-numeric results) [facility] ([facility] ID Date Data Source [id number] 01/07/2021 05:37:00 PM EDT [facility] ([facility] Name Value Range Interpretation Code Description Data Karol rce(s) Supporting Document(s) Prothrombin Time 12.9 s 12.7-14.5 Normal (applies to non-numeric results) [facility] ([facility] Inr 0.93 Normal (applies to non-numeric resul ts) [facility] ([facility] THERAPUTIC HUMAN INR VALUES INDICATIONS NORMAL RANGES PROPHYLAXIS/TREATMENT OF: VENOUS THROMBOSIS 2.0-3.0 PULMONARY EMBOLISM 2.0-3.0 PREVENTION OF SYSTEMIC EMBOLISM FROM: TISSUE HEART VALVES 2.0-3.0 ACUTE MYOCARDIAL INFARCTION 2.0-3.0 VALVULAR HEART DISEASE 2.0-3.0 ATRIAL FIBRILLATION 2.0-3.0 MECHANICAL VALVES(HIGH RISK) 2.5-3.5 RECURRENT MYOCARDIAL INFARCTION 2.5-3.5 ID Date Data Source [id number] 01/07/2021 05:27:00 PM EDT [facility] Name Value Range Interpretation Code Description Data Karol rce(s) Supporting Document(s) AB Screen (Indirect Srikanth)Vis Laboratory test result Normal (applies to non- numeric results) [facility] ([facility] ) Blood Type Laboratory test result Normal (applies to non-n umeric results) [facility] ([facility] ID Date Data Source [id number] 01/07/2021 05:19:00 PM EDT [facility] ([facility] Name Value Range Interpretation Code Description Data Karol rce(s) Supporting Document(s) Laboratory test finding (navigational concept) 38.0 % 3 8.0-51.0 Normal (applies to non-numeric results) [facility] ([facility] Laboratory test finding (navigational concept) 221 mg/dL 7 0-105 Above high normal [facility] ([facility] ) Laboratory test finding (navigational concept) 4.3 meq/L 3 .5-5.1 Normal (applies to non-numeric results) [facility] ([facility] Laboratory test finding (navigational concept) 135 meq/L 1 36-145 Below low normal [facility] ([facility] ) Laboratory test finding (navigational concept) 25.0 MM/L 2 3.0-27.0 Normal (applies to non-numeric results) [facility] Laboratory test finding (navigational concept) 99 meq/L 9 8-109 Normal (applies to non-numeric results) [facility] Laboratory test finding (navigational concept) 4.8 mg/dL 4 .5-5.3 Normal (applies to non-numeric results) [facility] ([facility] Laboratory test finding (navigational concept) 2.0 mg/dL 0 .6-1.3 Above high normal [facility] ([facility] ) Laboratory test finding (navigational concept) 32 mg/dL 8-26 Above high normal [facility] ([facility] ID Date Data Source [id number] 12/20/2020 02:34:00 PM EDT [facility] ([facility] Name Value Range Interpretation Code Description Data Karol rce(s) Supporting Document(s) Prostate specific Ag [Mass/volume] in Serum or Plasma 1.63 ng/mL Normal (applies to non-numeric results) [facility] The PSA assay is performed on the [employer] analyzer by [employer] sandwich chemiluminescent immunoassay and should not be compared interchangeably with other methods. It should not be used alone as a screening test or diagnosis for the presence or absence of malignant disease. Predictions of disease recurrence should not be based solely on values obtained from serial patient serum values. ID Date Data Source [id number] 10/25/2020 03:36:43 PM EDT [facility] Name Value Range Interpretation Code Description Data Karol rce(s) Supporting Document(s) &PDF [facility] SNAHKk4fTnPERlUh41/ZEAdbTYIsz7AmZVqgHUj1DSccCMJhW8SzcJjhBCFJD3fVEBKrCh2HIPSKUJla yZW [file] EXXfvHht8mZlgGpvCQEvz6MIZ7IypXrYOvZW4gjryWy/JTIgJ081F1/Pk2nQdS718rcr8KrBaJUa/Cristian x3ZOY4tE1PG4gZ/hZ70OrH0rYn8/3Rjl2J2QdS6QLL9rn5TfSPBwGRbmfrWzTfnIUfB7IRLlo4BwGNu7 YJ3TZTYlEHmfAP1NG0WoTTW7O6F5AoB2aBJyRJ8wA1 IqEyGaBA1elBbnB1FhlQCABARCf37id34owyCcIM3As3eihaZjNCHkD1YzmgpzUNkiJLmsU2fvzHmqJQ XjLHQwX4y8BUX8U9ezmrp0rPM2MS9OiIm1WVLcVu0KhMG6ACIzC92oKF2GYe3+HAkayJIqOP6BTfwHM1 AgCBoaUOiG//8s4PfWD6cCTBDaxNEJLimP8ZUx0gLf eRhdT9o10I1NMiLSCTSRjD3ODW6dv2WtHSNxZMptzvZsSlvPFyF1ZHSzm8ZfMIb7WO2WZARiIKtsSE8F U5QjDLI2X1S5KkR0pBWiUY6kT1ZdQdOgOH6ehDlsW9NkpNESJIBYk52tl62tzwGmKW4Rh5rydgMmSEZx E5FhqcyvLCZXSr5OxAV1mTByEj2HKQklnFHgOJWqXH AhB9NeTMCzF5UjbKGaueOtB1FcDXSlRIHsc0BtEA4NKCMwE68ph3xxXtDfCKXFGC2QSx5TDjY5nmRyiR 0KWIX7/63WOGOxAwjSORzMPcmCOo5AyhrEJcn+dho8WPD1yEcORD7NlhQAMLeBSxNXTf6WVxzlGTHXYy IUaz3PFW1wf3SkUHVrKGdolxPvYyyUFvK8AVWrm0Dz DYy3CM7OACDiDMliQC1PB2MeSSQ3C3B3AzZ1eHHrAN1eN8CfXcVbYG0jgNi1X5PfkGWQUGDSt34df42c cePrPV3Lf4hxdgBfSYUnF0NagiweESedFAkxR8htyWruZAItVATjA2v7UXS1B4stsqc8lOUsDxpiJqdu dGVyIFsvRmxhdGVEZWNvZGVdDQo+Ae1Jb3DxIFRmZH pYhWNgYNDeGsOABPTf/5+HxBV++f//blow pit helper+992vRDSfI7I3QDh+VxY4OlWV/pNLG1NEy+n//98sSPzJQH [file] ICAgICAgICAgICAgICAgICAgICAgICAgICAgICAgIC AgICAgICAgICAgICAgICAgICAgICAgICAgICAgICAgICAgICAgICANCiAgICAgICAgICAgICAgICAgIC AgICAgICAgICAgICAgICAgICAgICAgICAgICAgICAgICAgICAgICAgICAgICAgICAgICAgICAgICAgIC AgICAgICAgICAgICAgICAgICAgICANCiAgICAgICAg ICAgICAgICAgICAgICAgICAgICAgICAgICAgICAgICAgICAgICAgICAgICAgICAgICAgICAgICAgICAg ICAgICAgICAgICAgICAgICAgICAgICAgICAgICAgICANCiAgICAgICAgICAgICAgICAgICAgICAgICAg ICAgICAgICAgICAgICAgICAgICAgICAgICAgICAgIC AgICAgICAgICAgICAgICAgICAgICAgICAgICAgICAgICAgICAgICAgICANCiAgICAgICAgICAgICAgIC AgICAgICAgICAgICAgICAgICAgICAgICAgICAgICAgICAgICAgICAgICAgICAgICAgICAgICAgICAgIC AgICAgICAgICAgICAgICAgICAgICAgICANCiAgICAg ICAgICAgICAgICAgICAgICAgICAgICAgICAgICAgICAgICAgICAgICAgICAgICAgICAgICAgICAgICAg ICAgICAgICAgICAgICAgICAgICAgICAgICAgICAgICAgICANCiAgICAgICAgICAgICAgICAgICAgICAg ICAgICAgICAgICAgICAgICAgICAgICAgICAgICAgIC AgICAgICAgICAgICAgICAgICAgICAgICAgICAgICAgICAgICAgICAgICAgICANCiAgICAgICAgICAgIC AgICAgICAgICAgICAgICAgICAgICAgICAgICAgICAgICAgICAgICAgICAgICAgICAgICAgICAgICAgIC AgICAgICAgICAgICAgICAgICAgICAgICAgICANCiAg ICAgICAgICAgICAgICAgICAgICAgICAgICAgICAgICAgICAgICAgICAgICAgICAgICAgICAgICAgICAg ICAgICAgICAgICAgICAgICAgICAgICAgICAgICAgICAgICAgICANCiAgICAgICAgICAgICAgICAgICAg ICAgICAgICAgICAgICAgICAgICAgICAgICAgICAgIC AgICAgICAgICAgICAgICAgICAgICAgICAgICAgICAgICAgICAgICAgICAgICAgICANCjw/bHHsQ6bwaW YwtbO9O4uvOj4DAo6LDF7ro5LvBXMoPYhcoxQxLeiHSaMqROMfBdmLTbt5PLnfZR1GiTQyC2ZlC1CmEJ ltXR3PBWSmXSNldZZhXMRhCNPfMfC1RNBgHNnxYU9S bUJdPNpyEQXzURUaFvGsKPQsVUNwGJJvIF4NIZTvE256ajKhIh3HEd8EAyQfBW0ivz3ODmMcLNDeFmnQ Gum3SUclKS0FjZVcV0ZszUBdg9kEZsOjN7LSTOWaHIExIu8ZUKNtLfZtWTPpFFwqUB4hIHXiHAWSwLqq tmL6AJ3HXS7mqaTyEF2PYlNmDh5kSh1SDoVfY9VnG9 LqMDEuVGFYDFgvDM5RTRDpOHX5IEUoObKwOBXJZsOiP70jOG4AP3Pdf16tToU0UPSjIcVeRJyrVO72nU jjtwBqdVYncTjfQX9JEm9+AZbhqvDxThiNVvrnIDCEDrJhThPKTfSfMLIjEOUiTAIkAsC4OdMiHm9MSU PqLYTmAIGvPaUiOFKpUIDxLMogFFEpNEG4OPZ6GXHo EPOsQG4EElGdGIBtTBw4GfgiFKCgWNFrhd1RPZHsSMIyZMY2UwIwZJRiTCJmTPknNZQsSUEbMOciLHCi PAXdFM6GCbRgUXZePYLeQVEhZOFlCDNhnh7IEJZjSONvSsJhNPOqXGKeHIInOGbpFVCaTAP4AvGuWUVl AUQnWJ4BLiIfJIXqSNz7LjYwANEgFTFtrc2ETFKbCI GlPGCfPVIjYPDgCWVrNLkkVBYdDGI0JVo2YRJaGRBeUE0LCmIaAPCkKVg8QPJxCBTjUCErtv4WIESvQA TeTPz7EBTpFGFyOSIgOOafNHUoMJKaLEF1ULKtJYUjSQ1IQjQuCFNxKJXrPeCzKAXlIRRqvi2ZXHVeYQ AxMTMxNCAwMDAwMCBuDQowMDAwMDEyMjcyIDAwMDAw MT8TXhOyEAXoEHB8XiRdHTSiZHKiqb6TYYThHIKgByG8QDYzMTCvJDEbAMmsIQMwZRUnAxT0OTFyUZUa UL0KZdAiSXEcDVA2HQsmLOOyKPEjtu7CMSUmUJCuAGToQRVtSZFmLNGxFHkwRNLdMNL9QlQ4HOSoSKAd DY5VVpScMLJoWZM8JBLfQPFeXSHrss1SXEQwHXKiFC k1LQEoGGWvGMTvUEmiGVRiXVV8RCAdXTIfHRAhHE6WPeDuIDZgEII4FLLzPQQgNYVlxp2PAPKbRIFjNN f0KfBpUFCiKQFbAXgnEPOpRBI7QFwzVKOmXKKjHA2SImKnPIEbZIJrEocbJKMiRFKxcj8XMVJiWUMsPf NzMJYlMIIpDEKvEAqfSBAqXIS4Fxq6EBOfWPWpEU5N CrJzJPLnZTpsSWtjZIZpRFXqix5UTAJoWPHjHRqcOyKeYQFsBQCgHZr5ibThcFZnMGc5MX7RQ6RnlzDy FyAIZy1Ox263FEV7WECnQx8VN4leWj8yMHNwBMVXVf7WZYs0BAPxETe8WAhvJMBtLDSxRAMjMvfyLKrx MGNjNGRkOTY+JMflXLO3IAY9QeK1GSZfApY2VhEeXA W6VPIsO9J3DQZ0Az8cZNJFXi1+UKbfrDWezVvqWQUQVfS3ZVH1XGsgQTBDJs2G ID Date Data Source [id number] 09/28/2020 09:08:00 AM EDT [facility] ([facility] Name Value Range Interpretation Code Description Data Karol rce(s) Supporting Document(s) WBC 8.2 10E3/uL 4.1-10.9 EMMANUELLE ([facility] NORMAL RANGES Age WBC RBC HGB HCT [...] HCT IS 5% LESS SOURCE FOR DATA: [employer] 1800 OPERATION MANUAL( AUTOMATED BLOOD COUNTS AND [...] RBC 4.07 10E6/uL 4.20-6.30 Below low normal [facility] NORMAL RANGES [...] HCT IS 5% LESS SOURCE FOR DATA: [employer] 1800 OPERATION MANUAL( AUTOMATED BLOOD COUNTS AND [...] HCT IS 5% LESS SOURCE FOR DATA: [employer] 1800 OPERATION MANUAL( AUTOMATED BLOOD COUNTS AND [...] HCT 36.0 % 37.0-51.0 Below low normal [facility] ( [facility] NORMAL RANGES Age [...] HCT IS 5% LESS SOURCE FOR DATA: [employer] 1800 OPERATION MANUAL( AUTOMATED BLOOD COUNTS AND [...] 2-19 YEARS EXCLUSIVE. MCV 88.5 fL 80.0-97.0 [facility] ([facility] NORMAL RANGES [...] HCT IS 5% LESS SOURCE FOR DATA: [employer] 1800 OPERATION MANUAL( AUTOMATED BLOOD COUNTS AND [...] HCT IS 5% LESS SOURCE FOR DATA: [employer] 1800 OPERATION MANUAL( AUTOMATED BLOOD COUNTS AND [...] 2-19 YEARS EXCLUSIVE. MCH 30.7 pg 26.0-32.0 [facility] ([facility] NORMAL RANGES Age WBC RBC [...] HCT IS 5% LESS SOURCE FOR DATA: [employer] 1800 OPERATION MANUAL( AUTOMATED BLOOD COUNTS AND [...] 2-19 YEARS EXCLUSIVE. PLT 275 10E3/uL 140-440 [facility] ([facility] NORMAL RANGES Age WBC [...] HCT IS 5% LESS SOURCE FOR DATA: [employer] 1800 OPERATION MANUAL( AUTOMATED BLOOD COUNTS AND [...] HCT IS 5% LESS SOURCE FOR DATA: [employer] 1800 OPERATION MANUAL( AUTOMATED BLOOD COUNTS AND [...] 2-19 YEARS EXCLUSIVE. Lym% 21.7 % 10.0-58.5 [facility] ([facility] NORMAL RANGES [...] 2-19 YEARS EXCLUSIVE. Neut% 67.0 % 37.0-92.0 [facility] NORMAL [...] HCT IS 5% LESS SOURCE FOR DATA: [employer] 1800 OPERATION MANUAL( AUTOMATED BLOOD COUNTS AND [...] 2-19 YEARS EXCLUSIVE. Lym# 1.8 10E3/uL 0.6-4.1 [facility] ([facility] NORMAL RANGES Age WBC [...] HCT IS 5% LESS SOURCE FOR DATA: [employer] 1800 OPERATION MANUAL( AUTOMATED BLOOD COUNTS AND [...] 2-19 YEARS EXCLUSIVE. MXD% 11.3 % 0.1-24.0 [facility] ([facility] NORMAL [...] HCT IS 5% LESS SOURCE FOR DATA: [employer] 1800 OPERATION MANUAL( AUTOMATED BLOOD COUNTS AND [...] 2-19 YEARS EXCLUSIVE. Neut# 5.5 % 2.0-7.8 [facility] ([facility] NORMAL [...] HCT IS 5% LESS SOURCE FOR DATA: [employer] 1800 OPERATION MANUAL( AUTOMATED BLOOD COUNTS AND [...] EXCLUSIVE. MXD# 0.9 10E3/uL 0.0-1.8 EMMANUELLE ([facility] NORMAL RANGES Age WBC [...] HCT IS 5% LESS SOURCE FOR DATA: [employer] 1800 OPERATION MANUAL( AUTOMATED BLOOD COUNTS AND [...] 2-19 YEARS EXCLUSIVE. MPV 9.0 fL 9.0-13.0 [facility] ([facility] NORMAL RANGES [...] HCT IS 5% LESS SOURCE FOR DATA: [employer] 1800 OPERATION MANUAL( AUTOMATED BLOOD COUNTS AND [...] 2-19 YEARS EXCLUSIVE. ID Date Data Source [id number] 09/28/2020 09:08:00 AM EDT [facility] (Famil y [...] HCT IS 5% LESS SOURCE FOR DATA: [employer] 1800 OPERATION MANUAL( AUTOMATED BLOOD COUNTS AND [...] 2-19 YEARS EXCLUSIVE. Trig 89 mg/dL 35-200 [facility] NORMAL RANGES Age WBC RBC [...] HCT IS 5% LESS SOURCE FOR DATA: [employer] 1800 OPERATION MANUAL( AUTOMATED BLOOD COUNTS AND [...] HCT IS 5% LESS SOURCE FOR DATA: [employer] 1800 OPERATION MANUAL( AUTOMATED BLOOD COUNTS AND [...] HCT IS 5% LESS SOURCE FOR DATA: [employer] 1800 OPERATION MANUAL( AUTOMATED BLOOD COUNTS AND [...] 2-19 YEARS EXCLUSIVE. Cho/HDL Ratio 2.4 Calc [facility] ([facility] NORMAL RANGES Age WBC RBC HGB [...] 2-19 YEARS EXCLUSIVE. ID Date Data Source [id number] 09/28/2020 09:08:00 AM EDT [facility] ([facility] Name Value Range Interpretation Code Description Data Karol rce(s) Supporting Document(s) Glu 165 mg/dL 70-110 Above high normal [facility] ([facility] NORMAL RANGES Age [...] HCT IS 5% LESS SOURCE FOR DATA: [employer] 1800 OPERATION MANUAL( AUTOMATED BLOOD COUNTS AND [...] 2-19 YEARS EXCLUSIVE. BUN 14 mg/dL 8-23 [facility] ([facility] NORMAL RANGES Age WBC RBC HGB [...] HCT IS 5% LESS SOURCE FOR DATA: [employer] 1800 OPERATION MANUAL( AUTOMATED BLOOD COUNTS AND [...] 2-19 YEARS EXCLUSIVE. Creat 1.0 mg/dL 0.7-1.2 [facility] ([facility], [...] HCT IS 5% LESS SOURCE FOR DATA: [employer] 1800 OPERATION MANUAL( AUTOMATED BLOOD COUNTS [...] 2-19 YEARS EXCLUSIVE. BUN/Creatinine Ratio 14.1 Calc [facility] ([facility] NORMAL RANGES Age WBC [...] HCT IS 5% LESS SOURCE FOR DATA: [employer] 1800 OPERATION MANUAL( AUTOMATED BLOOD COUNTS AND [...] 2-19 YEARS EXCLUSIVE. Na 137 mmol/L 136-145 [facility] ([facility] NORMAL RANGES Age [...] HCT IS 5% LESS SOURCE FOR DATA: [employer] 1800 OPERATION MANUAL( AUTOMATED BLOOD COUNTS AND [...] 2-19 YEARS EXCLUSIVE. K 4.1 mmol/L 3.5-5.1 [facility] ([facility] NORMAL RANGES Age WBC RBC [...] HCT IS 5% LESS SOURCE FOR DATA: [employer] 1800 OPERATION MANUAL( AUTOMATED BLOOD COUNTS AND [...] 2-19 YEARS EXCLUSIVE. CL 103.7 mmol/L 98.0-107.0 [facility] ([facility] NORMAL RANGES Age WBC [...] HCT IS 5% LESS SOURCE FOR DATA: [employer] 1800 OPERATION MANUAL( AUTOMATED BLOOD COUNTS AND [...] 2-19 YEARS EXCLUSIVE. Co2 24.0 mmol/L 22.0-29.0 [facility] ([facility] NORMAL RANGES Age WBC RBC HGB [...] HCT IS 5% LESS SOURCE FOR DATA: [employer] 1800 OPERATION MANUAL( AUTOMATED BLOOD COUNTS AND [...] TP 5.5 g/dL 6.6-8.7 Below low normal [facility] ( [facility] NORMAL [...] HCT IS 5% LESS SOURCE FOR DATA: [employer] 1800 OPERATION MANUAL( AUTOMATED BLOOD COUNTS AND [...] HCT IS 5% LESS SOURCE FOR DATA: [employer] 1800 OPERATION MANUAL( AUTOMATED BLOOD COUNTS AND [...] 2-19 YEARS EXCLUSIVE. Alb 3.6 g/dL 3.5-5.2 [facility] ([facility] NORMAL RANGES Age WBC RBC [...] IS 5% LESS SOURCE FOR DATA: [employer] 1800 OPERATION MANUAL( AUTOMATED BLOOD COUNTS AND [...] 2-19 YEARS EXCLUSIVE. A/G Ratio 1.8 Calc [employer] ([facility] NORMAL RANGES [...] HCT IS 5% LESS SOURCE FOR DATA: [employer] 1800 OPERATION MANUAL( AUTOMATED BLOOD COUNTS AND [...] HCT IS 5% LESS SOURCE FOR DATA: [employer] 1800 OPERATION MANUAL( AUTOMATED BLOOD COUNTS AND [...] 2-19 YEARS EXCLUSIVE. Alp 78.2 U/L 40-129 [facility] ([facility] NORMAL [...] HCT IS 5% LESS SOURCE FOR DATA: [employer] 1800 OPERATION MANUAL( AUTOMATED BLOOD COUNTS AND [...] YEARS EXCLUSIVE. Alt (SGPT) 20 U/L 0-41 [facility] ([facility] NORMAL RANGES [...] HCT IS 5% LESS SOURCE FOR DATA: [employer] 1800 OPERATION MANUAL( AUTOMATED BLOOD COUNTS AND [...] HCT IS 5% LESS SOURCE FOR DATA: [employer] 1800 OPERATION MANUAL( AUTOMATED BLOOD COUNTS AND [...] YEARS EXCLUSIVE. Ast (Sgot) 15 U/L 0-40 [facility] ([facility] NORMAL RANGES Age WBC [...] HCT IS 5% LESS SOURCE FOR DATA: [employer] 1800 OPERATION MANUAL( AUTOMATED BLOOD COUNTS AND [...] HCT IS 5% LESS SOURCE FOR DATA: [employer] 1800 OPERATION MANUAL( AUTOMATED BLOOD COUNTS AND [...] INDIVIDUALA AGED 2-19 YEARS EXCLUSIVE. eGFR Non-Afr. [place] Citizen 76 # [facility] ([facility] CKD-EPI eGFR 89 # [facility] ( [facility] CKD-EPI ID Date Data Source [id number] 09/28/2020 09:07:00 AM EDT [facility] ([facility] [employer] [facility] Name Value Range Interpretation Code Description Data Karol rce(s) Supporting Document(s) Hemoglobin A1c/Hemoglobin.total in Blood 8.1 % 4.50-6.20 Above high normal [facility] ([facility] ID Date Data Source [id number] 07/05/2020 07:20:00 AM EST [facility] ([facility] [employer] [facility] Name Value Range Interpretation Code Description Data Karol rce(s) Supporting Document(s) Glucose [Mass/volume] in Capillary blood by Glucometer 227 mg/dL 80-115 Above high normal [facility] ([facility] ) ID Date Data Source [id number] 06/30/2020 11:45:00 AM EST [facility] Name Value Range Interpretation Code Description Data Karol rce(s) Supporting Document(s) SARS coronavirus 2 RNA Not Detected [facility] This lab was ordered by [facility] and reported by [facility]. ID Date Data Source [id number] 06/24/2020 10:22:00 AM EST [facility] ([facility] [employer] [facility] Name Value Range Interpretation Code Description Data Karol rce(s) Supporting Document(s) Chol 172 mg/dL 0-200 [facility] ([facility] CHRONIC KIDNEY DISEASE [...] 2-19 YEARS EXCLUSIVE. Cho/HDL Ratio 2.3 Calc [facility] ([facility] CHRONIC KIDNEY DISEASE STAGING PER [...] Calc 75-129 Below low normal [facility] ( [facility] CHRONIC KIDNEY DISEASE [...] 2-19 YEARS EXCLUSIVE. ID Date Data Source [id number] 06/24/2020 10:22:00 AM EST [facility] ([facility] Name Value Range Interpretation Code Description Data Karol rce(s) Supporting Document(s) Glu 176 mg/dL 70-110 Above high normal [facility] ([facility] CHRONIC KIDNEY DISEASE [...] YEARS EXCLUSIVE. BUN 8 mg/dL 8-23 [facility] ([facility] CHRONIC KIDNEY DISEASE STAGING [...] YEARS EXCLUSIVE. BUN/Creatinine Ratio 8.4 Calc [facility] ([facility] CHRONIC KIDNEY DISEASE STAGING [...] YEARS EXCLUSIVE. CL 101.6 mmol/L 98.0-107.0 [facility] ([facility] CHRONIC KIDNEY DISEASE STAGING PER [...] EXCLUSIVE. Co2 23.0 mmol/L 22.0-29.0 [facility] ([facility] CHRONIC KIDNEY DISEASE STAGING [...] 2-19 YEARS EXCLUSIVE. Alb 3.7 g/dL 3.5-5.2 [facility] ([facility] CHRONIC KIDNEY [...] 2-19 YEARS EXCLUSIVE. Globulin 2.2 Calc [facility] ([facility] CHRONIC [...] EXCLUSIVE. Ast (Sgot) 14 U/L 0-40 [facility] ([facility] CHRONIC KIDNEY DISEASE STAGING PER [...] EXCLUSIVE. Tbili 0.45 mg/dL 0.0-1.2 [facility] ([facility] CHRONIC KIDNEY DISEASE [...] INDIVIDUALA AGED 2-19 YEARS EXCLUSIVE. eGFR Non-Afr. [place] Citizen 87 # [facility] ([facility] CHRONIC KIDNEY DISEASE [...] 2-19 YEARS EXCLUSIVE. ID Date Data Source [id number] 06/24/2020 10:21:00 AM EST [facility] ([facility] Name Value Range Interpretation Code Description Data Karol rce(s) Supporting Document(s) Hemoglobin A1c/Hemoglobin.total in Blood 8.8 % 4.50-6.20 Above high normal [facility] ([facility] ID Date Data Source [id number] 03/23/2020 09:38:00 AM EDT [facility] ([facility] Name Value Range Interpretation Code Description Data Karol rce(s) Supporting Document(s) WBC 8.6 10E3/uL 4.1-10.9 [facility] ([facility] NORMAL RANGES Age WBC [...] HCT IS 5% LESS SOURCE FOR DATA: [employer] 1800 OPERATION MANUAL( AUTOMATED BLOOD COUNTS AND [...] 2-19 YEARS EXCLUSIVE. HGB 12.5 g/dL 12.0-18.0 [facility] ([facility] NORMAL RANGES [...] HCT IS 5% LESS SOURCE FOR DATA: [employer] 1800 OPERATION MANUAL( AUTOMATED BLOOD COUNTS AND [...] RBC 4.08 10E6/uL 4.20-6.30 Below low normal [facility] ([facility] [...] HCT IS 5% LESS SOURCE FOR DATA: [employer] 1800 OPERATION MANUAL( AUTOMATED BLOOD COUNTS AND [...] HCT 35.8 % 37.0-51.0 Below low normal [facility] ( [facility] NORMAL RANGES Age [...] HCT IS 5% LESS SOURCE FOR DATA: [employer] 1800 OPERATION MANUAL( AUTOMATED BLOOD COUNTS AND [...] 2-19 YEARS EXCLUSIVE. MCV 87.7 fL 80.0-97.0 [facility] ([facility] NORMAL RANGES [...] HCT IS 5% LESS SOURCE FOR DATA: [employer] 1800 OPERATION MANUAL( AUTOMATED BLOOD COUNTS AND [...] HCT IS 5% LESS SOURCE FOR DATA: [employer] 1800 OPERATION MANUAL( AUTOMATED BLOOD COUNTS AND [...] 2-19 YEARS EXCLUSIVE. PLT 242 10E3/uL 140-440 [facility] NORMAL RANGES Age WBC RBC HGB [...] HCT IS 5% LESS SOURCE FOR DATA: [employer] 1800 OPERATION MANUAL( AUTOMATED BLOOD COUNTS AND [...] 2-19 YEARS EXCLUSIVE. MCHC 34.9 g/dL 31.0-36.0 [facility] NORMAL [...] HCT IS 5% LESS SOURCE FOR DATA: [employer] 1800 OPERATION MANUAL( AUTOMATED BLOOD COUNTS AND [...] HCT IS 5% LESS SOURCE FOR DATA: [employer] 1800 OPERATION MANUAL( AUTOMATED BLOOD COUNTS AND [...] 2-19 YEARS EXCLUSIVE. Lym% 19.4 % 10.0-58.5 [facility] NORMAL [...] HCT IS 5% LESS SOURCE FOR DATA: [employer] 1800 OPERATION MANUAL( AUTOMATED BLOOD COUNTS AND [...] 2-19 YEARS EXCLUSIVE. Neut% 71.8 % 37.0-92.0 [facility] NORMAL [...] HCT IS 5% LESS SOURCE FOR DATA: [employer] 1800 OPERATION MANUAL( AUTOMATED BLOOD COUNTS AND [...] HCT IS 5% LESS SOURCE FOR DATA: [employer] 1800 OPERATION MANUAL( AUTOMATED BLOOD COUNTS AND [...] 2-19 YEARS EXCLUSIVE. Lym# 1.7 10E3/uL 0.6-4.1 [facility] ([facility] NORMAL RANGES Age WBC [...] 2-19 YEARS EXCLUSIVE. Neut# 6.1 % 2.0-7.8 [facility] [place] [facility] NORMAL RANGES [...] HCT IS 5% LESS SOURCE FOR DATA: [employer] 1800 OPERATION MANUAL( AUTOMATED BLOOD COUNTS AND [...] HCT IS 5% LESS SOURCE FOR DATA: [employer] 1800 OPERATION MANUAL( AUTOMATED BLOOD COUNTS AND [...] 2-19 YEARS EXCLUSIVE. MXD# 0.8 [id number] 0.0-1.8 [employer] ([facility] NORMAL RANGES Age WBC [...] HCT IS 5% LESS SOURCE FOR DATA: [employer] 1800 OPERATION MANUAL( AUTOMATED BLOOD COUNTS [...] 2-19 YEARS EXCLUSIVE. ID Date Data Source [id number] 03/23/2020 09:38:00 AM EDT MEDENT ([facility] Name Value Range Interpretation [...] HCT IS 5% LESS SOURCE FOR DATA: [employer] 1800 OPERATION MANUAL( AUTOMATED BLOOD COUNTS AND [...] 2-19 YEARS EXCLUSIVE. Chol 142 mg/dL 0-200 [facility] NORMAL RANGES Age WBC RBC [...] HCT IS 5% LESS SOURCE FOR DATA: [employer] 1800 OPERATION MANUAL( AUTOMATED BLOOD COUNTS AND [...] 2-19 YEARS EXCLUSIVE. Trig 101 mg/dL 35-200 [facility] ([facility] NORMAL [...] HCT IS 5% LESS SOURCE FOR DATA: [employer] 1800 OPERATION MANUAL( AUTOMATED BLOOD COUNTS [...] HCT IS 5% LESS SOURCE FOR DATA: [employer] 1800 OPERATION MANUAL( AUTOMATED BLOOD COUNTS AND [...] Cho/HDL Ratio 2.4 CALC EMMANUELLE ([facility] NORMAL RANGES Age WBC RBC HGB [...] HCT IS 5% LESS SOURCE FOR DATA: [employer] 1800 OPERATION MANUAL( AUTOMATED BLOOD COUNTS AND [...] 2-19 YEARS EXCLUSIVE. ID Date Data Source [id number] 03/23/2020 09:38:00 AM EDT EMMANUELLE ([facility] Name Value Range Interpretation Code Description Data Karol rce(s) Supporting Document(s) Glu 85 mg/dL 70-110 MEDENT ([facility] NORMAL RANGES Age [...] HCT IS 5% LESS SOURCE FOR DATA: [employer] 1800 OPERATION MANUAL( AUTOMATED BLOOD COUNTS AND [...] HCT IS 5% LESS SOURCE FOR DATA: [employer] 1800 OPERATION MANUAL( AUTOMATED BLOOD COUNTS AND [...] 2-19 YEARS EXCLUSIVE. BUN 10 mg/dL 8-23 [facility] ([facility] NORMAL [...] HCT IS 5% LESS SOURCE FOR DATA: [employer] 1800 OPERATION MANUAL( AUTOMATED BLOOD COUNTS [...] YEARS EXCLUSIVE. BUN/Creatinine Ratio 11.0 CALC MEDENT ([facility] NORMAL RANGES Age WBC [...] HCT IS 5% LESS SOURCE FOR DATA: [employer] 1800 OPERATION MANUAL( AUTOMATED BLOOD COUNTS AND [...] HCT IS 5% LESS SOURCE FOR DATA: [employer] 1800 OPERATION MANUAL( AUTOMATED BLOOD COUNTS AND [...] 2-19 YEARS EXCLUSIVE. K 4.1 mmol/L 3.5-5.1 [facility] NORMAL RANGES Age WBC RBC [...] HCT IS 5% LESS SOURCE FOR DATA: [employer] 1800 OPERATION MANUAL( AUTOMATED BLOOD COUNTS AND [...] 2-19 YEARS EXCLUSIVE. CL 102.4 mmol/L 98.0-107.0 [facility] ([facility] NORMAL RANGES Age WBC [...] HCT IS 5% LESS SOURCE FOR DATA: [employer] 1800 OPERATION MANUAL( AUTOMATED BLOOD COUNTS AND [...] CA 8.4 mg/dL 8.6-10.2 Below low normal [facility] ( [facility] NORMAL RANGES Age WBC [...] HCT IS 5% LESS SOURCE FOR DATA: [employer] 1800 OPERATION MANUAL( AUTOMATED BLOOD COUNTS AND [...] HCT IS 5% LESS SOURCE FOR DATA: [employer] 1800 OPERATION MANUAL( AUTOMATED BLOOD COUNTS AND [...] HCT IS 5% LESS SOURCE FOR DATA: [employer] 1800 OPERATION MANUAL( AUTOMATED BLOOD COUNTS AND [...] 2-19 YEARS EXCLUSIVE. Alb 3.6 g/dL 3.5-5.2 [facility] NORMAL RANGES Age [...] HCT IS 5% LESS SOURCE FOR DATA: [employer] 1800 OPERATION MANUAL( AUTOMATED BLOOD COUNTS AND [...] HCT IS 5% LESS SOURCE FOR DATA: [employer] 1800 OPERATION MANUAL( AUTOMATED BLOOD COUNTS [...] HCT IS 5% LESS SOURCE FOR DATA: [employer] 1800 OPERATION MANUAL( AUTOMATED BLOOD COUNTS AND [...] YEARS EXCLUSIVE. Alt (SGPT) 17 U/L 0-41 [facility] ([facility] NORMAL RANGES Age WBC RBC HGB [...] HCT IS 5% LESS SOURCE FOR DATA: [employer] 1800 OPERATION MANUAL( AUTOMATED BLOOD COUNTS AND [...] 2-19 YEARS EXCLUSIVE. Alp 80.2 U/L 40-129 [facility] ([facility] NORMAL [...] HCT IS 5% LESS SOURCE FOR DATA: [employer] 1800 OPERATION MANUAL( AUTOMATED BLOOD COUNTS AND [...] HCT IS 5% LESS SOURCE FOR DATA: [employer] 1800 OPERATION MANUAL( AUTOMATED BLOOD COUNTS AND [...] 2-19 YEARS EXCLUSIVE. Anion Gap 17 mmol/L [facility] ([facility] NORMAL RANGES Age WBC RBC [...] HCT IS 5% LESS SOURCE FOR DATA: [employer] 1800 OPERATION MANUAL( AUTOMATED BLOOD COUNTS AND [...] 2-19 YEARS EXCLUSIVE. Tbili 0.32 mg/dL 0.0-1.2 [facility] ([facility] NORMAL RANGES [...] HCT IS 5% LESS SOURCE FOR DATA: [employer] 1800 OPERATION MANUAL( AUTOMATED BLOOD COUNTS AND [...] HCT IS 5% LESS SOURCE FOR DATA: [employer] 1800 OPERATION MANUAL( AUTOMATED BLOOD COUNTS AND [...] YEARS EXCLUSIVE. eGFR 101 # MEDENT ( [facility] NORMAL [...] HCT IS 5% LESS SOURCE FOR DATA: [employer] 1800 OPERATION MANUAL( AUTOMATED BLOOD COUNTS AND [...] INDIVIDUALA AGED 2-19 YEARS EXCLUSIVE. eGFR Non-Afr. [place] Citizen 87 # MEDENT ([facility] [...] HCT IS 5% LESS SOURCE FOR DATA: [employer] 1800 OPERATION MANUAL( AUTOMATED BLOOD COUNTS AND [...] 2-19 YEARS EXCLUSIVE. ID Date Data Source [id number] 03/23/2020 09:36:00 AM EDT MEDENT ([facility] Name Value Range Interpretation Code Description Data Karol rce(s) Supporting Document(s) Hemoglobin A1c/Hemoglobin.total in Blood 7.8 % 4.50-6.20 Above high normal [facility] ([facility] Procedure Social History Code Duration Value Status Description Data Source(s ) Smoking 03/29/2021 12:00:00 AM EDT Patient is a former smoker completed Patient is a former smoker [facility] ([facility]) Alcohol intake 03/03/2021 12:00:00 AM EDT Current non-d haim of alcohol (finding) completed Current non-drinker of alcohol (finding) [facility] Smoking 02/09/2021 12:00:00 AM EDT Patient is a former smoker completed Patient is a former smoker MEDENT ([facility]) Alcohol intake 02/02/2021 12:00:00 AM EDT Current non-d haim of alcohol (finding) completed Current non-drinker of alcohol (finding) [facility] Smoking 12/15/2020 12:00:00 AM EDT Former Smoker completed Former Smoker eCW1 ([facility]) Smoking 12/15/2020 12:00:00 AM EDT Former Smoker completed Former Smoker eCW1 ([facility]) Alcohol intake 09/02/2020 12:00:00 AM EDT No completed [facility] Smoking 09/02/2020 12:00:00 AM EDT Former smoker completed Former smoker [facility] Vital Signs ID Date Data Source UNK Name Value Range Interpretation Code Description Data Source(s) Body weight 191.00 [lb_av] 191.00 [lb_av] ASHLEY Dickerson ([facility]) Body height 64 [in_i] 64 [in_i] MEDSTEVEN ([facility]) 5'4" Body mass index (BMI) [Ratio] 32.8 kg/m2 32.8 k g/m2 MEDSTEVEN ([facility]) Heart rate 69 /min 69 /min MEDSTEVEN ([facility]) Systolic blood pressure--sitting 191 mm[Hg] 191 mm[Hg] MEDSTEVEN ([facility]) CBP, adult cuff/Ra Diastolic blood pressure--sitting 88 mm[Hg] 88 mm[Hg] MEDENT ([facility]) CBP, adult cuff/Ra Systolic blood pressure 170 mm[Hg] 170 mm[Hg] M EDENT ([facility]) Diastolic blood pressure 78 mm[Hg] 78 mm[Hg] MEDENT ([facility]) Heart rate 77 /min 77 /min MEDENT ([facility]) Body weight 192.00 [lb_av] 192.00 [lb_av] MEDEN T ([facility]) Systolic blood pressure 108 mm[Hg] 108 mm[Hg] M EDENT ([facility] Diastolic blood pressure 64 mm[Hg] 64 mm[Hg] MED[facility] ([facility] Body temperature 98.7 [degF] 98.7 [degF] MEDENT ([facility] Body weight 190.00 [lb_av] 190.00 [lb_av] MEDEN T ([facility] [place] body weight 118 [lb_av] 118 [lb_av] MEDEN T ([facility] Body mass index (BMI) [Ratio] 34.7 kg/m2 34.7 k g/m2 MED[facility] ([facility] Oxygen saturation in Arterial blood by Pulse oximetry 93 % 93 % MEDSTEVEN ([facility] Heart rate 64 /min 64 /min MED[facility] ([facility] Respiratory rate 14 /min 14 /min MED[facility] ( [facility] Body height 62 [in_i] 62 [in_i] MEDSTEVEN ([facility] 5'2" Systolic blood pressure 110 mm[Hg] 110 mm[Hg] [facility] Diastolic blood pressure 60 mm[Hg] 60 mm[Hg] [facility] Heart rate 74 /min 74 /min [facility] Respiratory rate 20 /min 20 /min [facility] Body height 162.6 cm 162.6 cm [facility] Body weight 87.544 kg 87.544 kg [facility] Body mass index (BMI) [Ratio] 33.13 kg/m2 33.13 kg/m2 [facility] Oxygen saturation in Arterial blood by Pulse oximetry 96 % 96 % [facility] Body weight 191.00 [lb_av] 191.00 [lb_av] MEDEN T ([facility] ) Systolic blood pressure 140 mm[Hg] 140 mm[Hg] M EDENT ([facility]) Diastolic blood pressure 72 mm[Hg] 72 mm[Hg] MEDENT ([facility] ) Heart rate 73 /min 73 /min MEDENT ([facility] ) Body height 63 [in_i] 63 [in_i] MEDENT ([facility] ) 5'3" Body mass index (BMI) [Ratio] 33.8 kg/m2 33.8 k g/m2 MEDENT ([facility] ) Oxygen saturation in Arterial blood by Pulse oximetry 94 % 94 % [facility] Systolic blood pressure 122 mm[Hg] 122 mm[Hg] [facility] Diastolic blood pressure 60 mm[Hg] 60 mm[Hg] [facility] Body mass index (BMI) [Ratio] 32.99 kg/m2 32.99 kg/m2 [facility] Heart rate 66 /min 66 /min [facility] Body height 162.6 cm 162.6 cm [facility] Body weight 87.181 kg 87.181 kg [facility] Oxygen saturation in Arterial blood by Pulse oximetry 95 % 95 % [facility] Respiratory rate 12 /min 12 /min [facility] Body height 64 [in_i] 64 [in_i] MEDENT ([facility] ) 5'4" Body weight 196.00 [lb_av] 196.00 [lb_av] MEDEN T ([facility] ) Body mass index (BMI) [Ratio] 33.6 kg/m2 33.6 k g/m2 MEDENT ([facility] ) [place] body weight 130 [lb_av] 130 [lb_av] MEDEN T ([facility] ) Body temperature 96.2 [degF] 96.2 [degF] eCW1 ( [facility]) Body weight 192 [lb_av] 192 [lb_av] eCW1 ([facility]) Body height 64 [in_i] 64 [in_i] eCW1 ([facility]) Systolic blood pressure 110 mm[Hg] 110 mm[Hg] e CW1 ([facility]) Diastolic blood pressure 70 mm[Hg] 70 mm[Hg] eCW1 ([facility]) Body mass index (BMI) [Ratio] 32.95 kg/m2 32.95 kg/m2 eCW1 ([facility]) Heart rate 66 /min 66 /min eCW1 ([facility]) Respiratory rate 18 /min 18 /min eCW1 ([facility]) Systolic blood pressure 142 mm[Hg] 142 mm[Hg] M EDENT ([facility] ) Body mass index (BMI) [Ratio] 34.6 kg/m2 34.6 k g/m2 MEDENT ([facility] ) Diastolic blood pressure 80 mm[Hg] 80 mm[Hg] MEDENT ([facility]) Heart rate 73 /min 73 /min MEDENT ([facility]) Body height 63 [in_i] 63 [in_i] MEDENT ([facility]) 5'3" Body weight 195.50 [lb_av] 195.50 [lb_av] MEDEN T ([facility] ) Oxygen saturation in Arterial blood by Pulse oximetry 98 % 98 % MEDENT ([facility] ) Systolic blood pressure 136 mm[Hg] 136 mm[Hg] M EDENT ([facility] Diastolic blood pressure 80 mm[Hg] 80 mm[Hg] MEDENT ([facility] Body temperature 98.3 [degF] 98.3 [degF] MEDENT ([facility] Heart rate 66 /min 66 /min MED[facility] ([facility] [place] body weight 118 [lb_av] 118 [lb_av] MEDEN T ([facility] Respiratory rate 14 /min 14 /min MEDENT ( [facility] Body height 62 [in_i] 62 [in_i] MEDENT ([facility] 5'2" Body mass index (BMI) [Ratio] 36.4 kg/m2 36.4 k g/m2 MEDENT ([facility] Body weight 199.00 [lb_av] 199.00 [lb_av] MEDEN T ([facility] Oxygen saturation in Arterial blood by Pulse oximetry 96 % 96 % EMMANUELLE ([facility] Body height 162.6 cm 162.6 cm [facility] Systolic blood pressure 108 mm[Hg] 108 mm[Hg] [facility] Diastolic blood pressure 70 mm[Hg] 70 mm[Hg] [facility] Heart rate 80 /min 80 /min [facility] Body weight 90.266 kg 90.266 kg [facility] Body mass index (BMI) [Ratio] 34.16 kg/m2 34.16 kg/m2 [facility] Oxygen saturation in Arterial blood by Pulse oximetry 94 % 94 % [facility] Body mass index (BMI) [Ratio] 35.7 kg/m2 35.7 k g/m2 MED[facility] ([facility] Systolic blood pressure 138 mm[Hg] 138 mm[Hg] M EDENT ([facility] Diastolic blood pressure 84 mm[Hg] 84 mm[Hg] MEDENT ([facility] Body temperature 99.0 [degF] 99.0 [degF] MEDENT ([facility] Heart rate 78 /min 78 /min MED[facility] ([facility] Respiratory rate 14 /min 14 /min MEDENT ( [facility] Body height 62 [in_i] 62 [in_i] MEDENT ([facility] 5'2" Body weight 195.00 [lb_av] 195.00 [lb_av] MEDEN T ([facility] [place] body weight 118 [lb_av] 118 [lb_av] MEDEN T ([facility] Oxygen saturation in Arterial blood by Pulse oximetry 95 % 95 % EMMANUELLE ([facility] Diastolic blood pressure 80 mm[Hg] 80 mm[Hg] MEDENT ([facility]) Systolic blood pressure 142 mm[Hg] 142 mm[Hg] M EDENT ([facility]) Heart rate 76 /min 76 /min MEDENT ([facility]) Body temperature 97.8 [degF] 97.8 [degF] MEDENT ([facility]) Body height 63 [in_i] 63 [in_i] MEDENT ([facility]) 5'3" Body weight 194.50 [lb_av] 194.50 [lb_av] MEDEN T ([facility]) Body mass index (BMI) [Ratio] 34.5 kg/m2 34.5 k g/m2 MEDENT ([facility]) Systolic blood pressure 132 mm[Hg] 132 mm[Hg] M EDENT ([facility]) Diastolic blood pressure 62 mm[Hg] 62 mm[Hg] MEDENT ([facility]) Body height 64 [in_i] 64 [in_i] [facility] ([facility]) 5'4" Body weight 192.00 [lb_av] 192.00 [lb_av] MEDEN T ([facility]) Body mass index (BMI) [Ratio] 33.0 kg/m2 33.0 k [facility] [place] body weight 130 [lb_av] 130 [lb_av] MEDEN T ([facility]) Body weight 87.091 kg 87.091 kg [facility] ([facility]) Systolic blood pressure 124 mm[Hg] 124 mm[Hg] M EDENT ([facility]) Diastolic blood pressure 62 mm[Hg] 62 mm[Hg] MEDENT ([facility]) Body temperature 98.8 [degF] 98.8 [degF] MEDENT ([facility]) Heart rate 62 /min 62 /min MED[facility] ([facility] Body height 62 [in_i] 62 [in_i] MEDENT ([facility] 5'2" [place] body weight 118 [lb_av] 118 [lb_av] MEDEN T ([facility] Body mass index (BMI) [Ratio] 35.7 kg/m2 35.7 k g/m2 EMMANUELLE ([facility] Systolic blood pressure 122 mm[Hg] 122 mm[Hg] M EDSTEVEN ([facility] Diastolic blood pressure 70 mm[Hg] 70 mm[Hg] EMMANUELLE ([facility] Body temperature 99.2 [degF] 99.2 [degF] EMMANUELLE ([facility] Respiratory rate 16 /min 16 /min EMMANUELLE ( [facility] Body weight 195.00 [lb_av] 195.00 [lb_av] STEFFANYEN Jayla ([facility] Oxygen saturation in Arterial blood by Pulse oximetry 96 % 96 % EMMANUELLE ([facility] Patient Treatment Plan of Care Planned Activity Planned Date Details Description Data Source (s) Bygriceldareon BCise 2 MG/0.85ML AUIJ 02/14/2021 12:00:00 AM EDT [facility] atorvastatin 80 MG Oral Tablet 02/02/2021 12:00:00 AM EDT [facility] moxifloxacin 5 MG/ML Ophthalmic Solution 01/24/2021 12:00:00 AM EDT [facility] Erythromycin 0.005 MG/MG Ophthalmic Ointment 01/04/2021 12:00:00 AM EDT [facility] carvedilol 3.125 MG Oral Tablet 09/02/2020 12:00:00 AM EDT [facility] pantoprazole 40 MG Delayed Release Oral Tablet 08/05/2020 12:00:00 AM EST [facility] Losartan Potassium 25 MG Oral Tablet 08/05/2020 12:00:00 AM EST [facility] carvedilol 3.125 MG Oral Tablet 11/30/2019 12:00:00 AM EDT [facility] 0.65 ML exenatide 3.08 MG/ML Pen Injector 07/12/2014 12:00:00 AM ES T [facility] Metformin hydrochloride 500 MG Oral Tablet 07/02/2014 12:00:00 AM E [facility] Ergocalciferol [id number] UNT Oral Capsule [facility] Mobile-3 Fatty Acids (FISH OIL PO) [facility] Lovastatin 40 MG Oral Tablet [facility] Insulin, Aspart, Human 100 UNT/ML Injectable Solution [facility] Multiple Vitamins-Minerals (DAILY MULTIVITAMIN PO) [facility] Furosemide 20 MG Oral Tablet [facility] Insulin Glargine 100 UNT/ML Injectable Solution [facility] Fenofibrate 160 MG Oral Tablet [facility] Insulin, Aspart, Human 100 UNT/ML Injectable Solution [facility] glimepiride 4 MG Oral Tablet [facility] Fosinopril Sodium 40 MG Oral Tablet [facility] Omeprazole 20 MG Delayed Release Oral Capsule [facility]
--- NOTE | 2021-04-11 04:56 | REPVR ---
PROCEDURE INFORMATION: Exam: CT Head Without Contrast Exam date and time: 04/11/2021 3:28 AM Age: 70 years old Clinical indication: Weakness, extremity; Additional info: Weakness, nausea TECHNIQUE: Imaging protocol: Computed tomography of the head without contrast. Radiation optimization: All CT scans at this facility use at least one of these dose optimization techniques: automated exposure control; mA and/or kV adjustment per patient size (includes targeted exams where dose is matched to clinical indication); or iterative reconstruction. COMPARISON: MRI-Brain without Contrast 01/07/2021 9:33 PM FINDINGS: Brain: Diffuse cerebral atrophy. Small chronic infarct in the right occipital lobe. Small chronic infarct left cerebellum. Small chronic infarct in the right parietal lobe. No acute intracranial hemorrhage. No acute mass effect. Mild hypodensities in the periventricular white matter which are consistent with chronic small vessel ischemic disease. Cerebral ventricles: Ventricles are in proportion to the degree of atrophy. Paranasal sinuses: Visualized sinuses are unremarkable. No fluid levels. Mastoid air cells: Visualized mastoid air cells are well aerated. Vasculature: Atherosclerotic calcification of the carotid siphon. Bones/joints: Unremarkable. No acute fracture. Soft tissues: Unremarkable. IMPRESSION: 1. No acute findings evident. 2. Mild hypodensities in the periventricular white matter which are consistent with chronic small vessel ischemic disease. 3. Chronic infarcts as described. Electronically signed by: Fadia Reyna On 04/11/2021 04:55:12 AM
--- NOTE | 2021-04-11 05:15 | REPVR ---
PROCEDURE INFORMATION: Exam: XR Complete Acute Abdomen Series Including Chest Exam date and time: 04/11/2021 3:44 AM Age: 70 years old Clinical indication: Nausea and vomiting TECHNIQUE: Imaging protocol: XR complete acute abdomen series, including 2 or more views of the abdomen and a single view chest. COMPARISON: CR PORTABLE CHEST X-RAY 01/07/2021 5:48 PM FINDINGS: Lungs: Normal. No consolidation. Pleural spaces: Normal. No pleural effusions. No pneumothorax. Heart/Mediastinum: Normal. No cardiomegaly. Gastrointestinal tract: Normal. No bowel dilation. Intraperitoneal space: Surgical clips in right upper quadrant abdomen. Bones/joints: Status post lumbar fusion. Status post anterior cervical fusion which is not completely imaged. Soft tissues: Normal. IMPRESSION: 1. No acute infiltrate. 2. No abnormal bowel dilatation. Electronically signed by: Fadia Reyna On 04/11/2021 05:15:20 AM
[2021-04-11] MEDS ORDERED: HumuLIN R (REGULAR) INSULIN (NovoLIN R) **100U/ML** PER UNIT IV ONE (06:45)
[2021-04-11] MEDS ORDERED: HumuLIN R (REGULAR) INSULIN (NovoLIN R) **100U/ML** PER UNIT SC STA (07:13)
--- NOTE | 2021-04-11 08:27 | ECGEPIP ---
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
[2021-04-11 08:50] VITALS: BP 166/81
== END 2021-04-11 08:59 | disposition home or self-care (01) ==
LOC: M ED 18:48
DX: E87.1 Hypo-osmolality and hyponatremia (principal); E11.65 Type 2 diabetes mellitus with hyperglycemia; I10 Essential (primary) hypertension; E78.5 Hyperlipidemia, unspecified; J45.909 Unspecified asthma, uncomplicated; Z95.5 Presence of coronary angioplasty implant and graft; Z79.82 Long term (current) use of aspirin; Z79.4 Long term (current) use of insulin; Z79.899 Other long term (current) drug therapy
CPT/HCPCS: 70450; 74021; 80053; 85025; 85610; 85730; 93005; 99285; U0003

== ENCOUNTER 2021-04-13 16:47 | Inpatient (IN) | payer MEDICARE, OTHER ==
[~2021-04-13] VITALS: Ht 162.6 cm; Wt 88.3 kg
[2021-04-14] MEDS ORDERED: dexameTHASONE 20MG/5ML VIAL (J1100 PER 1MG) IV ONE (01:00)
[2021-04-14 01:33] LABS: BASO # 0.1 10^3/uL (0.0-0.2); BASO % 0.6 % (0.0-1.0); EOS # 0.4 10^3/uL (0.0-0.5); EOS % 3.7 % (0.0-3.0); HEMATOCRIT 38.7 % (42.0-52.0); LYMPH # 2.8 10^3/uL (1.5-5.0); LYMPH % 28.2 % (24.0-44.0); MEAN CORPUSCULAR HEMOGLOBIN 29.9 pg (27.0-33.0); MEAN CORPUSCULAR HGB CONC 33.6 g/dl (32.0-36.5); MONO % 9.6 % (2.0-8.0); NEUTROPHILS # 5.7 10^3/uL (1.5-8.5); NEUTROPHILS % 57.7 % (36.0-66.0); PLATELET COUNT, AUTOMATED 226 10^3/uL (150-450); RED BLOOD COUNT 4.35 10^6/uL (4.30-6.10); WHITE BLOOD COUNT 9.9 10^3/uL (4.0-10.0)
[2021-04-14 02:18] LABS: ALBUMIN 2.8 GM/DL (3.2-5.2); BILIRUBIN,DIRECT 0.2 MG/DL (0.0-0.2); BILIRUBIN,TOTAL 0.6 MG/DL (0.2-1.0); CK-MB VALUE MASS 4.1 NG/ML (<3.6); MB/CK RELATIVE INDEX 3.15 (< OR =4); THYROID STIMULATING HORMONE 1.23 uIU/ML (0.358-3.740); TOTAL PROTEIN 6.1 GM/DL (6.4-8.2); TROPONIN I 0.04 NG/ML (< 0.10)
--- NOTE | 2021-04-14 02:53 | REPVR ---
PROCEDURE INFORMATION: Exam: CT Head Without Contrast Exam date and time: 04/14/2021 1:03 AM Age: 70 years old Clinical indication: Dizziness TECHNIQUE: Imaging protocol: Computed tomography of the head without contrast. Radiation optimization: All CT scans at this facility use at least one of these dose optimization techniques: automated exposure control; mA and/or kV adjustment per patient size (includes targeted exams where dose is matched to clinical indication); or iterative reconstruction. Other technique: STROKE PROTOCOL was implemented. COMPARISON: CT Head without contrast 04/11/2021 3:09 AM FINDINGS: Limitations: Limited by motion artifact. Brain: Small chronic infarcts in the occipital lobe. Mild hypodensities in the periventricular white matter which are consistent with chronic small vessel ischemic disease. No acute mass effect. Small chronic infarct in the left cerebellum. Small chronic infarct in the superior left frontal lobe. Small chronic infarct the superior right parietal lobe. No acute intracranial hemorrhage. Cortical luong-white matter differentiation is preserved. Cerebral ventricles: Ventricles are in proportion to the degree of atrophy. Paranasal sinuses: Visualized sinuses are unremarkable. No fluid levels. Mastoid air cells: Visualized mastoid air cells are well aerated. Vasculature: Atherosclerotic calcification of the carotid siphon. Bones/joints: Unremarkable. No acute fracture. Soft tissues: Unremarkable. IMPRESSION: 1. No cerebral changes of acute infarct on non-contrast CT at this time. 2. Mild hypodensities in the periventricular white matter which are consistent with chronic small vessel ischemic disease. 3. Small chronic infarcts as described. ASSESSMENT: ASPECTS (Claudia Stroke Program Early CT Score) is 10. Electronically signed by: Fadia Reyna On 04/14/2021 02:53:12 AM
--- NOTE | 2021-04-14 04:55 | REPVR ---
PROCEDURE INFORMATION: Exam: MRA Head Without Contrast; Arteriography Exam date and time: 04/14/2021 4:30 AM Age: 70 years old Clinical indication: Patient HX: PT came to er on mon of this week he states and is following up from then because he still has continue numbness and weakness on RT side and has HX of 3 strokes; Additional info: Rule out stroke TECHNIQUE: Imaging protocol: Magnetic resonance angiography head without contrast. Exam focused on the arteries. COMPARISON: MRA BRAIN W/O CONTRAST 01/07/2021 9:33 PM FINDINGS: Limitations: Limited by motion artifact. ANTERIOR CIRCULATION: Right internal carotid artery: No definite stenosis or occlusion. Right middle cerebral artery: No definite stenosis or occlusion. Right anterior cerebral artery: No definite stenosis or occlusion. Left internal carotid artery: No definite stenosis or occlusion. Left middle cerebral artery: No definite stenosis or occlusion. Left anterior cerebral artery: No definite stenosis or occlusion. POSTERIOR CIRCULATION: Right vertebral artery: There is no antegrade flow seen in the intradural segment of the right vertebral artery. Left vertebral artery: No definite stenosis or occlusion. Basilar artery: No definite stenosis or occlusion. Right posterior cerebral artery: No definite stenosis or occlusion. Left posterior cerebral artery: No definite stenosis or occlusion. IMPRESSION: 1. Severely limited by motion. 2. There is no antegrade flow seen in the intradural segment of the right vertebral artery. Unchanged from prior. 3. No definite stenosis or occlusion in the large vessels otherwise. Electronically signed by: Fadia Reyna On 04/14/2021 04:54:55 AM
[2021-04-14] MEDS ORDERED: NS 500 ML IV ONE (05:00)
--- NOTE | 2021-04-14 05:03 | REPVR ---
PROCEDURE INFORMATION: Exam: MR Head Without Contrast Exam date and time: 04/14/2021 4:30 AM Age: 70 years old Clinical indication: Numbness / parasthesia and weakness, extremity; Right; Patient HX: PT states he is following up from mon when he came to the er and still has weakness and numbness on RT side and with a HX of 3 strokes; Additional info: Rule out stroke, ? posterior TECHNIQUE: Imaging protocol: MR of the head without contrast. COMPARISON: 1. MRI-Brain without Contrast 01/07/2021 9:33:[address] Head without contrast 04/14/2021 1:50 AM FINDINGS: Limitations: Limited by motion artifact. Brain: Small acute infarct in periventricular white matter in the right frontal lobe. Acute on chronic infarct in the superior left frontal lobe involving the motor cortex. Diffuse cerebral atrophy. Small chronic infarcts in the bilateral parietal lobes superiorly and bilateral occipital lobes. Moderate T2-hyperintense changes in the deep white matter which are nonspecific but suspicious for chronic small vessel ischemic disease. No acute intracranial hemorrhage. Cerebral ventricles: Normal. No ventriculomegaly. Bones/joints: Unremarkable. Paranasal sinuses: Normal as visualized. No acute sinusitis. Mastoid air cells: Normal as visualized. No mastoid effusion. Orbital cavity: Unremarkable. Soft tissues: Unremarkable. IMPRESSION: 1. Limited by motion. 2. Acute on chronic infarct in the superior left frontal lobe involving the motor cortex. 3. Small acute infarct in the superior left frontal lobe involving the motor cortex 4. Chronic infarcts as described. Findings correlate with prior study. 5. Moderate T2-hyperintense changes in the deep white matter which are nonspecific but suspicious for chronic small vessel ischemic disease. Electronically signed by: Fadia Reyna On 04/14/2021 05:03:34 AM
[2021-04-14] MEDS ORDERED: ASPIRIN 81 MG CHEW TABLET PO ONE (05:20)
[2021-04-14] MEDS ORDERED: GLUCOSE 4GM CHEW TABLET PO PRN (06:00)
[2021-04-14] MEDS ORDERED: GLUCAGON INJ 1MG VIAL SC PRN (06:00)
[2021-04-14] MEDS ORDERED: ACETAMINOPHEN TAB 650MG DOSE (2X325MG) PO PRN (06:00)
[2021-04-14] MEDS ORDERED: DEXTROSE 50% 50 ML SYRINGE IV PRN (06:00)
[2021-04-14] MEDS: HumaLOG INSULIN (NovoLOG) PER UNIT SC SCH ×4 (06:00→21:00)
[2021-04-14] MEDS: HEPARIN SOD (PORCINE) 5000UNITS/ML 1ML VIAL/SYRINGE SC SCH ×3 (06:00→22:11)
[2021-04-14] MEDS: NS 1,000 ML IV SCH ×2 (06:00→20:52)
[2021-04-14] MEDS ORDERED: MOM 30ML SUSPENSION UDC PO PRN (06:00)
--- NOTE | 2021-04-14 06:21 | HPEPDOC ---
[facility] Medical History & Physical Date of Admission Apr 14, 2021 Date of Service: Apr 14, 2021 History and Physical CHIEF COMPLAINT: none specific weakness HISTORY OF PRESENT ILLNESS: 70-year-old male history of hypertension and hyperlipidemia chronic kidney disease insulin-dependent diabetes and anxiety who comes to the emergency department complaining of nonspecific weakness patient says he feels he's been unwell for the past 1-2 weeks. His was with him at bedside and she wanted to elaborate that she felt his right side was weaker over the past 1 week or so but she is really unsure when his symptoms worsened as he doesn't always tell her. Patient does admit that often he feels his right side is a little weaker including his upper and lower extremities although right now he doesn't feel any weakness currently. He does endorse feeling generally unwell and has had intermittent associated nausea and vomiting although not currently. His endorses that he had seen neurology in the clinic after his last discharge and had seen commercial truck driver Dr. Escobedo (was at cardio office yesterday) and had a Holter monitor on at home tells me that he was recommended to have a pacemaker although she is unsure why she mentions some 'pauses' but can't elaborate, she doesn't recall hearing that he had "atrial fibrillation". On review of systems patient denies any chest pain or palpitations. He denies active nausea or vomiting. He denies feeling upper or lower extremity weakness at this time and denies any slurring of speech. He denies fevers or chills. He does endorse some mild shortness of breath yesterday but not currently. Case was discussed by the ED and neurologist on-call Dr Sutton who recommend ed proceeding with stroke workup. Patient will be admitted to the medical service for stroke workup. 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 REVIEW OF SYSTEMS: 10 point review of systems complete all negative otherwise stated in HPI HOME MEDICATIONS: Please see below. PHYSICAL EXAMINATION: ENT: Sclera are clear. Mucosa is dry Clear speech. Respiratory: Lungs CTA bilaterally. No respiratory distress. Cardiovascular: Regular rate and rhythm Gastrointestinal: Abdomen is soft, non distended, non tender, BS present. Musculoskeletal: No lower extremity edema. mental status: The patient is awake, alert, oriented to name, location, and d ate. Cranial nerves: Pupils are equal, round, and reactive to light. Extraocular muscles intact. Visual glass full bilaterally. Smile is symmetrical. Tongue is midline. Intact sensation on both sides of face. Motor: At least 4+/5 in left and right upper and lower extremities. Sensory: Intact to sensation bilaterally although theres slight decreased sensation both lower extremities (could be diabetic neuropathy) Reflexes: Symmetrical, non-hyperreflexic. Not pathological. LABORATORY DATA: See below. IMAGING: See chart MICROBIOLOGY: Please see below. ASSESSMENT/PLAN 70-year-old male history of hypertension and hyperlipidemia chronic kidney disease insulin-dependent diabetes and anxiety who comes to the emergency department complaining of generalized weakness, per he's been having right sided weakness of unknown duration who was found to have acute on chronic CVA admitted for further workup. # Acute CVA - Stoke workup. Admit to PCU on tele. CT negative for bleed. MRI positive for acute stroke. Follow up MRA brain, duplex carotids. Obtain Echo with bubble. NPO until swallow eval. PT/OT/ST. Fall, seizure precautions. ASA and Statin. - I called and discussed case with vascular surgeon online merchandising specialist Dr. Alvarado given findings on last workup in december of Diminished flow related signal in the right vertebral artery suggesting some degree of flow limitation on MRA as well as Moderate left proximal ICA stenosis seen on US carotids. These may or may not contribute or explain his recurrent stroke. Appreciate Dr. Carrero recs. - Dr Escobedo is his commercial truck driver and patient has had a holter at home. There was discussion that patient needed a pacemaker but unsure as to why exactly. Morning team to touch base with cardiology in the morning to find out results of Holter monitor (if he has paroxysmal A fib - which would explain his CVAs) and to figure out why he is being recommended for a pacemaker. - Patient followed with Dr Sutton in clinic after last CVA. Morning team to discuss plan with him and decide if he needs to be seen inpatient by neurology. ED has spoken with Dr Mohouddin earlier who recommended continuing the stroke workup. - Initiated hypercoagulability workup, although this is less likely. Results can take several days and will likely need to follow up with his PCP or be referred to oncology if he is discharged before results return. # Elevated troponin: initial trop 0.04. Repeat trop and EKG pending. Patient denies chest pain at any point. EKG not showing ST elevation. # STEPHAN: Currently Cr 1.5 on admission. Clinically dehydrated, dry mucus membranes. IVFs. Monitor renal function. # Hypertension: Continue home meds. Monitor and titrate # DM: ISS. Frequent Accu-Cheks. Hypoglycemic precautions. Takes 75u of lantus BID daily. Will start him on Levemir 35U BID while NPO and up titrate basal insulin as needed. # CAD: ASA/statin # Anxiety: continue paroxetine # BPH: continue tamulosin # hx gastric ulcers: continue protonix # DVT prophylaxis: Heparin A [facility] Hospitalist Vital Signs Vital Signs Date Time Temp Pulse Resp B/P (MAP) Pulse Ox O2 Delivery O2 Flow Rate FiO2 04/14/21 06:00 97.7 81 19 164/79 (107) 96 Room Air Laboratory Data Labs 24H Laboratory Tests 2 04/14/21 01:25: Immature Granulocyte % (Auto) 0.2, Neutrophils (%) (Auto) 57.7, Lymphocytes (%) (Auto) 28.2, Monocytes (%) (Auto) 9.6H, Eosinophils (%) (Auto) 3.7H, Basophils (%) (Auto) 0.6, Neutrophils # (Auto) 5.7, Lymphocytes # (Auto) 2.8, Monocytes # (Auto) 1.0H, Eosinophils # (Auto) 0.4, Basophils # (Auto) 0.1, Nucleated Red Blood Cells % (auto) 0.0, Total Bilirubin 0.6, Direct Bilirubin 0.2, Aspartate Amino Transf (AST/SGOT) 19, Alanine Aminotransferase (ALT/SGPT) 31, Alkaline Phosphatase 60, Total Creatine Kinase 130, Creatine Kinase MB 4.1H, Creatine Kinase MB Relative Index 3.15, Troponin I 0.04, Total Protein 6.1L, Albumin 2.8L, Albumin/Globulin Ratio 0.8, Thyroid Stimulating Hormone (TSH) 1.230 04/14/21 01:34: POC Glucose (Misc Panel) 84, POC Sodium (Misc Panel) 135L, POC Potassium (Misc Panel) 3.6, POC Chloride (Misc Panel) 99, POC Total CO2 (Misc Panel) 23.0, POC Blood Urea Nitrogen (Misc Panel 30H, POC Ionized Calcium (Misc Panel) 4.9, POC Creatinine (Misc Panel) 1.5H, POC Hematocrit (Misc Panel) 38.0 04/14/21 02:48: Urine Color STRAW, Urine Appearance CLEAR, Urine pH 6.0, Urine Specific [place] 1.004, Urine Protein 2+H, Urine Glucose (UA) NEGATIVE, Urine Ketones NEGATIVE, Urine Blood 1+H, Urine Nitrite NEGATIVE, Urine Bilirubin NEGATIVE, Urine Urobilinogen 0.2, Urine Leukocyte Esterase NEGATIVE, Urine WBC (Auto) 0, Urine RBC (Auto) 2, Urine Hyaline Casts (Auto) 0, Urine Bacteria (Auto) NEGATIVE, Urine Squamous Epithelial Cells 0, Urine Sperm (Auto) 04/14/21 05:45: CBC/BMP Laboratory Tests 04/14/21 01:25 Microbiology Microbiology 04/14/21 Blood Culture, Received Pending 04/14/21 Blood Culture, Received Pending Home Medications Scheduled Aspirin (Aspirin) 325 Mg Tablet, 325 MG PO DAILY Carvedilol (Coreg) 3.125 Mg Tab, 3.125 MG PO BID Exenatide Microspheres (Bydureon Bcise) 2 Mg/0.85 Ml Auto.injct, 2 MG SC 1XWK SATURDAY EVENINGS Ferrous Sulfate (Ferrous Sulfate) 325 Mg Tab, 325 MG PO DAILY Insulin Glargine (Lantus) 1 Units/0.01 Ml Susp, 75 UNITS SC BID Insulin Human Lispro (Novolog) 100 U/Ml Inj, 1 DOSE SC ACHS PER SLIDING SCALE Losartan Potassium (Losartan Potassium) 25 Mg Tab, 25 MG PO DAILY Lovastatin (Lovastatin) 40 Mg Tab, 40 MG PO DAILY Magnesium Oxide (Magnesium) 400 Mg Capsule, 400 MG PO TID Metformin HCl (Metformin HCl ER) 500 Mg Tab, 500 MG PO BID [place]-3 Fatty Acids/Fish Oil (Fish Oil 1,000 mg Capsule) 1 Each Capsule, 2,000 MG PO DAILY Pantoprazole Sodium (Pantoprazole Sodium) 40 Mg Tablet.dr, 40 MG PO DAILY Paroxetine HCl (Paxil) 20 Mg Tab, 20 MG PO DAILY Tamsulosin HCl (Flomax) 0.4 Mg Cap, 0.4 MG PO DAILY Scheduled PRN Albuterol Sulfate (Ventolin Hfa) 18 Gm Hfa.aer.ad, 2 PUFFS INH QID PRN for SOB/WHEEZING Allergies Coded Allergies: No Known Allergies (Unverified , 04/10/21) MELANIA LAU MD Apr 14, 2021 06:14
[2021-04-14 06:41] LABS: CK-MB VALUE MASS 4.1 NG/ML (<3.6); MB/CK RELATIVE INDEX 3.01 (< OR =4); TROPONIN I 0.03 NG/ML (< 0.10)
--- NOTE | 2021-04-14 07:33 | REPVR ---
PROCEDURE INFORMATION: Exam: US Duplex Bilateral Extracranial Arteries Exam date and time: 04/14/2021 6:44 AM Age: 70 years old Clinical indication: Other: Stroke; Additional info: Acute stroke TECHNIQUE: Imaging protocol: Real-time Duplex ultrasound scan of the bilateral carotid and vertebral arteries combining luong scale, color Doppler and spectral waveform analysis. Bilateral exam. COMPARISON: US Duplex,carotid (complete) 01/07/2021 10:30 PM FINDINGS: Right common carotid artery: Broadening of the waveforms. No occlusion or stenosis. Peak systolic velocity is 57 cm/s in the distal segment. Right internal carotid artery: No occlusion or stenosis. Bisferiens type waveforms. Peak systolic velocity is 67 cm/s. Moderate echogenic plaque in the origin of the right ICA. Right ICA/CCA ratio: Within normal limits. 1.2. Right external carotid artery: No stenosis in the origin. Right vertebral artery: Bisferiens waveforms. Antegrade flow. Left common carotid artery: No occlusion or stenosis. Peak systolic velocity is 73 cm/s. Broadening of the waveforms. Left internal carotid artery: No occlusion or stenosis. Bisferiens waveforms. Peak systolic velocity is 131 cm/s. Mild echogenic plaque in the origin of the left ICA. Left ICA/CCA ratio: Within normal limits. 1.7. Left external carotid artery: Moderate focal stenosis of the proximal left ICA CCA. Left vertebral artery: Bisferiens waveforms. Antegrade flow. IMPRESSION: 1. No significant stenosis in the right carotid artery. 2. 50-69% stenosis of the proximal left ICA. 3. Bisferiens waveforms. Question aortic regurgitation. REFERENCES: SRU CRITERIA. The degree of internal carotid artery stenosis is based on criteria defined by the Society of Radiologists in Ultrasound (SRU). Normal is no stenosis. Mild is less than 50% stenosis. Moderate is 50-69% stenosis. Severe is greater than 69% stenosis to near occlusion. Near occlusion is a markedly narrowed lumen. Total occlusion is no detectable patent lumen. Electronically signed by: Fadia Reyna On 04/14/2021 07:33:11 AM
[2021-04-14] MEDS ORDERED: D-50CAP PO (10:59)
[2021-04-14] MEDS ORDERED: MELA10TA2 PO (10:59)
[2021-04-14] MEDS ORDERED: BAYE325T12 PO (10:59)
[2021-04-14] MEDS ORDERED: ATOR80TA59 PO (10:59)
[2021-04-14] MEDS: DOCUSATE SODIUM 100MG CAPSULE PO SCH ×2 (11:00→21:00)
[2021-04-14] MEDS ORDERED: HOME MED LIST COMPLETE! XX SCH (11:05)
[2021-04-14] MEDS: LEVEMIR (INSULIN DETEMIR) 1 UNITS/0.01ML SC SCH ×2 (11:10→22:09)
--- NOTE | 2021-04-14 11:46 | CR.PDOC ---
General Date of Consultation: Apr 14, 2021 (Patient seen at 11 am) Referring Provider: MELANIA LAU MD Attending Physician: Melanie Alvarado MD Consultation REASON FOR CONSULTATION/CHIEF COMPLAINT: Carotid artery stenosis, in a patient with stroke HISTORY OF PRESENT ILLNESS: The patient is a 70-year-old gentleman, who presented yesterday to the emergency room, with nausea, vomiting, generalized weakness, along with known right arm weakness. History obtained from the patient, and from the medical records. The patient's history starts from 01/07/2021, when he presented to the emergency department with acute onset of right upper extremity weakness and numbness, as well as dysarthria. MRI revealed Multiple acute ischemic strokes affecting left precentral gyrus, right parietal cortical infarct, and small acute lacunar infarct in the right posterior cerebellum and small chronic right occipital lobe infarcts as well . Patient was outside of the TPA window. Permissive hypertension was allowed for 24 hours. His home dose of aspirin is increased from 81 mg to 325 mg, and he was continued on his same home dose of a atorvastatin. Echocardiogram demonstrated low normal global left ventricular systolic function with an EF estimated to be approximately 55-55%, and grade 1 left ventricular diastolic dysfunction. Bubble study did not reveal any evidence for right to left shunt. He was noted to have a aortic valve sclerosis and mitral annular calcification, with no significant stenosis or regurgitation. JOHN in 2014 revealed mitral valve prolapse with moderate mitral regurgitation. Within 24 hours his dysarthria had resolved, and he had regained some function in the right upper extremity. Within 48 hours he regained most of the function in his right upper extremity, but he continued to have residual muscle weakness. He was seen and evaluated by physical therapy who feels that he would be an appropriate candidate for outpatient therapy. He has chronic kidney disease, and his creatinine worsened to 1.57 on 01/08/2021. His acute kidney injury resolved with the administration of fluids to 1.25 on 01/09/2021. His creatinine on 04/10/2021 was 1.43 and today is 1.5. Renal ultrasound on 04/09/2021 did not reveal any acute abnormalities. The patient states that his residual right upper extremity weakness has not worsened since his presentation to the emergency room last night. He is right- handed. He is independent of daily activities of life otherwise. He was r ecently evaluated by cardiology, and had a Holter monitoring. He is scheduled to follow-up with cardiology next week. He states that on the Holter monitoring he was told that his heart was the cause of his strokes. The patient denies any chest pain, palpitations, or dyspnea. He denies any previous such neurological symptoms. He had multiple mini strokes in the past, prior to 01/07/2021, when he felt sudden episodes of generalized weakness, without any focal weakness, which resolved spontaneously. Carotid ultrasound, in January 2021, and today, revealed the left proximal ICA stenosis-peak systolic velocity, in the 50 to 69% range, on the lower side of the range. The PSV was 150 cm/s, and 12/28, and today it was 131 cm/s. There was evidence of calcific plaque, the carotid bulbs, and at the origins of the internal carotid arteries. Carotid MRI on 01/07/2021 without contrast revealed moderate left proximal internal carotid artery stenosis, in the range of 50 to 69%. EKG revealed normal sinus rhythm with nonspecific T wave abnormalities. The patient's past medical, surgical, family and social history's were reviewed and are as below. PAST MEDICAL HISTORY: Hypertension Diabetes mellitus type 2 Coronary artery disease Benign prostatic hypertrophy History of gastric ulcers Chronic kidney disease Hyperlipidemia Degenerative joint disease of the spine, and the knees PAST SURGICAL HISTORY: Right and left knee replacement surgery, with multiple surgeries of the right knee Spinal cord compression surgery Multiple lower back surgeries Cholecystectomy Multiple right eye procedures FAMILY HISTORY: Both his parents in their 40s. His father had hypertension. His brother from cancer. SOCIAL HISTORY: He quit smoking 36 years ago. Has alcohol on rare occasions. He lives with his . He is retired. He worked in [employer]. REVIEW OF SYSTEMS: CONSTITUTIONAL: Nausea, no vomiting. No chills or rigors. No loss of appetite. Weakness improved since hospitalization HEENT: Right eye problems CARDIOVASCULAR: No chest pain, palpitations. No claudication RESPIRATORY: No cough, dyspnea on exertion or at rest GENITOURINARY: Urinary frequency MUSCULOSKELETAL: No active joint pain or limitation of range of motion GASTROINTESTINAL: No abdominal pain, vomiting, hematemesis or melena. SKIN: No rash NEUROLOGICAL: Residual right upper extremity weakness. Intermittent numbness of the tips of the toes PSYCHIATRIC: No mood changes PHYSICAL EXAMINATION: VITAL SIGNS: Please see below. GENERAL APPEARANCE: Medium built gentleman, who looks older than his stated age. He is not in acute distress.. HEENT: Normocephalic, no facial asymmetry. No pallor or icterus. Edentulous. RESPIRATORY: Bilateral equal air entry, no crepitations or rhonchi. CARDIOVASCULAR: No jugular venous distention. Normal sinus rhythm, with pulses. Bilateral carotid bruits present. Ejection systolic murmur 3/6, in the second intercostal spaces bilaterally. No rub Bilateral radials, femorals, posterior tibial pulses +2 palpable. ABDOMEN: Obese, nondistended, nontender EXTREMITIES: No gross deformities. Normal range of motion. Dry skin on the legs and the feet, with toes which are cool. NEUROLOGICAL: Awake alert oriented x3. Mild subjective right upper extremity weakness. Motor power 5/5 bilateral upper and lower extremities otherwise. Nonfocal sensory exam. PSYCHIATRIC: Cooperative, normal mood and affect LABORATORY DATA: All relevant lab data, from the past hospitalizations, the current hospitalization, including imaging was reviewed by me and as discussed in the HPI MRI of the brain 04/14/2021: Acute periventricular white matter right frontal infarcts, with acute on chronic superior left frontal infarct, diffuse cerebral atrophy, small chronic bilateral parietal and occipital lobe infarcts. ASSESSMENT/PLAN: 1. Recurrent bilateral hemispheric acute strokes, in a patient with apparently abnormal Holter monitoring results, and mild to moderate left carotid artery stenosis. Suggest cardiology follow-up and treatment is required. He may require anticoagulation-based on his cardiology work-up. Continue aspirin and statins. No indication to further investigate or treat carotid stenosis, at the current time. He may follow-up as outpatient, vascular clinic carotid ultrasounds in 6 months. Discussed with the patient, and with Dr. Lunsford- hospitalist 2. Cardiac arrhythmia: Being investigated by cardiology. Possible valvular a bnormalities of the aortic valve in the mitral valve. His pulse waveforms, on the carotid ultrasound from04/14/2021, reveals pulsus bisferiens waveforms, compared to normal waveforms, on the carotid ultrasound performed on 01/07/2021, which is a new finding, and suggests possible aortic valve pathology- stenosis/regurgitation. 3. Chronic kidney disease-mildly worsened, due to his nausea. Continue monitoring the renal function, and continue hydration as required 4. Supportive care for hypertension, hyperlipidemia and type 2 diabetes mellitus. Vital Signs/I&O Vital Signs Date Time Temp Pulse Resp B/P (MAP) Pulse Ox O2 Delivery O2 Flow Rate FiO2 04/14/21 11:15 110 96 04/14/21 11:01 20 168/79 (108) Room Air 04/14/21 07:34 97.8 Laboratory Data Labs 24H Laboratory Tests 2 04/14/21 01:25: Immature Granulocyte % (Auto) 0.2, Neutrophils (%) (Auto) 57.7, Lymphocytes (%) (Auto) 28.2, Monocytes (%) (Auto) 9.6H, Eosinophils (%) (Auto) 3.7H, Basophils (%) (Auto) 0.6, Neutrophils # (Auto) 5.7, Lymphocytes # (Auto) 2.8, Monocytes # (Auto) 1.0H, Eosinophils # (Auto) 0.4, Basophils # (Auto) 0.1, Nucleated Red Blood Cells % (auto) 0.0, Total Bilirubin 0.6, Direct Bilirubin 0.2, Aspartate Amino Transf (AST/SGOT) 19, Alanine Aminotransferase (ALT/SGPT) 31, Alkaline Phosphatase 60, Total Creatine Kinase 130, Creatine Kinase MB 4.1H, Creatine Kinase MB Relative Index 3.15, Troponin I 0.04, Total Protein 6.1L, Albumin 2.8L, Albumin/Globulin Ratio 0.8, Thyroid Stimulating Hormone (TSH) 1.230 04/14/21 01:34: POC Glucose (Misc Panel) 84, POC Sodium (Misc Panel) 135L, POC Potassium (Misc Panel) 3.6, POC Chloride (Misc Panel) 99, POC Total CO2 (Misc Panel) 23.0, POC Blood Urea Nitrogen (Misc Panel 30H, POC Ionized Calcium (Misc Panel) 4.9, POC Creatinine (Misc Panel) 1.5H, POC Hematocrit (Misc Panel) 38.0 04/14/21 02:48: Urine Color STRAW, Urine Appearance CLEAR, Urine pH 6.0, Urine Specific [place] 1.004, Urine Protein 2+H, Urine Glucose (UA) NEGATIVE, Urine Ketones NEGATIVE, Urine Blood 1+H, Urine Nitrite NEGATIVE, Urine Bilirubin NEGATIVE, Urine Urobilinogen 0.2, Urine Leukocyte Esterase NEGATIVE, Urine WBC (Auto) 0, Urine RBC (Auto) 2, Urine Hyaline Casts (Auto) 0, Urine Bacteria (Auto) NEGATIVE, Urine Squamous Epithelial Cells 0, Urine Sperm (Auto) 04/14/21 05:45: Total Creatine Kinase 136, Creatine Kinase MB 4.1H, Creatine Kinase MB Relative Index 3.01, Troponin I 0.03# 04/14/21 11:01: Bedside Glucose ([facility] Panel) 454H CBC/BMP Laboratory Tests 04/14/21 01:25 Microbiology Microbiology 04/14/21 Blood Culture, Received Pending 04/14/21 Blood Culture, Received Pending Allergies Coded Allergies: No Known Allergies (Unverified , 04/10/21) Home Medications Scheduled Aspirin (Aspirin) 325 Mg Tablet, 325 MG PO DAILY, (Reported) Atorvastatin Calcium (Atorvastatin Calcium) 80 Mg Tablet, 80 MG PO DAILY, (Reported) Cholecalciferol (Vitamin D3) (Vitamin D3) 125 Mcg Capsule, 125 MCG PO DAILY, (Reported) Exenatide Microspheres (Bydureon Bcise) 2 Mg/0.85 Ml Auto.injct, 2 MG SC 1XWK, (Reported) SATURDAY EVENINGS Ferrous Sulfate (Ferrous Sulfate) 325 Mg Tab, 325 MG PO DAILY, (Reported) Insulin Glargine (Lantus) 1 Units/0.01 Ml Susp, 75 UNITS SC BID, (Reported) Insulin Human Lispro (Novolog) 100 U/Ml Inj, 1 DOSE SC ACHS, (Reported) PER SLIDING SCALE. BETWEEN 71-100=14 UNITS Losartan Potassium (Losartan Potassium) 25 Mg Tab, 25 MG PO DAILY, (Reported) Magnesium Oxide (Magnesium) 400 Mg Capsule, 400 MG PO TID, (Reported) Melatonin (Melatonin) 10 Mg Tablet.er, 20 MG PO QHS, (Reported) Metformin HCl (Metformin HCl ER) 500 Mg Tab, 500 MG PO BID, (Reported) Pantoprazole Sodium (Pantoprazole Sodium) 40 Mg Tablet.dr, 40 MG PO DAILY, (Reported) Paroxetine HCl (Paxil) 20 Mg Tab, 20 MG PO DAILY, (Reported) Tamsulosin HCl (Flomax) 0.4 Mg Cap, 0.4 MG PO DAILY, (Reported) Scheduled PRN Albuterol Sulfate (Ventolin Hfa) 18 Gm Hfa.aer.ad, 2 PUFFS INH QID PRN for SOB/WHEEZING, (Reported) Melanie Alvarado MD Apr 14, 2021 11:46
[2021-04-14 13:25] LABS: C REACTIVE PROTEIN QUANTITATIV < 0.30 MG/DL (0.00-0.30); RHEUMATOID FACTOR QUANT < 10.0 IU/ML (<15.0)
[2021-04-14] MEDS ORDERED: ALBUTEROL 90 MCG/ACT 8GM HFA INHALER INH PRN (17:55)
--- NOTE | 2021-04-14 18:20 | IPNPDOC ---
Subjective Date Seen The patient was seen on 04/14/21. Subjective Chief Complaint/HPI Mr. Wiggins is a 70 year old male with hypertension and hyperlipidemia who is here for acute on chronic CVA. This morning, he denied any chest pain or dyspnea. His gait is abnormal, but arm strength is good. I spoke with Dr. Alvarado. No intervention is needed. There is a high suspicion that the patient's recurrent stroke is cardiac in nature. I spoke with Dr. Barnham who is national facilities manager today. There is no a.fib seen on the Holter. Objective Physical Examination General Exam: Positive: Alert, Cooperative Eye Exam: Negative: Sclera icteric ENT Exam: Positive: Atraumatic Neck Exam: Positive: Supple Chest Exam: Positive: Clear to auscultation Heart Exam: Positive: Tachycardic, Regular Rhythm Abdomen Exam: Positive: Normal bowel sounds, Soft; Negative: Tenderness Extremity Exam: Negative: Edema Neuro Exam: Positive: Normal Speech Psych Exam: Positive: Mental status NL, Mood NL Other physical findings Radiology/Imaging MRI brain without contrast 1. Limited by motion. 2. Acute on chronic infarct in the superior left frontal lobe involving the motor cortex. 3. Small acute infarct in the superior left frontal lobe involving the motor cortex 4. Chronic infarcts as described. Findings correlate with prior study. 5. Moderate T2-hyperintense changes in the deep white matter which are nonspecific but suspicious for chronic small vessel ischemic disease. MRA head 1. Severely limited by motion. 2. There is no antegrade flow seen in the intradural segment of the right vertebral artery. Unchanged from prior. 3. No definite stenosis or occlusion in the large vessels otherwise. Ultrasound carotids 1. No significant stenosis in the right carotid artery. 2. 50-69% stenosis of the proximal left ICA. 3. Bisferiens waveforms. Question aortic regurgitation. Assessment /Plan Assessment Mr. Wiggins is a 70 year old male with hypertension and hyperlipidemia who is here for acute on chronic CVA. Stroke work up was initialed. Interestingly the [place] carotids demonstrated bisferiens waveforms which may suggested aortic regurgitation. Pending echocardiogram read. Otherwise, patient will need at least 48 hours of permissive hypertension (SBP between 140 to 180) Plan/VTE VTE Prophylaxis Ordered?: Yes Plan 1. Acute on chronic CVA Stroke work-up initiated Pending echocardiogram results Continue monitoring on telemetry Spoke with vascular surgery, no need for intervention at this time, outpatient follow-up Spoke with cardiology, no Aram. fib on Holter Spoke with neurology. Recommend switching from full dose aspirin to DAPT. No loading dose needed for Plavix. Aspirin 81 and Plavix 75. We will allow for permissive hypertension for 48 hours. 2. Acute kidney injury Creatinine elevated IVF Supportive care and avoid nephrotoxic agents 3. Hypertension Due to acute stroke will allow for permissive hypertension 4. Diabetes mellitus Continue Levemir and insulin scale insulin 5. Coronary artery disease Patient will be put on DAPT Allowing for permissive hypertension. Hold losartan Continue atorvastatin 6. Anxiety Continue paroxetine 7. BPH Allow for permissive hypertension Hold tamsulosin 8. History of gastric ulcers Continue pantoprazole 9. DVT prophylaxis Heparin Disposition: Pending PT/OT and allowing for 48 hours of permissive hypertension VS, I&O, 24H, Fishbone Vital Signs/I&O Vital Signs Date Time Temp Pulse Resp B/P (MAP) Pulse Ox O2 Delivery O2 Flow Rate FiO2 04/14/21 16:32 98.2 105 17 145/75 (98) 96 Room Air Laboratory Data 24H LABS Laboratory Tests 2 04/14/21 01:25: Immature Granulocyte % (Auto) 0.2, Neutrophils (%) (Auto) 57.7, Lymphocytes (%) (Auto) 28.2, Monocytes (%) (Auto) 9.6H, Eosinophils (%) (Auto) 3.7H, Basophils (%) (Auto) 0.6, Neutrophils # (Auto) 5.7, Lymphocytes # (Auto) 2.8, Monocytes # (Auto) 1.0H, Eosinophils # (Auto) 0.4, Basophils # (Auto) 0.1, Nucleated Red Blood Cells % (auto) 0.0, Total Bilirubin 0.6, Direct Bilirubin 0.2, Aspartate Amino Transf (AST/SGOT) 19, Alanine Aminotransferase (ALT/SGPT) 31, Alkaline Phosphatase 60, Total Creatine Kinase 130, Creatine Kinase MB 4.1H, Creatine Kinase MB Relative Index 3.15, Troponin I 0.04, Total Protein 6.1L, Albumin 2.8L, Albumin/Globulin Ratio 0.8, Thyroid Stimulating Hormone (TSH) 1.230 04/14/21 01:34: POC Glucose (Misc Panel) 84, POC Sodium (Misc Panel) 135L, POC Potassium (Misc Panel) 3.6, POC Chloride (Misc Panel) 99, POC Total CO2 (Misc Panel) 23.0, POC Blood Urea Nitrogen (Misc Panel 30H, POC Ionized Calcium (Misc Panel) 4.9, POC Creatinine (Misc Panel) 1.5H, POC Hematocrit (Misc Panel) 38.0 04/14/21 02:48: Urine Color STRAW, Urine Appearance CLEAR, Urine pH 6.0, Urine Specific [place] 1.004, Urine Protein 2+H, Urine Glucose (UA) NEGATIVE, Urine Ketones NEGATIVE, Urine Blood 1+H, Urine Nitrite NEGATIVE, Urine Bilirubin NEGATIVE, Urine Urobilinogen 0.2, Urine Leukocyte Esterase NEGATIVE, Urine WBC (Auto) 0, Urine RBC (Auto) 2, Urine Hyaline Casts (Auto) 0, Urine Bacteria (Auto) NEGATIVE, Urine Squamous Epithelial Cells 0, Urine Sperm (Auto) 04/14/21 05:45: Total Creatine Kinase 136, Creatine Kinase MB 4.1H, Creatine Kinase MB Relative Index 3.01, Troponin I 0.03# 04/14/21 11:01: Bedside Glucose (Misc Panel) 454H 04/14/21 12:37: Erythrocyte Sedimentation Rate 36H, C-Reactive Protein, Quantitative < 0.30, Rheumatoid Factor < 10.0 CBC/BMP Laboratory Tests 04/14/21 01:25 Microbiology Microbiology 04/14/21 Blood Culture, Received Pending 04/14/21 Blood Culture, Received Pending MUKESH HOGAN DO Apr 14, 2021 18:20
[2021-04-14 19:22] VITALS: BP 137/72
[2021-04-14 20:00] VITALS: BP 137/72
--- NOTE | 2021-04-14 20:47 | ECGEPIP ---
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
--- NOTE | 2021-04-14 20:50 | ECGEPIP ---
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
[2021-04-14] MEDS ORDERED: ONDANSETRON 4 MG TAB PO PRN (23:00)
[2021-04-15] VITALS: BP 165/70
[2021-04-15 04:00] VITALS: BP 149/61
[2021-04-15] MEDS: HEPARIN SOD (PORCINE) 5000UNITS/ML 1ML VIAL/SYRINGE SC SCH ×3 (06:12→20:14)
[2021-04-15 06:28] LABS: HEMATOCRIT 38.9 % (42.0-52.0); HEMOGLOBIN 12.7 g/dl (13.5-17.5); MEAN CORPUSCULAR HEMOGLOBIN 29.4 pg (27.0-33.0); MEAN CORPUSCULAR HGB CONC 32.6 g/dl (32.0-36.5); PLATELET COUNT, AUTOMATED 219 10^3/uL (150-450); RED BLOOD COUNT 4.32 10^6/uL (4.30-6.10)
[2021-04-15 06:45] LABS: ALBUMIN 2.7 GM/DL (3.2-5.2); ALT/SGPT 30 U/L (12-78); BILIRUBIN,TOTAL 0.3 MG/DL (0.2-1.0); BLOOD UREA NITROGEN 34 MG/DL (7-18); CALCIUM LEVEL 8.6 MG/DL (8.8-10.2); CARBON DIOXIDE LEVEL 25 MEQ/L (21-32); CHLORIDE LEVEL 112 MEQ/L (98-107); CREATININE FOR GFR 1.08 MG/DL (0.70-1.30); GLOMERULAR FILTRATION RATE > 60.0 (>49); GLUCOSE, FASTING 117 MG/DL (70-100); POTASSIUM SERUM 4.5 MEQ/L (3.5-5.1); SODIUM LEVEL 143 MEQ/L (136-145); TOTAL PROTEIN 5.9 GM/DL (6.4-8.2)
[2021-04-15 08:00] VITALS: BP 165/70
[2021-04-15] MEDS: LEVEMIR (INSULIN DETEMIR) 1 UNITS/0.01ML SC SCH ×2 (10:16→20:14)
[2021-04-15] MEDS: PANTOPRAZOLE 40MG TAB (PROTONIX) PO SCH (10:17)
[2021-04-15] MEDS: HumaLOG INSULIN (NovoLOG) PER UNIT SC SCH ×4 (10:17→20:01)
[2021-04-15] MEDS: PARoxetine 20MG TABLET PO SCH (10:17)
[2021-04-15] MEDS: ASPIRIN 81MG ENTERIC TABLET PO SCH (10:17)
[2021-04-15] MEDS: DOCUSATE SODIUM 100MG CAPSULE PO SCH ×2 (10:17→20:14)
[2021-04-15] MEDS: CLOPIDOGREL 75 MG TAB PO SCH (10:17)
[2021-04-15 12:00] VITALS: BP 174/85
--- NOTE | 2021-04-15 13:35 | IPNPDOC ---
Subjective Date Seen The patient was seen on 04/15/21. Subjective Chief Complaint/HPI Mr. Wiggins is a 70 year old male with hypertension and hyperlipidemia who is here for acute on chronic CVA. This morning, he feels well. Denies chest pain or dyspnea. He cleared physical therapy. He still has one more day left of his permissive hypertension. Objective Physical Examination General Exam: Positive: Alert, Cooperative Eye Exam: Negative: Sclera icteric ENT Exam: Positive: Atraumatic Neck Exam: Positive: Supple Chest Exam: Positive: Clear to auscultation Heart Exam: Positive: Tachycardic, Regular Rhythm Abdomen Exam: Positive: Normal bowel sounds, Soft; Negative: Tenderness Extremity Exam: Negative: Edema Neuro Exam: Positive: Normal Speech Psych Exam: Positive: Mental status NL, Mood NL Assessment /Plan Assessment Mr. Wiggins is a 70 year old male with hypertension and hyperlipidemia who is here for acute on chronic CVA. Stroke work up was initialed. Interestingly the US carotids demonstrated bisferiens waveforms which may suggested aortic regurgitation. Pending echocardiogram read. Otherwise, patient will need at least 48 hours of permissive hypertension (SBP between 140 to 180) Plan/VTE VTE Prophylaxis Ordered?: Yes Plan 1. Acute on chronic CVA Stroke work-up initiated Pending echocardiogram results Continue monitoring on telemetry Spoke with vascular surgery, no need for intervention at this time, outpatient follow-up Spoke with cardiology, no A. fib on Holter Spoke with neurology. Recommend switching from full dose aspirin to DAPT. No loading dose needed for Plavix. Aspirin 81 and Plavix 75. We will allow for permissive hypertension for 48 hours. 2. Acute kidney injury Creatinine elevated IVF Supportive care and avoid nephrotoxic agents 3. Hypertension Due to acute stroke will allow for permissive hypertension 4. Diabetes mellitus Continue Levemir and insulin scale insulin 5. Coronary artery disease Patient will be put on DAPT Allowing for permissive hypertension. Hold losartan Continue atorvastatin 6. Anxiety Continue paroxetine 7. BPH Allow for permissive hypertension Hold tamsulosin 8. History of gastric ulcers Continue pantoprazole 9. DVT prophylaxis Heparin Disposition: Patient will need one more day of permissive hypertension. Patient cleared PT. Possible D/C tomorrow if continues to do well. VS, I&O, 24H, Fishbone Vital Signs/I&O Vital Signs Date Time Temp Pulse Resp B/P (MAP) Pulse Ox O2 Delivery O2 Flow Rate FiO2 04/15/21 12:00 97.7 82 17 174/85 (114) 92 Room Air I&O- Last 24 Hours up to 6 AM 04/15/21 05:59 Intake Total 1190 ml Output Total 550 ml Balance 640 ml Laboratory Data 24H LABS Laboratory Tests 2 04/14/21 18:15: Bedside Glucose (Misc Panel) 264H 04/14/21 20:05: Bedside Glucose (Misc Panel) 211H 04/15/21 05:57: Nucleated Red Blood Cells % (auto) 0.0, Anion Gap 6L, Glomerular Filtration Rate > 60.0, Calcium Level 8.6L, Total Bilirubin 0.3, Aspartate Amino Transf (AST/SGOT) 20, Alanine Aminotransferase (ALT/SGPT) 30, Alkaline Phosphatase 60, Total Protein 5.9L, Albumin 2.7L, Albumin/Globulin Ratio 0.8 04/15/21 12:27: Bedside Glucose (Misc Panel) 198H CBC/BMP Laboratory Tests 04/15/21 05:57 Microbiology Microbiology 04/14/21 Blood Culture - Preliminary, Resulted No growth after 24 hours . All specim... 04/14/21 Blood Culture - Preliminary, Resulted No growth after 24 hours . All specim... MUKESH HOGAN DO Apr 15, 2021 13:35
[2021-04-15 14:00] VITALS: BP 154/59
[2021-04-15 22:00] VITALS: BP 178/69
[2021-04-16 06:00] VITALS: BP 176/81
[2021-04-16] MEDS: HEPARIN SOD (PORCINE) 5000UNITS/ML 1ML VIAL/SYRINGE SC SCH (06:01)
[2021-04-16 06:52] LABS: HEMATOCRIT 37.3 % (42.0-52.0); MEAN CORPUSCULAR HGB CONC 32.2 g/dl (32.0-36.5); MEAN CORPUSCULAR VOLUME 90.1 fl (80.0-96.0); PLATELET COUNT, AUTOMATED 223 10^3/uL (150-450); RED BLOOD COUNT 4.14 10^6/uL (4.30-6.10); WHITE BLOOD COUNT 8.1 10^3/uL (4.0-10.0)
[2021-04-16 07:13] LABS: BLOOD UREA NITROGEN 24 MG/DL (7-18); CALCIUM LEVEL 8.3 MG/DL (8.8-10.2); CARBON DIOXIDE LEVEL 24 MEQ/L (21-32); CHLORIDE LEVEL 114 MEQ/L (98-107); GLOMERULAR FILTRATION RATE > 60.0 (>49); GLUCOSE, FASTING 61 MG/DL (70-100); POTASSIUM SERUM 4.5 MEQ/L (3.5-5.1); SODIUM LEVEL 143 MEQ/L (136-145)
[2021-04-16] MEDS: HumaLOG INSULIN (NovoLOG) PER UNIT SC SCH ×2 (07:30→12:28)
[2021-04-16] MEDS: PANTOPRAZOLE 40MG TAB (PROTONIX) PO SCH (08:34)
[2021-04-16] MEDS: CLOPIDOGREL 75 MG TAB PO SCH (08:35)
[2021-04-16] MEDS: ASPIRIN 81MG ENTERIC TABLET PO SCH (08:35)
[2021-04-16] MEDS: DOCUSATE SODIUM 100MG CAPSULE PO SCH (08:35)
[2021-04-16] MEDS: PARoxetine 20MG TABLET PO SCH (08:35)
[2021-04-16 08:37] VITALS: BP 156/60
[2021-04-16] MEDS: LEVEMIR (INSULIN DETEMIR) 1 UNITS/0.01ML SC SCH (08:38)
[2021-04-16] MEDS ORDERED: INSULANT SC (08:44)
[2021-04-16] MEDS ORDERED: ASPI-551 PO (08:44)
[2021-04-16] MEDS ORDERED: CLOP75TA2 PO (08:44)
[2021-04-16] MEDS ORDERED: LOSARTAN 25 MG TAB PO SCH (09:00)
[2021-04-16] MEDS ORDERED: TAMSULOSIN 0.4 MG CAP PO SCH (09:00)
--- NOTE | 2021-04-16 09:49 | ECHO ---
ECHOCARDIOGRAM DATE OF PROCEDURE: 04/14/2021 Age: 70 Gender: Male Height: 163 cm Weight: 83 kg REFERRING PHYSICIAN: Cesar Abdi MD PATIENT LOCATION: ED room 16 REASON FOR STUDY: Cerebrovascular accident (CVA). 2D MEASUREMENTS: IVS 1.2 cm LV 4.7 cm LVPW 1.2 cm LA 4.3 cm Aorta 3.5 cm DOPPLER MEASUREMENT Peak velocity across the aortic valve 1.3 m/s Peak velocity across the LVOT 0.9 m/s 2D COMMENTS: 1. Normal left ventricle size, wall thickness, and normal global left ventricular systolic function. The estimated left ventricular systolic ejection fraction is 60% to 65%. 2. Mildly enlarged left atrium at 4.3. Normal right atrium and right ventricle noted in limited views. 3. The atrial septum appeared to be normal without evidence of defect or shunt. 4. Normal aortic root. 5. No pericardial effusion seen. 6. Mildly calcified aortic valve with normal leaflet excursion. Mildly calcified mitral annulus with normal anterior mitral valve leaflet motion. Normal tricuspid valve. The pulmonic valve was not well visualized. 7. The inferior vena cava was not visualized. DOPPLER: Detects trace mitral regurgitation. Abnormal relaxation pattern was noted across the mitral valve leaflets, as well as the mitral valve annulus consistent with features of grade 1 left ventricular diastolic dysfunction. IMPRESSION: 1. Normal global left ventricular systolic function. There are some features of grade 1 left ventricular diastolic dysfunction manifested by abnormal relaxation. 2. Aortic valve sclerosis without stenosis or aortic regurgitation. 3. Mitral annular calcification with trace mitral regurgitation. The left atrium is mildly enlarged. 4. The patient was noted during the test to be mildly tachycardic with a heart rate that varied between 100 beats per minute and 110 beats per minute.
--- NOTE | 2021-04-16 12:03 | ECGEPIP ---
[facility] Test Date: 2021-04-16 Pat Name: JESSEE CORONA Department: Room: [place] [address] Gender: Male Facilities Custodian: mike : 1950 Requested By: MUKESH Adler Order Number: [id number] Reading MD: Stan Gotti Measurements Intervals [place] Rate: 71 P: 54 CO: 144 QRS: 17 QRSD: 112 T: 104 QT: 378 QTc: 410 Interpretive Statements Normal sinus rhythm Nonspecific T wave abnormality No significant change compared with 04/13/2021. Electronically Signed on 04-16-2021 12:03:17 EST by Stan Gotti
--- NOTE | 2021-04-16 19:17 | DS.PDOC ---
Discharge Summary General Date of Admission Apr 14, 2021 at 05:58 Date of Discharge Apr 16, 2021 Specialist/Consultants Involve Vascular surgery, Dr. Alvarado Discharge Summary PROCEDURES PERFORMED DURING STAY: None ADMITTING DIAGNOSES: 1. Acute on chronic CVA 2. Acute kidney injury 3. Hypertension 4. Diabetes mellitus 5. Coronary artery disease 6. Anxiety 7. BPH 8. History of gastric ulcers DISCHARGE DIAGNOSES: 1. Acute on chronic CVA 2. Acute kidney injury 3. Hypertension 4. Diabetes mellitus 5. Coronary artery disease 6. Anxiety 7. BPH 8. History of gastric ulcers COMPLICATIONS/CHIEF COMPLAINT: Nato,Cva,Nausea,Vomiting,Weakness Of Right Upper Ex. HISTORY OF PRESENT ILLNESS: Copied from admitting provider's H&P " 70-year-old male history of hypertension and hyperlipidemia chronic kidney disease insulin-dependent diabetes and anxiety who comes to the emergency department complaining of nonspecific weakness patient says he feels he's been unwell for the past 1-2 weeks. His was with him at bedside and she wanted to elaborate that she felt his right side was weaker over the past 1 week or so but she is really unsure when his symptoms worsened as he doesn't always tell her. Patient does admit that often he feels his right side is a little weaker including his upper and lower extremities although right now he doesn't feel any weakness currently. He does endorse feeling generally unwell and has had intermittent associated nausea and vomiting although not currently. His endorses that he had seen neurology in the clinic after his last discharge and had seen physics technical officer Dr. Escobedo (was at cardio office yesterday) and had a Holter monitor on at home tells me that he was recommended to have a pacemaker although she is unsure why she mentions some 'pauses' but can't elaborate, she doesn't recall hearing that he had "atrial fibrillation". On review of systems patient denies any chest pain or palpitations. He denies active nausea or vomiting. He denies feeling upper or lower extremity weakness at this time and denies any slurring of speech. He denies fevers or chills. He does endorse some mild shortness of breath yesterday but not currently. Case was discussed by the ED and neurologist on-call Dr Sutton who recommended proceeding with stroke workup. Patient will be admitted to the medical service for stroke workup. " HOSPITAL COURSE: Patient did well during hospitalization. He felt that his weakness resolved. Patient had maintained at least 48 hours of permissive hypertension. I spoke with vascular surgery, . No intervention is needed at this time. Recommended outpatient follow-up. I reached out to a physics technical officer on-call, Dr. Branham. He did not see any A. fib on his Holter monitor. No events on monitors while here. I reached out to neurology Dr. Chacon. After discussion, recommended switching from full dose aspirin to aspirin 81mg and Plavix 75mg. I reached out to the to let her know. She said patient was on DAPT in the past for cardiac stents. Otherwise, she tells me that the p atients has pauses and wondered if it was related to the CVA. It is unlikely, but I urged her to keep the appointment for pacer placement. Today, patient completed his 48 hours of permissive hypertension. He cleared physical therapy. He felt ready for home and was subsequently discharged home. DISCHARGE MEDICATIONS: Please see below. ALLERGIES: Please see below. PHYSICAL EXAMINATION ON DISCHARGE: VITAL SIGNS: Please see below. GENERAL: Comfortable, in no apparent distress HEENT: Head normocephalic, atraumatic NECK: Supple CARDIOVASCULAR EXAMINATION: Regular rate and rhythm RESPIRATORY EXAMINATION: Lungs clear to auscultation bilaterally ABDOMINAL EXAMINATION: Soft, non-tender, normal bowel sounds EXTREMITIES: No pitting edema bilaterally SKIN: Warm and dry NEUROLOGICAL EXAMINATION: CN 3-12 grossly intact PSYCHIATRIC EXAMINATION: Normal mood and affect LABORATORY DATA: Please see below. IMAGING: Radiologist interpretation CT head 1. No cerebral changes of acute infarct on non-contrast CT at this time. 2. Mild hypodensities in the periventricular white matter which are consistent with chronic small vessel ischemic disease. 3. Small chronic infarcts as described. MRI brain 1. Limited by motion. 2. Acute on chronic infarct in the superior left frontal lobe involving the motor cortex. 3. Small acute infarct in the superior left frontal lobe involving the motor cortex 4. Chronic infarcts as described. Findings correlate with prior study. 5. Moderate T2-hyperintense changes in the deep white matter which are nonspecific but suspicious for chronic small vessel ischemic disease. MRA head 1. Severely limited by motion. 2. There is no antegrade flow seen in the intradural segment of the right vertebral artery. Unchanged from prior. 3. No definite stenosis or occlusion in the large vessels otherwise. US carotid 1. No significant stenosis in the right carotid artery. 2. 50-69% stenosis of the proximal left ICA. 3. Bisferiens waveforms. Question aortic regurgitation. PROGNOSIS: Good ACTIVITY: As tolerated. DIET: Carbohydrate consistent diet DISCHARGE PLAN: Home DISPOSITION: 01 Home, Self-Care. DISCHARGE INSTRUCTIONS: 1. Follow up with PCP within 1 week 2. Follow up with vascular surgery in 6 months ITEMS TO FOLLOWUP ON ON OUTPATIENT: 1. Blood pressure 2. Hypercoagulable work up results DISCHARGE CONDITION: Stable. Total time spent on discharge planning, discharge summary, and medication reconciliation: 40 minutes Vital Signs/I&Os Vital Signs Date Time Temp Pulse Resp B/P (MAP) Pulse Ox O2 Delivery O2 Flow Rate FiO2 04/16/21 08:37 156/60 04/16/21 06:00 98.0 68 20 97 Room Air I&O- Last 24 Hours up to 6 AM 04/16/21 06:00 Intake Total 2280 ml Output Total 400 ml Balance 1880 ml Laboratory Data Labs 24H Laboratory Tests 2 04/15/21 16:34: Bedside Glucose (Misc Panel) 182H 04/15/21 20:00: Bedside Glucose (Misc Panel) 216H 04/16/21 06:04: Nucleated Red Blood Cells % (auto) 0.0, Anion Gap 5L, Glomerular Filtration Rate > 60.0, Calcium Level 8.3L 04/16/21 12:24: Bedside Glucose (Misc Panel) 259H CBC/BMP Laboratory Tests 04/16/21 06:04 FSBS Laboratory Tests Test 04/15/21 16:34 04/15/21 20:00 04/16/21 12:24 Range/Units Bedside Glucose (Misc Panel) 182 216 259 80-115 MG/DL Microbiology Microbiology 04/14/21 Blood Culture - Preliminary, Resulted No Growth after 48 hours. All Specime... 04/14/21 Blood Culture - Preliminary, Resulted No Growth after 48 hours. All Specime... Discharge Medications Scheduled Aspirin (Aspirin EC) 81 Mg Tablet.dr, 81 MG PO DAILY Atorvastatin Calcium (Atorvastatin Calcium) 80 Mg Tablet, 80 MG PO DAILY, (Repor mariano) Cholecalciferol (Vitamin D3) (Vitamin D3) 125 Mcg Capsule, 125 MCG PO DAILY, (Reported) Clopidogrel Bisulfate (Clopidogrel) 75 Mg Tablet, 75 MG PO DAILY Exenatide Microspheres (Bydureon Bcise) 2 Mg/0.85 Ml Auto.injct, 2 MG SC 1XWK, (Reported) SATURDAY EVENINGS Ferrous Sulfate (Ferrous Sulfate) 325 Mg Tab, 325 MG PO DAILY, (Reported) Insulin Glargine (Lantus) 1 Units/0.01 Ml Susp, 45 UNITS SC BID Insulin Human Lispro (Novolog) 100 U/Ml Inj, 1 DOSE SC ACHS, (Reported) PER SLIDING SCALE. BETWEEN 71-100=14 UNITS Losartan Potassium (Losartan Potassium) 25 Mg Tab, 25 MG PO DAILY, (Reported) Magnesium Oxide (Magnesium) 400 Mg Capsule, 400 MG PO TID, (Reported) Melatonin (Melatonin) 10 Mg Tablet.er, 20 MG PO QHS, (Reported) Metformin HCl (Metformin HCl ER) 500 Mg Tab, 500 MG PO BID, (Reported) Pantoprazole Sodium (Pantoprazole Sodium) 40 Mg Tablet.dr, 40 MG PO DAILY, (Reported) Paroxetine HCl (Paxil) 20 Mg Tab, 20 MG PO DAILY, (Reported) Tamsulosin HCl (Flomax) 0.4 Mg Cap, 0.4 MG PO DAILY, (Reported) Scheduled PRN Albuterol Sulfate (Ventolin Hfa) 18 Gm Hfa.aer.ad, 2 PUFFS INH QID PRN for SOB/WHEEZING, (Reported) Allergies Coded Allergies: No Known Allergies (Unverified , 04/10/21) MUKESH HOGAN DO Apr 16, 2021 16:36
== END 2021-04-16 14:02 | disposition home or self-care (01) | DRG 65 ==
LOC: M ED 16:47 → M ED INP 04-14 05:58 → ENRESERV 04-14 17:59 → M PCU 04-14 18:57 → M MSPAV 04-15 11:32
PROVIDERS: ADMIT Family Medicine; ATTEND Internal Medicine
DX: I63.9 Cerebral infarction, unspecified (principal); N17.9 Acute kidney failure, unspecified; I12.9 Hypertensive chronic kidney disease with stage 1 through stage 4 chronic kidney disease, or unspecified chronic kidney disease; E11.9 Type 2 diabetes mellitus without complications; I25.10 Atherosclerotic heart disease of native coronary artery without angina pectoris; F41.9 Anxiety disorder, unspecified; N40.0 Benign prostatic hyperplasia without lower urinary tract symptoms; N18.9 Chronic kidney disease, unspecified; Z79.4 Long term (current) use of insulin; Z79.899 Other long term (current) drug therapy; Z79.82 Long term (current) use of aspirin; Z96.653 Presence of artificial knee joint, bilateral; E78.5 Hyperlipidemia, unspecified; Z87.891 Personal history of nicotine dependence; K25.9 Gastric ulcer, unspecified as acute or chronic, without hemorrhage or perforation

== ENCOUNTER 2021-05-22 00:03 | Inpatient (IN) | payer MEDICARE, OTHER ==
[~2021-05-22] VITALS: Ht 162.6 cm; Wt 84.2 kg
[~2021-05-22 00:03] MED LIST changes: +ASPI-551 PO; +ATOR80TA59 PO; +D-50CAP PO; -FOSI40TA3 PO; +FOSI40TA59 PO; +LOSA25TA13 PO; -LOSA25TA14 PO; +MELA10TA2 PO
[2021-05-22] MEDS ORDERED: DEXTROSE 50% 50 ML VIAL IV ONE (01:45)
[2021-05-22 01:54] LABS: BASO % 0.3 % (0.0-1.0); EOS # 0.1 10^3/uL (0.0-0.5); EOS % 0.7 % (0.0-3.0); HEMATOCRIT 36.1 % (42.0-52.0); LYMPH # 1.1 10^3/uL (1.5-5.0); LYMPH % 8.7 % (24.0-44.0); MEAN CORPUSCULAR HEMOGLOBIN 29.6 pg (27.0-33.0); MEAN CORPUSCULAR HGB CONC 33.2 g/dl (32.0-36.5); MEAN CORPUSCULAR VOLUME 89.1 fl (80.0-96.0); MONO # 1.3 10^3/uL (0.0-0.8); MONO % 10.6 % (2.0-8.0); NEUTROPHILS # 9.8 10^3/uL (1.5-8.5); NEUTROPHILS % 79.1 % (36.0-66.0); PLATELET COUNT, AUTOMATED 222 10^3/uL (150-450); RED BLOOD COUNT 4.05 10^6/uL (4.30-6.10); WHITE BLOOD COUNT 12.4 10^3/uL (4.0-10.0)
[2021-05-22] MEDS ORDERED: D5W/0.45% SODIUM CHLORIDE 1,000 ML IV SCH (02:15)
[2021-05-22 02:18] LABS: ALBUMIN 2.9 GM/DL (3.2-5.2); ALT/SGPT 46 U/L (12-78); BILIRUBIN,TOTAL 0.3 MG/DL (0.2-1.0); BLOOD UREA NITROGEN 20 MG/DL (7-18); CALCIUM LEVEL 9.2 MG/DL (8.8-10.2); CARBON DIOXIDE LEVEL 30 MEQ/L (21-32); CHLORIDE LEVEL 106 MEQ/L (98-107); CREATININE FOR GFR 0.99 MG/DL (0.70-1.30); GLOMERULAR FILTRATION RATE > 60.0 (>49); GLUCOSE, FASTING 43 MG/DL (70-100); LIPASE 169 U/L (73-393); MAGNESIUM LEVEL 1.6 MG/DL (1.8-2.4); POTASSIUM SERUM 4.4 MEQ/L (3.5-5.1); SODIUM LEVEL 140 MEQ/L (136-145)
[2021-05-22] MEDS ORDERED: LANTINJ4 SC ×2 (02:43→13:39)
[2021-05-22] MEDS ORDERED: ASPI81TA26 PO (02:43)
[2021-05-22] MEDS ORDERED: CLOP75TA2 PO (02:43)
[2021-05-22] MEDS ORDERED: ERYT5OIN25 OD (02:44)
[2021-05-22] MEDS ORDERED: FLUTISP (02:44)
[2021-05-22] MEDS ORDERED: med rec comment (02:46)
[2021-05-22] MEDS ORDERED: HOME MED LIST COMPLETE! XX SCH (02:50)
[2021-05-22] MEDS ORDERED: GLUCAGON INJ 1MG VIAL SC PRN (03:45)
[2021-05-22] MEDS ORDERED: ACETAMINOPHEN TAB 650MG DOSE (2X325MG) PO PRN (03:45)
[2021-05-22] MEDS ORDERED: DEXTROSE 50% 50 ML SYRINGE IV PRN (03:45)
[2021-05-22] MEDS ORDERED: MOM 30ML SUSPENSION UDC PO PRN (03:45)
[2021-05-22] MEDS ORDERED: MAALOX 30 ML SUSP *UDC PO PRN (03:45)
[2021-05-22] MEDS ORDERED: GLUCOSE 4GM CHEW TABLET PO PRN (03:45)
[2021-05-22] MEDS ORDERED: ALBUTEROL 90 MCG/ACT 8GM HFA INHALER INH PRN (03:45)
[2021-05-22] MEDS ORDERED: LABETALOL 100MG/20ML VIAL IV STA (04:11)
[2021-05-22] MEDS: D5W/0.45% SODIUM CHLORIDE 1,000 ML IV SCH ×2 (05:14→12:19)
[2021-05-22 05:18] LABS: VENOUS BASE EXCESS 2.3 (-2.0-2.0); VENOUS O2 SATURATION 97.3 % (60.0-80.0); VENOUS PARTIAL PRESSURE O2 95.8 mmHg (30.0-50.0); VENOUS PH 7.464 UNITS (7.330-7.430); VENOUS STANDARD HCO3 26.5 MEQ/L; VENOUS TOTAL CO2 27.1 MEQ/L (24.0-28.0)
[2021-05-22 05:25] LABS: BASO % 0.3 % (0.0-1.0); EOS # 0.1 10^3/uL (0.0-0.5); EOS % 0.4 % (0.0-3.0); HEMATOCRIT 36.1 % (42.0-52.0); HEMOGLOBIN 11.9 g/dl (13.5-17.5); LYMPH # 1.9 10^3/uL (1.5-5.0); LYMPH % 16.1 % (24.0-44.0); MEAN CORPUSCULAR HEMOGLOBIN 29.1 pg (27.0-33.0); MEAN CORPUSCULAR VOLUME 88.3 fl (80.0-96.0); MONO % 8.2 % (2.0-8.0); NEUTROPHILS # 8.8 10^3/uL (1.5-8.5); NEUTROPHILS % 74.7 % (36.0-66.0); PLATELET COUNT, AUTOMATED 230 10^3/uL (150-450); RED BLOOD COUNT 4.09 10^6/uL (4.30-6.10); WHITE BLOOD COUNT 11.8 10^3/uL (4.0-10.0)
[2021-05-22 05:43] LABS: HEMOGLOBIN A1c 8.3 %
[2021-05-22 05:48] LABS: ACETONE/KETONE 0.64 MG/DL (<2.81); ALBUMIN 2.8 GM/DL (3.2-5.2); ALT/SGPT 42 U/L (12-78); BILIRUBIN,DIRECT 0.2 MG/DL (0.0-0.2); BILIRUBIN,TOTAL 0.4 MG/DL (0.2-1.0); BLOOD UREA NITROGEN 21 MG/DL (7-18); CALCIUM LEVEL 8.9 MG/DL (8.8-10.2); CARBON DIOXIDE LEVEL 26 MEQ/L (21-32); CHLORIDE LEVEL 109 MEQ/L (98-107); CREATININE FOR GFR 1.04 MG/DL (0.70-1.30); GLOMERULAR FILTRATION RATE > 60.0 (>49); GLUCOSE, FASTING 78 MG/DL (70-100); MAGNESIUM LEVEL 1.7 MG/DL (1.8-2.4); POTASSIUM SERUM 4.4 MEQ/L (3.5-5.1); SODIUM LEVEL 143 MEQ/L (136-145); TOTAL PROTEIN 5.9 GM/DL (6.4-8.2); TOTAL PROTEIN 6.1 GM/DL (6.4-8.2)
[2021-05-22] MEDS: HumaLOG INSULIN (NovoLOG) PER UNIT SC SCH ×2 (07:30→12:19)
[2021-05-22] MEDS ORDERED: ENOXAPARIN 40MG/0.4ML SYRINGE (J1650 PER 10MG) SC SCH (09:00)
[2021-05-22] MEDS ORDERED: MAGNESIUM OXIDE 400MG TAB (MAG-OX) PO SCH (09:00)
[2021-05-22] MEDS ORDERED: ASPIRIN 81MG ENTERIC TABLET PO SCH (09:00)
[2021-05-22] MEDS ORDERED: LOSARTAN 25 MG TAB PO SCH (09:00)
[2021-05-22] MEDS ORDERED: ATORVASTATIN 20 MG TAB PO SCH (09:00)
[2021-05-22] MEDS ORDERED: CLOPIDOGREL 75 MG TAB PO SCH (09:00)
[2021-05-22] MEDS ORDERED: TAMSULOSIN 0.4 MG CAP PO SCH (09:00)
[2021-05-22] MEDS ORDERED: PARoxetine 20MG TABLET PO SCH (09:00)
[2021-05-22] MEDS ORDERED: FERROUS SULFATE 325MG TAB PO SCH (09:00)
[2021-05-22] MEDS ORDERED: PANTOPRAZOLE 40MG TAB (PROTONIX) PO SCH (09:00)
[2021-05-22] MEDS ORDERED: FLUTICASONE PROP 0.05% NASAL SPRAY 16 GM (FLONASE) SCH (09:00)
[2021-05-22 09:07] LABS: RSV AMPLIFICATION NEGATIVE (NEGATIVE)
[2021-05-22 10:00] VITALS: BP 141/76
[2021-05-22 10:37] VITALS: BP 182/74
[2021-05-22] MEDS ORDERED: HumaLOG INSULIN (NovoLOG) PER UNIT SC SCH (21:00)
[2021-05-22] MEDS ORDERED: ERYTHROMYCIN OPHTH OINT OD SCH (21:00)
== END 2021-05-22 15:03 | disposition home or self-care (01) | DRG 639 ==
LOC: M ED 00:03 → M ED INP 03:44 → ENRESERV 09:34 → M MSPAV 10:00
PROVIDERS: ADMIT Family Medicine; ATTEND Internal Medicine
DX: E11.649 Type 2 diabetes mellitus with hypoglycemia without coma (principal); N18.9 Chronic kidney disease, unspecified; I12.9 Hypertensive chronic kidney disease with stage 1 through stage 4 chronic kidney disease, or unspecified chronic kidney disease; E11.22 Type 2 diabetes mellitus with diabetic chronic kidney disease; I16.0 Hypertensive urgency; I25.10 Atherosclerotic heart disease of native coronary artery without angina pectoris; F41.9 Anxiety disorder, unspecified; F32.9 Major depressive disorder, single episode, unspecified; Z79.4 Long term (current) use of insulin; E78.5 Hyperlipidemia, unspecified; Z79.82 Long term (current) use of aspirin; Z79.899 Other long term (current) drug therapy; Z96.653 Presence of artificial knee joint, bilateral; Z87.891 Personal history of nicotine dependence; N40.0 Benign prostatic hyperplasia without lower urinary tract symptoms

== ENCOUNTER → 2021-07-27 | Outpatient (REF) | payer MEDICARE, OTHER ==
[~2021-07-27] MED LIST changes: +ERYT5OIN25 OD; +FLUTISP; +LANTINJ4 SC; +med rec comment
== END ==
LOC: M LAB REF 16:43
PROVIDERS: ATTEND Nurse Practitioner Family
DX: R80.9 Proteinuria, unspecified (principal); E83.42 Hypomagnesemia

== ENCOUNTER 2021-08-24 15:34 | Observation (INO) | payer MEDICARE, OTHER ==
[~2021-08-24] VITALS: Ht 160 cm; Wt 83.0 kg
[2021-08-24] MEDS ORDERED: LIDOCAINE 4% CREAM 5GM (LMX4) TOP ONE (23:20)
[2021-08-24] MEDS ORDERED: NS 1,000 ML IV ONE (23:30)
[2021-08-25 00:37] LABS: BASO # 0.1 10^3/uL (0.0-0.2); BASO % 0.6 % (0.0-1.0); EOS # 0.4 10^3/uL (0.0-0.5); EOS % 4.2 % (0.0-3.0); HEMATOCRIT 37.2 % (42.0-52.0); HEMOGLOBIN 12.5 g/dl (13.5-17.5); LYMPH % 20.2 % (24.0-44.0); MEAN CORPUSCULAR HEMOGLOBIN 29.1 pg (27.0-33.0); MEAN CORPUSCULAR HGB CONC 33.6 g/dl (32.0-36.5); MEAN CORPUSCULAR VOLUME 86.7 fl (80.0-96.0); MONO # 1.3 10^3/uL (0.0-0.8); MONO % 12.9 % (2.0-8.0); NEUTROPHILS % 61.6 % (36.0-66.0); PLATELET COUNT, AUTOMATED 260 10^3/uL (150-450); RED BLOOD COUNT 4.29 10^6/uL (4.30-6.10); WHITE BLOOD COUNT 9.8 10^3/uL (4.0-10.0)
[2021-08-25 01:03] LABS: CALCIUM LEVEL 9.1 MG/DL (8.8-10.2); CREATININE FOR GFR 1.96 MG/DL (0.70-1.30); FREE THYROXINE INDEX 3.3 % (1.4-3.8); GLOMERULAR FILTRATION RATE 36.3 (>49); POTASSIUM SERUM 4.6 MEQ/L (3.5-5.1); THYROID STIMULATING HORMONE 1.96 uIU/ML (0.358-3.740); THYROXINE (T4) 8.3 UG/DL (4.5-12.0)
[2021-08-25 02:48] LABS: RSV AMPLIFICATION NEGATIVE (NEGATIVE)
[2021-08-25 03:27] LABS: CK-MB VALUE MASS 4.6 NG/ML (<3.6); MB/CK RELATIVE INDEX 2.6 (< OR =4)
[2021-08-25] MEDS ORDERED: DEXTROSE 50% 50 ML SYRINGE IV PRN (04:40)
[2021-08-25] MEDS ORDERED: ACETAMINOPHEN TAB 650MG DOSE (2X325MG) PO PRN (04:40)
[2021-08-25] MEDS ORDERED: GLUCOSE 4GM CHEW TABLET PO PRN (04:40)
[2021-08-25] MEDS ORDERED: GLUCAGON INJ 1MG VIAL SC PRN (04:40)
[2021-08-25] MEDS ORDERED: MAALOX 30 ML SUSP *UDC PO PRN (04:40)
[2021-08-25] MEDS ORDERED: NS 1,000 ML IV SCH (04:45)
[2021-08-25 07:26] VITALS: BP 157/95
[2021-08-25] MEDS: HumaLOG INSULIN (NovoLOG) PER UNIT SC SCH ×3 (08:10→17:27)
[2021-08-25] MEDS: DOCUSATE SODIUM 100MG CAPSULE PO SCH ×2 (08:11→21:00)
[2021-08-25 08:34] LABS: CREATININE FOR GFR 1.38 MG/DL (0.70-1.30); GLOMERULAR FILTRATION RATE 54.4 (>49); POTASSIUM SERUM 3.4 MEQ/L (3.5-5.1)
[2021-08-25 08:35] LABS: CALCIUM LEVEL 8.9 MG/DL (8.8-10.2)
[2021-08-25] MEDS ORDERED: LEVEMIR (INSULIN DETEMIR) 1 UNITS/0.01ML SC SCH (09:00)
[2021-08-25] MEDS ORDERED: HOME MED LIST COMPLETE! XX SCH (09:05)
[2021-08-25] MEDS ORDERED: ALBUTEROL 90 MCG/ACT 8GM HFA INHALER INH PRN (09:10)
[2021-08-25] MEDS ORDERED: VITA-158 PO (09:35)
[2021-08-25] MEDS ORDERED: ERYT5OIN25 OD (09:35)
[2021-08-25] MEDS ORDERED: LANTINJ4 SC (09:35)
[2021-08-25] MEDS ORDERED: POTASSIUM CHLORIDE 10MEQ SR TABLET PO ONE (09:45)
[2021-08-25] MEDS: MAGNESIUM OXIDE 400MG TAB (MAG-OX) PO SCH ×3 (10:25→21:07)
[2021-08-25] MEDS: TAMSULOSIN 0.4 MG CAP PO SCH (10:25)
[2021-08-25] MEDS: CLOPIDOGREL 75 MG TAB PO SCH (10:25)
[2021-08-25] MEDS: ATORVASTATIN 20 MG TAB PO SCH (10:26)
[2021-08-25] MEDS: ASPIRIN 81MG ENTERIC TABLET PO SCH (10:26)
[2021-08-25] MEDS: FERROUS SULFATE 325MG TAB PO SCH (10:26)
[2021-08-25] MEDS: PANTOPRAZOLE 40MG TAB (PROTONIX) PO SCH (10:26)
[2021-08-25] MEDS: PARoxetine 20MG TABLET PO SCH (10:26)
[2021-08-25] MEDS: LEVEMIR (INSULIN DETEMIR) 1 UNITS/0.01ML SC SCH ×2 (10:48→21:06)
[2021-08-25] MEDS: amLODIPine 5 MG TAB PO SCH (10:51)
[2021-08-25 14:00] VITALS: BP 197/78
[2021-08-25 17:30] VITALS: BP 183/80
[2021-08-25 17:40] VITALS: BP 150/68
[2021-08-25] MEDS ORDERED: HumaLOG INSULIN (NovoLOG) PER UNIT SC SCH (21:00)
[2021-08-25 22:00] VITALS: BP 118/57
[2021-08-26 06:00] VITALS: BP 183/76
[2021-08-26] MEDS: HumaLOG INSULIN (NovoLOG) PER UNIT SC SCH ×2 (07:19→12:34)
[2021-08-26 07:30] VITALS: BP 162/80
[2021-08-26 08:00] VITALS: BP 170/78
[2021-08-26 08:11] LABS: HEMATOCRIT 31.8 % (42.0-52.0); HEMOGLOBIN 10.8 g/dl (13.5-17.5); MEAN CORPUSCULAR HEMOGLOBIN 29.3 pg (27.0-33.0); MEAN CORPUSCULAR VOLUME 86.4 fl (80.0-96.0); PLATELET COUNT, AUTOMATED 221 10^3/uL (150-450); RED BLOOD COUNT 3.68 10^6/uL (4.30-6.10); WHITE BLOOD COUNT 7.6 10^3/uL (4.0-10.0)
[2021-08-26 08:36] LABS: BLOOD UREA NITROGEN 20 MG/DL (7-18); CALCIUM LEVEL 8.8 MG/DL (8.8-10.2); CARBON DIOXIDE LEVEL 30 MEQ/L (21-32); CHLORIDE LEVEL 109 MEQ/L (98-107); CREATININE FOR GFR 0.97 MG/DL (0.70-1.30); GLOMERULAR FILTRATION RATE > 60.0 (>49); GLUCOSE, FASTING 87 MG/DL (70-100); MAGNESIUM LEVEL 1.6 MG/DL (1.8-2.4); POTASSIUM SERUM 3.6 MEQ/L (3.5-5.1); SODIUM LEVEL 144 MEQ/L (136-145)
[2021-08-26] MEDS ORDERED: FLUTICASONE PROP 0.05% NASAL SPRAY 16 GM (FLONASE) SCH (09:00)
[2021-08-26] MEDS: DOCUSATE SODIUM 100MG CAPSULE PO SCH ×2 (09:00→11:46)
[2021-08-26] MEDS ORDERED: AMLO1TAB24 PO (09:54)
[2021-08-26] MEDS: PARoxetine 20MG TABLET PO SCH (09:56)
[2021-08-26] MEDS: PANTOPRAZOLE 40MG TAB (PROTONIX) PO SCH (09:56)
[2021-08-26] MEDS: TAMSULOSIN 0.4 MG CAP PO SCH (09:56)
[2021-08-26] MEDS: MAGNESIUM OXIDE 400MG TAB (MAG-OX) PO SCH (09:56)
[2021-08-26] MEDS: CLOPIDOGREL 75 MG TAB PO SCH (09:56)
[2021-08-26] MEDS: ASPIRIN 81MG ENTERIC TABLET PO SCH (09:57)
[2021-08-26 09:58] VITALS: BP 170/78
[2021-08-26] MEDS: amLODIPine 5 MG TAB PO SCH (09:58)
[2021-08-26] MEDS: LEVEMIR (INSULIN DETEMIR) 1 UNITS/0.01ML SC SCH (09:59)
[2021-08-26] MEDS: FERROUS SULFATE 325MG TAB PO SCH (11:46)
[2021-08-26] MEDS: ATORVASTATIN 20 MG TAB PO SCH (11:46)
== END 2021-08-26 13:07 | disposition home or self-care (01) ==
LOC: M ED 15:34 → M ED INP 15:35 → ENRESERVDT 08-25 04:51 → ENRESERVTM 08-25 04:51 → M MSPAV 08-25 06:43
PROVIDERS: ADMIT Internal Medicine; ATTEND Family Medicine
DX: I95.0 Idiopathic hypotension (principal); E11.40 Type 2 diabetes mellitus with diabetic neuropathy, unspecified; I10 Essential (primary) hypertension; Z87.891 Personal history of nicotine dependence; I25.10 Atherosclerotic heart disease of native coronary artery without angina pectoris; N40.0 Benign prostatic hyperplasia without lower urinary tract symptoms; Z86.73 Personal history of transient ischemic attack (TIA), and cerebral infarction without residual deficits; Z79.4 Long term (current) use of insulin; Z79.84 Long term (current) use of oral hypoglycemic drugs; Z79.899 Other long term (current) drug therapy; Z79.82 Long term (current) use of aspirin; M54.2 Cervicalgia; M25.511 Pain in right shoulder; Z91.81 History of falling
CPT/HCPCS: 36415; 73030; 80048; 82550; 82553; 83735; 84436; 84443; 84479; 84484; 85025; 85027; 87631; 93005; 96361; 96374; 97162; 99285; G0378; J1815

== ENCOUNTER → 2021-09-23 | Outpatient (CLI) | payer MEDICARE, OTHER ==
[~2021-09-23] MED LIST changes: +AMLO1TAB24 PO; +VITA-158 PO
== END ==
LOC: M SLEEP 20:00
PROVIDERS: ATTEND Nurse Practitioner Adult Health
DX: G47.33 Obstructive sleep apnea (adult) (pediatric) (principal)

== ENCOUNTER → 2021-10-24 | Outpatient (CLI) | payer MEDICARE, OTHER ==
[~2021-10-24] MED LIST changes: +ISOVUE-370 76% 100ML VIAL As Ordered ONE
== END ==
LOC: M RAD 14:59
PROVIDERS: ATTEND Surgery Vascular Surgery
DX: I65.22 Occlusion and stenosis of left carotid artery (principal)
CPT/HCPCS: 70498; Q9967

== ENCOUNTER → 2021-11-16 | Outpatient (CLI) | payer MEDICARE, OTHER ==
[~2021-11-16] MED LIST changes: -ISOVUE-370 76% 100ML VIAL As Ordered ONE
== END ==
LOC: M SLEEP 20:00
PROVIDERS: ATTEND Nurse Practitioner Adult Health
DX: G47.33 Obstructive sleep apnea (adult) (pediatric) (principal)

== ENCOUNTER → 2022-01-10 | Outpatient (CLI) | payer MEDICARE, OTHER | LOC: M LAB 14:38 | PROVIDERS: ATTEND Nurse Practitioner Women's Health | DX: Z12.5 Encounter for screening for malignant neoplasm of prostate (principal) ==

== ENCOUNTER 2022-02-22 17:16 | Inpatient (IN) | payer MEDICARE, OTHER ==
[~2022-02-22] VITALS: Ht 162.6 cm; Wt 81.0 kg
[2022-02-22] MEDS ORDERED: GI COCKTAIL 50ML BTL(HYOSCYAMINE/MAALOX/LIDOCAINE VISCOUS)(1:3:1) PO ONE (18:25)
[2022-02-22 18:26] LABS: BASO # 0.1 10^3/uL (0.0-0.2); BASO % 0.4 % (0.0-1.0); EOS # 0.2 10^3/uL (0.0-0.5); EOS % 1.5 % (0.0-3.0); HEMATOCRIT 35.1 % (42.0-52.0); HEMOGLOBIN 10.9 g/dl (13.5-17.5); LYMPH # 1.1 10^3/uL (1.5-5.0); LYMPH % 7.4 % (24.0-44.0); MEAN CORPUSCULAR HEMOGLOBIN 28.7 pg (27.0-33.0); MEAN CORPUSCULAR HGB CONC 31.1 g/dl (32.0-36.5); MEAN CORPUSCULAR VOLUME 92.4 fl (80.0-96.0); MONO % 11.4 % (2.0-8.0); NEUTROPHILS # 11.1 10^3/uL (1.5-8.5); NEUTROPHILS % 78.4 % (36.0-66.0); PLATELET COUNT, AUTOMATED 328 10^3/uL (150-450); WHITE BLOOD COUNT 14.2 10^3/uL (4.0-10.0)
[2022-02-22 18:27] LABS: MONO # 1.6 10^3/uL (0.0-0.8)
[2022-02-22 19:03] LABS: CALCIUM LEVEL 8.4 MG/DL (8.8-10.2); CREATININE FOR GFR 1.45 MG/DL (0.70-1.30); GLOMERULAR FILTRATION RATE 51.4 (>49); POTASSIUM SERUM 4.7 MEQ/L (3.5-5.1)
[2022-02-22 19:10] LABS: CK-MB VALUE MASS 4.6 NG/ML (<3.6); MB/CK RELATIVE INDEX 3.17 (< OR =4)
[2022-02-22 20:07] LABS: CK-MB VALUE MASS 4.1 NG/ML (<3.6); MB/CK RELATIVE INDEX 3.39 (< OR =4)
[2022-02-22] MEDS: INSULIN LISPRO (NovoLOG) PER UNIT SC SCH (21:00)
[2022-02-22 22:14] LABS: CK-MB VALUE MASS 3.5 NG/ML (<3.6); MB/CK RELATIVE INDEX 2.97 (< OR =4)
[2022-02-22] MEDS ORDERED: AZITHROMYCIN INJ 500 MG, VIAL MATE ADAPTER 1 EACH in NS 250 ML IV ONE (22:35)
[2022-02-22] MEDS: cefTRIAXone SOD 1 GM in D5W MINI-BAG PLUS 50 ML IV ONE ×2 (22:35→22:48)
[2022-02-22] MEDS ORDERED: ACETAMINOPHEN 325 MG TAB PO ONE (23:00)
[2022-02-22 23:01] LABS: RSV AMPLIFICATION NEGATIVE (NEGATIVE)
[2022-02-22] MEDS ORDERED: DEXTROSE 50% 50 ML SYRINGE IV PRN (23:35)
[2022-02-22] MEDS ORDERED: GLUCOSE 4GM CHEW TABLET PO PRN (23:35)
[2022-02-22] MEDS ORDERED: ACETAMINOPHEN TAB 650MG DOSE (2X325MG) PO PRN (23:35)
[2022-02-22] MEDS ORDERED: GLUCAGON INJ 1MG VIAL SC PRN (23:35)
[2022-02-22] MEDS ORDERED: AMLO2.5T3 PO (23:40)
[2022-02-22] MEDS ORDERED: CYCL-707 PO (23:41)
[2022-02-22] MEDS ORDERED: HOME MED LIST COMPLETE! XX SCH (23:45)
[2022-02-22] MEDS ORDERED: ALBUTEROL 90 MCG/ACT 8GM HFA INHALER INH PRN (23:55)
[2022-02-22] MEDS ORDERED: CYCLOBENZAPRINE 10MG TABLET PO PRN (23:55)
[2022-02-23 00:11] LABS: CK-MB VALUE MASS 3.2 NG/ML (<3.6); MB/CK RELATIVE INDEX 2.5 (< OR =4)
[2022-02-23 00:32] LABS: INR 1.15; PROTHROMBIN TIME 15.1 SECONDS (12.7-14.5)
[2022-02-23 00:33] LABS: PARTIAL THROMBOPLASTIN TIME 35.2 SECONDS (25.9-37.0)
[2022-02-23 01:11] VITALS: BP 130/86
[2022-02-23] MEDS: NS 1,000 ML IV SCH ×2 (01:44→08:50)
[2022-02-23] MEDS: DOCUSATE SODIUM 100MG CAPSULE PO SCH ×3 (01:44→20:27)
[2022-02-23 03:15] LABS: APPEARANCE, URINE MANUAL CLEAR (CLEAR); COLOR, URINE MANUAL YELLOW (YELLOW); GLUCOSE, URINE (UA) MANUAL 2+(250 MG/DL) mg/dL (NEGATIVE); PROTEIN, URINE MANUAL 3+ mg/dL (NEGATIVE)
[2022-02-23 03:16] LABS: BILIRUBIN, URINE MANUAL NEGATIVE (NEGATIVE); BLOOD URINE MANUAL NEGATIVE (NEGATIVE); KETONE, URINE MANUAL NEGATIVE (NEGATIVE); NITRITE, URINE MANUAL NEGATIVE (NEGATIVE); PH,URINE MAN 5.5 UNITS (5.0 - 7.0); SPECIFIC GRAVITY,URINE MANUAL 1.015 (1.002-1.035); UROBILINOGEN, URINE MANUAL NORMAL (NORMAL)
[2022-02-23 03:17] LABS: LEUKOCYTE ESTERASE, URINE MAN NEGATIVE (NEGATIVE)
[2022-02-23 03:19] LABS: RBC, URINE NONE SEEN /hpf (0-3); SQUAMOUS EPITHELIAL CELL URINE SMALL AMOUNT /hpf (SMALL AMT)
[2022-02-23 03:20] LABS: BACTERIA, URINE NONE SEEN; HYALINE CAST, URINE NONE SEEN /lpf (0-1)
[2022-02-23 03:27] LABS: OSMOLALITY URINE 483 MOSM/KG (50-1400)
[2022-02-23 03:52] LABS: SODIUM,RANDOM URINE 28 MEQ/L; TOTAL PROTEIN,RANDOM URINE 769.3 MG/DL (0.0-12.0)
[2022-02-23 06:00] VITALS: BP 120/70
[2022-02-23 06:13] LABS: HEMATOCRIT 28.1 % (42.0-52.0); MEAN CORPUSCULAR HEMOGLOBIN 28.7 pg (27.0-33.0); MEAN CORPUSCULAR HGB CONC 31.3 g/dl (32.0-36.5); MEAN CORPUSCULAR VOLUME 91.5 fl (80.0-96.0); PLATELET COUNT, AUTOMATED 290 10^3/uL (150-450); RED BLOOD COUNT 3.07 10^6/uL (4.30-6.10); WHITE BLOOD COUNT 10.6 10^3/uL (4.0-10.0)
[2022-02-23 06:42] LABS: HEMOGLOBIN 8.8 g/dl (13.5-17.5)
[2022-02-23 06:46] LABS: CALCIUM LEVEL 7.9 MG/DL (8.8-10.2); CREATININE FOR GFR 1.43 MG/DL (0.70-1.30); GLOMERULAR FILTRATION RATE 52.2 (>49); MAGNESIUM LEVEL 2.6 MG/DL (1.8-2.4); POTASSIUM SERUM 4.7 MEQ/L (3.5-5.1)
[2022-02-23] MEDS: ENOXAPARIN 30MG/0.3ML SYRINGE (J1650 PER 10MG) SC SCH (08:48)
[2022-02-23] MEDS: MAGNESIUM OXIDE 400MG TAB (MAG-OX) PO SCH ×3 (08:49→20:27)
[2022-02-23] MEDS: INSULIN LISPRO (NovoLOG) PER UNIT SC SCH ×4 (08:49→21:00)
[2022-02-23] MEDS: ASPIRIN 81MG ENTERIC TABLET PO SCH (08:49)
[2022-02-23] MEDS: PARoxetine 20MG TABLET PO SCH (08:49)
[2022-02-23] MEDS: LEVEMIR (INSULIN DETEMIR) 1 UNITS/0.01ML SC SCH ×2 (08:49→20:28)
[2022-02-23] MEDS: CLOPIDOGREL 75 MG TAB PO SCH (08:49)
[2022-02-23] MEDS: TAMSULOSIN 0.4 MG CAP PO SCH (08:49)
[2022-02-23] MEDS: ATORVASTATIN 20 MG TAB PO SCH (08:50)
[2022-02-23] MEDS: FERROUS SULFATE 325MG TAB PO SCH (08:50)
[2022-02-23] MEDS ORDERED: PANTOPRAZOLE 40MG TAB (PROTONIX) PO SCH (09:00)
[2022-02-23 13:56] LABS: CALCIUM LEVEL 7.9 MG/DL (8.8-10.2); CREATININE FOR GFR 1.51 MG/DL (0.70-1.30); POTASSIUM SERUM 4.3 MEQ/L (3.5-5.1)
[2022-02-23 14:00] VITALS: BP 120/95
[2022-02-23] MEDS: SUCRALFATE SUSP 1GM/10ML UD PO SCH ×2 (19:04→23:30)
[2022-02-23] MEDS ORDERED: cefTRIAXone SOD 1 GM in D5W MINI-BAG PLUS 50 ML IV SCH (20:00)
[2022-02-23] MEDS: PANTOPRAZOLE 40MG TAB (PROTONIX) PO SCH (20:27)
[2022-02-23 20:41] VITALS: BP 126/78
[2022-02-23] MEDS ORDERED: ERYTHROMYCIN OPHTH OINT OD SCH (21:00)
[2022-02-23] MEDS ORDERED: AZITHROMYCIN INJ 500 MG, VIAL MATE ADAPTER 1 EACH in NS 250 ML IV SCH (22:00)
[2022-02-23] MEDS ORDERED: RAMELTEON 8 MG TAB (ROZEREM) PO PRN (23:10)
[2022-02-24 05:37] VITALS: BP 140/72
[2022-02-24 06:57] LABS: HEMATOCRIT 30.2 % (42.0-52.0); HEMOGLOBIN 9.8 g/dl (13.5-17.5); MEAN CORPUSCULAR HEMOGLOBIN 29.3 pg (27.0-33.0); MEAN CORPUSCULAR HGB CONC 32.5 g/dl (32.0-36.5); MEAN CORPUSCULAR VOLUME 90.4 fl (80.0-96.0); PLATELET COUNT, AUTOMATED 371 10^3/uL (150-450); RED BLOOD COUNT 3.34 10^6/uL (4.30-6.10); WHITE BLOOD COUNT 12.7 10^3/uL (4.0-10.0)
[2022-02-24] MEDS: INSULIN LISPRO (NovoLOG) PER UNIT SC SCH ×2 (07:29→12:26)
[2022-02-24 07:35] LABS: CALCIUM LEVEL 8.5 MG/DL (8.8-10.2); CREATININE FOR GFR 1.44 MG/DL (0.70-1.30); GLOMERULAR FILTRATION RATE 51.8 (>49); MAGNESIUM LEVEL 2.2 MG/DL (1.8-2.4)
[2022-02-24] MEDS: SUCRALFATE SUSP 1GM/10ML UD PO SCH (07:54)
[2022-02-24] MEDS: LEVEMIR (INSULIN DETEMIR) 1 UNITS/0.01ML SC SCH (07:54)
[2022-02-24] MEDS: PANTOPRAZOLE 40MG TAB (PROTONIX) PO SCH (07:55)
[2022-02-24] MEDS: MAGNESIUM OXIDE 400MG TAB (MAG-OX) PO SCH (07:55)
[2022-02-24] MEDS: ATORVASTATIN 20 MG TAB PO SCH (07:55)
[2022-02-24] MEDS: FERROUS SULFATE 325MG TAB PO SCH (07:55)
[2022-02-24] MEDS: CLOPIDOGREL 75 MG TAB PO SCH (07:55)
[2022-02-24] MEDS: ASPIRIN 81MG ENTERIC TABLET PO SCH (07:56)
[2022-02-24] MEDS: TAMSULOSIN 0.4 MG CAP PO SCH (07:56)
[2022-02-24] MEDS: PARoxetine 20MG TABLET PO SCH (07:56)
[2022-02-24] MEDS: DOCUSATE SODIUM 100MG CAPSULE PO SCH (07:56)
[2022-02-24 07:58] VITALS: BP 151/73
[2022-02-24] MEDS: ENOXAPARIN 30MG/0.3ML SYRINGE (J1650 PER 10MG) SC SCH (07:59)
[2022-02-24] MEDS ORDERED: CEFP100T PO (11:06)
[2022-02-24] MEDS ORDERED: PROTPAK PO (11:06)
[2022-02-24] MEDS ORDERED: AZIT500T5 PO (11:06)
[2022-02-24] MEDS ORDERED: SUCR1ORA PO (11:06)
[2022-02-24 16:08] LABS: MYCOPLASMA PNEUMONIAE IgG 475 U/mL (0-99); MYCOPLASMA PNEUMONIAE IgM <770 U/mL (0-769)
[2022-02-25] MEDS ORDERED: ENOXAPARIN 40MG/0.4ML SYRINGE (J1650 PER 10MG) SC SCH (09:00)
== END 2022-02-24 13:25 | disposition home or self-care (01) | DRG 391 ==
LOC: M ED 17:16 → M ED INP 23:35 → ENRESERV 02-23 00:10 → M MSPAV 02-23 01:10
PROVIDERS: ADMIT Family Medicine; ATTEND Internal Medicine
DX: K29.70 Gastritis, unspecified, without bleeding (principal); J18.9 Pneumonia, unspecified organism; N17.9 Acute kidney failure, unspecified; S22.41XA Multiple fractures of ribs, right side, initial encounter for closed fracture; E11.22 Type 2 diabetes mellitus with diabetic chronic kidney disease; K21.9 Gastro-esophageal reflux disease without esophagitis; I12.9 Hypertensive chronic kidney disease with stage 1 through stage 4 chronic kidney disease, or unspecified chronic kidney disease; D50.9 Iron deficiency anemia, unspecified; G47.33 Obstructive sleep apnea (adult) (pediatric); I25.10 Atherosclerotic heart disease of native coronary artery without angina pectoris; N40.0 Benign prostatic hyperplasia without lower urinary tract symptoms; J45.909 Unspecified asthma, uncomplicated; N18.30 Chronic kidney disease, stage 3 unspecified; Z95.0 Presence of cardiac pacemaker; R07.89 Other chest pain; Z79.4 Long term (current) use of insulin; E78.5 Hyperlipidemia, unspecified; Z86.73 Personal history of transient ischemic attack (TIA), and cerebral infarction without residual deficits; Z95.2 Presence of prosthetic heart valve; F41.9 Anxiety disorder, unspecified; F32.A Depression, unspecified; Z79.899 Other long term (current) drug therapy; Z79.82 Long term (current) use of aspirin; Z98.41 Cataract extraction status, right eye; Z98.42 Cataract extraction status, left eye; Z96.652 Presence of left artificial knee joint; W06.XXXA Fall from bed, initial encounter; Y92.009 Unspecified place in unspecified non-institutional (private) residence as the place of occurrence of the external cause

== ENCOUNTER → 2022-07-20 | Outpatient (CLI) | payer MEDICARE, OTHER ==
[~2022-07-20] MED LIST changes: +AMLO2.5T3 PO; +AZIT500T5 PO; +CEFP100T PO; +CLOP75TA99 PO; +CYCL-707 PO; -PAXI20TA29 PO; +PAXI20TA30 PO; -PLAV1TAB2 PO; +PROTPAK PO; +SUCR1ORA PO
== END ==
LOC: M SOG 08:24
PROVIDERS: ATTEND Orthopaedic Surgery
DX: M19.031 Primary osteoarthritis, right wrist (principal); M19.032 Primary osteoarthritis, left wrist; M19.041 Primary osteoarthritis, right hand; M19.042 Primary osteoarthritis, left hand

== ENCOUNTER 2022-10-02 08:03 | Day surgery (SDC) | payer MEDICARE, OTHER ==
[~2022-10-02] VITALS: Ht 162.6 cm; Wt 80.5 kg
[~2022-10-02 08:03] MED LIST changes: +ACET-683 PO; +CALC600T60 PO; +FLUT50SP17; -FLUTISP; +LISI20TA33 PO; +METO1TAB32 PO; +TRANEXAMIC ACID INJection 1,000 MG in NS 100 ML IV ONE; +TRUL0.5I SQ; +ceFAZolin SOD 2 GM in IV 1 EA IV ONE; +oxyCODONE 5MG TAB PO ONE
[2022-10-02] MEDS ORDERED: LR 1,000 ML IV SCH (08:20)
[2022-10-02] MEDS ORDERED: INSULIN LISPRO (NovoLOG) PER UNIT SC PRN ×2 (08:55→10:15)
[2022-10-02] MEDS ORDERED: BUPIVACAINE/EPIN 0.5% 30ML VIAL As Ordered ONE (11:10)
[2022-10-02] MEDS ORDERED: ACETAMINOPHEN 1000MG 100ML IV BAG As Ordered ONE (11:40)
[2022-10-02] MEDS ORDERED: propofoL 200 MG/20 ML VIAL As Ordered ONE (11:41)
[2022-10-02] MEDS ORDERED: LIDOCAINE 2% 100MG/5ML SDV (FOR ANES.) As Ordered ONE (11:41)
[2022-10-02] MEDS ORDERED: ONDANSETRON 4MG 2ML VIAL As Ordered ONE (11:49)
[2022-10-02] MEDS ORDERED: KETOROLAC 60MG 2ML VIAL As Ordered ONE (11:49)
[2022-10-02] MEDS ORDERED: HYDR-3713 PO (12:26)
[2022-10-02 14:04] VITALS: BP 138/65
== END 2022-10-02 14:24 | disposition home or self-care (01) ==
LOC: M SDC 08:03
PROVIDERS: ATTEND Orthopaedic Surgery
DX: G56.01 Carpal tunnel syndrome, right upper limb (principal); I25.10 Atherosclerotic heart disease of native coronary artery without angina pectoris; I10 Essential (primary) hypertension; E78.5 Hyperlipidemia, unspecified; E11.9 Type 2 diabetes mellitus without complications; Z95.0 Presence of cardiac pacemaker; J45.909 Unspecified asthma, uncomplicated; D64.9 Anemia, unspecified; K21.9 Gastro-esophageal reflux disease without esophagitis; F41.9 Anxiety disorder, unspecified; F32.A Depression, unspecified; Z79.02 Long term (current) use of antithrombotics/antiplatelets; Z79.84 Long term (current) use of oral hypoglycemic drugs; Z79.82 Long term (current) use of aspirin; Z79.899 Other long term (current) drug therapy; Z86.73 Personal history of transient ischemic attack (TIA), and cerebral infarction without residual deficits; Z98.61 Coronary angioplasty status; Z87.891 Personal history of nicotine dependence; G47.33 Obstructive sleep apnea (adult) (pediatric); N18.2 Chronic kidney disease, stage 2 (mild); N40.0 Benign prostatic hyperplasia without lower urinary tract symptoms; Z79.4 Long term (current) use of insulin
CPT/HCPCS: 64721; J0131; J0690; J1815; J1885; J2405

== ENCOUNTER → 2022-12-14 | Outpatient (REF) | payer MEDICARE, OTHER ==
[~2022-12-14] MED LIST changes: +HYDR-3713 PO; -TRANEXAMIC ACID INJection 1,000 MG in NS 100 ML IV ONE; -ceFAZolin SOD 2 GM in IV 1 EA IV ONE; -oxyCODONE 5MG TAB PO ONE
[2022-12-14 19:40] LABS: CREATININE,RANDOM URINE 102.3 MG/DL
[2022-12-14 19:42] LABS: TOTAL PROTEIN,RANDOM URINE 863.5 MG/DL (0.0-14.0)
== END ==
LOC: M LAB REF 16:53
PROVIDERS: ATTEND Nurse Practitioner Family
DX: R50.9 Fever, unspecified (principal)

== ENCOUNTER → 2023-04-01 | Outpatient (CLI) | payer MEDICARE, OTHER ==
[~2023-04-01] MED LIST changes: +FURO40TA2 PO; +POTA-298 PO; +ROPI5TAB19 PO; +TRAZ-252 PO
== END ==
LOC: M PLARAD 13:44
PROVIDERS: ATTEND Internal Medicine Pulmonary Disease
DX: R91.8 Other nonspecific abnormal finding of lung field (principal)
CPT/HCPCS: 78815; A9552

== ENCOUNTER 2023-04-26 17:36 | Emergency (ER) | payer OTHER, MEDICARE ==
[~2023-04-26] VITALS: Ht 162.6 cm; Wt 79.5 kg
[2023-04-26 19:01] LABS: BASO % 0.6 % (0.0-1.0); EOS # 0.2 10^3/uL (0.0-0.5); HEMATOCRIT 35.6 % (42.0-52.0); HEMOGLOBIN 11.8 g/dl (13.5-17.5); LYMPH # 0.9 10^3/uL (1.5-5.0); LYMPH % 13.1 % (24.0-44.0); MEAN CORPUSCULAR HEMOGLOBIN 30.5 pg (27.0-33.0); MEAN CORPUSCULAR HGB CONC 33.1 g/dl (32.0-36.5); MONO # 0.7 10^3/uL (0.0-0.8); MONO % 9.9 % (2.0-8.0); NEUTROPHILS # 5.1 10^3/uL (1.5-8.5); NEUTROPHILS % 73.1 % (36.0-66.0); PLATELET COUNT, AUTOMATED 225 10^3/uL (150-450); RED BLOOD COUNT 3.87 10^6/uL (4.30-6.10)
[2023-04-26] MEDS ORDERED: LISI5TAB11 PO (20:23)
[2023-04-26] MEDS ORDERED: LABETALOL 100MG/20ML VIAL IV STA (20:36)
[2023-04-26 20:44] VITALS: BP 212/93
[2023-04-26] MEDS ORDERED: PERCOCET 5MG/325MG TAB PO ONE (23:00)
[2023-04-27] MEDS ORDERED: METOPROLOL SUCC *XL* 25MG TAB (TopROL *XL*) PO ONE
[2023-04-27 00:27] VITALS: BP 169/76; TEMP 97.5; O2SAT 95
== END 2023-04-27 00:34 | disposition home or self-care (01) ==
LOC: M ED 17:36
DX: Z04.1 Encounter for examination and observation following transport accident (principal); Z79.899 Other long term (current) drug therapy; Z79.82 Long term (current) use of aspirin; Z79.4 Long term (current) use of insulin; E11.9 Type 2 diabetes mellitus without complications; Z79.51 Long term (current) use of inhaled steroids
CPT/HCPCS: 70450; 71250; 72125; 72131; 73130; 74176; 80047; 85025; 86850; 86900; 86901; 96374; 99285; J1920

== ENCOUNTER → 2023-05-28 | Outpatient (CLI) | payer OTHER, MEDICARE ==
[~2023-05-28] MED LIST changes: -FLUT50SP17; +FLUTISP; +LISI5TAB11 PO
== END ==
LOC: M PLAIMG 10:56
PROVIDERS: ATTEND Physician Assistant Surgical
DX: S62.327D Displaced fracture of shaft of fifth metacarpal bone, left hand, subsequent encounter for fracture with routine healing (principal); M18.12 Unilateral primary osteoarthritis of first carpometacarpal joint, left hand; M19.042 Primary osteoarthritis, left hand

== ENCOUNTER 2023-09-11 10:47 | Day surgery (SDC) | payer MEDICARE, OTHER ==
[~2023-09-11] VITALS: Ht 162.6 cm; Wt 74.8 kg
[~2023-09-11 10:47] MED LIST changes: +ACET-897 PO; +CYCL1DRO10 OU; +MIDAZOLAM INJ 2MG/2ML VIAL As Ordered ONE; +MYRB50TA PO
[2023-09-11] MEDS: LIDOCAINE 3.5 % 1ML OPHTH TOPICAL GEL OU ONE (12:42)
[2023-09-11] MEDS: POVIDONE-IODINE 5% OPHTH PREP SOL 30ML As Ordered ONE (13:30)
[2023-09-11] MEDS ORDERED: propofoL 200 MG/20 ML VIAL As Ordered ONE (13:38)
[2023-09-11] MEDS: SODIUM BICARBONATE 4.2% INJ 10ML SYRINGE As Ordered ONE (13:45)
[2023-09-11] MEDS: LIDOCAINE 2% W/EPINEPHRINE 20ML VIAL **PRES FREE As Ordered ONE (13:45)
[2023-09-11] MEDS: TOBRADEX OPHTH OINT 3.5 GM As Ordered ONE (13:50)
[2023-09-11 14:03] VITALS: TEMP 98.2; O2SAT 98
[2023-09-11 14:20] VITALS: BP 142/67
== END 2023-09-11 14:30 | disposition home or self-care (01) ==
LOC: M SDC 10:47
PROVIDERS: ATTEND Ophthalmology
DX: H02.122 Mechanical ectropion of right lower eyelid (principal); I10 Essential (primary) hypertension; I25.10 Atherosclerotic heart disease of native coronary artery without angina pectoris; Z98.61 Coronary angioplasty status; E11.9 Type 2 diabetes mellitus without complications; E78.5 Hyperlipidemia, unspecified; K21.9 Gastro-esophageal reflux disease without esophagitis; Z79.4 Long term (current) use of insulin; Z79.84 Long term (current) use of oral hypoglycemic drugs; Z79.899 Other long term (current) drug therapy; J44.9 Chronic obstructive pulmonary disease, unspecified; Z79.51 Long term (current) use of inhaled steroids; F41.9 Anxiety disorder, unspecified; F32.A Depression, unspecified; Z87.891 Personal history of nicotine dependence

== ENCOUNTER → 2023-09-12 | Outpatient (CLI) | payer MEDICARE, OTHER ==
[~2023-09-12] MED LIST changes: -MIDAZOLAM INJ 2MG/2ML VIAL As Ordered ONE
== END ==
LOC: M RAD 12:44
PROVIDERS: ATTEND Physician Assistant
DX: I65.23 Occlusion and stenosis of bilateral carotid arteries (principal)

== ENCOUNTER → 2023-11-06 | Outpatient (CLI) | payer MEDICARE, OTHER | LOC: M WHC 12:59 | PROVIDERS: ATTEND Nurse Practitioner Family | DX: N17.9 Acute kidney failure, unspecified (principal) ==

== ENCOUNTER 2023-11-21 08:50 | Day surgery (SDC) | payer MEDICARE, OTHER ==
[~2023-11-21] VITALS: Ht 162.6 cm; Wt 80.7 kg
[2023-11-21] MEDS: NS 1,000 ML IV ONE (09:22)
[2023-11-21] MEDS ORDERED: LIDOCAINE 2% 100MG/5ML SDV (FOR ANES.) As Ordered ONE (09:48)
[2023-11-21] MEDS ORDERED: propofoL 200 MG/20 ML VIAL As Ordered ONE (09:48)
[2023-11-21 11:00] VITALS: BP 116/55; O2SAT 92
== END 2023-11-21 11:20 | disposition home or self-care (01) ==
LOC: M OPP 08:50
PROVIDERS: ATTEND Internal Medicine Gastroenterology
DX: Z12.11 Encounter for screening for malignant neoplasm of colon (principal); Z86.010 Personal history of colon polyps; K64.8 Other hemorrhoids; K57.30 Diverticulosis of large intestine without perforation or abscess without bleeding; Z95.0 Presence of cardiac pacemaker; Z95.5 Presence of coronary angioplasty implant and graft; Z86.73 Personal history of transient ischemic attack (TIA), and cerebral infarction without residual deficits; E11.9 Type 2 diabetes mellitus without complications; I25.10 Atherosclerotic heart disease of native coronary artery without angina pectoris; N18.2 Chronic kidney disease, stage 2 (mild); I12.9 Hypertensive chronic kidney disease with stage 1 through stage 4 chronic kidney disease, or unspecified chronic kidney disease; J44.9 Chronic obstructive pulmonary disease, unspecified; G47.30 Sleep apnea, unspecified; Z79.02 Long term (current) use of antithrombotics/antiplatelets; Z79.4 Long term (current) use of insulin; Z79.82 Long term (current) use of aspirin; Z79.899 Other long term (current) drug therapy

== ENCOUNTER → 2023-11-22 | Outpatient (REF) | payer MEDICARE, OTHER ==
[2023-11-22 18:50] LABS: CREATININE,RANDOM URINE 53.4 MG/DL
[2023-11-22 18:52] LABS: TOTAL PROTEIN,RANDOM URINE 505.4 MG/DL (0.0-14.0)
== END ==
LOC: M LAB REF 16:58
PROVIDERS: ATTEND Nurse Practitioner Family
DX: R80.9 Proteinuria, unspecified (principal)

== ENCOUNTER → 2023-12-30 | Outpatient (REF) ==
[2023-12-30 13:36] LABS: HEMATOCRIT 27.4 % (42.0-52.0); HEMOGLOBIN 8.6 g/dl (13.5-17.5); MEAN CORPUSCULAR HEMOGLOBIN 28.9 pg (27.0-33.0); MEAN CORPUSCULAR HGB CONC 31.4 g/dl (32.0-36.5); MEAN CORPUSCULAR VOLUME 91.9 fl (80.0-96.0); PLATELET COUNT, AUTOMATED 229 10^3/uL (150-450); RED BLOOD COUNT 2.98 10^6/uL (4.30-6.10); WHITE BLOOD COUNT 8.9 10^3/uL (4.0-10.0)
[2023-12-30 14:20] LABS: CREATININE FOR GFR 1.84 MG/DL (0.70-1.30); GLOMERULAR FILTRATION RATE 38.8 (>42); POTASSIUM SERUM 6.4 MMOL/L (3.5-5.1)
== END ==
LOC: SKLAB2 12:49
PROVIDERS: ATTEND Internal Medicine
DX: Z01.89 Encounter for other specified special examinations (principal)

== ENCOUNTER → 2023-12-31 | Outpatient (REF) ==
[2023-12-31 07:16] LABS: HEMATOCRIT 26.7 % (42.0-52.0); HEMOGLOBIN 8.3 g/dl (13.5-17.5); MEAN CORPUSCULAR HEMOGLOBIN 28.6 pg (27.0-33.0); MEAN CORPUSCULAR HGB CONC 31.1 g/dl (32.0-36.5); MEAN CORPUSCULAR VOLUME 92.1 fl (80.0-96.0); PLATELET COUNT, AUTOMATED 215 10^3/uL (150-450); WHITE BLOOD COUNT 9.2 10^3/uL (4.0-10.0)
[2023-12-31 07:43] LABS: CALCIUM LEVEL 7.9 MG/DL (8.3-10.6); CREATININE FOR GFR 1.66 MG/DL (0.70-1.30); GLOMERULAR FILTRATION RATE 43.7 (>42); POTASSIUM SERUM 5.3 MMOL/L (3.5-5.1)
[2023-12-31 07:45] LABS: PERCENT SATURATION 17.5 % (19.7-50.0)
[2023-12-31 07:46] LABS: FERRITIN 369.8 NG/ML (10.5-307.3)
== END ==
LOC: SKLAB2 06:39
PROVIDERS: ATTEND Internal Medicine
DX: D64.9 Anemia, unspecified (principal); E87.5 Hyperkalemia

== ENCOUNTER → 2023-12-31 | Outpatient (REF) ==
[2023-12-31 16:29] LABS: HEMATOCRIT 25.6 % (42.0-52.0); HEMOGLOBIN 8.3 g/dl (13.5-17.5); MEAN CORPUSCULAR HEMOGLOBIN 29.5 pg (27.0-33.0); MEAN CORPUSCULAR HGB CONC 32.4 g/dl (32.0-36.5); MEAN CORPUSCULAR VOLUME 91.1 fl (80.0-96.0); PLATELET COUNT, AUTOMATED 216 10^3/uL (150-450); RED BLOOD COUNT 2.81 10^6/uL (4.30-6.10); WHITE BLOOD COUNT 9.3 10^3/uL (4.0-10.0)
[2023-12-31 16:52] LABS: CALCIUM LEVEL 8.2 MG/DL (8.3-10.6); CREATININE FOR GFR 1.8 MG/DL (0.70-1.30); GLOMERULAR FILTRATION RATE 39.8 (>42); POTASSIUM SERUM 5.8 MMOL/L (3.5-5.1)
== END ==
LOC: SKLAB2 15:49
PROVIDERS: ATTEND Internal Medicine
DX: N18.9 Chronic kidney disease, unspecified (principal)

== ENCOUNTER → 2024-01-02 | Outpatient (REF) | LOC: SKLAB2 06:42 | PROVIDERS: ATTEND Internal Medicine | DX: E16.2 Hypoglycemia, unspecified (principal) ==

== ENCOUNTER 2024-01-07 10:53 | Outpatient (CLI) | payer MEDICARE, OTHER ==
[~2024-01-07] VITALS: Ht 162.6 cm; Wt 80.9 kg
[~2024-01-07 10:53] MED LIST changes: +ALBUTEROL SULFATE 2.5MG/0.5ML INH NEB SOLN INH PRN; +EPINEPHrine INJ 1 MG/ML 1ML AMP IM PRN; +NS 1,000 ML IV SCH; +diphenhydrAMINE 50MG/ML VIAL IV PRN; +methylPREDNISolone 125MG 2ML VIAL IV PRN
[2024-01-07] MEDS: FERRIC CARBOXYMALTOSE INJ 750 MG in NS 250 ML (>50kg) IV ONE (11:16)
[2024-01-07 11:19] VITALS: BP 168/77; O2SAT 98
[2024-01-07 12:44] VITALS: BP 163/80; O2SAT 97
== END 2024-01-07 12:45 ==
LOC: M INFU 10:53
PROVIDERS: ATTEND Nurse Practitioner Family
DX: D50.9 Iron deficiency anemia, unspecified (principal); N18.9 Chronic kidney disease, unspecified
CPT/HCPCS: 36415; 80048; 85027; 96365; J1439

== ENCOUNTER → 2024-01-07 | Outpatient (REF) | payer MEDICARE, OTHER ==
[2024-01-07 20:41] LABS: HEMATOCRIT 25.9 % (42.0-52.0); HEMOGLOBIN 8.2 g/dl (13.5-17.5); MEAN CORPUSCULAR HEMOGLOBIN 28.9 pg (27.0-33.0); MEAN CORPUSCULAR HGB CONC 31.7 g/dl (32.0-36.5); MEAN CORPUSCULAR VOLUME 91.2 fl (80.0-96.0); PLATELET COUNT, AUTOMATED 242 10^3/uL (150-450); RED BLOOD COUNT 2.84 10^6/uL (4.30-6.10); WHITE BLOOD COUNT 8.2 10^3/uL (4.0-10.0)
[2024-01-07 21:08] LABS: CALCIUM LEVEL 8.1 MG/DL (8.3-10.6); CREATININE FOR GFR 2.02 MG/DL (0.70-1.30); GLOMERULAR FILTRATION RATE 34.8 (>42); POTASSIUM SERUM 5.7 MMOL/L (3.5-5.1)
== END ==
LOC: SKLAB2 10:37
PROVIDERS: ATTEND Internal Medicine
DX: N18.9 Chronic kidney disease, unspecified (principal)

== ENCOUNTER → 2024-01-08 | Outpatient (REF) ==
[~2024-01-08] MED LIST changes: -ALBUTEROL SULFATE 2.5MG/0.5ML INH NEB SOLN INH PRN; -EPINEPHrine INJ 1 MG/ML 1ML AMP IM PRN; -NS 1,000 ML IV SCH; -diphenhydrAMINE 50MG/ML VIAL IV PRN; -methylPREDNISolone 125MG 2ML VIAL IV PRN
[2024-01-08 12:23] LABS: MEAN CORPUSCULAR HEMOGLOBIN 29.4 pg (27.0-33.0); MEAN CORPUSCULAR VOLUME 91.9 fl (80.0-96.0); PLATELET COUNT, AUTOMATED 231 10^3/uL (150-450); RED BLOOD COUNT 2.72 10^6/uL (4.30-6.10); WHITE BLOOD COUNT 7.7 10^3/uL (4.0-10.0)
[2024-01-08 12:48] LABS: CALCIUM LEVEL 8.2 MG/DL (8.3-10.6); CREATININE FOR GFR 1.96 MG/DL (0.70-1.30); GLOMERULAR FILTRATION RATE 36.1 (>42); MAGNESIUM LEVEL 1.7 MG/DL (1.8-2.4); POTASSIUM SERUM 5.2 MMOL/L (3.5-5.1)
== END ==
LOC: SKLAB2 08:03
PROVIDERS: ATTEND Internal Medicine
DX: N18.9 Chronic kidney disease, unspecified (principal); D63.1 Anemia in chronic kidney disease

== ENCOUNTER 2024-01-10 20:20 | Inpatient (IN) | payer MEDICARE, OTHER ==
[~2024-01-10] VITALS: Ht 162.6 cm; Wt 79.2 kg
[~2024-01-10 20:20] MED LIST changes: -ALBU2.5V10 INH; -AQUAOIN12 TP; -FERR324T12 PO; -HUMU1INJ SC; -HUMU1INJ2 SC; -HYDR28OI7 TP; -MELA5TAB7 PO; -MENT118G7 TP; -METO1TAB33 PO; -VELT1POW PO
[2024-01-10 21:50] LABS: BASO % 0.3 % (0.0-1.0); EOS % 0.4 % (0.0-3.0); HEMATOCRIT 26.5 % (42.0-52.0); HEMOGLOBIN 8.5 g/dl (13.5-17.5); LYMPH # 0.4 10^3/uL (1.5-5.0); LYMPH % 3.6 % (24.0-44.0); MEAN CORPUSCULAR HEMOGLOBIN 29.4 pg (27.0-33.0); MEAN CORPUSCULAR HGB CONC 32.1 g/dl (32.0-36.5); MEAN CORPUSCULAR VOLUME 91.7 fl (80.0-96.0); MONO # 1.1 10^3/uL (0.0-0.8); MONO % 10.2 % (2.0-8.0); NEUTROPHILS # 9.3 10^3/uL (1.5-8.5); PLATELET COUNT, AUTOMATED 259 10^3/uL (150-450); RED BLOOD COUNT 2.89 10^6/uL (4.30-6.10); WHITE BLOOD COUNT 10.9 10^3/uL (4.0-10.0)
[2024-01-10 22:21] LABS: CK-MB VALUE MASS 4.8 NG/ML (<3.6)
[2024-01-10 22:22] LABS: ETHYL ALCOHOL (ETHANOL) < 0.003 % (0.000-0.010)
[2024-01-10 22:23] LABS: CPK CREATINE PHOSPHOKINASE 148 U/L (46-171); MB/CK RELATIVE INDEX 3.24 (< OR =4); SALICYLATE LEVEL < 3.0 MG/DL (<30)
[2024-01-10 22:25] LABS: THYROID STIMULATING HORMONE 1.629 uIU/ML (0.55-4.78)
[2024-01-10 22:27] LABS: ALBUMIN 2.2 G/DL (3.2-5.2); ALKALINE PHOSPHATASE 105 U/L (46-116); ALT/SGPT 24 U/L (7.0-40); AST/SGOT 21 U/L (<34); BILIRUBIN,DIRECT 0.2 MG/DL (<0.4); BILIRUBIN,TOTAL 0.5 MG/DL (0.3-1.2); BLOOD UREA NITROGEN 56 MG/DL (9-23); CALCIUM LEVEL 8.3 MG/DL (8.3-10.6); CARBON DIOXIDE LEVEL 20 MMOL/L (20-31); CHLORIDE LEVEL 113 MMOL/L (98-107); CREATININE FOR GFR 1.88 MG/DL (0.70-1.30); GLOMERULAR FILTRATION RATE 37.8 (>42); GLUCOSE, FASTING 158 MG/DL (74-106); SODIUM LEVEL 142 MMOL/L (136-145); TOTAL PROTEIN 5.2 G/DL (5.7-8.2)
[2024-01-10 22:51] LABS: AMPHETAMINES LEVEL URINE NEGATIVE (NEGATIVE); BENZODIAZEPINES URINE NEGATIVE (NEGATIVE)
[2024-01-10 22:52] LABS: BARBITURATES URINE NEGATIVE (NEGATIVE); CANNABINOIDS URINE NEGATIVE (NEGATIVE); COCAINE METABOLITE URINE NEGATIVE (NEGATIVE); METHADONE URINE NEGATIVE (NEGATIVE); OPIATES URINE NEGATIVE (NEGATIVE); PHENCYCLIDINE URINE NEGATIVE (NEGATIVE)
[2024-01-11] MEDS: NS 500 ML IV ONE (01:05)
[2024-01-11] MEDS: cefTRIAXone SOD 1 GM in D5W MINI-BAG PLUS 50 ML IV ONE (01:57)
[2024-01-11] MEDS ORDERED: MENT118G7 TOP (02:10)
[2024-01-11] MEDS ORDERED: HUMU1INJ SC (02:10)
[2024-01-11] MEDS ORDERED: VELT1POW PO (02:10)
[2024-01-11] MEDS ORDERED: METO1TAB33 PO (02:10)
[2024-01-11] MEDS ORDERED: FERR324T12 PO (02:10)
[2024-01-11] MEDS ORDERED: ALBU2.5V10 INH (02:10)
[2024-01-11] MEDS ORDERED: MELA5TAB7 PO (02:10)
[2024-01-11] MEDS ORDERED: HUMU1INJ2 SC (02:10)
[2024-01-11] MEDS ORDERED: HYDR28OI7 TOP (02:16)
[2024-01-11] MEDS ORDERED: AQUAOIN12 TP (02:16)
[2024-01-11] MEDS ORDERED: HOME MED LIST COMPLETE! XX SCH (02:20)
[2024-01-11] MEDS ORDERED: MOM 30ML SUSPENSION UDC PO PRN (02:50)
[2024-01-11 04:20] VITALS: BP 161/65; TEMP 97.9; O2SAT 99
[2024-01-11] MEDS: HEPARIN SOD (PORCINE) 5000UNITS/ML 1ML VIAL/SYRINGE SC SCH (05:50)
[2024-01-11] MEDS: ALBUTEROL SULFATE 2.5MG/0.5ML INH NEB SOLN INH SCH (09:00)
[2024-01-11] MEDS: DOCUSATE SODIUM 100MG CAPSULE PO SCH (09:32)
[2024-01-11] MEDS: PANTOPRAZOLE 40MG TAB (PROTONIX) PO SCH (09:32)
[2024-01-11] MEDS: MAGNESIUM OXIDE 400MG TAB (MAG-OX) PO SCH (09:32)
[2024-01-11] MEDS: ASPIRIN 81MG ENTERIC TABLET PO SCH (09:33)
[2024-01-11] MEDS: METOPROLOL SUCC (TopROL XL) 100MG *XL* TAB PO SCH (09:33)
[2024-01-11] MEDS: PATIROMER SORBITEX CALCIUM 8.4 GM POWDER PACKET (VELTASSA) PO SCH (09:34)
[2024-01-11] MEDS: CLOPIDOGREL 75 MG TAB PO SCH (09:34)
[2024-01-11] MEDS: HYDROCORTISONE 1% OINTMENT 30GM TOP SCH (09:34)
[2024-01-11 09:50] LABS: HEMATOCRIT 26.5 % (42.0-52.0); HEMOGLOBIN 8.4 g/dl (13.5-17.5); MEAN CORPUSCULAR HEMOGLOBIN 29.1 pg (27.0-33.0); MEAN CORPUSCULAR HGB CONC 31.7 g/dl (32.0-36.5); MEAN CORPUSCULAR VOLUME 91.7 fl (80.0-96.0); PLATELET COUNT, AUTOMATED 267 10^3/uL (150-450); RED BLOOD COUNT 2.89 10^6/uL (4.30-6.10); WHITE BLOOD COUNT 8.7 10^3/uL (4.0-10.0)
[2024-01-11 10:18] LABS: CALCIUM LEVEL 8.1 MG/DL (8.3-10.6); CREATININE FOR GFR 1.92 MG/DL (0.70-1.30); GLOMERULAR FILTRATION RATE 36.9 (>42); POTASSIUM SERUM 4.6 MMOL/L (3.5-5.1)
[2024-01-11 10:50] LABS: PERCENT SATURATION 20.9 % (19.7-50.0)
[2024-01-11 10:52] LABS: FERRITIN 694.4 NG/ML (10.5-307.3)
[2024-01-11 12:00] VITALS: BP 159/71; TEMP 97.9; O2SAT 98
[2024-01-11] MEDS: IRON POLYSAC (NIFEREX) 150 MG CAP PO SCH (12:45)
[2024-01-11 20:38] VITALS: BP 151/57; TEMP 98.2; O2SAT 95
[2024-01-11] MEDS: PARoxetine 20MG TABLET PO SCH (22:05)
[2024-01-11] MEDS: ATORVASTATIN 20 MG TAB PO SCH (22:05)
[2024-01-11] MEDS: TAMSULOSIN 0.4 MG CAP PO SCH (22:06)
[2024-01-11] MEDS: ACETAMINOPHEN TAB 650MG DOSE (2X325MG) PO PRN (22:12)
[2024-01-12] MEDS: cefTRIAXone SOD 1 GM in D5W MINI-BAG PLUS 50 ML IV SCH (00:33)
[2024-01-12 03:06] VITALS: BP 149/57; TEMP 98.6; O2SAT 95
[2024-01-12 07:25] LABS: BASO % 0.4 % (0.0-1.0); EOS # 0.2 10^3/uL (0.0-0.5); EOS % 2.3 % (0.0-3.0); HEMATOCRIT 22.9 % (42.0-52.0); HEMOGLOBIN 7.2 g/dl (13.5-17.5); LYMPH % 11.6 % (24.0-44.0); MEAN CORPUSCULAR HGB CONC 31.4 g/dl (32.0-36.5); MEAN CORPUSCULAR VOLUME 92.3 fl (80.0-96.0); MONO # 1.6 10^3/uL (0.0-0.8); MONO % 18.5 % (2.0-8.0); NEUTROPHILS # 5.6 10^3/uL (1.5-8.5); NEUTROPHILS % 66.1 % (36.0-66.0); PLATELET COUNT, AUTOMATED 231 10^3/uL (150-450); RED BLOOD COUNT 2.48 10^6/uL (4.30-6.10); WHITE BLOOD COUNT 8.4 10^3/uL (4.0-10.0)
[2024-01-12 07:58] LABS: CREATININE FOR GFR 1.92 MG/DL (0.70-1.30); GLOMERULAR FILTRATION RATE 36.9 (>42); POTASSIUM SERUM 4.1 MMOL/L (3.5-5.1)
[2024-01-12 12:00] VITALS: BP 154/67; TEMP 98.8; O2SAT 93
[2024-01-12] MEDS: SUCRALFATE SUSP 1GM/10ML UD PO SCH (12:55)
[2024-01-12 19:37] VITALS: BP 152/69; TEMP 98.2; O2SAT 94
[2024-01-12] MEDS: PANTOPRAZOLE 40MG TAB (PROTONIX) PO SCH (20:45)
[2024-01-13] VITALS (7 sets, daily range): BP systolic 113–143; BP diastolic 46–80; TEMP 97.9–98.8; O2SAT 94–98
[2024-01-13 02:20] LABS: MEAN CORPUSCULAR HEMOGLOBIN 29.3 pg (27.0-33.0); MEAN CORPUSCULAR HGB CONC 31.8 g/dl (32.0-36.5); MEAN CORPUSCULAR VOLUME 92.1 fl (80.0-96.0); PLATELET COUNT, AUTOMATED 216 10^3/uL (150-450); RED BLOOD COUNT 2.39 10^6/uL (4.30-6.10); WHITE BLOOD COUNT 7.6 10^3/uL (4.0-10.0)
[2024-01-13 02:34] LABS: INR 1.26; PARTIAL THROMBOPLASTIN TIME 39.2 SECONDS (24.8-34.2); PROTHROMBIN TIME 15.4 SECONDS (12.5-14.5)
[2024-01-13 11:25] LABS: CREATININE FOR GFR 1.97 MG/DL (0.70-1.30); GLOMERULAR FILTRATION RATE 35.9 (>42); POTASSIUM SERUM 4.1 MMOL/L (3.5-5.1)
[2024-01-13 16:46] LABS: HEMATOCRIT 31.3 % (42.0-52.0)
[2024-01-13 17:07] LABS: HEMOGLOBIN 9.8 g/dl (13.5-17.5)
[2024-01-14] VITALS: BP 145/91; TEMP 98.6; O2SAT 96
[2024-01-14 04:00] VITALS: BP 98/78; TEMP 98.1; O2SAT 96
[2024-01-14 06:35] LABS: BASO % 0.3 % (0.0-1.0); EOS # 0.2 10^3/uL (0.0-0.5); EOS % 2.2 % (0.0-3.0); HEMATOCRIT 25.7 % (42.0-52.0); HEMOGLOBIN 8.1 g/dl (13.5-17.5); LYMPH % 10.8 % (24.0-44.0); MEAN CORPUSCULAR HEMOGLOBIN 28.9 pg (27.0-33.0); MEAN CORPUSCULAR HGB CONC 31.5 g/dl (32.0-36.5); MEAN CORPUSCULAR VOLUME 91.8 fl (80.0-96.0); MONO # 1.2 10^3/uL (0.0-0.8); MONO % 12.7 % (2.0-8.0); NEUTROPHILS # 6.8 10^3/uL (1.5-8.5); NEUTROPHILS % 72.7 % (36.0-66.0); PLATELET COUNT, AUTOMATED 218 10^3/uL (150-450); WHITE BLOOD COUNT 9.4 10^3/uL (4.0-10.0)
[2024-01-14 06:56] LABS: CALCIUM LEVEL 7.7 MG/DL (8.3-10.6); CREATININE FOR GFR 1.82 MG/DL (0.70-1.30); GLOMERULAR FILTRATION RATE 39.3 (>42); MAGNESIUM LEVEL 1.7 MG/DL (1.8-2.4); POTASSIUM SERUM 4.1 MMOL/L (3.5-5.1)
[2024-01-14] MEDS: MAG SULF 1GM/100ML (MAG RUN) 1 GM in IV 1 EA IV SCH (07:37)
[2024-01-14 08:00] VITALS: BP 184/78; TEMP 97.9; O2SAT 99
[2024-01-14 12:00] VITALS: BP 148/51; TEMP 98.6; O2SAT 94
[2024-01-14 16:00] VITALS: BP 159/82; TEMP 98.4; O2SAT 97
[2024-01-14 16:22] LABS: HEMATOCRIT 28.6 % (42.0-52.0); HEMOGLOBIN 9.2 g/dl (13.5-17.5); MEAN CORPUSCULAR HEMOGLOBIN 29.4 pg (27.0-33.0); MEAN CORPUSCULAR HGB CONC 32.2 g/dl (32.0-36.5); MEAN CORPUSCULAR VOLUME 91.4 fl (80.0-96.0); PLATELET COUNT, AUTOMATED 243 10^3/uL (150-450); RED BLOOD COUNT 3.13 10^6/uL (4.30-6.10); WHITE BLOOD COUNT 11.8 10^3/uL (4.0-10.0)
[2024-01-14 20:08] VITALS: BP 158/80; TEMP 98.6; O2SAT 94
[2024-01-15 00:02] VITALS: BP 161/76; TEMP 98.1; O2SAT 94
[2024-01-15 03:55] VITALS: BP 164/75; TEMP 98.1; O2SAT 94
[2024-01-15 06:13] LABS: BASO # 0.1 10^3/uL (0.0-0.2); BASO % 0.4 % (0.0-1.0); EOS # 0.2 10^3/uL (0.0-0.5); EOS % 1.6 % (0.0-3.0); HEMATOCRIT 29.2 % (42.0-52.0); HEMOGLOBIN 9.3 g/dl (13.5-17.5); LYMPH # 0.7 10^3/uL (1.5-5.0); LYMPH % 6.4 % (24.0-44.0); MEAN CORPUSCULAR HEMOGLOBIN 29.2 pg (27.0-33.0); MEAN CORPUSCULAR HGB CONC 31.8 g/dl (32.0-36.5); MEAN CORPUSCULAR VOLUME 91.8 fl (80.0-96.0); MONO # 1.3 10^3/uL (0.0-0.8); MONO % 11.4 % (2.0-8.0); NEUTROPHILS # 9.1 10^3/uL (1.5-8.5); NEUTROPHILS % 79.2 % (36.0-66.0); PLATELET COUNT, AUTOMATED 242 10^3/uL (150-450); RED BLOOD COUNT 3.18 10^6/uL (4.30-6.10); WHITE BLOOD COUNT 11.5 10^3/uL (4.0-10.0)
[2024-01-15 06:41] LABS: CALCIUM LEVEL 8.3 MG/DL (8.3-10.6); CREATININE FOR GFR 1.59 MG/DL (0.70-1.30); GLOMERULAR FILTRATION RATE 45.9 (>42); MAGNESIUM LEVEL 1.9 MG/DL (1.8-2.4)
[2024-01-15 08:00] VITALS: BP 163/76; TEMP 98.6; O2SAT 96
[2024-01-15 10:52] LABS: C REACTIVE PROTEIN QUANTITATIV 3.4 MG/DL (<1.0)
[2024-01-15 10:53] LABS: ALBUMIN 2.1 G/DL (3.2-5.2); BILIRUBIN,DIRECT 0.3 MG/DL (<0.4); BILIRUBIN,TOTAL 0.7 MG/DL (0.3-1.2); TOTAL PROTEIN 5.1 G/DL (5.7-8.2)
[2024-01-15 10:55] LABS: FOLATE 9.18 NG/ML (>5.4)
[2024-01-15 11:05] LABS: PROCALCITONIN 0.09 ng/ml
[2024-01-15 11:35] LABS: ERYTHROCYTE SEDIMENTATION RATE 59 mm/hr (0-20)
[2024-01-15 12:00] VITALS: BP 109/86; TEMP 98.4; O2SAT 94
[2024-01-15 16:00] VITALS: BP 150/70; TEMP 99.1; O2SAT 96
[2024-01-15] MEDS: ALBUTEROL SULFATE 2.5MG/0.5ML INH NEB SOLN INH SCH (19:22)
[2024-01-15 20:33] VITALS: BP 151/69; TEMP 98.8; O2SAT 98
[2024-01-16] VITALS: BP 152/72; TEMP 98.1; O2SAT 96
[2024-01-16 04:00] VITALS: BP 151/71; TEMP 98.2; O2SAT 98
[2024-01-16 05:58] LABS: BASO # 0.1 10^3/uL (0.0-0.2); BASO % 0.5 % (0.0-1.0); EOS # 0.2 10^3/uL (0.0-0.5); EOS % 1.7 % (0.0-3.0); HEMATOCRIT 28.9 % (42.0-52.0); LYMPH # 1.1 10^3/uL (1.5-5.0); LYMPH % 9.8 % (24.0-44.0); MEAN CORPUSCULAR HEMOGLOBIN 28.7 pg (27.0-33.0); MEAN CORPUSCULAR HGB CONC 31.1 g/dl (32.0-36.5); MONO # 1.6 10^3/uL (0.0-0.8); NEUTROPHILS # 7.9 10^3/uL (1.5-8.5); NEUTROPHILS % 72.2 % (36.0-66.0); PLATELET COUNT, AUTOMATED 217 10^3/uL (150-450); RED BLOOD COUNT 3.14 10^6/uL (4.30-6.10); WHITE BLOOD COUNT 10.9 10^3/uL (4.0-10.0)
[2024-01-16 06:29] LABS: CALCIUM LEVEL 7.6 MG/DL (8.3-10.6); CREATININE FOR GFR 1.73 MG/DL (0.70-1.30); GLOMERULAR FILTRATION RATE 41.7 (>42); MAGNESIUM LEVEL 1.8 MG/DL (1.8-2.4)
[2024-01-16 08:00] VITALS: BP 155/67; TEMP 97.9; O2SAT 96
[2024-01-16 12:00] VITALS: BP 154/66; TEMP 98.1; O2SAT 94
[2024-01-16 16:00] VITALS: BP 152/64; TEMP 97.9; O2SAT 96
[2024-01-16 20:00] VITALS: BP 147/66; TEMP 97.9; O2SAT 95
[2024-01-16] MEDS ORDERED: RAMELTEON 8 MG TAB (ROZEREM) PO SCH (21:00)
[2024-01-16] MEDS: HEPARIN SOD (PORCINE) 5000UNITS/ML 1ML VIAL/SYRINGE SQ SCH (21:22)
[2024-01-16] MEDS: QUEtiapine FUMARATE 25 MG TAB PO SCH (21:23)
[2024-01-17] VITALS: BP 158/69; TEMP 98.4; O2SAT 97
[2024-01-17 04:00] VITALS: BP 150/54; TEMP 98.6; O2SAT 95
[2024-01-17 06:35] LABS: BASO % 0.4 % (0.0-1.0); EOS # 0.3 10^3/uL (0.0-0.5); EOS % 2.7 % (0.0-3.0); HEMATOCRIT 26.2 % (42.0-52.0); HEMOGLOBIN 8.5 g/dl (13.5-17.5); LYMPH # 1.1 10^3/uL (1.5-5.0); LYMPH % 11.4 % (24.0-44.0); MEAN CORPUSCULAR HEMOGLOBIN 29.6 pg (27.0-33.0); MEAN CORPUSCULAR HGB CONC 32.4 g/dl (32.0-36.5); MEAN CORPUSCULAR VOLUME 91.3 fl (80.0-96.0); MONO # 1.2 10^3/uL (0.0-0.8); MONO % 12.3 % (2.0-8.0); NEUTROPHILS # 7.3 10^3/uL (1.5-8.5); NEUTROPHILS % 72.4 % (36.0-66.0); PLATELET COUNT, AUTOMATED 221 10^3/uL (150-450); RED BLOOD COUNT 2.87 10^6/uL (4.30-6.10)
[2024-01-17 06:55] LABS: CALCIUM LEVEL 7.6 MG/DL (8.3-10.6); CREATININE FOR GFR 2.08 MG/DL (0.70-1.30); GLOMERULAR FILTRATION RATE 33.7 (>42); MAGNESIUM LEVEL 1.7 MG/DL (1.8-2.4); POTASSIUM SERUM 4.3 MMOL/L (3.5-5.1)
[2024-01-17 08:00] VITALS: BP 159/71; TEMP 98.6; O2SAT 99
[2024-01-17] MEDS: MAG SULF 1GM/100ML (MAG RUN) 1 GM in IV 1 EA IV SCH (08:44)
[2024-01-17] MEDS: SUCRALFATE SUSP 1GM/10ML UD PO SCH (08:45)
[2024-01-17 12:00] VITALS: BP 158/69; TEMP 98.1; O2SAT 94
[2024-01-17 16:00] VITALS: BP 158/69; TEMP 98.1; O2SAT 96
[2024-01-17 20:00] VITALS: BP 152/72; TEMP 98.2; O2SAT 97
[2024-01-18] VITALS: BP_SYST 152; BP_SYST 157; BP_DIAS 69; BP_DIAS 72; TEMP 98.6; O2SAT 98
[2024-01-18 04:00] VITALS: BP 159/69; TEMP 98.1; O2SAT 96
[2024-01-18 07:16] LABS: BASO % 0.4 % (0.0-1.0); EOS # 0.3 10^3/uL (0.0-0.5); EOS % 2.5 % (0.0-3.0); HEMOGLOBIN 8.9 g/dl (13.5-17.5); LYMPH # 0.7 10^3/uL (1.5-5.0); LYMPH % 6.8 % (24.0-44.0); MEAN CORPUSCULAR HEMOGLOBIN 29.4 pg (27.0-33.0); MEAN CORPUSCULAR HGB CONC 31.8 g/dl (32.0-36.5); MEAN CORPUSCULAR VOLUME 92.4 fl (80.0-96.0); MONO # 1.1 10^3/uL (0.0-0.8); MONO % 10.3 % (2.0-8.0); NEUTROPHILS # 8.5 10^3/uL (1.5-8.5); NEUTROPHILS % 79.3 % (36.0-66.0); PLATELET COUNT, AUTOMATED 225 10^3/uL (150-450); RED BLOOD COUNT 3.03 10^6/uL (4.30-6.10); WHITE BLOOD COUNT 10.7 10^3/uL (4.0-10.0)
[2024-01-18 07:41] LABS: CALCIUM LEVEL 7.7 MG/DL (8.3-10.6); CREATININE FOR GFR 1.95 MG/DL (0.70-1.30); GLOMERULAR FILTRATION RATE 36.3 (>42); POTASSIUM SERUM 4.3 MMOL/L (3.5-5.1)
[2024-01-18 08:00] VITALS: BP 158/68; TEMP 97.7; O2SAT 95
[2024-01-18 12:00] VITALS: BP 156/66; TEMP 97.9; O2SAT 96
[2024-01-18 16:00] VITALS: BP 178/71; TEMP 98.4; O2SAT 97
[2024-01-18 19:24] VITALS: BP 170/60; TEMP 98.1; O2SAT 95
[2024-01-18] MEDS ORDERED: GLUCOSE 4 GM CHEW PO PRN (20:30)
[2024-01-18] MEDS ORDERED: GLUCAGON INJ 1MG VIAL SC PRN (20:30)
[2024-01-18] MEDS ORDERED: DEXTROSE 50% 50ML SYRINGE IV PRN (20:30)
[2024-01-18] MEDS: INSULIN LISPRO (NovoLOG) PER UNIT SC SCH (21:00)
[2024-01-18] MEDS: INSULIN LISPRO (NovoLOG) PER UNIT SC ONE (21:29)
[2024-01-19] VITALS: BP 168/72; TEMP 97.2; O2SAT 95
[2024-01-19 04:00] VITALS: BP 137/48; TEMP 98.1; O2SAT 95
[2024-01-19 08:00] VITALS: BP 138/49; TEMP 98.1; O2SAT 93
[2024-01-19 08:10] VITALS: BP 137/48
[2024-01-19] MEDS: INSULIN LISPRO (NovoLOG) PER UNIT SC SCH (08:10)
[2024-01-19] MEDS ORDERED: QUET1TAB17 PO (11:49)
[2024-01-19 12:00] VITALS: BP 137/50; TEMP 98.2; O2SAT 98
== END 2024-01-19 15:27 | disposition home health service (06) | DRG 71 ==
LOC: M ED 20:20 → M ED INP 01-11 02:49 → M MSPAV 01-11 04:21
PROVIDERS: ADMIT Family Medicine; ATTEND Student in an Organized Health Care Education/Training Program
PROC: 30233N1 Transfusion of Nonautologous Red Blood Cells into Peripheral Vein, Percutaneous Approach (ICD-10-PCS; principal; 2024-01-13)
DX: G93.40 Encephalopathy, unspecified (principal); N17.9 Acute kidney failure, unspecified; I69.351 Hemiplegia and hemiparesis following cerebral infarction affecting right dominant side; D62 Acute posthemorrhagic anemia; S70.02XA Contusion of left hip, initial encounter; W19.XXXA Unspecified fall, initial encounter; Y92.129 Unspecified place in nursing home as the place of occurrence of the external cause; Y93.9 Activity, unspecified; I25.10 Atherosclerotic heart disease of native coronary artery without angina pectoris; Z95.5 Presence of coronary angioplasty implant and graft; Z95.0 Presence of cardiac pacemaker; E78.5 Hyperlipidemia, unspecified; I12.9 Hypertensive chronic kidney disease with stage 1 through stage 4 chronic kidney disease, or unspecified chronic kidney disease; J45.909 Unspecified asthma, uncomplicated; G47.33 Obstructive sleep apnea (adult) (pediatric); N18.30 Chronic kidney disease, stage 3 unspecified; E11.22 Type 2 diabetes mellitus with diabetic chronic kidney disease; D50.9 Iron deficiency anemia, unspecified; F32.A Depression, unspecified; F41.9 Anxiety disorder, unspecified; K21.9 Gastro-esophageal reflux disease without esophagitis; Z98.49 Cataract extraction status, unspecified eye; Z96.653 Presence of artificial knee joint, bilateral; Z79.82 Long term (current) use of aspirin; Z79.899 Other long term (current) drug therapy; N40.1 Benign prostatic hyperplasia with lower urinary tract symptoms; M79.81 Nontraumatic hematoma of soft tissue; D63.8 Anemia in other chronic diseases classified elsewhere; E83.42 Hypomagnesemia; F03.90 Unspecified dementia, unspecified severity, without behavioral disturbance, psychotic disturbance, mood disturbance, and anxiety

== ENCOUNTER → 2024-01-10 | Outpatient (REF) ==
[~2024-01-10] MED LIST changes: +ALBU2.5V10 INH; +AQUAOIN12 TP; +FERR324T12 PO; +HUMU1INJ SC; +HUMU1INJ2 SC; +HYDR28OI7 TP; +MELA5TAB7 PO; +MENT118G7 TP; +METO1TAB33 PO; +VELT1POW PO
== END ==
LOC: SKLAB2 12:58
PROVIDERS: ATTEND Internal Medicine
DX: R71.8 Other abnormality of red blood cells (principal)

== ENCOUNTER → 2024-01-10 | Outpatient (REF) ==
[2024-01-10 10:17] LABS: BASO % 0.4 % (0.0-1.0); EOS # 0.1 10^3/uL (0.0-0.5); EOS % 1.4 % (0.0-3.0); HEMOGLOBIN 7.9 g/dl (13.5-17.5); LYMPH # 0.6 10^3/uL (1.5-5.0); LYMPH % 7.6 % (24.0-44.0); MEAN CORPUSCULAR HEMOGLOBIN 28.9 pg (27.0-33.0); MEAN CORPUSCULAR HGB CONC 31.6 g/dl (32.0-36.5); MEAN CORPUSCULAR VOLUME 91.6 fl (80.0-96.0); MONO # 1.1 10^3/uL (0.0-0.8); MONO % 14.3 % (2.0-8.0); NEUTROPHILS # 5.7 10^3/uL (1.5-8.5); NEUTROPHILS % 75.5 % (36.0-66.0); PLATELET COUNT, AUTOMATED 240 10^3/uL (150-450); RED BLOOD COUNT 2.73 10^6/uL (4.30-6.10); WHITE BLOOD COUNT 7.6 10^3/uL (4.0-10.0)
[2024-01-10 10:37] LABS: ALBUMIN 2.1 G/DL (3.2-5.2); BILIRUBIN,TOTAL 0.5 MG/DL (0.3-1.2); CREATININE FOR GFR 1.91 MG/DL (0.70-1.30); GLOMERULAR FILTRATION RATE 37.2 (>42); POTASSIUM SERUM 5.2 MMOL/L (3.5-5.1); TOTAL PROTEIN 4.9 G/DL (5.7-8.2)
[2024-01-10 10:39] LABS: THYROID STIMULATING HORMONE 1.453 uIU/ML (0.55-4.78)
== END ==
LOC: SKLAB2 09:30
PROVIDERS: ATTEND Internal Medicine
DX: R41.82 Altered mental status, unspecified (principal); R91.8 Other nonspecific abnormal finding of lung field; Z95.0 Presence of cardiac pacemaker

== ENCOUNTER → 2024-01-10 | Outpatient (REF) | LOC: SKLAB2 08:38 | PROVIDERS: ATTEND Internal Medicine | DX: R41.82 Altered mental status, unspecified (principal) ==

== ENCOUNTER 2024-01-20 20:36 | Inpatient (IN) | payer MEDICARE, OTHER ==
[~2024-01-20] VITALS: Ht 162.6 cm; Wt 68.7 kg
[~2024-01-20 20:36] MED LIST changes: +ALBU2.5V10 INH; +AQUAOIN12 TP; +FERR324T12 PO; +HUMU1INJ SC; +HUMU1INJ2 SC; +HYDR28OI7 TOP; +MELA5TAB7 PO; +MENT118G7 TOP; +METO1TAB33 PO; +QUET1TAB17 PO; +VELT1POW PO
[2024-01-20 22:31] LABS: BASO # 0.1 10^3/uL (0.0-0.2); BASO % 0.3 % (0.0-1.0); EOS # 0.2 10^3/uL (0.0-0.5); EOS % 1.1 % (0.0-3.0); HEMATOCRIT 28.8 % (42.0-52.0); HEMOGLOBIN 9.3 g/dl (13.5-17.5); LYMPH # 0.8 10^3/uL (1.5-5.0); LYMPH % 5.4 % (24.0-44.0); MEAN CORPUSCULAR HEMOGLOBIN 29.5 pg (27.0-33.0); MEAN CORPUSCULAR HGB CONC 32.3 g/dl (32.0-36.5); MEAN CORPUSCULAR VOLUME 91.4 fl (80.0-96.0); MONO # 1.6 10^3/uL (0.0-0.8); MONO % 10.7 % (2.0-8.0); NEUTROPHILS # 12.2 10^3/uL (1.5-8.5); NEUTROPHILS % 81.8 % (36.0-66.0); PLATELET COUNT, AUTOMATED 258 10^3/uL (150-450); RED BLOOD COUNT 3.15 10^6/uL (4.30-6.10); WHITE BLOOD COUNT 14.9 10^3/uL (4.0-10.0)
[2024-01-20 22:44] LABS: INR 1.26; PARTIAL THROMBOPLASTIN TIME 36.1 SECONDS (24.8-34.2); PROTHROMBIN TIME 15.4 SECONDS (12.5-14.5)
[2024-01-20 22:57] LABS: CK-MB VALUE MASS 4.4 NG/ML (<3.6)
[2024-01-20 22:59] LABS: ALBUMIN 1.8 G/DL (3.2-5.2); BILIRUBIN,DIRECT 0.2 MG/DL (<0.4); BILIRUBIN,TOTAL 0.4 MG/DL (0.3-1.2); CALCIUM LEVEL 7.9 MG/DL (8.3-10.6); CREATININE FOR GFR 2.02 MG/DL (0.70-1.30); GLOMERULAR FILTRATION RATE 34.8 (>42); MB/CK RELATIVE INDEX 2.02 (< OR =4); POTASSIUM SERUM 3.8 MMOL/L (3.5-5.1); TOTAL PROTEIN 5.3 G/DL (5.7-8.2)
[2024-01-21 00:18] LABS: CK-MB VALUE MASS 4.4 NG/ML (<3.6); MB/CK RELATIVE INDEX 1.55 (< OR =4)
[2024-01-21] MEDS ORDERED: MOM 30ML SUSPENSION UDC PO PRN (03:20)
[2024-01-21] MEDS ORDERED: DEXTROSE 50% 50ML SYRINGE IV PRN (04:10)
[2024-01-21] MEDS ORDERED: GLUCOSE 4 GM CHEW PO PRN (04:10)
[2024-01-21] MEDS ORDERED: GLUCAGON INJ 1MG VIAL SC PRN (04:10)
[2024-01-21] MEDS: cefTRIAXone SOD 1 GM in D5W MINI-BAG PLUS 50 ML IV SCH (04:35)
[2024-01-21] MEDS ORDERED: ASPI-615 PO (06:16)
[2024-01-21] MEDS ORDERED: ALBU1.25 INH (06:16)
[2024-01-21] MEDS ORDERED: ALBU8.5H INH (06:16)
[2024-01-21] MEDS ORDERED: HUMU1INJ2 SC ×2 (06:28)
[2024-01-21] MEDS ORDERED: METO1TAB32 PO (06:28)
[2024-01-21] MEDS ORDERED: QUET1TAB17 PO (06:28)
[2024-01-21] MEDS ORDERED: HOME MED LIST COMPLETE! XX SCH (06:30)
[2024-01-21 07:10] LABS: HEMATOCRIT 27.6 % (42.0-52.0); HEMOGLOBIN 8.7 g/dl (13.5-17.5); MEAN CORPUSCULAR HEMOGLOBIN 28.9 pg (27.0-33.0); MEAN CORPUSCULAR HGB CONC 31.5 g/dl (32.0-36.5); MEAN CORPUSCULAR VOLUME 91.7 fl (80.0-96.0); PLATELET COUNT, AUTOMATED 261 10^3/uL (150-450); RED BLOOD COUNT 3.01 10^6/uL (4.30-6.10); WHITE BLOOD COUNT 15.5 10^3/uL (4.0-10.0)
[2024-01-21] MEDS: INSULIN LISPRO (NovoLOG) PER UNIT SC SCH ×2 (07:30→21:00)
[2024-01-21 07:42] LABS: CREATININE FOR GFR 1.92 MG/DL (0.70-1.30); GLOMERULAR FILTRATION RATE 36.9 (>42); MAGNESIUM LEVEL 1.8 MG/DL (1.8-2.4); POTASSIUM SERUM 3.5 MMOL/L (3.5-5.1)
[2024-01-21] MEDS: HEPARIN SOD (PORCINE) 5000UNITS/ML 1ML VIAL/SYRINGE SC SCH (08:11)
[2024-01-21] MEDS: rOPINIRole 0.25 MG TAB(REQUIP) PO SCH (09:00)
[2024-01-21] MEDS: METOPROLOL SUCC *XL* 25MG TAB (TopROL *XL*) PO SCH (09:00)
[2024-01-21] MEDS: PATIROMER SORBITEX CALCIUM 8.4 GM POWDER PACKET (VELTASSA) PO SCH (12:15)
[2024-01-21] MEDS: ASPIRIN 81MG ENTERIC TABLET PO SCH (12:16)
[2024-01-21] MEDS: PANTOPRAZOLE 40MG TAB (PROTONIX) PO SCH (12:17)
[2024-01-21] MEDS: METOPROLOL SUCC (TopROL XL) 50MG **XL** TAB PO ONE (12:17)
[2024-01-21] MEDS: CLOPIDOGREL 75 MG TAB PO SCH (12:17)
[2024-01-21] MEDS: ACETAMINOPHEN TAB 650MG DOSE (2X325MG) PO PRN (13:47)
[2024-01-21] MEDS: MAGNESIUM OXIDE 400MG TAB (MAG-OX) PO SCH (16:00)
[2024-01-21 18:25] VITALS: BP 132/56; TEMP 98.1; O2SAT 98
[2024-01-21 20:00] VITALS: BP 162/71; TEMP 98.6; O2SAT 99
[2024-01-21] MEDS: ATORVASTATIN 20 MG TAB PO SCH (21:09)
[2024-01-21] MEDS: PARoxetine 20MG TABLET PO SCH (21:09)
[2024-01-21] MEDS: TAMSULOSIN 0.4 MG CAP PO SCH (21:09)
[2024-01-21] MEDS: QUEtiapine FUMARATE 12.5 MG HALF-TAB PO SCH (21:09)
[2024-01-22 04:00] VITALS: BP 159/60; TEMP 98.1; O2SAT 95
[2024-01-22] MEDS: D5W/0.45% SODIUM CHLORIDE 1,000 ML IV SCH (06:41)
[2024-01-22 09:29] LABS: BASO # 0.1 10^3/uL (0.0-0.2); BASO % 0.4 % (0.0-1.0); EOS # 0.2 10^3/uL (0.0-0.5); EOS % 1.3 % (0.0-3.0); HEMATOCRIT 28.7 % (42.0-52.0); HEMOGLOBIN 9.2 g/dl (13.5-17.5); LYMPH # 0.9 10^3/uL (1.5-5.0); MEAN CORPUSCULAR HEMOGLOBIN 29.6 pg (27.0-33.0); MEAN CORPUSCULAR HGB CONC 32.1 g/dl (32.0-36.5); MEAN CORPUSCULAR VOLUME 92.3 fl (80.0-96.0); MONO # 1.2 10^3/uL (0.0-0.8); MONO % 9.5 % (2.0-8.0); NEUTROPHILS # 10.5 10^3/uL (1.5-8.5); NEUTROPHILS % 81.4 % (36.0-66.0); PLATELET COUNT, AUTOMATED 258 10^3/uL (150-450); RED BLOOD COUNT 3.11 10^6/uL (4.30-6.10); WHITE BLOOD COUNT 12.9 10^3/uL (4.0-10.0)
[2024-01-22 09:50] LABS: CALCIUM LEVEL 7.8 MG/DL (8.3-10.6); CREATININE FOR GFR 1.77 MG/DL (0.70-1.30); GLOMERULAR FILTRATION RATE 40.6 (>42); POTASSIUM SERUM 3.7 MMOL/L (3.5-5.1)
[2024-01-22 12:00] VITALS: BP 157/60; TEMP 97.7; O2SAT 95
[2024-01-22 20:18] VITALS: BP 165/67; TEMP 98.8; O2SAT 96
[2024-01-22] MEDS: LEVEMIR (INSULIN DETEMIR) 1 UNITS/0.01ML SC ONE (22:12)
[2024-01-23 03:21] VITALS: BP 145/70; TEMP 98.2; O2SAT 94
[2024-01-23 06:30] LABS: BASO # 0.1 10^3/uL (0.0-0.2); BASO % 0.4 % (0.0-1.0); EOS # 0.2 10^3/uL (0.0-0.5); EOS % 1.7 % (0.0-3.0); HEMATOCRIT 25.9 % (42.0-52.0); HEMOGLOBIN 8.4 g/dl (13.5-17.5); LYMPH # 1.1 10^3/uL (1.5-5.0); LYMPH % 8.7 % (24.0-44.0); MEAN CORPUSCULAR HEMOGLOBIN 29.4 pg (27.0-33.0); MEAN CORPUSCULAR HGB CONC 32.4 g/dl (32.0-36.5); MEAN CORPUSCULAR VOLUME 90.6 fl (80.0-96.0); MONO # 1.7 10^3/uL (0.0-0.8); NEUTROPHILS # 9.8 10^3/uL (1.5-8.5); NEUTROPHILS % 75.5 % (36.0-66.0); PLATELET COUNT, AUTOMATED 247 10^3/uL (150-450); RED BLOOD COUNT 2.86 10^6/uL (4.30-6.10)
[2024-01-23 06:55] LABS: CALCIUM LEVEL 7.7 MG/DL (8.3-10.6); CREATININE FOR GFR 1.94 MG/DL (0.70-1.30); GLOMERULAR FILTRATION RATE 36.5 (>42); POTASSIUM SERUM 3.5 MMOL/L (3.5-5.1)
[2024-01-23] MEDS ORDERED: LEVEMIR (INSULIN DETEMIR) 1 UNITS/0.01ML SC SCH (09:00)
[2024-01-23] MEDS: CEFDINIR 300 MG CAP (OMNICEF) PO SCH ×2 (11:01→20:29)
[2024-01-23 12:00] VITALS: BP 137/68; TEMP 98.1; O2SAT 96
[2024-01-23 20:39] VITALS: BP 140/65; TEMP 98.6; O2SAT 95
[2024-01-24] MEDS: ALBUTEROL SULFATE 2.5MG/0.5ML INH NEB SOLN INH PRN (01:09)
[2024-01-24 03:41] VITALS: BP 143/63; TEMP 98.6; O2SAT 96
[2024-01-24 07:35] LABS: BASO % 0.4 % (0.0-1.0); EOS # 0.3 10^3/uL (0.0-0.5); EOS % 2.4 % (0.0-3.0); HEMATOCRIT 26.6 % (42.0-52.0); HEMOGLOBIN 8.5 g/dl (13.5-17.5); LYMPH # 0.9 10^3/uL (1.5-5.0); LYMPH % 8.6 % (24.0-44.0); MEAN CORPUSCULAR HEMOGLOBIN 29.1 pg (27.0-33.0); MEAN CORPUSCULAR VOLUME 91.1 fl (80.0-96.0); MONO # 1.2 10^3/uL (0.0-0.8); NEUTROPHILS # 8.1 10^3/uL (1.5-8.5); PLATELET COUNT, AUTOMATED 247 10^3/uL (150-450); RED BLOOD COUNT 2.92 10^6/uL (4.30-6.10); WHITE BLOOD COUNT 10.6 10^3/uL (4.0-10.0)
[2024-01-24 07:56] LABS: CALCIUM LEVEL 7.6 MG/DL (8.3-10.6); GLOMERULAR FILTRATION RATE 35.2 (>42); POTASSIUM SERUM 3.6 MMOL/L (3.5-5.1)
[2024-01-24] MEDS: predniSONE 20 MG TAB PO SCH (08:58)
[2024-01-24] MEDS: SYMBICORT 80/4.5MCG INHALER 6GM INH SCH (10:52)
[2024-01-24] MEDS: IPRATROPIUM 0.5MG/ALBUTEROL 2.5MG INH SOL UD 3ML (DUONEB) NEB SCH (10:53)
[2024-01-24] MEDS ORDERED: LevoFLOXacin 750 MG TABLET PO SCH (11:00)
[2024-01-24 11:25] LABS: C REACTIVE PROTEIN QUANTITATIV 3.9 MG/DL (<1.0)
[2024-01-24] MEDS: NS 1,000 ML IV ONE (12:16)
[2024-01-24] MEDS: IPRATROPIUM 0.5MG/ALBUTEROL 2.5MG INH SOL UD 3ML (DUONEB) NEB PRN (16:07)
[2024-01-24 20:16] VITALS: BP 142/66; TEMP 97.7; O2SAT 99
[2024-01-24] MEDS ORDERED: LINEZOLID 600MG TABLET (ZYVOX) PO SCH (21:00)
[2024-01-24] MEDS: PERCOCET 5MG/325MG TAB PO PRN (21:12)
[2024-01-25 03:35] VITALS: BP 114/52; TEMP 98.4; O2SAT 94
[2024-01-25 07:00] LABS: BASO % 0.2 % (0.0-1.0); HEMOGLOBIN 8.1 g/dl (13.5-17.5); LYMPH # 0.5 10^3/uL (1.5-5.0); LYMPH % 3.6 % (24.0-44.0); MEAN CORPUSCULAR HEMOGLOBIN 29.3 pg (27.0-33.0); MEAN CORPUSCULAR HGB CONC 32.4 g/dl (32.0-36.5); MEAN CORPUSCULAR VOLUME 90.6 fl (80.0-96.0); MONO # 1.1 10^3/uL (0.0-0.8); MONO % 8.5 % (2.0-8.0); NEUTROPHILS # 11.2 10^3/uL (1.5-8.5); NEUTROPHILS % 87.1 % (36.0-66.0); PLATELET COUNT, AUTOMATED 231 10^3/uL (150-450); RED BLOOD COUNT 2.76 10^6/uL (4.30-6.10); WHITE BLOOD COUNT 12.9 10^3/uL (4.0-10.0)
[2024-01-25 07:22] LABS: CALCIUM LEVEL 7.5 MG/DL (8.3-10.6); CREATININE FOR GFR 1.88 MG/DL (0.70-1.30); GLOMERULAR FILTRATION RATE 37.8 (>42); POTASSIUM SERUM 4.2 MMOL/L (3.5-5.1)
[2024-01-25] MEDS: LEVEMIR (INSULIN DETEMIR) 1 UNITS/0.01ML SC SCH (08:58)
[2024-01-25 19:49] VITALS: BP 132/53; TEMP 98.4; O2SAT 92
[2024-01-26 05:21] VITALS: BP 154/55; TEMP 98.1; O2SAT 98
[2024-01-26 09:28] LABS: BASO % 0.2 % (0.0-1.0); EOS # 0.1 10^3/uL (0.0-0.5); EOS % 0.3 % (0.0-3.0); HEMOGLOBIN 9.2 g/dl (13.5-17.5); LYMPH # 1.1 10^3/uL (1.5-5.0); LYMPH % 7.3 % (24.0-44.0); MEAN CORPUSCULAR HEMOGLOBIN 29.1 pg (27.0-33.0); MEAN CORPUSCULAR HGB CONC 31.7 g/dl (32.0-36.5); MEAN CORPUSCULAR VOLUME 91.8 fl (80.0-96.0); MONO # 1.4 10^3/uL (0.0-0.8); MONO % 9.3 % (2.0-8.0); NEUTROPHILS # 12.1 10^3/uL (1.5-8.5); NEUTROPHILS % 82.2 % (36.0-66.0); PLATELET COUNT, AUTOMATED 265 10^3/uL (150-450); RED BLOOD COUNT 3.16 10^6/uL (4.30-6.10); WHITE BLOOD COUNT 14.7 10^3/uL (4.0-10.0)
[2024-01-26 09:46] LABS: CALCIUM LEVEL 7.6 MG/DL (8.3-10.6); CREATININE FOR GFR 2.09 MG/DL (0.70-1.30); GLOMERULAR FILTRATION RATE 33.5 (>42); POTASSIUM SERUM 4.5 MMOL/L (3.5-5.1)
[2024-01-26 12:00] VITALS: BP 160/65; TEMP 97.7; O2SAT 92
[2024-01-26] MEDS: PIPERACILLIN/TAZOBACTAM SOD 2.25 GM in D5W MINI-BAG PLUS 50 ML IV SCH (17:27)
[2024-01-26 19:37] VITALS: BP 152/65; TEMP 98.8; O2SAT 100
[2024-01-27 03:35] VITALS: BP 153/66; TEMP 98.6; O2SAT 97
[2024-01-27 06:07] LABS: BASO % 0.1 % (0.0-1.0); EOS % 0.1 % (0.0-3.0); HEMATOCRIT 26.7 % (42.0-52.0); HEMOGLOBIN 8.5 g/dl (13.5-17.5); LYMPH # 0.9 10^3/uL (1.5-5.0); LYMPH % 5.5 % (24.0-44.0); MEAN CORPUSCULAR HEMOGLOBIN 29.1 pg (27.0-33.0); MEAN CORPUSCULAR HGB CONC 31.8 g/dl (32.0-36.5); MEAN CORPUSCULAR VOLUME 91.4 fl (80.0-96.0); MONO # 1.5 10^3/uL (0.0-0.8); MONO % 9.5 % (2.0-8.0); NEUTROPHILS # 13.7 10^3/uL (1.5-8.5); NEUTROPHILS % 84.1 % (36.0-66.0); PLATELET COUNT, AUTOMATED 251 10^3/uL (150-450); RED BLOOD COUNT 2.92 10^6/uL (4.30-6.10); WHITE BLOOD COUNT 16.2 10^3/uL (4.0-10.0)
[2024-01-27 06:36] LABS: CALCIUM LEVEL 7.9 MG/DL (8.3-10.6); CREATININE FOR GFR 2.07 MG/DL (0.70-1.30); GLOMERULAR FILTRATION RATE 33.9 (>42); POTASSIUM SERUM 4.5 MMOL/L (3.5-5.1)
[2024-01-27] MEDS: OLANZapine INTRAMUSCULAR 10MG VIAL IM ONE ×2 (11:30→16:14)
[2024-01-27 12:11] VITALS: BP 99/51; TEMP 98.1; O2SAT 94
[2024-01-27] MEDS: CHLORTHALIDONE 12.5MG PER 1/2 TABLET PO SCH (12:41)
[2024-01-27 12:51] LABS: ABG BASE EXCESS -4.3 (-2.0-2.0); ABG HCO3 20.4 MMOL/L (22.0-26.0); ABG PARTIAL PRESSURE CO2 35.7 mmHg (35.0-45.0); ABG PARTIAL PRESSURE O2 119.8 mmHg (75.0-100.0); ABG STANDARD HCO3 20.9 MMOL/L. (22.0-26.0); ABG TOTAL CO2 21.5 MMOL/L (23.0-31.0); ABG pH (ARTERIAL) 7.375 UNITS (7.350-7.450)
[2024-01-27 13:00] LABS: PROCALCITONIN 0.11 ng/ml
[2024-01-27 14:10] VITALS: BP 122/60
[2024-01-27 17:44] VITALS: BP 128/60
[2024-01-27] MEDS: FUROSEMIDE 100MG/10ML VIAL IV SCH (17:45)
[2024-01-27 20:00] VITALS: BP 150/80; TEMP 97.3; O2SAT 97
[2024-01-27] MEDS: QUEtiapine FUMARATE 25 MG TAB PO SCH (22:19)
[2024-01-28] VITALS (8 sets, daily range): BP systolic 123–190; BP diastolic 60–83; TEMP 97.7–98; O2SAT 94–98
[2024-01-28] MEDS ORDERED: OLANZapine INTRAMUSCULAR 10MG VIAL IM PRN (03:00)
[2024-01-28 06:36] LABS: BASO % 0.1 % (0.0-1.0); EOS % 0.1 % (0.0-3.0); HEMATOCRIT 26.5 % (42.0-52.0); HEMOGLOBIN 8.3 g/dl (13.5-17.5); LYMPH % 6.4 % (24.0-44.0); MEAN CORPUSCULAR HEMOGLOBIN 28.7 pg (27.0-33.0); MEAN CORPUSCULAR HGB CONC 31.3 g/dl (32.0-36.5); MEAN CORPUSCULAR VOLUME 91.7 fl (80.0-96.0); MONO # 1.9 10^3/uL (0.0-0.8); MONO % 11.7 % (2.0-8.0); NEUTROPHILS # 13.1 10^3/uL (1.5-8.5); NEUTROPHILS % 80.8 % (36.0-66.0); PLATELET COUNT, AUTOMATED 274 10^3/uL (150-450); RED BLOOD COUNT 2.89 10^6/uL (4.30-6.10); WHITE BLOOD COUNT 16.2 10^3/uL (4.0-10.0)
[2024-01-28 07:21] LABS: CALCIUM LEVEL 8.1 MG/DL (8.3-10.6); CREATININE FOR GFR 2.12 MG/DL (0.70-1.30); FERRITIN 566.1 NG/ML (10.5-307.3); GLOMERULAR FILTRATION RATE 32.9 (>42); MAGNESIUM LEVEL 1.8 MG/DL (1.8-2.4); PERCENT SATURATION 21.3 % (19.7-50.0); POTASSIUM SERUM 4.3 MMOL/L (3.5-5.1)
[2024-01-28] MEDS: predniSONE 20 MG TAB PO SCH (08:53)
[2024-01-28] MEDS: NYSTATIN 100,000 UNITS/GM TOPICAL PWD 15GM TOP SCH (21:36)
[2024-01-29 01:21] VITALS: O2SAT 92
[2024-01-29 04:00] VITALS: BP 147/65; TEMP 98.6; O2SAT 94
[2024-01-29 06:29] LABS: BASO % 0.1 % (0.0-1.0); EOS % 0.3 % (0.0-3.0); HEMATOCRIT 28.3 % (42.0-52.0); HEMOGLOBIN 8.9 g/dl (13.5-17.5); LYMPH # 1.1 10^3/uL (1.5-5.0); LYMPH % 7.6 % (24.0-44.0); MEAN CORPUSCULAR HGB CONC 31.4 g/dl (32.0-36.5); MEAN CORPUSCULAR VOLUME 92.2 fl (80.0-96.0); MONO # 1.6 10^3/uL (0.0-0.8); MONO % 10.9 % (2.0-8.0); NEUTROPHILS # 11.9 10^3/uL (1.5-8.5); PLATELET COUNT, AUTOMATED 297 10^3/uL (150-450); RED BLOOD COUNT 3.07 10^6/uL (4.30-6.10); WHITE BLOOD COUNT 14.8 10^3/uL (4.0-10.0)
[2024-01-29 06:51] LABS: CALCIUM LEVEL 8.2 MG/DL (8.3-10.6); CREATININE FOR GFR 2.29 MG/DL (0.70-1.30); GLOMERULAR FILTRATION RATE 30.1 (>42); MAGNESIUM LEVEL 1.8 MG/DL (1.8-2.4); POTASSIUM SERUM 4.3 MMOL/L (3.5-5.1)
[2024-01-29 09:16] VITALS: BP 142/65
[2024-01-29] MEDS: FERRIC CARBOXYMALTOSE INJ 750 MG, VIAL MATE ADAPTER 1 EACH in NS 250 ML IV ONE (11:55)
[2024-01-29 12:16] VITALS: BP 165/71; TEMP 98.2; O2SAT 97
[2024-01-29 16:38] VITALS: BP 164/69
[2024-01-29 19:46] VITALS: BP 164/77; TEMP 98.8; O2SAT 96
[2024-01-29] MEDS: traZODone 50 MG TAB PO PRN (23:19)
[2024-01-30 03:34] VITALS: BP 167/77; TEMP 98.1; O2SAT 98
[2024-01-30 05:58] LABS: BASO % 0.1 % (0.0-1.0); EOS % 0.2 % (0.0-3.0); HEMATOCRIT 28.1 % (42.0-52.0); HEMOGLOBIN 9.1 g/dl (13.5-17.5); LYMPH # 0.9 10^3/uL (1.5-5.0); LYMPH % 6.9 % (24.0-44.0); MEAN CORPUSCULAR HGB CONC 32.4 g/dl (32.0-36.5); MEAN CORPUSCULAR VOLUME 89.5 fl (80.0-96.0); MONO # 1.4 10^3/uL (0.0-0.8); NEUTROPHILS # 10.3 10^3/uL (1.5-8.5); NEUTROPHILS % 80.9 % (36.0-66.0); PLATELET COUNT, AUTOMATED 270 10^3/uL (150-450); RED BLOOD COUNT 3.14 10^6/uL (4.30-6.10); WHITE BLOOD COUNT 12.7 10^3/uL (4.0-10.0)
[2024-01-30 06:16] LABS: CALCIUM LEVEL 7.9 MG/DL (8.3-10.6); CREATININE FOR GFR 2.23 MG/DL (0.70-1.30); GLOMERULAR FILTRATION RATE 31.1 (>42); MAGNESIUM LEVEL 1.5 MG/DL (1.8-2.4); POTASSIUM SERUM 3.6 MMOL/L (3.5-5.1)
[2024-01-30] MEDS: MAG SULF 1GM/100ML (MAG RUN) 1 GM in IV 1 EA IV SCH (09:16)
[2024-01-30] MEDS: POTASSIUM CHLORIDE 10MEQ SR TABLET PO SCH (12:16)
[2024-01-30 12:20] VITALS: BP 169/77; TEMP 97.9; O2SAT 97
[2024-01-30] MEDS: amLODIPine 5 MG TAB PO SCH (15:19)
[2024-01-30] MEDS: MAG SULF 1GM/100ML (MAG RUN) 1 GM in IV 1 EA IV ONE (17:41)
[2024-01-30 19:52] VITALS: BP 157/79; TEMP 98.1; O2SAT 97
[2024-01-31 03:47] VITALS: BP 161/53; TEMP 98.6; O2SAT 96
[2024-01-31 05:58] LABS: BASO % 0.1 % (0.0-1.0); EOS # 0.1 10^3/uL (0.0-0.5); EOS % 0.6 % (0.0-3.0); HEMATOCRIT 28.8 % (42.0-52.0); HEMOGLOBIN 9.3 g/dl (13.5-17.5); LYMPH # 1.1 10^3/uL (1.5-5.0); LYMPH % 7.4 % (24.0-44.0); MEAN CORPUSCULAR HEMOGLOBIN 28.9 pg (27.0-33.0); MEAN CORPUSCULAR HGB CONC 32.3 g/dl (32.0-36.5); MEAN CORPUSCULAR VOLUME 89.4 fl (80.0-96.0); MONO # 1.5 10^3/uL (0.0-0.8); MONO % 10.3 % (2.0-8.0); NEUTROPHILS # 11.8 10^3/uL (1.5-8.5); NEUTROPHILS % 80.2 % (36.0-66.0); PLATELET COUNT, AUTOMATED 297 10^3/uL (150-450); RED BLOOD COUNT 3.22 10^6/uL (4.30-6.10); WHITE BLOOD COUNT 14.7 10^3/uL (4.0-10.0)
[2024-01-31 06:17] LABS: CALCIUM LEVEL 7.8 MG/DL (8.3-10.6); CREATININE FOR GFR 2.17 MG/DL (0.70-1.30); GLOMERULAR FILTRATION RATE 32.1 (>42); POTASSIUM SERUM 3.7 MMOL/L (3.5-5.1)
[2024-01-31] MEDS: POTASSIUM CHLORIDE 10MEQ SR TABLET PO SCH (17:01)
[2024-01-31 20:00] VITALS: BP 130/56; TEMP 97.7; O2SAT 97
[2024-02-01 03:10] VITALS: BP 136/60; TEMP 97.9; O2SAT 92
[2024-02-01 06:20] LABS: BASO % 0.2 % (0.0-1.0); EOS # 0.7 10^3/uL (0.0-0.5); EOS % 5.5 % (0.0-3.0); HEMOGLOBIN 10.1 g/dl (13.5-17.5); LYMPH # 1.3 10^3/uL (1.5-5.0); LYMPH % 9.7 % (24.0-44.0); MEAN CORPUSCULAR HEMOGLOBIN 29.1 pg (27.0-33.0); MEAN CORPUSCULAR HGB CONC 31.6 g/dl (32.0-36.5); MEAN CORPUSCULAR VOLUME 92.2 fl (80.0-96.0); MONO # 1.8 10^3/uL (0.0-0.8); MONO % 13.5 % (2.0-8.0); NEUTROPHILS # 9.1 10^3/uL (1.5-8.5); NEUTROPHILS % 69.1 % (36.0-66.0); PLATELET COUNT, AUTOMATED 282 10^3/uL (150-450); RED BLOOD COUNT 3.47 10^6/uL (4.30-6.10); WHITE BLOOD COUNT 13.2 10^3/uL (4.0-10.0)
[2024-02-01 06:42] LABS: CALCIUM LEVEL 7.8 MG/DL (8.3-10.6); CREATININE FOR GFR 2.14 MG/DL (0.70-1.30); GLOMERULAR FILTRATION RATE 32.6 (>42); POTASSIUM SERUM 4.1 MMOL/L (3.5-5.1)
[2024-02-01] MEDS: FUROSEMIDE 20MG/2ML VIAL IV SCH (08:21)
[2024-02-01 13:00] VITALS: BP 141/65; TEMP 98.1; O2SAT 90
[2024-02-01 19:40] VITALS: BP 163/72; TEMP 98.1; O2SAT 97
[2024-02-02 03:00] VITALS: BP 156/67; TEMP 98.1; O2SAT 91
[2024-02-02 06:32] LABS: BASO % 0.2 % (0.0-1.0); EOS # 0.7 10^3/uL (0.0-0.5); HEMATOCRIT 29.5 % (42.0-52.0); HEMOGLOBIN 9.3 g/dl (13.5-17.5); LYMPH # 1.2 10^3/uL (1.5-5.0); LYMPH % 10.3 % (24.0-44.0); MEAN CORPUSCULAR HEMOGLOBIN 29.2 pg (27.0-33.0); MEAN CORPUSCULAR HGB CONC 31.5 g/dl (32.0-36.5); MEAN CORPUSCULAR VOLUME 92.8 fl (80.0-96.0); MONO # 1.5 10^3/uL (0.0-0.8); MONO % 13.1 % (2.0-8.0); NEUTROPHILS # 8.1 10^3/uL (1.5-8.5); NEUTROPHILS % 68.7 % (36.0-66.0); PLATELET COUNT, AUTOMATED 248 10^3/uL (150-450); RED BLOOD COUNT 3.18 10^6/uL (4.30-6.10); WHITE BLOOD COUNT 11.7 10^3/uL (4.0-10.0)
[2024-02-02 06:57] LABS: CREATININE FOR GFR 2.23 MG/DL (0.70-1.30); GLOMERULAR FILTRATION RATE 31.1 (>42); MAGNESIUM LEVEL 1.7 MG/DL (1.8-2.4); POTASSIUM SERUM 4.5 MMOL/L (3.5-5.1)
[2024-02-02] MEDS: APIXABAN 2.5 MG TAB (ELIQUIS) PO SCH (09:25)
[2024-02-02] MEDS: MAG SULF 1GM/100ML (MAG RUN) 1 GM in IV 1 EA IV SCH (09:27)
[2024-02-02 12:00] VITALS: BP 116/50; TEMP 97.9; O2SAT 96
[2024-02-02 20:16] VITALS: BP_SYST 124; BP_SYST 174; BP_DIAS 51; TEMP 98.1; O2SAT 95
[2024-02-02] MEDS: LEVEMIR (INSULIN DETEMIR) 1 UNITS/0.01ML SC SCH (20:31)
[2024-02-03 04:10] VITALS: BP 136/52; TEMP 98.1; O2SAT 92
[2024-02-03 06:27] LABS: BASO % 0.2 % (0.0-1.0); EOS # 0.5 10^3/uL (0.0-0.5); EOS % 4.8 % (0.0-3.0); HEMATOCRIT 28.2 % (42.0-52.0); LYMPH # 1.2 10^3/uL (1.5-5.0); LYMPH % 10.5 % (24.0-44.0); MEAN CORPUSCULAR HEMOGLOBIN 29.4 pg (27.0-33.0); MEAN CORPUSCULAR HGB CONC 31.9 g/dl (32.0-36.5); MEAN CORPUSCULAR VOLUME 92.2 fl (80.0-96.0); MONO # 1.4 10^3/uL (0.0-0.8); MONO % 12.4 % (2.0-8.0); NEUTROPHILS # 7.9 10^3/uL (1.5-8.5); NEUTROPHILS % 70.8 % (36.0-66.0); PLATELET COUNT, AUTOMATED 220 10^3/uL (150-450); RED BLOOD COUNT 3.06 10^6/uL (4.30-6.10); WHITE BLOOD COUNT 11.1 10^3/uL (4.0-10.0)
[2024-02-03 06:59] LABS: CALCIUM LEVEL 7.6 MG/DL (8.3-10.6); CREATININE FOR GFR 2.27 MG/DL (0.70-1.30); GLOMERULAR FILTRATION RATE 30.4 (>42); MAGNESIUM LEVEL 2.1 MG/DL (1.8-2.4)
[2024-02-03 12:00] VITALS: BP 130/54; TEMP 97.7; O2SAT 96
[2024-02-03] MEDS: LEVEMIR (INSULIN DETEMIR) 1 UNITS/0.01ML SC ONE ×2 (12:17→13:10)
[2024-02-03 19:35] VITALS: BP 142/56; TEMP 99.1; O2SAT 97
[2024-02-03] MEDS: LEVEMIR (INSULIN DETEMIR) 1 UNITS/0.01ML SC SCH (20:50)
[2024-02-04 03:15] VITALS: BP 141/59; TEMP 97.9; O2SAT 96
[2024-02-04 06:05] LABS: BASO % 0.2 % (0.0-1.0); EOS # 0.5 10^3/uL (0.0-0.5); EOS % 4.3 % (0.0-3.0); HEMATOCRIT 32.7 % (42.0-52.0); HEMOGLOBIN 10.5 g/dl (13.5-17.5); LYMPH # 1.4 10^3/uL (1.5-5.0); LYMPH % 11.8 % (24.0-44.0); MEAN CORPUSCULAR HGB CONC 32.1 g/dl (32.0-36.5); MEAN CORPUSCULAR VOLUME 90.3 fl (80.0-96.0); MONO # 1.5 10^3/uL (0.0-0.8); MONO % 12.3 % (2.0-8.0); NEUTROPHILS # 8.4 10^3/uL (1.5-8.5); NEUTROPHILS % 69.9 % (36.0-66.0); PLATELET COUNT, AUTOMATED 233 10^3/uL (150-450); RED BLOOD COUNT 3.62 10^6/uL (4.30-6.10)
[2024-02-04 06:19] LABS: CALCIUM LEVEL 7.8 MG/DL (8.3-10.6); CREATININE FOR GFR 2.21 MG/DL (0.70-1.30); GLOMERULAR FILTRATION RATE 31.4 (>42); POTASSIUM SERUM 3.5 MMOL/L (3.5-5.1)
[2024-02-04] MEDS: POTASSIUM CHLORIDE 10MEQ SR TABLET PO ONE (09:23)
[2024-02-04 12:00] VITALS: BP 131/59; TEMP 97.9; O2SAT 94
[2024-02-04 20:13] VITALS: BP 138/60; TEMP 98.2; O2SAT 95
[2024-02-05 04:06] VITALS: BP 134/60; TEMP 98.6; O2SAT 94
[2024-02-05 05:53] LABS: BASO % 0.3 % (0.0-1.0); EOS # 0.5 10^3/uL (0.0-0.5); HEMATOCRIT 28.9 % (42.0-52.0); HEMOGLOBIN 9.1 g/dl (13.5-17.5); LYMPH # 1.2 10^3/uL (1.5-5.0); LYMPH % 11.6 % (24.0-44.0); MEAN CORPUSCULAR HGB CONC 31.5 g/dl (32.0-36.5); MONO # 1.3 10^3/uL (0.0-0.8); MONO % 13.3 % (2.0-8.0); NEUTROPHILS # 6.8 10^3/uL (1.5-8.5); PLATELET COUNT, AUTOMATED 207 10^3/uL (150-450); RED BLOOD COUNT 3.14 10^6/uL (4.30-6.10); WHITE BLOOD COUNT 9.9 10^3/uL (4.0-10.0)
[2024-02-05 06:20] LABS: CALCIUM LEVEL 7.8 MG/DL (8.3-10.6); CREATININE FOR GFR 2.18 MG/DL (0.70-1.30); GLOMERULAR FILTRATION RATE 31.9 (>42); MAGNESIUM LEVEL 1.9 MG/DL (1.8-2.4); POTASSIUM SERUM 3.8 MMOL/L (3.5-5.1)
[2024-02-05] MEDS: TORSEMIDE 20 MG TAB PO SCH (08:27)
[2024-02-05] MEDS ORDERED: TORS20TA2 PO (09:31)
[2024-02-05 12:00] VITALS: BP 135/61; TEMP 98.1; O2SAT 96
[2024-02-05] MEDS: HumuLIN N INSULIN (NovoLIN N) PER UNIT SC SCH (17:25)
[2024-02-05 20:04] VITALS: BP 135/63; TEMP 98.2; O2SAT 95
[2024-02-05] MEDS: INSULIN LISPRO (NovoLOG) PER UNIT SC ONE (20:47)
[2024-02-06 03:47] VITALS: BP 130/62; TEMP 98.2; O2SAT 96
[2024-02-06 06:24] LABS: BASO % 0.3 % (0.0-1.0); EOS # 0.5 10^3/uL (0.0-0.5); EOS % 5.3 % (0.0-3.0); HEMATOCRIT 29.8 % (42.0-52.0); HEMOGLOBIN 9.4 g/dl (13.5-17.5); LYMPH # 1.1 10^3/uL (1.5-5.0); LYMPH % 10.6 % (24.0-44.0); MEAN CORPUSCULAR HEMOGLOBIN 28.9 pg (27.0-33.0); MEAN CORPUSCULAR HGB CONC 31.5 g/dl (32.0-36.5); MEAN CORPUSCULAR VOLUME 91.7 fl (80.0-96.0); MONO # 1.3 10^3/uL (0.0-0.8); MONO % 12.5 % (2.0-8.0); NEUTROPHILS # 7.1 10^3/uL (1.5-8.5); NEUTROPHILS % 70.6 % (36.0-66.0); PLATELET COUNT, AUTOMATED 202 10^3/uL (150-450); RED BLOOD COUNT 3.25 10^6/uL (4.30-6.10); WHITE BLOOD COUNT 10.1 10^3/uL (4.0-10.0)
[2024-02-06 06:45] LABS: CALCIUM LEVEL 7.5 MG/DL (8.3-10.6); CREATININE FOR GFR 2.1 MG/DL (0.70-1.30); GLOMERULAR FILTRATION RATE 33.3 (>42); MAGNESIUM LEVEL 1.8 MG/DL (1.8-2.4); POTASSIUM SERUM 3.8 MMOL/L (3.5-5.1)
[2024-02-06] MEDS: HumuLIN N INSULIN (NovoLIN N) PER UNIT SC SCH (08:15)
[2024-02-06 12:00] VITALS: BP 132/61; TEMP 98.1; O2SAT 97
[2024-02-06 15:15] LABS: HEMOGLOBIN A1c 7.2 % (4.0-6.0)
[2024-02-06] MEDS: INSULIN LISPRO (NovoLOG) PER UNIT SC SCH ×3 (17:44→21:00)
[2024-02-06 19:49] VITALS: BP 134/60; TEMP 98.2; O2SAT 96
[2024-02-06] MEDS: LEVEMIR (INSULIN DETEMIR) 1 UNITS/0.01ML SC SCH (21:00)
[2024-02-07 04:09] VITALS: BP 137/61; TEMP 98.2; O2SAT 97
[2024-02-07 06:04] LABS: BASO % 0.4 % (0.0-1.0); EOS # 0.4 10^3/uL (0.0-0.5); EOS % 4.6 % (0.0-3.0); HEMATOCRIT 30.7 % (42.0-52.0); HEMOGLOBIN 9.7 g/dl (13.5-17.5); MEAN CORPUSCULAR HEMOGLOBIN 28.8 pg (27.0-33.0); MEAN CORPUSCULAR HGB CONC 31.6 g/dl (32.0-36.5); MEAN CORPUSCULAR VOLUME 91.1 fl (80.0-96.0); MONO % 10.7 % (2.0-8.0); NEUTROPHILS # 6.9 10^3/uL (1.5-8.5); NEUTROPHILS % 72.5 % (36.0-66.0); PLATELET COUNT, AUTOMATED 204 10^3/uL (150-450); RED BLOOD COUNT 3.37 10^6/uL (4.30-6.10); WHITE BLOOD COUNT 9.5 10^3/uL (4.0-10.0)
[2024-02-07 06:31] LABS: CREATININE FOR GFR 2.39 MG/DL (0.70-1.30); GLOMERULAR FILTRATION RATE 28.7 (>42); MAGNESIUM LEVEL 1.9 MG/DL (1.8-2.4); POTASSIUM SERUM 3.9 MMOL/L (3.5-5.1)
[2024-02-07 08:44] VITALS: BP 115/48
[2024-02-07 12:00] VITALS: BP 118/50; TEMP 98.1; O2SAT 92
[2024-02-07 20:20] VITALS: BP 120/62; TEMP 98.3; O2SAT 95
[2024-02-08 05:11] VITALS: BP 119/63; TEMP 98; O2SAT 94
[2024-02-08 12:00] VITALS: BP 148/69; TEMP 98.1; O2SAT 98
[2024-02-08 20:45] VITALS: BP 142/68; TEMP 97.9; O2SAT 95
[2024-02-09 04:33] VITALS: BP 157/71; TEMP 97.9; O2SAT 94
[2024-02-09 12:00] VITALS: BP 146/72; TEMP 98.1; O2SAT 98
[2024-02-09 20:28] VITALS: BP 141/72; TEMP 98.8; O2SAT 97
[2024-02-10 03:40] VITALS: BP 136/69; TEMP 98.2; O2SAT 95
[2024-02-10 12:00] VITALS: BP 111/62; TEMP 98.2; O2SAT 96
[2024-02-10 15:19] VITALS: BP 104/60; TEMP 97; O2SAT 100
[2024-02-10 19:42] VITALS: BP 133/72; TEMP 98.8; O2SAT 99
[2024-02-11 04:00] VITALS: BP 132/70; TEMP 98.8; O2SAT 99
[2024-02-11 20:00] VITALS: BP 129/66; TEMP 97.2; O2SAT 99
[2024-02-12 04:00] VITALS: BP 130/66; TEMP 97.2; O2SAT 99
[2024-02-12 07:45] VITALS: BP 118/74; TEMP 98.1; O2SAT 97
[2024-02-12 09:40] VITALS: BP 121/69
[2024-02-12 12:00] VITALS: BP 120/78; TEMP 98.1; O2SAT 97
[2024-02-12 20:31] VITALS: BP 146/83; TEMP 99.1; O2SAT 95
[2024-02-13 04:43] VITALS: BP 144/66; TEMP 99; O2SAT 92
[2024-02-13 12:00] VITALS: BP 110/57; TEMP 98.2; O2SAT 96
[2024-02-13] MEDS: LEVEMIR (INSULIN DETEMIR) 1 UNITS/0.01ML SC SCH (19:52)
[2024-02-13] MEDS: APIXABAN 5 MG TAB (ELIQUIS) PO SCH (19:53)
[2024-02-13 20:00] VITALS: BP 131/51; TEMP 98.2; O2SAT 96
[2024-02-14 05:00] VITALS: BP 121/97; TEMP 98.2; O2SAT 93
[2024-02-14 08:08] VITALS: BP 137/61
[2024-02-14] MEDS ORDERED: ELIQ5TAB PO (09:03)
== END 2024-02-14 11:25 | DRG 884 ==
LOC: M ED 20:36 → EDBD 20:36 → M ED INP 20:37 → M MSPAV 01-21 18:17 → OBSVTOIN 01-27 12:17
PROVIDERS: ADMIT Internal Medicine; ATTEND Internal Medicine
PROC: B246ZZZ Ultrasonography of Right and Left Heart (ICD-10-PCS; principal; 2024-01-25)
DX: F03.90 Unspecified dementia, unspecified severity, without behavioral disturbance, psychotic disturbance, mood disturbance, and anxiety (principal); G93.41 Metabolic encephalopathy; I50.33 Acute on chronic diastolic (congestive) heart failure; J69.0 Pneumonitis due to inhalation of food and vomit; I69.351 Hemiplegia and hemiparesis following cerebral infarction affecting right dominant side; I13.0 Hypertensive heart and chronic kidney disease with heart failure and stage 1 through stage 4 chronic kidney disease, or unspecified chronic kidney disease; I82.622 Acute embolism and thrombosis of deep veins of left upper extremity; I82.612 Acute embolism and thrombosis of superficial veins of left upper extremity; N17.9 Acute kidney failure, unspecified; R29.6 Repeated falls; I25.10 Atherosclerotic heart disease of native coronary artery without angina pectoris; N18.32 Chronic kidney disease, stage 3b; E78.5 Hyperlipidemia, unspecified; J45.909 Unspecified asthma, uncomplicated; G47.33 Obstructive sleep apnea (adult) (pediatric); K21.9 Gastro-esophageal reflux disease without esophagitis; D63.1 Anemia in chronic kidney disease; D50.9 Iron deficiency anemia, unspecified; E11.22 Type 2 diabetes mellitus with diabetic chronic kidney disease; E83.42 Hypomagnesemia; N40.0 Benign prostatic hyperplasia without lower urinary tract symptoms; F39 Unspecified mood [affective] disorder; G25.81 Restless legs syndrome; Z95.0 Presence of cardiac pacemaker; Z98.41 Cataract extraction status, right eye; Z98.42 Cataract extraction status, left eye; Z96.653 Presence of artificial knee joint, bilateral; Z79.82 Long term (current) use of aspirin; Z79.4 Long term (current) use of insulin; Z79.899 Other long term (current) drug therapy; Z95.5 Presence of coronary angioplasty implant and graft; J44.9 Chronic obstructive pulmonary disease, unspecified